=== PATIENT | female | born 1970 | race Caucasian/White ===

== ENCOUNTER 2024-04-13 15:52 | Emergency (ER) | payer OTHER, SELFPAY ==
[2024-04-13 16:21] VITALS: BP 125/69; PULSE 88; RESP 18; TEMP 36.8; O2SAT 97
[2024-04-13 16:26] LABS: EDSTREPNEGPOS1 Negative (Negative)
[2024-04-13 16:34] LABS: EDINFLUASCREEN Negative (Negative); EDINFLUBSCREEN Negative (Negative)
[2024-04-13 16:35] LABS: EDCOVIDSCREEN Negative (Negative)
--- NOTE | 2024-04-13 17:14 | ED.GENADULT ---
HPI - General Adult General Chief complaint: Upper Respiratory Infection Stated complaint: cough/sore throat/ fatigue Source: patient Mode of arrival: ambulatory Limitations: no limitations History of Present Illness HPI narrative: Patient presents for evaluation of sick symptoms since yesterday. Her primary symptom is sore throat. She has also experienced some postnasal drainage and cough. During coughing episodes she has had some vomiting. She denies nausea otherwise. No diarrhea or SOB. A family member recently had step and two other family members had a viral URI. She does not smoke. Related Data Home Medications ?Medication ?Instructions ?Recorded ?Confirmed ?Last Taken ?Type atorvastatin 10 mg tablet mg 04/13/24 Unknown History calcium carbonate mg 04/13/24 Unknown History fexofenadine 180 mg tablet mg 04/13/24 Unknown History (Allergy Relief (fexofenadine)) medroxyprogesterone 150 mg/mL mg IM 04/13/24 Unknown History intramuscular suspension metoprolol tartrate 25 mg tablet mg 04/13/24 Unknown History venlafaxine 75 mg capsule,extended mg PO 04/13/24 Unknown History release 24 hr Allergies Allergy/AdvReac Type Severity Reaction Status Date / Time No Known Allergies Allergy Verified 04/13/24 16:22 Review of Systems Review of Systems: CONSTITUTIONAL: Denies fever, chills, or sweats. EYES: Denies visual changes, redness, or discharge. ENT: Reports sore throat. Denies rhinorrhea, congestion, or otalgia. CARDIOVASCULAR: Denies chest pain, palpitations, or edema. RESPIRATORY: Reports cough. Denies shortness of breath. GASTROINTESTINAL: Reports vomiting during coughing episodes. Denies vomiting otherwise. Denies nausea or diarrhea. GENITOURINARY: Denies dysuria or hematuria. SKIN: Denies rash or itching. MUSCULOSKELETAL: Denies back pain, joint pain, or myalgia. NEUROLOGIC: Denies headache, numbness, dizziness, or weakness. PSYCHIATRIC: Denies anxiety or depression. [facility] Past Medical History Medical History No pertinent past medical history Surgical History Surgical History No pertinent past surgical history Family History Family History Mother Family history non-contributory Social History Social History Smoking status: Never smoker Substance use: never Living arrangements: with family Gender identity (if verbalized by the patient): Female Sexual Orientation (if Verbalized by the Patient): Straight or Heterosexual Spiritual care concerns: No Exam Narrative: GENERAL: Well-appearing, well-nourished, and in no acute distress. HEAD: Normocephalic, atraumatic. EYES: PERRLA and EOMI. ENT: Nares clear, no rhinorrhea or epistaxis. Mucous membranes moist. There is posterior pharyngeal erythema without exudate. Uvula is midline. Bilateral TMs pearly marin nonbulging NECK: Supple. No adenopathy or masses. No carotid bruits or JVD CHEST: Clear to auscultation. No respiratory distress. No wheezes rales or rhonchi HEART: Regular rate and rhythm. No murmur heard. Normal peripheral pulses. ABDOMEN: Soft, nontender, nondistended, normal active bowel sounds. EXTREMITIES: Normal range of motion. No edema. SKIN: Warm, dry, no rash. NEURO: No focal deficits. Alert and oriented x3. PSYCH: Normal mood and affect. Course Course Emergency Course: This is a 53-year-old female who presented for evaluation sick symptoms. Rapid strep negative. Through shared decision making opted proceed with antibiotic therapy due to recent strep exposure. Will discharge with amoxicillin. Increase hydration. [id number] agents for symptom management. Follow up with primary provider. Go to the ER for worsening symptoms. Patient in agreement with plan care plan Level of Care: Express Care Visit Vital Signs Vital signs: Vital Signs Temperature 36.8 C 04/13/24 16:21 Pulse Rate 88 04/13/24 16:21 Respiratory Rate 18 04/13/24 16:21 Blood Pressure 125/69 04/13/24 16:21 Pulse Oximetry 97 04/13/24 16:21 Oxygen Delivery Room Air 04/13/24 16:21 Temperature 36.8 C 04/13/24 16:21 Pulse Rate 88 04/13/24 16:21 Respiratory Rate 18 04/13/24 16:21 Blood Pressure 125/69 04/13/24 16:21 Pulse Oximetry 97 04/13/24 16:21 Oxygen Delivery Room Air 04/13/24 16:21 Medical Decision Making Vital Signs Vital Signs: Vital Signs Temperature 36.8 C 04/13/24 16:21 Pulse Rate 88 04/13/24 16:21 Respiratory Rate 18 04/13/24 16:21 Blood Pressure 125/69 04/13/24 16:21 Pulse Oximetry 97 04/13/24 16:21 Oxygen Delivery Room Air 04/13/24 16:21 Temperature 36.8 C 04/13/24 16:21 Pulse Rate 88 04/13/24 16:21 Respiratory Rate 18 04/13/24 16:21 Blood Pressure 125/69 04/13/24 16:21 Pulse Oximetry 97 04/13/24 16:21 Oxygen Delivery Room Air 04/13/24 16:21 Lab Data Labs: Lab Results 04/13/24 04/13/24 Range/Units 16:25 16:33 POC Influenza A Ag Negative (Negative) POC Influenza B Ag Negative (Negative) POC SARS CoV-2 Ag Negative (Negative) POC Grp A Strep Screen Negative (Negative) Discharge Plan Discharge Clinical Impression: Pharyngitis, Exposure to strep throat Patient Disposition: Home, Self-Care Condition: Stable Instructions: Antibiotic Form, Pharyngitis (ED) Patient Language: Chilean Prescriptions: New amoxicillin 500 mg tablet 500 mg PO Q12H Qty: 20 0RF No Action atorvastatin 10 mg tablet fexofenadine [Allergy Relief (fexofenadine)] 180 mg tablet venlafaxine 75 mg capsule,extended release 24hr PO calcium carbonate 500 mg calcium (1,250 mg) tablet medroxyprogesterone 150 mg/mL suspension IM metoprolol tartrate 25 mg tablet Follow-up/Referrals: John,Clemencia García [Other] Time of Disposition: 17:13
--- OUTSIDE RECORDS SUMMARY | 2024-04-18 13:15 | XMS_ITS | Encounter Summary ---
Author Organization [facility] Address [address] [place] [address] Care Team Providers Care Cma Or Lpn Name Role Phone [address] Primary Care Prov ider Encounter Details Date Type Department Care Team (Late st Contact Info) Description 11/19/2020 Orders Only [facility], [facility] [address] [facility] [place] [id number] Gerry Lew MD [facility] [facility] [address] [place] [address] Thyroid nodule Social History Tobacco Use Types Packs/Day Years Used Date Smoking Tobacco: Never Smokeless Tobacco: Never Alcohol Use Standard Drinks/Week Comments Yes 0 (1 standard drink = 0.6 oz pur e alcohol) Social Sex and Gender Information Value Date Recorded Sex Assigned at Not on file Gender Identity Not on file Sexual Orientation Not on file documented as of this encounter Plan of Treatment Not on file documented as of this encounter Visit Diagnoses Diagnosis Thyroid nodule Nontoxic uninodular goiter documented in this encounter Care Teams Cma Or Lpn Relationship Specialty Start Date End Date [address] [place], [place] [id number] PCP - General 05/20/18 documented as of this encounter
--- OUTSIDE RECORDS SUMMARY | 2024-04-18 13:15 | XMS_ITS | Clinical Summary ---
Author Organization [facility] Address [address] [place] [address] Care Team Providers Care Networks Computer Consultant Name Role Phone [address] Primary Care Prov ider Source Comments [facility],non-owned Affiliates and Associated Physician Practices is amultiple site organization consisting of ambulatory clinics and hospital sitesin [place], [place], [place] and [place]. This disclosure is being madepursuant to the Care Everywhere program and may not contain all information available regarding this patient. Last updated 18.[facility] [place] Allergies No known active allergies Medications * Be aware that medications may not be up to date on this document. Alwaysverify current medications with the patient. Medication Sig Dispensed Refills Start Date End Date Status fexofenadine-pseudoeph edrine ER 12hr (ROLDAN-D) 60-120 MG tablet Take 180 mg by mouth. 11/29/2016 Active CALTRATE 600+D 600-800 MG-UNIT tablet Take 1 tablet by mouth once daily 03/31/2018 Active vitamin D, cholecalciferol, 2000 UNITS tablet Take 2,000 Units by mouth once daily 03/31/2018 Active fluticasone propionate (FLONASE) 50 MCG/ACT nasal spray [place] 1 spray into each nostril once daily 03/13/2018 Active DEPO-PROVERA 150 MG/ML vial Every 90 days 05/02/2018 Active atorvastatin (LIPITOR) 10 MG tablet Take 10 mg by mouth at bedtime Active Active Problems Problem Noted Date Diagnosed Date Hyperlipidemia 03/27/2022 05/18/2023 Patellar malalignment syndrome of right knee 04/202005/18/2023 Abdominal pain 05/20/2018 Laboratory examination 05/20/2018 Disorder of bone and cartilage 05/20/2018 Gynecological examination 05/20/2018 Urinary frequency 05/20/2018 Overview (05/20/2018): 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; will r/o UTI Encounter for issue of repeat prescription 05/20 Screening for osteoporosis 05/20/2018 Screening examination for pulmonary tuberculosis 05/20/2018 Deviated nasal septum 11/29/2016 Mastodynia 11/29/2016 Irritable colon 11/29/2016 Hypertrophy of nasal turbinates 11/29/2016 Other chronic disease of tonsils and adenoids Chronic rhinitis 11/29/2016 Other specified enthesopathi es of unspecified lower limb, excluding foot 11/29/2016 Thyroid nodule 06/23/2015 Enthesopathy of hip region 06/09/2008 Goiter, non-toxic Immunizations Name Administration Dates Next Due FLU VACCINE TRI IIV3 SPLIT PF IM (FLUVIRIN) 01/28 HEP B VACCINE, ADULT 3 DOSE 12/01/2014, 5,06/01/2014 INFLUENZA VACCINE, QUADR. (F LUZONE; FLULAVAL; FLUARIX; AFLURIA QUADRIVALENT; 6MO+), 0.5 ML (IIV4) 03/10/2020,02/23/2016 MMR 06/29/2014,06/01/2014 TDAP (7yrs+) 05/13/2014 Family History Medical History Relation Name Comments Cancer Maternal Grandfather Diabetes Maternal Grandfather Cancer Maternal Grandmother Heart Disease Paternal Grandfather Thyroid Disease Paternal Uncle surgery on thyroid ; THYROID CANCER Asthma Neg Hx COPD - Chronic Obstructive Pulmonary Disease Neg Hx CVA Neg Hx Elevated Lipids Neg Hx Hypertension Neg Hx Kidney Disease Neg Hx Relation Name Status Comments Maternal Grandfather Maternal Grandmother Paternal Grandfather Paternal Uncle Social History Tobacco Use Types Packs/Day Years Used Date Smoking Tobacco: Never Smokeless Tobacco: Never Tobacco Cessation:Counseling Given: Not Answered Alcohol Use Standard Drinks/Week Comments Yes 0 (1 standard drink = 0.6 oz pur e alcohol) Social Sex and Gender Information Value Date Recorded Sex Assigned at Not on file Gender Identity Not on file Sexual Orientation Not on file Last Filed Vital Signs Vital Sign Reading Time Taken Comments Blood Pressure 123/79 05/18/2023 11:05 AM [employer] Pulse 89 05/18/2023 11:05 AM [employer] Temperature 37 ??C (98.6 ??F) 05/18/2023 11:05 AM [employer] Respiratory Rate 18 05/18/2023 11:05 AM [employer] Oxygen Saturation 99% 05/18/2023 11:05 AM [employer] Inhaled Oxygen Concentration - - Weight 74.4 kg (164 lb) 05/18/2023 11:05 AM [employer] Height 162.6 cm (5' 4 ) 05/26/2020 4:21 PM [employer] Body Mass Index 28.15 05/26/2020 4:21 PM [employer] Plan of Treatment Health Maintenance Due Date Last Done Comments COLOGUARD (AGES 45-75) - COLON CA SCREENING 1971 COLON MONITORING 1971 COLONOSCOPY - COLON CA SCREENING 1971 CT COLONOGRAPHY - COLON CA SCREENING 1971 Colorectal Cancer Screening 1971 FIT - COLON CA SCREENING 1971 FLEX SIG - COLON CA SCREENING 1971 PAP SMEAR 1971 HIV SCREENING 08/13/1986 HEPATITIS C SCREENING 08/09/1989 ZOSTER VACCINE (1 of 2) 08/13/2021 DEPRESSION SCREENING 04/30/2023 COVID-19 VACCINE ( season) 2023 07/10/2020, 06/15/2020 INFLUENZA VACCINE (#1) 2023 3, 03/02/2022, 03/29/2021, Additional history exists MAMMOGRAM 01/29/2024 01/28/2022, 12/30, 12/10/2019 DTAP/TDAP/TD VACCINES (2 - Td or Tdap) 05/13/2024 05/13/2014 HEPATITIS B VACCINE Completed 12/01/2014, 06/29/2014, 06/01/2014 HIB VACCINE Aged Out No longer eligi ble based on patient's age to complete this topic HPV VACCINE Aged Out No longer eligi ble based on patient's age to complete this topic MENINGOCOCCAL VACCINE Aged Out No víctor ky eligible based on patient's age to complete this topic PNEUMOCOCCAL VACCINE Aged Out No long er eligible based on patient's age to complete this topic Care Teams Networks Computer Consultant Relationship Specialty Start Date End Date [address] [facility] [address] [place] [address] PCP - General 05/20/18
--- OUTSIDE RECORDS SUMMARY | 2024-04-18 13:15 | XMS_ITS | Patient Health Summary ---
Author Organization [facility] Address [address] [place] [address] Care Team Providers Care Farm Reporter Name Role Phone [address] Primary Care Prov ider Note from [facility],non-owned Affiliates and Associated Physician Practices is amultiple site organization consisting of ambulatory clinics and hospital sitesin [place], [place], [place] and [place]. This disclosure is being madepursuant to the Care Everywhere program and may not contain all information available regarding this patient. Last updated 18.[facility] Allergies No known active allergies Medications * Be aware that medications may not be up to date on this document. Alwaysverify current medications with the patient. * fexofenadine-pseudoephedrine ER 12hr (ROLDAN-D) 60-120 MG tablet(Started 11/29/2016) Take 180 mg by mouth. * CALTRATE 600+D 600-800 MG-UNIT tablet(Started 03/31/2018) Take 1 tablet by mouth once daily * vitamin D, cholecalciferol, 2000 UNITS tablet(Started 03/31/2018) Take 2,000 Units by mouth once daily * fluticasone propionate (FLONASE) 50 MCG/ACT nasal spray(Started 03/13/2018) [place] 1 spray into each nostril once daily * DEPO-PROVERA 150 MG/ML vial(Started 05/02/2018) Every 90 days * atorvastatin (LIPITOR) 10 MG tablet Take 10 mg by mouth at bedtime Active Problems Problem Noted Date Diagnosed Date Hyperlipidemia 03/27/2022 05/18/2023 Patellar malalignment syndrome of right knee 04/202005/18/2023 Abdominal pain 05/20/2018 Laboratory examination 05/20/2018 Disorder of bone and cartilage 05/20/2018 Gynecological examination 05/20/2018 Urinary frequency 05/20/2018 Encounter for issue of repeat prescription 05/20 Screening for osteoporosis 05/20/2018 Screening examination for pulmonary tuberculosis 05/20/2018 Deviated nasal septum 11/29/2016 Mastodynia 11/29/2016 Irritable colon 11/29/2016 Hypertrophy of nasal turbinates 11/29/2016 Other chronic disease of tonsils and adenoids Chronic rhinitis 11/29/2016 Other specified enthesopathi es of unspecified lower limb, excluding foot 11/29/2016 Thyroid nodule 06/23/2015 Enthesopathy of hip region 06/09/2008 Goiter, non-toxic Immunizations * FLU VACCINE TRI IIV3 SPLIT PF IM (FLUVIRIN)(Given 02/15/2015) * HEP B VACCINE, ADULT 3 DOSE(Given 12/01/2014, 06/29/2014, 06/01/2014) * INFLUENZA VACCINE, QUADR. (FLUZONE; FLULAVAL; FLUARIX; AFLURIA QUADRIVALENT; 6MO+), 0.5 ML (IIV4)(Given 03/10/2020, 02/23/2016) * MMR(Given 06/29/2014, 06/01/2014) * TDAP (7yrs+)(Given 05/13/2014) Social History Tobacco Use Types Packs/Day Years [...] Comments Blood Pressure 123/79 05/18/2023 11:05 AM PHONE SPECIALIST Pulse 89 05/18/2023 11:05 AM PHONE SPECIALIST Temperature 37 ??C (98.6 ??F) 05/18/2023 11:05 AM PHONE SPECIALIST Respiratory Rate 18 05/18/2023 11:05 AM PHONE SPECIALIST Oxygen Saturation 99% 05/18/2023 11:05 AM PHONE SPECIALIST Inhaled Oxygen Concentration - - Weight 74.4 kg (164 lb) 05/18/2023 11:05 AM PHONE SPECIALIST Height 162.6 cm (5' 4 ) 05/26/2020 4:21 PM PHONE SPECIALIST Body Mass Index 28.15 05/26/2020 4:21 PM PHONE SPECIALIST Procedures * LAB RESULTS ORDER(Performed 05/24/2023) * NE US SOFT TISS HEAD&NCK R-T IMG(Performed 05/18/2023) Performed for Thyroid nodule * LAB RESULTS ORDER(Performed 05/27/2020) * NE US SOFT TISS HEAD&NCK R-T IMG(Performed 05/26/2020) Performed for Thyroid nodule * LAB RESULTS ORDER(Performed 05/19/2020) * LAB RESULTS ORDER(Performed 05/14/2020) * NE US SOFT TISS HEAD&NCK R-T IMG(Performed 05/24/2019) Performed for Thyroid nodule, Goiter, non-toxic * LAB RESULTS ORDER(Performed 05/09/2019) * LAB RESULTS ORDER(Performed 12/03/2017) * LAB RESULTS ORDER(Performed 10/19/2017) * LAB HISTORICAL RESULTS-ONBASE(Performed 07/11/2016) * LAB HISTORICAL RESULTS-ONBASE(Performed 07/11/2016) * TSH(Performed 06/23/2015) Results * LAB RESULTS ORDER (05/24/2023) Only the most recent of7 resultswithin the time period is included. 05/24/2023 Narrative 05/24/2023 Ordered by an unspecified provider. Scanned Document LAB - THERAPEUTIC DR UG MONITORING ORDERABLES * NE US SOFT TISS HEAD&NCK R-T IMG (05/18/2023 1:34 PM PHONE SPECIALIST) Narrative Gerry Lew MD - 05/18/2023 1:34 PM PHONE SPECIALIST Gerry Lew MD ? 05/18/2023 ??2:01 PM Ultrasound ??Of ??Thyroid Ultrasound of the Thyroid PHYSICIAN ??Gerry Lew MD FELLOW ??Ricky CARTER MD Test Date: 05/18/2023 Test Indication: Patient Active Problem List: ?? Deviated nasal septum ?? Mastodynia ?? Irritable colon ?? Hypertrophy of nasal turbinates ?? Other chronic disease of tonsils and adenoids ?? Chronic rhinitis ?? Other specified enthesopathies of unspecified lower limb, excluding foot ?? Thyroid nodule ?? Abdominal pain ?? Enthesopathy of hip region ?? Laboratory examination ?? Disorder of bone and cartilage ?? Gynecological examination ?? Urinary frequency ?? Encounter for issue of repeat prescription ?? Screening for osteoporosis ?? Screening examination for pulmonary tuberculosis ?? Goiter, non-toxic ?? Hyperlipidemia ?? Patellar malalignment syndrome of right knee ?? Referring Physician: Dr. bates [facility] Procedure Preformed: Ultrasound Only COMPARED TO : ?05/23/2019, 05/26/2020 Nodule Size: RIGHT LOBE NUMEROUS CYSTS THROUGH OUT LOBE , MEASURED MOST IN TRANSVERSE IMAGE TRANSVERSE IMAGE ??UPPER POLE, LATERAL CYST, 0.43 X 0.26 CM ??UPPER POLE, SPONGIFORM NODULE, MEDIAL, 0.71 X 0.33 CM ??UPPER POLE, CYST, 0.40 X 0.26 CM ??UPPER POLE, MEDIAL, CYST WITH COMET TAIL ARTIFACT, 0.51 X 0.28 CM ??MID LOBE CYST, 0.40 X 0.30 CM ??MID LOBE , CYST, LATERAL, 0.48 X 0.38 CM ??MID LOBE, CYSTIC/ SOLID, 0.49 X 0.40 CM ??MID LOBE, CYST, 0.33 X 0.17 CM ??MID LOBE, ANTERIOR, MEDIAL, CYST, 0.30 X 0.19 CM ??MID LOBE, LATERAL, CYSTIC/SOLID, 0.38 X 0.29 CM ??MID LOBE, MEDIAL, CYST, 0.33 X 0.21 CM ??INFERIOR POLE, LATERAL, CYST, 0.39 X 0.22 CM ??#1 ??INFERIOR POLE, ANTERIOR, SPONGIFORM NODULE, 1.04 X 0.64 CM , SECOND IMAGE 1.08 X 0.61 CM LONGITUDINAL IMAGE ??#1 ??1.47 X 0.48 CM ??SOME OTHER NODULES WERE MEASURED IN THIS VIEW OF THE LOBE ?? UPPER POLE, C YST, 0.51 X 0.30 CM ?? UPPER POLE, ANTERIOR, SPONGIFORM NODULE, 0.75 X 0.36 CM ?? MID LOBE, CYST, 0.65 X 0.41 CM ?? MID LOBE, SPONGIFORM , 0.66 X 0.40 CM ?? MID LOBE, CYST, 0.42 X 0.22 CM ?? INFERIOR POLE, CYST, 0.26 X 0.18 CM ?? INFERIOR POLE , CYST, 0.38 X 0.19 CM LEFT LOBE TRANSVERSE IMAGE ??#1 ??UPPER POLE, POSTERIOR, SPONGIFORM, 0.61 X 0.34 CM ??#2 ?? UPPER POLE, ANTERIOR, SPONGIFORM, 0.66 X 0.39 CM ??#3 ?MID LOBE, ANECHOIC CYST, 0.96 X 0.75 CM ??#4 ?INFERIOR POLE, CYSTIC/ SOLID, ISOECHOIC, SMOOTH BORDER, SPONGIFORM, 1.96 X 0.83 CM ??#5 ?MID LOBE, ANTERIOR, MEDIAL, CYST, 0.46 X 0.26 CM ??#6 ?MID LOBE, ANECHOIC, CYST, ??0.45 X 0.30 CM ??#7 ?UPPER POLE, ANTERIOR, CYST, 0.28 X 0.20 CM ??#8 ?UPPER POLE CYST, 0.21 X 0.17 CN ??#9 ?UPPER POLE, CYST, 0.22 X 0.18 CM LONGITUDINAL IMAGE ??#1 ??0.71 X 0.43 CM ??#2 ??0.78 X 0.39 CM ??#3 ?1.29 X 0.87 CM ??#4 ?1.82 X 0.78 CM, ??SECOND IMAGE ??1.88 X 0.85 CM Echogenicity: HETEROGENEOUS ECHO TEXTURE TO BOTH LOBES Vascularity: NOT INCREASED OR ABNORMAL Number of Nodules Present: NUMEROUS ANECHOIC OR COMPLEX CYSTS IN BOTH LOBES Calcifications: NONE Borders: SHARP RIGHT LOBE TRANSVERSE IMAGE : ??1.71 X 1.12 CM LONGITUDINAL IMAGE: ??5.62 CM ISTHMUS : ??0.21 CM LEFT LOBE TRANSVERSE IMAGE : ??1.67 X 1.39 CM LONGITUDINAL IMAGE : ??5.02 CM ASSESSMENT NO CHANGE IN LARGEST NODULE FROM US DONE OUTSIDE IN 2022 EUTHYROID CLINICALLY NO CHANGE IN US DESCRIPTION FROM PRIOR US AT [facility] BY ME Recommendations: PLAN THYROID ULTRASOUND TODAY LAB SOON FOR TSH MEDICATION - NONE INDICATED FOR THYROID RETURN IN TWO ??YEARS FOR ??ULTRASOUND AT LEAST ANNUAL TSH DETERMINATION IF TSH GREATER THAN 5 WILL OBTAIN FREE T4 IF TSH LESS THAN 0.1 WILL OBTAIN FREE T4 AND FREE T3 Gerry Lew MD Division of Endocrinology Gerry Lew MD PROCEDURE/MINOR MANUELA GICAL ORDERABLES * NE US SOFT TISS HEAD&NCK R-T IMG (05/26/2020 5:22 PM PHONE SPECIALIST) Narrative Gerry Lew MD - 05/26/2020 5:22 PM PHONE SPECIALIST Gerry Lew MD ? 05/26/2020 ??5:54 PM Ultrasound ??Of ??Thyroid Ultrasound of the Thyroid PHYSICIAN ?? Gerry Lew MD FELLOW NONE Test Date: 05/26/2020 Test Indication: Patient Active Problem List: ?? Deviated nasal septum ?? Mastodynia ?? Irritable colon ?? Hypertrophy of nasal turbinates ?? Other chronic disease of tonsils and adenoids ?? Chronic rhinitis ?? Other specified enthesopathies of unspecified lower limb, excluding foot ?? Thyroid nodule ?? Abdominal pain ?? Enthesopathy of hip region ?? Laboratory examination ?? Disorder of bone and cartilage ?? Gynecological examination ?? Urinary frequency ?? Encounter for issue of repeat prescription ?? Screening for osteoporosis ?? Screening examination for pulmonary tuberculosis ?? Goiter, non-toxic ?? [facility] Phys[facility] Procedure Preformed: Ultrasound Only COMPARED TO 05/23/2019 Nodule Size: RIGHT LOBE TRANSVERSE IMAGE: ??MULTIPLE HYPOECHOIC CYSTS THROUGHOUT LOBE, MEASURED SOME BUT NOT ALL AND MOSTLY ONLY MEASURED THIS VIEW ??SUPERIOR MEDIAL 0.42 X 0.30 CM; ??SUPERIOR LATERAL ??0.30 X 0.20 CM; ??SUPERIOR LATERAL 0.46 X 0.33 CM; ??MID LOBE LATERAL 0.65 X 0.33 CM; ??MID LOBE 0.40 X 0.17 CM; ?INFERIOR MEDIAL 0.31 X 0.20 CM; ??INFERIOR MEDIAL NEAR ISTHMUS 0.76 X 0.44 CM, SECOND IMAGE 0.72 X 0.49 CM, THIRD IMAGE 0.96 X 0.55 CM, FOURTH IMAGE FROM VIEW OD ?? ISTHMUS ??0.66 X 0.38 ??CM ?? COMPLEX CYST, WITH COMET TAIL ARTIFACT; ??INFERIOR POSTERIOR 0.35 X 0.25 CM; ?? LONGITUDINAL IMAGE: ??ONLY A FEW MEASURED : ??MID LOBE 0.65 X 0.25 CM; ??MID LOBE 0.33 X 0.21 CM; ?? ISTHMUS INFERIOR RIGHT LOBE MEDIAL NEAR ISTHMUS SEE ABOVE ALSO 0.73 X 0.54 CM, SPONGIFORM; ?? LEFT LOBE TRANSVERSE IMAGE: ??MULTIPLE HYPOECHOIC CYSTS THROUGH OUT LOBE, SOME ARE MEASURED AND ONLY IN THIS VIEW: ??SUPERIOR POLE 0.31 X 0.22 CM; ??SUPERIOR POLE, ?SPONGIFORM , 0.65 X 0.34 CM; ?? POSTERIOR MID LOBE WITH COMET TAIL ARTIFACTS 0.62 X 0.41 CM; ??MID LOBE LATERAL 0.40 X 0.30 CM; ??MID LOBE 0.35 X 0.28 CM; ?MID LOBE ANTERIOR HYPOECHOIC, SOLID SMOOTH 0.49 X 0.35 CM; ??MID TO INFERIOR POLE LATERAL 0.23 X 0.16 CM; ?? INFERIOR POLE, ANTERIOR, SMOOTH BORDER, COMPLEX ??CYST 1.13 X 0.74 CM; ?? LONGITUDINAL IMAGE: ??ONLY SOME MEASURED ??INFERIOR POLE CYSTIC/SOLID, SPONGIFORM, SMOOTH BORDER 1.26 X 0.70 CM, 1.23 ??X 0.64 CM SECOND IMAGE; SUPERIOR TO MID LOBE CYST 0.49 X 0.29 CM; ?? Echogenicity: HETEROGENEOUS ECHO TEXTURE TO BOTH LOBES Vascularity: NOT INCREASED OR ABNORMAL Number of Nodules Present: SEE ABOVE , MANY, LESS THAN 1.0 CM Calcifications: NONE Borders: SHARP RIGHT LOBE TRANSVERSE IMAGE: ??1.92 X 1.30 CM LONGITUDINAL IMAGE: ??5.84 CM ISTHMUS: ??0.20 CM LEFT LOBE TRANSVERSE IMAGE: ??1.90 X 1.03 CM LONGITUDINAL IMAGE: ??5.22 CM ?? ASSESSMENT MULTINODULAR THYROID EUTHYROID NO CHANGE IN ULTRASOUND APPEARANCE NODULES DO NOT MEET MILAGROS CRITERIA FOR FNA BIOPSY Recommendations: PLAN THYROID ULTRASOUND TODAY REPEAT ULTRASOUND IN TWO YEARS AT LEAST ANNUAL TSH DETERMINATION RETURN IN TWO YEARS FOR ULTRASOUND IF TSH GREATER THAN 5 WILL OBTAIN FREE T4 IF TSH LESS THAN 0.1 WILL OBTAIN FREE T4 AND FREE T3 REVIEWED ULTRASOUND IMAGES WITH PATIENT DISCUSSED FOLLOW AND NEED FOR ANNUAL TSH Gerry Lew MD Division of Endocrinology Gerry Lew MD PROCEDURE/MINOR MANUELA GICAL ORDERABLES * NE US SOFT TISS HEAD&NCK R-T IMG (05/24/2019 11:40 PM PHONE SPECIALIST) Narrative Gerry Lew MD - 05/24/2019 11:40 PM PHONE SPECIALIST Gerry Lew MD ? 05/24/2019 11:50 PM Ultrasound ??Of ??Thyroid Ultrasound of the Thyroid PHYSICIAN ?? Gerry Lew MD FELLOW ??Sulaiman DEL RIO Test Date: 05/24/2019 Test Indication: Patient Active Problem List: ?? Deviated nasal septum ?? Mastodynia ?? Irritable colon ?? Hypertrophy of nasal turbinates ?? Other chronic disease of tonsils and adenoids ?? Chronic rhinitis ?? Other specified enthesopathies of unspecified lower limb, excluding foot ?? Thyroid nodule ?? Abdominal pain ?? Enthesopathy of hip region ?? Laboratory examination ?? Disorder of bone and cartilage ?? Gynecological examination ?? Urinary frequency ?? Encounter for issue of repeat prescription ?? Screening for osteoporosis ?? Screening examination for pulmonary tuberculosis ?? Goiter, non-toxic ?? Referring Physician: [facility] Procedure Preformed: Ultrasound Only Nodule Size: MULTIPLE HYPOECHOIC CYSTS THROUGHOUT BOTH LOBES , SOME ARE MEASURED BELOW BUT NOT ALL AND TRANSVERSE IMAGES NOT CORRELATED WITH LONGITUDINAL IMAGES RIGHT LOBE TRANSVERSE IMAGE: ??0.45 X 0.37 CM, ??0.16 X 0.10 CM, ??0.32 X 0.39 CM, ??0.48 X 0.35 CM, ??0.24 X 0.14 CM, ??0.31 X 0.16 CM, ??0.65 X 0.41 CM, ??0.34 X 0.17 CM LONGITUDINAL IMAGE: ??0.66 X 0.34 CM, ??0.56 X 0.34 CM, ??0.31 X 0.21 CM, ??0.22 X 0.14 CM, 0.84 X 0.28 CM, ??0.36 X 0.23 CM LEFT LOBE TRANSVERSE IMAGE: ??0.29 X 0.17 CM, ??0.58 X 0.35 CM, ??0.36 X 0.26 CM, ??0.50 X 0.31 CM, ??1.11 X 0.61 CM COMPLEX CYST LONGITUDINAL IMAGE: ??1.02 X 0.45 CM, ??0.76 X 0.34 CM, ??1.36 X 0.65 CM, ??0.36 X 0.20 CM Echogenicity: HETEROGENEOUS ECHO TEXTURE TO BOTH LOBES Vascularity: NOT INCREASED OR ABNORMAL Number of Nodules Present: MANY HYPOECHOIC CYSTS IN BOTH LOBES Calcifications: NONE Borders: SHARP RIGHT LOBE TRANSVERSE IMAGE : ??1.79 X 1.20 CM LONGITUDINAL IMAGE: ??5.37 CM ISTHMUS: ??0.21 CM LEFT LOBE TRANSVERSE IMAGE: ??1.50 X 1.11 CM LONGITUDINAL IMAGE: ??6.21 CM ASSESSMENT MULTI NODULAR GOITER EUTHYROID NO CHANGE IN THYROID GLAND APPEARANCE ON ULTRASOUND EXAMINATION Recommendations: PLAN THYROID ULTRASOUND TODAY AT LEAST ANNUAL TSH DETERMINATION RETURN IN ONE YEAR LAB IN ONE YEAR Gerry Lew MD Division of Endocrinology Gerry Lew MD PROCEDURE/MINOR MANUELA GICAL ORDERABLES * LAB HISTORICAL RESULTS-ONBASE (07/11/2016) Only the most recent of2 resultswithin the time period is included. 07/11/2016 Historical Provider LAB - CHEMISTRY O RDERABLES [facility] [address] * TSH (06/23/2015 10:56 AM PHONE SPECIALIST) TSH 0.994 0.350 - 4.940 uIU/mL [facility] Blood specimen (specimen) BLOOD SPECIMEN / Unknown 06/23/2015 10:56 AM PHONE SPECIALIST 06/23/2015 11:00 AM PHONE SPECIALIST Gerry Lew MD LAB - CHEMISTRY ORD ERABLES Performing Organization Address City/[facility]/ZIP Co de Phone Number [facility] [address] [phone] Care Teams Farm Reporter Relationship Specialty Start Date End Date [facility] [address] [place] [address] PCP - General 05/20/18
--- OUTSIDE RECORDS SUMMARY | 2024-04-18 13:15 | XMS_ITS | Referral Summary ---
Author Organization [facility] Address [address] [address] Care Team Providers Care Manager Books Name Role Phone [address] Primary Care Prov ider Source Comments [facility],non-owned Affiliates and Associated Physician Practices is amultiple site organization consisting of ambulatory clinics and hospital sitesin [place], [place], [place] and [place]. This disclosure is being madepursuant to the Care Everywhere program and may not contain all information available regarding this patient. Last updated 18.[facility] Allergies No known active allergies Medications * [...] fluticasone propionate (FLONASE) 50 MCG/ACT nasal spray [place] 1 spray into each nostril once daily [...] (IIV4) 03/10/2020,02/23/2016 MMR 06/29/2014,06/01/2014 TDAP (7yrs+) 05/13/2014 Social History Tobacco Use Types Packs/Day Years [...] Comments Blood Pressure 123/79 05/18/2023 11:05 AM CHARRER Pulse 89 05/18/2023 11:05 AM CHARRER Temperature 37 ??C (98.6 ??F) 05/18/2023 11:05 AM CHARRER Respiratory Rate 18 05/18/2023 11:05 AM CHARRER Oxygen Saturation 99% 05/18/2023 11:05 AM CHARRER Inhaled Oxygen Concentration - - Weight 74.4 kg (164 lb) 05/18/2023 11:05 AM CHARRER Height 162.6 cm (5' 4 ) 05/26/2020 4:21 PM CHARRER Body Mass Index 28.15 05/26/2020 4:21 PM CHARRER Plan of Treatment Not on file Administered Medications Care Teams Manager Books Relationship Specialty Start Date End Date [facility] [address] [place], [place] [address] PCP - General 05/20/18
--- OUTSIDE RECORDS SUMMARY | 2024-04-18 13:15 | XMS_ITS | Encounter Summary ---
Author Organization [facility] Address [address] [place] [address] Care Team Providers Care County Supervisor Name Role Phone [address] Primary Care Prov ider Encounter Details Date Type Department Care Team (Late st Contact Info) Description 11/16/2023 Orders Only [facility] - Endocrinology [address] [place] [address], [place] [id number] Gerry Lew MD [address] [place] [address] [place] [address] Thyroid nodule Social History Tobacco Use Types [...] goiter documented in this encounter Care Teams County Supervisor Relationship Specialty Start Date End Date [address] [place], [place] [id number] PCP - General 05/20/18 documented as of this encounter
--- OUTSIDE RECORDS SUMMARY | 2024-04-18 13:15 | XMS_ITS | Encounter Summary ---
Author Organization [facility] Address [facility] [place] [address] Care Team Providers Care Corporate Accounting Manager Name Role Phone [address] Primary Care Prov ider Reason for Visit * Reason Comments Thyroid Problem THYROID NODULE MULTI NODULAR THYROID * Consult, Test & Treat (Routine) - Closed Specialty Diagnoses / Procedures Referred By Contac t Referred To Contact Endocrinology Diagnoses Nontoxic single thyroid nodule Procedures [facility] UNLISTED E/M SERVICE Nathalia Rodriguez MD [address] [place] [phone] Gerry Lew MD [address] [place] [address] [address] [address] Referral ID Status Reason Start Date Expiration Date Visits Re quested Visits Authorized [id number] Closed 02/09/2023 08/08/2023 4 4 Encounter Details Date Type Department Care Team (Late st Contact Info) Description 05/18/2023 11:00 AM ATM SERVICER Office Visit [facility] - Endocrinology [address] [place] [address], [place] [phone] Gerry Lew MD [address] [place] [address] 2[address] [place] [address] Thyroid nodule (Primary Dx) Social History Tobacco Use Types Packs/Day Years [...] on file documented as of this encounter Last Filed Vital Signs Vital Sign Reading Time Taken Comments Blood Pressure 123/79 05/18/2023 11:05 AM ATM SERVICER Pulse 89 05/18/2023 11:05 AM ATM SERVICER Temperature 37 ??C (98.6 ??F) 05/18/2023 11:05 AM ATM SERVICER Respiratory Rate 18 05/18/2023 11:05 AM ATM SERVICER Oxygen Saturation 99% 05/18/2023 11:05 AM ATM SERVICER Inhaled Oxygen Concentration - - Weight 74.4 kg (164 lb) 05/18/2023 11:05 AM ATM SERVICER Height - - Body Mass Index 28.15 05/26/2020 4:21 PM ATM SERVICER documented in this encounter Patient Instructions * Patient Instructions* Gerry Lew MD - 05/17/2023 9:23 AM ATM SERVICER BP 123/79 (BP SITE: RIGHT ARM, BP POSITION: SITTING, BP Cuff Size: L) Pulse 89 Temp 98.6 ??F (37 ??C) Resp 18 Wt 74.4 kg (164 lb) SpO2 99% How to Contact Us Between Office Visits Please make your follow up appointment before you leave the office today. If you are unable to makethe appointment today, please contact us at [phone]. To make an appointment: Please call us at [phone], option 1. To requesting refills or leaving a message for your doctor, Please call [phone], option 2. This is the option to speak to a nurse if they are available. We request that all prescription refills be requested during regular office phone hours. Phone lines are open from 8:00 am to 4:30 pm Sunday through Sunday. Our fax number is [phone]. After hours urgent calls that cannot wait untill phone lines are open on the next business day are given to the Endocrine physician pig iron loader. Please call [phone] and identify yourself as a patient in our practice with your doctor's name. The head soft sugar operator will contact the physician pig iron loader. You can g enerally expect a return call within 30 minutes. On weekends, physicians are seeing hospitalized patients and there may be a longer wait. Test and laboratory results: Our practice typically reports lab and test results through letters orMYChart, the [employer] online patient portal. Please allow 5 days from when your tests are completed to receive the results. Visit our website at [email or web address] for additional information about [employer] and an interactive health encyclopedia. PLAN THYROID ULTRASOUND TODAY LAB SOON FOR TSH MEDICATION - NONE INDICATED FOR THYROID RETURN IN TWO YEARS FOR ULTRASOUND AT LEAST ANNUAL TSH DETERMINATION IF TSH GREATER THAN 5 WILL OBTAIN FREE T4 IF TSH LESS THAN 0.1 WILL OBTAIN FREE T4 AND FREE T3 SERVICER documented in this encounter Progress Notes * Omayra Rice MD - 05/18/2023 1:25 PM CST Images from the original note were not included. [facility] Endocrinology Follow up Note Date of Service- 05/18/2023 Primary care Doctor: [address] [place] [address] Clinicp CC: History of Present Illness: Daron Ragsdale is a 52 year old female with multinodular thyroid, euthyroid. Here for US thyroid follow up. Last visit was on 05/26/2020 and plan was to see her in 2 years. More than 2 years has passed since last seen, during that time patient complained of palpitations, saw cards with negativeecho x2, holter monitor negative, stress test negative as per pt. PCP did a TSH and US of thyroid in 08/2022 for that reason. On anxiety pills after seeing cardiology. Pt complains of sob when climbing stair, ET unlimited. 10 lbs gained in 6 months Tightness in throat sometimes Constipation. LABS Component Ref Range & Units 8 mo ago TSH 0.450 - 4.500 0.727 Specimen Collected: 08/28/22 Last Resulted: 08/29/22 Received From: [facility] Result Received: 05/18/23 10:38 ?? Component Ref Range & Units 8 mo ago FREE T4 0.82 - 1.77 1.19 Specimen Collected: 08/28/22 Last Resulted: 08/29/22 Received From: [facility] Result Received: 05/18/23 10:38 ?? 05/26/2020 tus procedure preformed:??ultrasound only?? compared to 05/23/2019 nodule size:?? right lobe ?transverse image: ??multiple hypoechoic cysts throughout lobe, measured some but not all and mostly only measured this view ?superior medial 0.42 x 0.30 cm; ??superior lateral ??0.30 x 0.20 cm; ??superior lateral 0.46 x 0.33 cm; ??mid lobe lateral 0.65 x 0.33 cm; ??mid lobe 0.40 x 0.17 cm; ?inferior medial 0.31 x 0.20 cm; ??inferior medial near isthmus 0.76 x 0.44 cm, second image 0.72 x 0.49 cm, third image 0.96 x 0.55 cm, fourth image from view od ?isthmus ??0.66 x 0.38 ??cm ??complex cyst, with comet tail artifact; ??inferior posterior 0.35 x 0.25 cm; ?longitudinal image: ??only a few measured : ??mid lobe 0.65 x 0.25 cm; ??mid lobe 0.33 x 0.21 cm; ? isthmus ?inferior right lobe medial near isthmus see above also 0.73 x 0.54 cm, spongiform; ?? left lobe ?transverse image: ??multiple hypoechoic cysts through out lobe, some are measured and only in this view: ??superior pole 0.31 x 0.22 cm; ??superior pole, ?spongiform , 0.65 x 0.34 cm; ??posterior mid lobewith comet tail artifacts 0.62 x 0.41 cm; ??mid lobe lateral 0.40 x 0.30 cm; ??mid lobe 0.35 x 0.28cm; ?mid lobe anterior hypoechoic, solid smooth 0.49 x 0.35 cm; ??mid to inferior pole lateral 0.23 x 0.16 cm; ?inferior pole, anterior, smooth border, complex ?cyst 1.13 x 0.74 cm; ?longitudinal image: ??only some measured ?inferior pole cystic/solid, spongiform, smooth border 1.26 x 0.70 cm, 1.23 ??x 0.64 cm second image; superior to mid lobe cyst 0.49 x 0.29 cm; ?? echogenicity:??heterogeneous echo texture to both lobes?? vascularity:??not increased or abnormal?? number of nodules present:??see above , many, less than 1.0 cm?? calcifications:??none?? borders:??sharp right lobe ?transverse image: ??1.92 x 1.30 cm ?longitudinal image: ??5.84 cm isthmus: ??0.20 cm left lobe ?transverse image: ??1.90 x 1.03 cm ?longitudinal image: ??5.22 cm ?? assessment multinodular thyroid euthyroid no change in ultrasound appearance nodules do not meet anne marie criteria for fna biopsy?? 05/23/2019 tus procedure preformed:??ultrasound only nodule size:?? multiple hypoechoic cysts throughout both lobes , some are measured below but not all and transverse images not correlated with longitudinal images right lobe ?transverse image: ??0.45 x 0.37 cm, ??0.16 x 0.10 cm, ??0.32 x 0.39 cm, ??0.48 x 0.35 cm, ??0.24 x 0.14 cm, ??0.31 x 0.16 cm, ??0.65 x 0.41 cm, ??0.34 x 0.17 cm ?longitudinal image: ??0.66 x 0.34 cm, ??0.56 x 0.34 cm, ??0.31 x 0.21 cm, ??0.22 x 0.14 cm, 0.84 x 0.28 cm, ??0.36 x 0.23 cm ?? left lobe ?transverse image: ??0.29 x 0.17 cm, ??0.58 x 0.35 cm, ??0.36 x 0.26 cm, ??0.50 x 0.31 cm, ??1.11 x 0.61 cm complex cyst ?longitudinal image: ??1.02 x 0.45 cm, ??0.76 x 0.34 cm, ??1.36 x 0.65 cm, ??0.36 x 0.20 cm echogenicity:??heterogeneous echo texture to both lobes?? vascularity:??not increased or abnormal?? number of nodules present:??many hypoechoic cysts in both lobes calcifications:??none?? borders:??sharp right lobe ?transverse image : ??1.79 x 1.20 cm ?longitudinal image: ??5.37 cm isthmus: ??0.21 cm left lobe ?transverse image: ??1.50 x 1.11 cm ?longitudinal image: ??6.21 cm assessment multi nodular goiter euthyroid no change in thyroid gland appearance on ultrasound examination?? recommendations:?? plan return in one year 11/29/2016 tus procedure preformed: ultrasound only nodule size: right lobe ?transverse image: ??largest hypoechoic cyst mid lobe lateral 1.12 x 0.88 cm; ??other hypoechoic cysts in lobe: ??0.36 x 0.20 cm, ??0.37 x 0.29 cm, ??0.23 x 0.13 cm, ??0.26 x 0.20 cm, ??0.36 x 0.27 cm, ??0.20 x 0.12 cm, ??0.34 x 0.35 cm ?longitudinal image: ??largest hypoechoic cyst lateral 1.73 x 0.76 cm; ??other hypoechoic cysts in lobe: ??0.32 x 0.18 cm, ??0.23 x 0.14 cm,, ??0.23 x 0.21 cm, ?0.21 x 0.30 cm, ??0.47 x 0.26 cm left lobe ?transverse image: ??hypoechoic cysts: ??0.20 x 0.12 cm, ??0.50 x 0.27 cm, 0.37 x 0.22 cm, ??0.40 x 0.18 cm, ??0.31 x 0.19 cm, 0.68 x 0.43 cm, ?longitudinal image: hypoechoic cysts: ??0.78 x 0.45 cm, ??0.36 x 0.21 cm, ??0.51 x 0.24 cm, 0.82 x 0.46 cm, ?? echogenicity: homogeneous vascularity: not increased or abnormal number of nodules present: numerous hypoechoic cysts calcifications: none borders: sharp right lobe ?transverse image: ??1.97 x 1.32 cm ?longitudinal image: ??4.49 cm isthmus: ??0.21 cm left lobe ?transverse image: ??1.89 x 1.06 cm ?longitudinal image: 4.2 cm Assesment: US in 2 years. ?? LAB 05/12/2020 ANTI TG <1.0 NORMAL 0-0.9 ANTI TPO <9 0-34 05/12/2020 TSH 0.73 NORMAL 0.34-4.94 05/07/2019 TSH ? 0.35?NORMAL?0.34-4.94 07/11/2016 TSH ?1.23 ?NORMAL 0.34-4.94?10/17/2017 TSH ? 0.53 ?NORMAL 0.34-4.94 07/11/2016 TSH ?1.23 ?NORMAL 0.34-4.94? Results for DARON RAGSDALE ( ) as of 05/26/2020 16:12 ?? Ref. Range 06/23/2015 10:56 TSH Latest Ref Range: 0.350 - 4.940 uIU/mL 0.994 ?? Current Outpatient Medications Medication Sig ??? atorvastatin (LIPITOR) 10 MG tablet Take 10 mg by mouth at bedtime ??? CALTRATE 600+D 600-800 MG-UNIT tablet Take 1 tablet by mouth once daily ??? DEPO-PROVERA 150 MG/ML vial Every 90 days ??? fexofenadine-pseudoephedrine ER 12hr (ROLDAN-D) 60-120 MG tablet Take 180 mg by mouth. ??? fluticasone propionate (FLONASE) 50 MCG/ACT nasal spray [place] 1 spray into each nostril once daily ??? vitamin D, cholecalciferol, 2000 UNITS tablet Take 2,000 Units by mouth once daily No current facility-administered medications for this visit. Physical Exam: Constitutional: BP 123/79 (BP SITE: RIGHT ARM, BP POSITION: SITTING, BP Cuff Size: L) Pulse 89 Temp 98.6 ??F (37 ??C) Resp 18 Wt 74.4 kg (164 lb) SpO2 99% General: alert x 3, No distress, appears stated age Thyroid:, thyroid enlarged, smooth, nontender, no nodules. Heart: RRR, S1 S2 normal, No murmurs Respiratory: clear to ascultation bilateral Abdomen : Soft , Nont Tender, Bowel sounds normal Extremities: no edema, normal Laboratory Data: No results for input(s): HGBA1C in the last 80671 hours. Recent Labs Component Name 06/23/15 1056 TSH 0.994 No results for input(s): MICROALBCREA in the last 62963 hours. No results for input(s): HGBA1C in the last 03126 hours. No results for input(s): SODIUM , POTASSIUM , CHLORIDE , CO2 , BUN , CREATININE , GLUCOSE , CALCIUM in the last 02818 hours. No results for input(s): CHOL , TRIG , HDL , LDLCALC in the last 83862 hours. Assessment: Diagnoses and all orders for this visit: Thyroid nodule - PROC ULTRASOUND THYROID W/WO FNA BIOPSY - TSH; Standing - TSH Thyroid US done today 05/18/2022 no significant changes from last one also similar to the one done in 08/2022. Please see Procedure note from today. Plan: TSH now and then annually Return to clinic in two years for thyroid ultrasound Orders Placed This Encounter Procedures ??? TSH Omayra Rice MD Endocrinology, Diabetes and Metabolism. SERVICER * Gerry Lew MD - 05/18/2023 11:00 AM CST Images from the original note were not included. I HAVE SEEN AND EXAMINED THE PATIENT WITH THE ENDOCRINE FELLOW AND I AGREE WITH THE FINDINGS AND PLAN OF CARE DOCUMENTED BY THE ENDOCRINE FELLOW DATE OF SERVICE 05/18/2023 Signed electronically Gerry Lew MD Professor of Internal Medicine HISTORY / PROGRESS NOTE Date: 05/18/2023 Chief Complaint or Purpose for Referral: THYROID NODULE NODULAR GOITER ?? History of Present Illness: 52 YEAR OLD WHITE FEMALE GRICELDA AND TUS 05/26/2020 ??SOMETIMES NECK FEELS TIGHT LIKE SHIRT BUTTONED TOO TIGHT No dysphagia dyspnea(+) UP STAIRS ON ANXIETY MEDS AFTER CARDIOLOGY WORK U P No dysphonia No change size of neck No neck pain or discomfort No nervousness No shakiness palpitations(+) Weight stable TO INCREASED Wt Readings from Last 3 Encounters: 05/26/20 68 kg (150 lb) 05/23/19 73.8 kg (162 lb 9.6 oz) 05/20/18 71.2 kg (157 lb) ?? Wt Readings from Last 3 Encounters: 05/18/23 74.4 kg (164 lb) 05/26/20 68 kg (150 lb) 05/23/19 73.8 kg (162 lb 9.6 oz) BM daily No diarrhea constipation(+) nocturia THREE TIMES per night No edema No proximal muscle weakness NAUSEA (+) NO VOMITING ??NO CHANGE IN SKIN NO CHANGE IN HAIR NO HEAT INTOLERANCE NO COLD INTOLERANCE HOT FLASHES (+) ?? 05/26/2020 TUS Procedure Preformed:??Ultrasound Only?? COMPARED TO 05/23/2019 Nodule Size:?? RIGHT LOBE ?TRANSVERSE IMAGE: ??MULTIPLE HYPOECHOIC CYSTS THROUGHOUT LOBE, MEASURED SOME BUT NOT ALL AND MOSTLY ONLY MEASURED THIS VIEW ?SUPERIOR MEDIAL 0.42 X 0.30 CM; ??SUPERIOR LATERAL ??0.30 X 0.20 CM; ??SUPERIOR LATERAL 0.46 X 0.33 CM; ??MID LOBE LATERAL 0.65 X 0.33 CM; ??MID LOBE 0.40 X 0.17 CM; ?INFERIOR MEDIAL 0.31 X 0.20 CM; ??INFERIOR MEDIAL NEAR ISTHMUS 0.76 X 0.44 CM, SECOND IMAGE 0.72 X 0.49 CM, THIRD IMAGE 0.96 X 0.55 CM, FOURTH IMAGE FROM VIEW OD ?ISTHMUS ??0.66 X 0.38 ??CM ??COMPLEX CYST, WITH COMET TAIL ARTIFACT; ??INFERIOR POSTERIOR 0.35 X 0.25 CM; ?LONGITUDINAL IMAGE: ??ONLY A FEW MEASURED : ??MID LOBE 0.65 X 0.25 CM; ??MID LOBE 0.33 X 0.21 CM; ? ISTHMUS ?INFERIOR RIGHT LOBE MEDIAL NEAR ISTHMUS SEE ABOVE ALSO 0.73 X 0.54 CM, SPONGIFORM; ?? LEFT LOBE ?TRANSVERSE IMAGE: ??MULTIPLE HYPOECHOIC CYSTS THROUGH OUT LOBE, SOME ARE MEASURED AND ONLY IN THIS VIEW: ??SUPERIOR POLE 0.31 X 0.22 CM; ??SUPERIOR POLE, ?SPONGIFORM , 0.65 X 0.34 CM; ??POSTERIOR MID LOBEWITH COMET TAIL ARTIFACTS 0.62 X 0.41 CM; ??MID LOBE LATERAL 0.40 X 0.30 CM; ??MID LOBE 0.35 X 0.28CM; ?MID LOBE ANTERIOR HYPOECHOIC, SOLID SMOOTH 0.49 X 0.35 CM; ??MID TO INFERIOR POLE LATERAL 0.23 X 0.16 CM; ?INFERIOR POLE, ANTERIOR, SMOOTH BORDER, COMPLEX ?CYST 1.13 X 0.74 CM; ?LONGITUDINAL IMAGE: ??ONLY SOME MEASURED ?INFERIOR POLE CYSTIC/SOLID, SPONGIFORM, SMOOTH BORDER 1.26 X 0.70 CM, 1.23 ??X 0.64 CM SECOND IMAGE; SUPERIOR TO MID LOBE CYST 0.49 X 0.29 CM; ?? Echogenicity:??HETEROGENEOUS ECHO TEXTURE TO BOTH LOBES?? Vascularity:??NOT INCREASED OR ABNORMAL?? Number of Nodules Present:??SEE ABOVE , MANY, LESS THAN 1.0 CM?? Calcifications:??NONE?? Borders:??SHARP RIGHT LOBE ?TRANSVERSE IMAGE: ??1.92 X 1.30 CM ?LONGITUDINAL IMAGE: ??5.84 CM ISTHMUS: ??0.20 CM LEFT LOBE ?TRANSVERSE IMAGE: ??1.90 X 1.03 CM ?LONGITUDINAL IMAGE: ??5.22 CM ?? ASSESSMENT MULTINODULAR THYROID EUTHYROID NO CHANGE IN ULTRASOUND APPEARANCE NODULES DO NOT MEET ANNE MARIE CRITERIA FOR FNA BIOPSY?? Recommendations:?? PLAN THYROID ULTRASOUND TODAY REPEAT ULTRASOUND IN TWO YEARS AT LEAST ANNUAL TSH DETERMINATION RETURN IN TWO YEARS FOR ULTRASOUND IF TSH GREATER THAN 5 WILL OBTAIN FREE T4 IF TSH LESS THAN 0.1 WILL OBTAIN FREE T4 AND FREE T3 REVIEWED ULTRASOUND IMAGES WITH PATIENT DISCUSSED FOLLOW AND NEED FOR ANNUAL TSH? LAB Component Ref Range & Units 8 mo ago TSH 0.450 - 4.500 0.727 Specimen Collected: 08/28/22 Last Resulted: 08/29/22 Received From: [facility] Result Received: 05/18/23 10:38 Component Ref Range & Units 8 mo ago FREE T4 0.82 - 1.77 1.19 Specimen Collected: 08/28/22 Last Resulted: 08/29/22 Received From: [facility] Result Received: 05/18/23 10:38 Component Ref Range & Units 9 mo ago SODIUM S/P/B 136 - 145 145 POTASSIUM S/P/B 3.5 - 5.3 3.6 CO2 21 - 32 22.8 CHLORIDE S/P/B 101 - 111 110 GLUCOSE 65 - 99 mg/dL 109??Abnormal?? CALCIUM S/P/B 8.2 - 10.0 9.3 BUN 8 - 26 16 CREATININE S/P/B 0.5 - 1.40 0.61 EGFR NON-AFR. AMER. >=60 109 Specimen Collected: 08/07/22 Last Resulted: 08/07/22 Received From: [facility] Result Received: 05/18/23 10:38 ?? Latest Reference Range & Units 06/23/15 10:56 TSH 0.350 - 4.940 uIU/mL 0.994 ?? LAB 05/12/2020 ANTI TG?<1.0?NORMAL ?0-0.9 ANTI TPO?<9?0-34 05/12/2020 TSH?0.73?NORMAL ?0.34-4.94 05/07/2019 TSH ?0.35? NORMAL?0.34-4.94 07/11/2016 TSH ?1.23 ?NORMAL 0 .34-4.94?10/17/2017 TSH ?0.53 ?NORMAL 0.34-4.94 07/11/2016 TSH ? 1.23 ?NORMAL 0.34-4.94?Impression 1. Bilateral thyroid lobe enlargement, nonspecific 2. Bilateral thyroid predominantly TR 1 and 2 nodules and a single subcentimeter TR 4 nodule; no nodules meet criteria for tissue sampling or imaging follow-up Narrative Exam: Thyroid ultrasound Exam Date/Time: 09/27/2022 11:15 AM Indication: 32 female. Thyroid nodule follow-up Nontoxic single thyroid nodule ?? . Comparison: None TECHNIQUE: Grayscale and color flow ultrasound examination of the thyroid gland was performed. FINDINGS: Right lobe: Size: Measures 6.0 X 1.3 X 2.2 cm. Parenchyma: Background homogeneous echotexture. Normal echogenicity and vascularity. Nodule(s): 1. Superior Superior spongiform nodule measuring 0.7 cm. TR 1 2. Mid part cystic and solid 1.6 x 0.7 x 1.0 cm nodule. TR 2 3. Anterior mid hypoechoic solid 0.6 cm nodule. TR 4 Left lobe: Size: Measures 6.5 x 1.2 x 2.0 cm Parenchyma: Background homogeneous echotexture. Normal echogenicity and vascularity. Nodule(s): 1. Mid predominantly cystic 0.9 cm. TR 2 2. Inferior Part solid and cystic 1.8 cm nodule. TR 2 Isthmus: 2.1 ??mm in thickness (AP). (Brief 1-3; Ext. >4) Past Medical History: No date: Allergic rhinitis No date: Goiter, non-toxic No date: IBS (irritable bowel syndrome) No date: Thyroid nodule Past Surgical History: No date: Cyst Removal No date: Knee Arthroscopy No date: Septoplasty Review of patient's family history indicates: Problem: Cancer Relation: Maternal Grandmother Name: Age of Onset: (Not Specified) Problem: Cancer Relation: Maternal Grandfather Name: Age of Onset: (Not Specified) Problem: Diabetes Relation: Maternal Grandfather Name: Age of Onset: (Not Specified) Problem: Heart Disease Relation: Paternal Grandfather Name: Age of Onset: (Not Specified) Problem: Thyroid Disease Relation: Paternal Uncle Name: Age of Onset: (Not Specified) Comment: surgery on thyroid ; THYROID CANCER Problem: CVA Relation: Neg Hx Name: Age of Onset: (Not Specified) Problem: Kidney Disease Relation: Neg Hx Name: Age of Onset: (Not Specified) Problem: Hypertension Relation: Neg Hx Name: Age of Onset: (Not Specified) Problem: Elevated Lipids Relation: Neg Hx Name: Age of Onset: (Not Specified) Problem: COPD - Chronic Obstructive Pulmonary Disease Relation: Neg Hx Name: Age of Onset: (Not Specified) Problem: Asthma Relation: Neg Hx Name: Age of Onset: (Not Specified) Social History Socioeconomic History Marital status: Spouse name: Not on file Number of children: Not on file Years of education: Not on file Highest education level: Not on file Occupational History Not on file Tobacco Use Smoking status: Never Smokeless tobacco: Never Vaping Use Vaping Use: Never used Substance and Sexual Activity Alcohol use: Yes Comment: Social Drug use: No Sexual activity: Yes Partners: Male control/protection: Injection Other Topics Concerns: Not on file Social History Narrative Not on file Social Determinants of Health Financial Resource Strain: Not on file Food Insecurity: Not on file Transportation Needs: Not on file Stress: Not on file Housing Stability: Not on file Current Outpatient Medications: atorvastatin (LIPITOR) 10 MG tablet, Take 10 mg by mouth at bedtime, Disp: , Rfl: CALTRATE 600+D 600-800 MG-UNIT tablet, Take 1 tablet by mouth once daily, Disp: , Rfl: DEPO-PROVERA 150 MG/ML vial, Every 90 days, Disp: , Rfl: fexofenadine-pseudoephedrine ER 12hr (ROLDAN-D) 60-120 MG tablet, Take 180 mg by mouth., Disp: , Rfl: fluticasone propionate (FLONASE) 50 MCG/ACT nasal spray, [place] 1 spray into each nostril once daily, Disp: , Rfl: vitamin D, cholecalciferol, 2000 UNITS tablet, Take 2,000 Units by mouth once daily, Disp: , Rfl: No current facility-administered medications for this visit. No Known Allergies Physical Exam: Constitutional: Vital Signs: BP 123/79 (BP SITE: RIGHT ARM, BP POSITION: SITTING, BP Cuff Size: L) Pulse 89 Temp 98.6 ??F (37 ??C) Resp 18 Wt 74.4 kg (164 lb) SpO2 99% Well developed, well nourished, white female, no acute distress, alert and oriented, normocephalic Appearance: WNL Eyes: Conjunctiva/lids WNL and EOM Intact ENT, Mouth: Hearing WNL and External ear/nose WNL Neck: No masses, symmetrical and SEE ANNOTATED IMAGE Resp.:Effort nonlabored MS: Station and gait WNL, Stable without dislocation, laxity, ROM without pain, no contracture and Muscle strength and tone WNL Areas Assessed: Head/neck, R/L upper extremities, Digits/nails and Inspection/palpatation of above WNL Skin: No rashes/lesions/ulcers and SKIN NORMAL TEXTURE AND TU RGOR Neuro: Cranial nerves intact and DTR WNL Psych: Judgement/insight WNL, Oriented X 3, Memory WNL and Mood/affect WNL Accuchecks: None Assessment: Patient Active Problem List: Deviated nasal septum Mastodynia Irritable colon Hypertrophy of nasal turbinates Other chronic disease of tonsils and adenoids Chronic rhinitis Other specified enthesopathies of unspecified lower limb, excluding foot Thyroid nodule Abdominal pain Enthesopathy of hip region Laboratory examination Disorder of bone and cartilage Gynecological examination Urinary frequency Encounter for issue of repeat prescription Screening for osteoporosis Screening examination for pulmonary tuberculosis Goiter, non-toxic Hyperlipidemia Patellar malalignment syndrome of right knee PLAN THYROID ULTRASOUND TODAY LAB SOON FOR TSH MEDICATION - NONE INDICATED FOR THYROID RETURN IN TWO YEARS FOR ULTRASOUND AT LEAST ANNUAL TSH DETERMINATION IF TSH GREATER THAN 5 WILL OBTAIN FREE T4 IF TSH LESS THAN 0.1 WILL OBTAIN FREE T4 AND FREE T3 Thyroid nodule - Plan: PROC ULTRASOUND THYROID W/WO FNA BIOPSY, TSH, TSH Gerry Lew MD Professor of Internal Medicine Division of Endocrinology Department of Internal Medicine SERVICER documented in this encounter Procedure Notes * Gerry Lew MD - 05/18/2023 1:34 PM CSTAssociated Order(s): PROC ULTRASOUND THYROID W/WO FNA BIOPSY Procedure(s): [place] US SOFT TISS HEAD&NCK R-T IMG Pre-Procedure Diagnose(s): Thyroid nodule Ultrasound Of Thyroid Ultrasound of the Thyroid PHYSICIAN Gerry Lew MD FELLOW Ricky CARTER MD Test Date: 05/18/2023 Test Indication: Patient Active Problem List: Deviated nasal septum Mastodynia Irritable colon Hypertrophy of nasal turbinates Other chronic disease of tonsils and adenoids Chronic rhinitis Other specified enthesopathies of unspecified lower limb, excluding foot Thyroid nodule Abdominal pain Enthesopathy of hip region Laboratory examination Disorder of bone and cartilage Gynecological examination Urinary frequency Encounter for issue of repeat prescription Screening for osteoporosis Screening examination for pulmonary tuberculosis Goiter, non-toxic Hyperlipidemia Patellar malalignment syndrome of right knee Referring Physician[facility] Procedure Preformed: Ultrasound Only COMPARED TO : 05/23/2019, 05/26/2020 Nodule Size: RIGHT LOBE NUMEROUS CYSTS THROUGH OUT LOBE , MEASURED MOST IN TRANSVERSE IMAGE TRANSVERSE IMAGE UPPER POLE, LATERAL CYST, 0.43 X 0.26 CM UPPER POLE, SPONGIFORM NODULE, MEDIAL, 0.71 X 0.33 CM UPPER POLE, CYST, 0.40 X 0.26 CM UPPER POLE, MEDIAL, CYST WITH COMET TAIL ARTIFACT, 0.51 X 0.28 CM MID LOBE CYST, 0.40 X 0.30 CM MID LOBE , CYST, LATERAL, 0.48 X 0.38 CM MID LOBE, CYSTIC/ SOLID, 0.49 X 0.40 CM MID LOBE, CYST, 0.33 X 0.17 CM MID LOBE, ANTERIOR, MEDIAL, CYST, 0.30 X 0.19 CM MID LOBE, LATERAL, CYSTIC/SOLID, 0.38 X 0.29 CM MID LOBE, MEDIAL, CYST, 0.33 X 0.21 CM INFERIOR POLE, LATERAL, CYST, 0.39 X 0.22 CM #1 INFERIOR POLE, ANTERIOR, SPONGIFORM NODULE, 1.04 X 0.64 CM , SECOND IMAGE 1.08 X 0.61 CM LONGITUDINAL IMAGE #1 1.47 X 0.48 CM SOME OTHER NODULES WERE MEASURED IN THIS VIEW OF THE LOBE UPPER POLE, C YST, 0.51 X 0.30 CM UPPER POLE, ANTERIOR, SPONGIFORM NODULE, 0.75 X 0.36 CM MID LOBE, CYST, 0.65 X 0.41 CM MID LOBE, SPONGIFORM , 0.66 X 0.40 CM MID LOBE, CYST, 0.42 X 0.22 CM INFERIOR POLE, CYST, 0.26 X 0.18 CM INFERIOR POLE , CYST, 0.38 X 0.19 CM LEFT LOBE TRANSVERSE IMAGE #1 UPPER POLE, POSTERIOR, SPONGIFORM, 0.61 X 0.34 CM #2 UPPER POLE, ANTERIOR, SPONGIFORM, 0.66 X 0.39 CM #3 MID LOBE, ANECHOIC CYST, 0.96 X 0.75 CM #4 INFERIOR POLE, CYSTIC/ SOLID, ISOECHOIC, SMOOTH BORDER, SPONGIFORM, 1.96 X 0.83 CM #5 MID LOBE, ANTERIOR, MEDIAL, CYST, 0.46 X 0.26 CM #6 MID LOBE, ANECHOIC, CYST, 0.45 X 0.30 CM #7 UPPER POLE, ANTERIOR, CYST, 0.28 X 0.20 CM #8 UPPER POLE CYST, 0.21 X 0.17 CN #9 UPPER POLE, CYST, 0.22 X 0.18 CM LONGITUDINAL IMAGE #1 0.71 X 0.43 CM #2 0.78 X 0.39 CM #3 1.29 X 0.87 CM #4 1.82 X 0.78 CM, SECOND IMAGE 1.88 X 0.85 CM Echogenicity: HETEROGENEOUS ECHO TEXTURE TO BOTH LOBES Vascularity: NOT INCREASED OR ABNORMAL Number of Nodules Present: NUMEROUS ANECHOIC OR COMPLEX CYSTS IN BOTH LOBES Calcifications: NONE Borders: SHARP RIGHT LOBE TRANSVERSE IMAGE : 1.71 X 1.12 CM LONGITUDINAL IMAGE: 5.62 CM ISTHMUS : 0.21 CM LEFT LOBE TRANSVERSE IMAGE : 1.67 X 1.39 CM LONGITUDINAL IMAGE : 5.02 CM ASSESSMENT NO CHANGE IN LARGEST NODULE FROM US DONE OUTSIDE IN 2022 EUTHYROID CLINICALLY NO CHANGE IN US DESCRIPTION FROM PRIOR US AT [facility] BY ME Recommendations: PLAN THYROID ULTRASOUND TODAY LAB SOON FOR TSH MEDICATION - NONE INDICATED FOR THYROID RETURN IN TWO YEARS FOR ULTRASOUND AT LEAST ANNUAL TSH DETERMINATION IF TSH GREATER THAN 5 WILL OBTAIN FREE T4 IF TSH LESS THAN 0.1 WILL OBTAIN FREE T4 AND FREE T3 Gerry Lew MD Division of Endocrinology SERVICER documented in this encounter Plan of Treatment Scheduled Orders Name Type Priority Associated Diagnoses Orde r Schedule TSH Lab Routine Thyroid nodule E-6Months for 3 Occurrences starting 05/18/2023 until 06/18/2024 documented as of this encounter Procedures Procedure Name Priority Date/Time Associated Diagnosis Comments NH US SOFT TISS HEAD&NCK R-T IMG Routine 05/18/2023 1:34 PM ATM SERVICER Thyroid nodule documented in this encounter Results * NH US SOFT TISS HEAD&NCK R-T IMG (05/18/2023 1:34 PM ATM SERVICER) Narrative Gerry Lew MD - 05/18/2023 1:34 PM ATM SERVICER Gerry Lew MD ? 05/18/2023 ??2:01 PM [...] right knee ?? Referring Physician: [facility] Procedure Preformed: Ultrasound Only COMPARED TO : [...] IN US DESCRIPTION FROM PRIOR US AT [facility] BY ME Recommendations: PLAN THYROID ULTRASOUND TODAY LAB SOON FOR TSH MEDICATION - NONE INDICATED FOR THYROID RETURN IN TWO ??YEARS FOR ??ULTRASOUND AT LEAST ANNUAL TSH DETERMINATION IF TSH GREATER THAN 5 WILL OBTAIN FREE T4 IF TSH LESS THAN 0.1 WILL OBTAIN FREE T4 AND FREE T3 Gerry Lew MD Division of Endocrinology Gerry Lew MD PROCEDURE/MINOR MANUELA GICAL ORDERABLES documented in this encounter Visit Diagnoses Diagnosis Thyroid nodule- Primary Nontoxic uninodular goiter documented in this encounter Care Teams Corporate Accounting Manager Relationship Specialty Start Date End Date [facility], [address] [place] [address] [address] [place], [place] [address] PCP - General 05/20/18 documented as of this encounter
--- OUTSIDE RECORDS SUMMARY | 2024-04-18 13:15 | XMS_ITS | Encounter Summary ---
Author Organization [facility] Address [address] [facility] [place] [address] Care Team Providers Care Tripper Name Role Phone [address] Primary Care Prov ider Encounter Details Date Type Department Care Team (Late st Contact Info) Description 05/20/2021 Orders Only [facility], Diabetes [facility] Met[facility] [address] [facility], [place] [address] Gerry Lew MD [address] [place] [address] 2L [place] [address] Thyroid nodule Social History Tobacco Use Types [...] goiter documented in this encounter Care Teams Tripper Relationship Specialty Start Date End Date [address] [place], [place] [address] PCP - General 05/20/18 documented as of this encounter
--- OUTSIDE RECORDS SUMMARY | 2024-04-18 13:16 | XMS_ITS | Encounter Summary ---
Author Organization [facility] Address [facility] [facility] [place] [address] [place] [address] Care Team Providers Care Web Systems Developer Name Role Phone Ghada Knox MD Primary Care Provider [phone] Encounter Details Date Type Department Care Team (Latest Contact Info) Description 12/07/2022 Travel Social History Tobacco Use Types Packs/Day Years Used Date Smoking Tobacco: Never Passive Smoke Exposure: Never Smokeless Tobacco: Never Alcohol Use Standard Drinks/Week Comments Yes 0 (1 standard drink = 0.6 oz pur e alcohol) socially AUDIT-C Answer Date Recorded Q1: How often do you have a drink containing alc ohol? Never 12/22/2019 Average Number of Drinks Not on file 020 Frequency of Binge Drinking Not on file 11/29 Comments No Sex and Gender Information Value Date Recorded Sex Assigned at Not on file Legal Sex Female 1:44 PM CDT Gender Identity Not on file Sexual Orientation Not on file documented as of this encounter Plan of Treatment Upcoming Encounters Date Type Department Care Team (Late st Contact Info) Description 02/25/2025 10:30 AM CDT Office Visit [facility] THREE [facility], [address] [place], [place] [id number] Kaleigh Velazco SUPERVISORY INVESTIGATIVE SPECIALIST-C [facility]. [address] [place], [place] [id number] documented as of this encounter Visit Diagnoses Not on filedocumented in this encounter Care Teams Web Systems Developer Relationship Specialty Start Date End Date Ghada Knox MD [address] [address] PCP - General FAMILY PRACTICE 08/31/22 05/23/23 documented as of this encounter
--- OUTSIDE RECORDS SUMMARY | 2024-04-18 13:16 | XMS_ITS | Encounter Summary ---
Author Organization [facility] Address [address] [facility] [place] [address] Care Team Providers Care Automotive Quality Engineer Name Role Phone [address] Primary Care Prov ider Encounter Details Date Type Department Care Team (Late st Contact Info) Description 04/30/2020 Orders Only [facility], Diabetes and Metabolism [address] [place] [address] Gerry Lew MD [address] [place] [address] Thyroid nodule; Goiter, non-toxic Social History Tobacco Use Types Packs/Day Years Used Date Smoking Tobacco: Never Smokeless Tobacco: Never Alcohol Use Standard Drinks/Week Comments No 0 (1 standard drink = 0.6 oz pur e alcohol) Sex and Gender Information Value Date Recorded Sex Assigned at Not on file Gender Identity Not on file Sexual Orientation Not on file documented as of this encounter Plan of Treatment Not on file documented as of this encounter Visit Diagnoses Diagnosis Thyroid nodule Nontoxic uninodular goiter Goiter, non-toxic Unspecified nontoxic nodular goiter documented in this encounter Care Teams Automotive Quality Engineer Relationship Specialty Start Date End Date [address] [place] [address] PCP - General 05/20/18 documented as of this encounter
--- OUTSIDE RECORDS SUMMARY | 2024-04-18 13:16 | XMS_ITS | Encounter Summary ---
Author Organization [facility] Address Critical access hospital[facility] [place] [address] [place] [address] Care Team Providers Care Shaper Setter Name Role Phone Ghada Knox MD Primary Care Provider [phone] Reason for Visit * Reason Comments Palpitations Follow up * Consultation/Treatment (Routine) - Closed Specialty Diagnoses / Procedures Referred By Contac t Referred To Contact CARDIOLOGY / Cardiology Diagnoses Palpitations Nathalia Rodriguez MD [address] [facility] [address] [place] [address] Phone: tel: fax: Shanda Granger MD Three [facility]. [facility] [address] [place] [address] Phone: tel: fax: Referral ID Status Reason Start Date Expiration Date Visits Re quested Visits Authorized [id number] Closed 08/23/2022 08/23/2023 6 6 Encounter Details Date Type Department Care Team (Late st Contact Info) Description 02/07/2023 11:00 AM CDT Office Visit [facility] THREE [facility], [place] [place], [place] [phone] Kaleigh Velazco, LAND LEASING INFORMATION CLERK-C Three [facility]. [facility] [address] [place], [place] [id number] Palpitations (Follow up) Social History Tobacco Use Types Packs/Day Years Used Date Smoking Tobacco: Never Passive Smoke Exposure: Never Smokeless Tobacco: Never Tobacco Cessation:Counseling Given: [...] Sign Reading Time Taken Comments Blood Pressure 122/88 02/07/2023 11:02 AM CDT Pulse 94 02/07/2023 11:02 AM CDT Temperature - - Respiratory Rate - - Oxygen Saturation 96% 02/07/2023 11:02 AM CDT Inhaled Oxygen Concentration - - Weight 72.8 kg (160 lb 6.4 oz) 02/07/2023 11:02 AM CDT Height 162.6 cm (5' 4 ) 02/07/2023 11:02 AM CDT Body Mass Index 27.53 02/07/2023 11:02 AM CDT documented in this encounter Progress Notes * MARYBEL Reese - 02/07/2023 11:00 AM CDT Reason for Visit: Palpitations (Follow up) History of Present Illness: Miss Contreras is a 52 year old with a history of palpitations, anxiety, intermittent SOB (not exertional.) Underwent testing. Normal monitor, normal stress test. Echo shows mild MR, normal EF. On follow up, she is feeling OK. She does still have symptoms. Intermittent palpitations and SOB, not withexertion. She does take propanolol PRN for anxiety, but this does not work well for her. She has ongoing anxiety. Overall stable from cardiac standpoint. Recommendations and Plan: Palpitations/SOB Normal monitor, reassuring stress and echo. Mild MR, will need monitored. Clinically stable. Suspect related to anxiety. F/u with PCP, consider SSRI/counseling. TSH within normal limits. Do not suspect cardiac etiology of symptoms. F/u 1 year. HLP Takes low dose statin. LDL 111. Marcin Contreras is stable from a cardiac standpoint. Advised to continue the current medication regimen. Advised regular exercise. Advised a cardiac diet. Follow up in the office in 12 months or sooner as needed. We discussed the plan of care and the patient verbalizes understanding and is agreeable with plan. The patient was provided office number andcontact information if any problems arise. Thank you for involving us in the care of your patient. Medications: Current Outpatient Medications: ??? Acetaminophen (TYLENOL OR), , Disp: , Rfl: ??? atorvastatin 10 MG tablet, , Disp: , Rfl: ??? Cholecalciferol (VITAMIN D3) 50 MCG (1999) Tab, , Disp: , Rfl: ??? DEPO-PROVERA 150 MG/ML injection, , Disp: , Rfl: ??? fexofenadine (ROLDAN) 180 MG tablet, Take 1 tablet (180 mg total) by mouth daily., Disp: , Rfl: ??? Ibuprofen (ADVIL OR), , Disp: , Rfl: ??? Naproxen Sodium (ALEVE OR), , Disp: , Rfl: ??? oyster shell calcium 500 mg, elemental, (OSCAL) 500 MG tablet, Take 1 tablet (500 mg total) by mouth daily., Disp: , Rfl: ??? propranolol (INDERAL) 10 MG tablet, Take 1 tablet (10 mg total) by mouth as needed., Disp: , Rfl: No Known Allergies Past Medical History: Diagnosis Date ??? Deviated septum ??? Hyperlipidemia ??? Vitamin D deficiency Past Surgical History: Procedure Laterality Date ??? KNEE SURGERY ??? KNEE SURGERY Left Social History Tobacco Use ??? Smoking status: Never Passive exposure: Never ??? Smokeless tobacco: Never Vaping Use ??? Vaping Use: Never used Substance Use Topics ??? Alcohol use: Yes Comment: socially ??? Drug use: Never Family History Problem Relation Name Age of Onset ??? No Known Problems Mother ??? Cancer Father skin cancer ??? Breast Cancer Maternal Grandmother age unknown Family Status Relation Name Status ??? Mother Alive ??? Father Alive ??? MGM (Not Specified) Review of Systems Constitutional: Negative for recent unintentional weight gain, recent unintentional weight loss andnew or significant fatigue. HENT: Negative for new or significant hearing loss. Eyes: Negative for blurred vision and double vision. Respiratory: Negative for cough, new or significant shortness of breath and snoring. Cardiovascular: See HPI. Positive for palpitations. Gastrointestinal: Negative for blood in stool and melena. Genitourinary: Negative for dysuria. Musculoskeletal: Negative for myalgias and new or worsening joint stiffness/pain. Skin: Negative for rash. Neurological: Negative for tingling/numbness and focal weakness. Endo/Heme/Allergies: Negative for new or significant bruising/bleeding and polydipsia. Psychiatric/Behavioral: Negative for depression and new or significant memory loss. Vitals: 02/07/23 1102 BP: 122/88 Pulse: 94 Weight: 72.8 kg (160 lb 6.4 oz) Height: 5' 4 (1.626 m) Body mass index is 27.53 kg/m??. Cardiac Exam Rate/Rhythm: Normal rate and regular rhythm. PMI: PMI is not displaced. Pulses: Normal pulses. Femoral pulses are 2+ on the right side and 2+ on the left side. Heart Sounds: Normal heart sounds. Normal S1 sounds. Normal S2 sounds. No gallop present. No S3. NoS4. Murmurs: Physical Exam Constitutional: No distress. Healthy Appearance. HENT: Oropharynx clear. Eyes: Pupils equal, round, and reactive to light. Conjunctivae normal. Neck: Neck supple. No JVD. Abdomen: Abdomen soft. Bowel sounds normal. No tenderness. No mass. No hepatomegaly. No splenomegaly. Abdominal aorta not palpably enlarged. No abdominal bruit present. Pulmonary: Effort normal. Breath sounds normal. Skin: No rash. No cyanosis. No clubbing. No xanthoma. Musculoskeletal: No kyphosis. Normal ROM. Neurological: Alert. Oriented x 3. Appropriate mood and affect. Normal motor skills. Normal gait. Comments: Diagnoses/Impression: No diagnosis found. Referring Provider: Nathalia Rodriguez MD PCP: Ghada Knox MD (Inactive) documented in this encounter Plan of Treatment Upcoming Encounters Date Type Department Care Team (Late st Contact Info) Description 02/25/2025 10:30 AM CDT Office Visit [facility] THREE [facility], [place] [place], [place] [address] Kaleigh Velazco, LAND LEASING INFORMATION CLERK-C Three [facility]. [address] [place] [address] documented as of this encounter Visit Diagnoses Diagnosis Mixed hyperlipidemia- Primary Palpitations documented in this encounter Care Teams Shaper Setter Relationship Specialty Start Date End Date Ghada Knox MD 2 [facility] [address] [place] [phone] PCP - General FAMILY PRACTICE 08/31/22 05/23/23 documented as of this encounter
--- OUTSIDE RECORDS SUMMARY | 2024-04-18 13:16 | XMS_ITS | Encounter Summary ---
Author Organization [facility] Address [address] [facility] [place] [address] Care Team Providers Care Cook Night Name Role Phone [facility], [facility] Primary Care Provider [phone] Encounter Details Date Type Department Care Team (Latest Contact Info) Description 06/23/2015 Hospital Outpatient Visit [facility] [address] [place] [phone] Gerry Lew MD [address] [place] [address] Discharge Disposition: Home or Self Care Social History Tobacco Use Types Packs/Day Years Used Date Smoking Tobacco: Never Assessed Sex and Gender Information Value Date Recorded Sex Assigned at Not on file Gender Identity Not on file Sexual Orientation Not on file documented as of this encounter Miscellaneous Notes * Letter - Gerry Lew MD - 11/02/2017 10:30 AM CDT Letter Signed by Gerry Lew MD on Author: Gerry Lew MD Service: (none) Author Type: (none) Date of Service: Filed: Note Type: Letter Status: (Other) June 23, 2015 Marcin Contreras [address] [facility] [address] Dear Marcin Contreras: The results of your recent laboratory test are as follows: TSH Result Value Ref Range TSH, Ultrasensitive 0.994 0.350-4.940 uIU/mL THE TSH IS NORMAL. If you have any questions or concerns, please don't hesitate to call. Sincerely, Signed electronically Gerry Lew MD Professor of Internal Medicine documented in this encounter Plan of Treatment Not on file documented as of this encounter Procedures Procedure Name Priority Date/Time Associated Diagnosis Comments TSH Routine 06/23/2015 10:56 AM FAMILY DAY CARER documented in this encounter Results * TSH (06/23/2015 10:56 AM FAMILY DAY CARER) TSH 0.994 0.350 - 4.940 uIU/mL [facility] Blood specimen (specimen) BLOOD SPECIMEN / Unknown 06/23/2015 10:56 AM FAMILY DAY CARER 06/23/2015 11:00 AM FAMILY DAY CARER Gerry Lew MD LAB - CHEMISTRY ORD ERABLES [address] [phone] documented in this encounter Visit Diagnoses Not on filedocumented in this encounter Care Teams Cook Night Relationship Specialty Start Date End Date Base, [facility], [place] PCP - General 06/23/15 05/19/18 documented as of this encounter
--- OUTSIDE RECORDS SUMMARY | 2024-04-18 13:16 | XMS_ITS | Encounter Summary ---
Author Organization [facility] Address [facility] [place] [address] [place] [address] Care Team Providers Care Founder And Chief Technical Officer Name Role Phone Salud Flores MD Primary Care Provider [phone] Encounter Details Date Type Department Care Team (Latest Contact Info) Description 05/24/2023 1:50 PM PULL UP HAND - 05/24/2023 11:59 PM [facility] Hospital Encounter [facility] [place] [address] Gerry Lew MD [address] [place] [address] Discharge Disposition: Home or Self Care (Routine Discharge) Social History Tobacco Use Types Packs/Day Years [...] on file documented as of this encounter Medications at Time of Discharge Acetaminophen (TYLENOL OR) atorvastatin 10 MG tablet 11/11/2019 Cholecalciferol (VITAMIN D3) 50 MCG (1999) Tab 09/28/2019 DEPO-PROVERA 150 MG/ML injection 06/11/2019 fexofenadine (ROLDAN) 180 MG tablet Take 1 tablet (180 mg total) by mouth daily. 09/24/2022 Ibuprofen (ADVIL OR) Naproxen Sodium (ALEVE OR) Calcium Carbonate (CALCIUM-CARB 600 OR) 01/02/2023 02/19/2024 oyster shell calcium 500 mg, elemental, (OSCAL) 500 MG tablet Take 1 tablet (500 mg total) by mouth daily. 01/02/2023 10/01/2023 propranolol (INDERAL) 10 MG tablet Take 1 tablet (10 mg total) by mouth as needed. 02/19/2024 documented as of this encounter Plan of Treatment Upcoming Encounters Date Type Department Care Team (Late st Contact Info) Description 02/25/2025 10:30 AM CDT Office Visit [facility] [address] [place], [place] [phone] Kaleigh Velazco, ESTEPHANIA-C [facility]. [facility] [address] [place] [address] documented as of this encounter Procedures Procedure Name Priority Date/Time Associated Diagnosis Comments THYROID STIM HORMONE TSH Routine 05/24/2023 1:58 PM PULL UP HAND Thyroid nodule documented in this encounter Results * (ABNORMAL) THYROID STIM HORMONE, TSH (05/24/2023 1:58 PM PULL UP HAND) TSH 0.298(L) 0.358 - 3.74 uIU/ML 05/24/2023 3:08 PM PULL UP HAND [facility] Comment: HIGH DOSES OF BIOTIN MAY INTERFERE WITH THIS TEST RESULT. CORRELATION TO CLINICAL HISTORY AND PRESENTATION RECOMMENDED. 05/24/2023 1:58 PM PULL UP HAND us Gerry Lew MD LABORATORY Final Result [facility] [address] [place] [address], documented in this encounter Visit Diagnoses Diagnosis Thyroid nodule Nontoxic uninodular goiter documented in this encounter Care Teams Founder And Chief Technical Officer Relationship Specialty Start Date End Date Salud Flores MD 3 [facility] [address] [place] [phone] PCP - General FAMILY PRACTICE 05/24/23 09/30/23 documented as of this encounter
--- OUTSIDE RECORDS SUMMARY | 2024-04-18 13:16 | XMS_ITS | Encounter Summary ---
Author Organization [facility] Address [address] [facility] [place] [address] Care Team Providers Care Bulk Intake Worker Name Role Phone [address] Primary Care Prov ider Encounter Details Date Type Department Care Team (Late st Contact Info) Description 05/16/2019 Orders Only [facility] Diabetes and Met[facility] [address] [place] [address] Gerry Lew MD [address] [place] [address] Thyroid nodule Social History Tobacco Use Types [...] goiter documented in this encounter Care Teams Bulk Intake Worker Relationship Specialty Start Date End Date [address] [place] [address] PCP - General 05/20/18 documented as of this encounter
--- OUTSIDE RECORDS SUMMARY | 2024-04-18 13:16 | XMS_ITS | Encounter Summary ---
Author Organization [facility] Address [address] [facility] [place] [address] [place] [address] Care Team Providers Care Integrity Engineer Name Role Phone Ghada Knox MD Primary Care Provider [phone] Salud Flores MD Primary Care Provider [phone] Clemencia Lopez NP Primary Care Provider [phone] Encounter Details Date Type Department Care Team (Late Contact Info) Description 02/01/2023 Abstract [facility] [address] [phone] Vaelntina Lazo, GLORIA Social History Tobacco Use Types Packs/Day Years [...] Encounters Date Type Department Care Team (Late Contact Info) Description 02/25/2025 10:30 AM CDT Office Visit [facility], [address] [address] Kaleigh Velazco NP-C Three [address] [address] documented as of this encounter Procedures Procedure Name Priority Date/Time Associated Diagnosis Comments TSH (OUTSIDE LAB) Routine 08/28/2022 THYROXINE, FREE (FT4) Routine 08/28/2022 BASIC METABOLIC PANEL Routine 08/07/2022 LIPID PANEL Routine 08/07/2022 documented in this encounter Results * THYROXINE, FREE (FT4) (08/28/2022) Pathologist [facility] FREE T4 1.19 0.82 - 1.77 08/28/2022 us Default History Genericprovider LABORATORY Final Result * TSH (OUTSIDE LAB) (08/28/2022) Pathologist [facility] TSH 0.727 0.450 - 4.500 08/28/2022 us Default History Genericprovider LAB-OUTSIDE/ABST RACTED Final Result * (ABNORMAL) BASIC METABOLIC PANEL (08/07/2022) Pathologist [facility] SODIUM S/P/B 145 136 - 145 POTASSIUM S/P/B 3.6 3.5 - 5.3 CO2 22.8 21 - 32 CHLORIDE S/P/B 110 101 - 111 GLUCOSE 109(A) 65 - 99 mg/dL CALCIUM S/P/B 9.3 8.2 - 10.0 BUN 16 8 - 26 CREATININE S/P/B 0.61 0.5 - 1.40 EGFR NON-AFR. AMER. 109 >=60 08/07/2022 us Default History Genericprovider LABORATORY Final Result * LIPID PANEL (08/07/2022) CHOLESTEROL 164.8 140 - 200 HDL 43.4 40 - 100 TRIGLYCERIDES 49 <=150 LDL (CALCULATED) 111.3 VLDL CALCULATION 9.80 5 - 40 08/07/2022 us Default History Genericprovider LABORATORY Final Result documented in this encounter Visit Diagnoses Not on filedocumented in this encounter Care Teams Integrity Engineer Relationship Specialty Start Date End Date Ghada Knox MD [address] [facility] [address] [place] [phone] PCP - General FAMILY PRACTICE 08/31/22 05/23/23 Salud Flores MD [address] [facility] [address] [place] [address] PCP - General FAMILY PRACTICE 05/24/23 09/30/23 Clemencia Lopez NP [address] [facility] [address] [facility] [phone] PCP - General NURSE PRACTITIONER 10/01/23 documented as of this encounter
--- OUTSIDE RECORDS SUMMARY | 2024-04-18 13:16 | XMS_ITS | Encounter Summary ---
Author Organization [facility] Address [facility] [place] [address] [place] [address] Care Team Providers Care Director Of Operations Home Health Name Role Phone Salud Flores MD Primary Care Provider [phone] Encounter Details Date Type Department Care Team (Late Contact Info) Description 05/24/2023 Orders Only [facility] [place], [place] [id number] Gerry Lew MD [address] [place] [address] Social History Tobacco Use Types Packs/Day Years [...] Description 02/25/2025 10:30 AM CDT Office Visit [facility], [facility] [address] [place] [address] Kaleigh Velazco, CLOTH BRUSHING AND SUEDING SUPERVISOR-C Three [facility]. [facility] [address] [place], [place] [id number] documented as of this encounter Results * (ABNORMAL) THYROID STIM HORMONE, TSH (05/24/2023 1:58 PM VP AD SALES WEST) TSH 0.298(L) 0.358 - 3.74 uIU/ML 05/24/2023 3:08 PM VP AD SALES [facility] Comment: HIGH DOSES OF BIOTIN MAY INTERFERE WITH THIS TEST RESULT. CORRELATION TO CLINICAL HISTORY AND PRESENTATION RECOMMENDED. 05/24/2023 1:58 PM VP AD SALES WEST Gerry Lew MD LABORATORY Final Result [facility] [address] [place] [address], documented in this encounter Visit Diagnoses Diagnosis Thyroid nodule- Primary Nontoxic uninodular goiter documented in this encounter Care Teams Director Of Operations Home Health Relationship Specialty Start Date End Date Salud Flores MD 3 [facility] [address] [place] [id number] PCP - General FAMILY PRACTICE 05/24/23 09/30/23 documented as of this encounter
--- OUTSIDE RECORDS SUMMARY | 2024-04-18 13:16 | XMS_ITS | Encounter Summary ---
Author Organization [facility] Address [facility] [place] [address] [place] [address] Care Team Providers Care Engraver Signature Name Role Phone Ghada Knox MD Primary Care Provider [phone] Encounter Details Date Type Department Care Team (Latest Contact Info) Description 02/07/2023 Travel Social History Tobacco Use Types Packs/Day [...] Description 02/25/2025 10:30 AM CDT Office Visit [facility] THREE [facility], [facility] [address] [place], [place] [id number] Kaleigh Velazco HEAD CD REACTOR OPERATOR-C [facility]. [address] [place], [place] [phone] documented as of this encounter Visit Diagnoses Not on filedocumented in this encounter Care Teams Engraver Signature Relationship Specialty Start Date End Date Ghada Knox MD [address] [address] PCP - General FAMILY PRACTICE 08/31/22 05/23/23 documented as of this encounter
--- OUTSIDE RECORDS SUMMARY | 2024-04-18 13:16 | XMS_ITS | Encounter Summary ---
Author Organization [facility] Address [address] [facility] [place] [place] [address] [place] [address] Care Team Providers Care Beauty Artist Name Role Phone Brooke Lopez MEDICAL SCIENTIST Primary Care Provider [phone] Reason for Visit * Reason Comments Follow Up Palpitations * Consultation/Treatment (Routine) - Authorized Specialty Diagnoses / Procedures Referred By Contac t Referred To Contact CARDIOLOGY / Cardiology Diagnoses Palpitations Brooke Lopez MEDICAL SCIENTIST [address] [address] Phone: tel: fax: Clare Perera MD [facility]. [address] [address] Phone: tel: fax: Referral ID Status Reason Start Date Expiration Date V isits Requested Visits Authorized [id number] Authorized 02/12/2024 02/11/2025 12 12 Encounter Details Date Type Department Care Team (Late st Contact Info) Description 02/19/2024 10:15 AM CDT Office Visit [facility], [address] [phone] Clare Perera MD [facility]. [address] [phone] Follow Up; Palpitations Social History Tobacco Use Types Packs/Day Years [...] of Binge Drinking Not on file 11/29 PHQ-2 Answer Date Recorded Patient Health Questionnaire-2 Score 0 10/01/2023 Comments No Sex and Gender Information Value Date Recorded Sex Assigned at Not on file Legal Sex Female 1:44 PM CDT Gender Identity Not on file Sexual Orientation Not on file documented as of this encounter Last Filed Vital Signs Vital Sign Reading Time Taken Comments Blood Pressure 110/70 02/19/2024 10:33 AM CDT Pulse 101 02/19/2024 10:33 AM CDT Temperature - - Respiratory Rate - - Oxygen Saturation 96% 02/19/2024 10:33 AM CDT Inhaled Oxygen Concentration - - Weight 77.1 kg (170 lb) 02/19/2024 10:33 AM CDT Height 162.6 cm (5' 4 ) 02/19/2024 10:33 AM CDT Body Mass Index 29.18 02/19/2024 10:33 AM CDT documented in this encounter Progress Notes * Clare Perera MD - 02/19/2024 10:15 AM CDT Reason for Visit: Follow Up and Palpitations History of Present Illness: Miss Ragsdale is a 53 year old with a history of palpitations, anxiety, intermittent SOB (not exertional.) Underwent testing. Normal monitor, normal stress test. Echo shows mild MR, normal EF. On follow up, she is feeling OK. She does still have symptoms. Intermittent palpitations and SOB, not withexertion. She does take propanolol PRN for anxiety, but this does not work well for her. No new cardiopulmonary complaints. Recommendations and Plan: Palpitations/SOB Normal monitor, reassuring stress and echo. Mild MR, will need monitored. Clinically stable. Trial metoprolol to tartrate 12 and half milligrams twice a day. TSH within normal limits. Do not suspect cardiac etiology of symptoms. F/u 1 year. HLP Takes low dose statin. LDL 111. Daron Ragsdale is stable from a cardiac standpoint. Advised [...] of your patient. Medications: Current Outpatient Medications: Acetaminophen (TYLENOL OR), , Disp: , Rfl: atorvastatin 10 MG tablet, , Disp: , Rfl: Cholecalciferol (VITAMIN D3) 50 MCG (1999) Tab, , Disp: , Rfl: DEPO-PROVERA 150 MG/ML injection, , Disp: , Rfl: fexofenadine (ROLDAN) 180 MG tablet, Take 1 tablet (180 mg total) by mouth daily., Disp: , Rfl: Ibuprofen (ADVIL OR), , Disp: , Rfl: metoprolol tartrate (LOPRESSOR) 25 MG tablet, Take 0.5 tablets (12.5 mg total) by mouth 2 (two) times daily., Disp: 30 tablet, Rfl: 1 Naproxen Sodium (ALEVE OR), , Disp: , Rfl: oyster shell calcium 500 mg, elemental, (OSCAL) 500 MG tablet, TAKE 0.5 TABLETS (625 MG TOTAL) BY MOUTH DAILY, Disp: , Rfl: venlafaxine XR (EFFEXOR-XR) 75 MG 24 hr capsule, May cause drowsiness.Do not drink alcohol.Take with food/milk.Take or use exactly as directed., Disp: , Rfl: Review of patient's allergies indicates: No Known Allergies Past Medical History: Diagnosis Date Bilateral hand pain Deviated septum Ganglion cyst 1998 right wrist Hyperlipidemia Vitamin D deficiency Past Surgical History: Procedure Laterality Date CYSTECTOMY Right 1999 right ganglion cyst wr KNEE SURGERY KNEE SURGERY Left Social History Tobacco Use Smoking status: Never Passive exposure: Never Smokeless tobacco: Never Vaping Use Vaping status: Never Used Substance Use Topics Alcohol use: Yes Comment: socially Drug use: Never Family History Problem Relation Name Age of Onset No Known Problems Mother Cancer Father skin cancer Breast Cancer Maternal Grandmother age unknown Family Status Relation Name Status Mother Alive Father Alive MGM (Not Specified) No partnership data on file Review of Systems Constitutional: Negative for recent [...] and new or significant memory loss. Vitals: 02/19/24 1033 Pulse: (!) 101 Weight: 77.1 kg (170 lb) Height: 1.626 m (5' 4 ) Body mass index is 29.18 kg/m??. Cardiac Exam Rate/Rhythm: Normal rate and [...] Normal motor skills. Normal gait. Comments: Diagnoses/Impression: 1. Palpitations ELECTROCARDIOGRAM Referring Provider: Brooke Lopez NP PCP: BROOKE LOPEZ NP documented in this encounter Plan of Treatment Upcoming Encounters Date Type Department Care Team (Late st Contact Info) Description 02/25/2025 10:30 AM CDT Office Visit [facility] THREE [facility], [place] [place] [address] Kaleigh Velazco NP-C Three [facility]. [address] [place] [address] documented as of this encounter Procedures Procedure Name Priority Date/Time Associated Diagnosis Comments ELECTROCARDIOGRAM (NON MIDMARK ACQUIRED) Routine 02/19/2024 10:37 AM CDT Palpitations documented in this encounter Results * ELECTROCARDIOGRAM (02/19/2024 10:37 AM CDT) 02/19/2024 10:3 7 AM CDT Narrative [facility] - 02/21/2024 7:10 AM CDT ?[facility], O? [facility] ? Test Date: ?2024-02-19 Pat Name: ? DARON RAGSDALE ? Department: ?? 112 ? Room: ? Gender: ? Female ? Instrument Assembly Supervisor: ?? : ?1970 ? Requested By: CLARE PERERA Order Number: [id number] ?Reading MD: ?? Clare Perera ? Measurements Intervals ?Neely ? Rate: ? 89 ? P: ?60 GA: ? 151 ?QRS: ?26 QRSD: ? 101 ?T: ?36 QT: ? 343 ? QTc: ?419 ? Interpretive Statements SINUS RHYTHM NONSPECIFIC T-WAVE ABNORMALITY Procedure Note Clare Perera MD - 02/21/2024 [facility], O? [facility] Test Date: 2024-02-19 Pat Name: DARON RAGSDALE Department: 112 Room: Gender: Female Instrument Assembly Supervisor: : 1970 Requested By: CLARE PERERA Order Number: [id number] Shania MD: Clare Perera Measurements Intervals Neely Rate: 89 P: 60 GA: 151 QRS: 26 QRSD: 101 T: 36 QT: 343 QTc: 419 Interpretive Statements SINUS RHYTHM NONSPECIFIC T-WAVE ABNORMALITY us Clare Perera MD PROCEDURES-ORDERABLE NO CHARGE Final Result [facility] documented in this encounter Visit Diagnoses Diagnosis Palpitations- Primary documented in this encounter Care Teams Beauty Artist Relationship Specialty Start Date End Date Brooke Lopez, MEDICAL SCIENTIST PCP - General NURSE PRACTITIONER 10/01/23 documented as of this encounter
--- OUTSIDE RECORDS SUMMARY | 2024-04-18 13:16 | XMS_ITS | Encounter Summary ---
Author Organization [facility] Address [facility] [place] [address] [place] [address] Care Team Providers Care Inspector Canvas Products Name Role Phone Ghada Knox MD Primary Care Provider [phone] Reason for Referral * Procedure (Routine) - Closed Specialty Diagnoses / Procedures Referred By Contac t Referred To Contact Diagnoses Palpitations SOB (shortness of breath) Hyperlipidemia Procedures STRESS TEST ONLY, EXERCISE (84135) Clare Perera MD [address] [address] Phone: tel: fax: [place] [address] Phone: tel: Referral ID Status Reason Start Date Expiration Date Visits Re quested Visits Authorized [id number] Closed 10/03/2022 11/03/2023 1 1 Reason for Visit * Procedure (Routine) - Closed Specialty Diagnoses / Procedures Referred By Contac t Referred To Contact Diagnoses Palpitations SOB (shortness of breath) Hyperlipidemia Procedures STRESS TEST ONLY, EXERCISE ([id number]) Clare Perera MD [address] [address] Phone: tel: fax: [facility] [place] [address] Phone: tel: Referral ID Status Reason Start Date Expiration Date Visits Re quested Visits Authorized [id number] Closed 10/03/2022 11/03/2023 1 1 Encounter Details Date Type Department Care Team (Late st Contact Info) Description 12/07/2022 7:45 AM CDT - 12/07/2022 11:59 PM CDT Hospital Encounter [facility] [place] [address] Clare Perera MD Three [facility]. [address] [place], [place] [phone] Discharge Disposition: Home or Self Care (Routine [...] tablet 11/11/2019 Cholecalciferol (VITAMIN D3) 50 MCG (1999 [place]) Tab 09/28/2019 DEPO-PROVERA 150 MG/ML injection 06/11/2019 fexofenadine (VALENTINA) 180 MG tablet Take 1 tablet (180 mg total) by mouth daily. 09/24/2022 Ibuprofen (ADVIL OR) Naproxen Sodium (ALEVE OR) calcium carbonate (OS-LAVELL) 1500 (600 Ca) MG tablet Take 1 tablet (1,500 mg total) by mouth daily. 02/07/2023 pantoprazole EC (PROTONIX) 20 MG tablet daily. 02/07/2023 propranolol (INDERAL) 10 MG tablet Take 1 tablet (10 mg total) by mouth as needed. 02/19/2024 documented as of this encounter Plan of Treatment Upcoming Encounters Date Type Department Care Team (Late st Contact Info) Description 02/25/2025 10:30 AM CDT Office Visit [facility] THREE [facility], [address] [place] [address] Kaleigh Velazco, MACHINE SNELLER-C Three [facility]. [address] [place] [address] documented as of this encounter Procedures Procedure Name Priority Date/Time Associated Diagnosis Comments STRESS TEST ONLY, EXERCISE Routine 12/07/2022 8:46 AM CDT Palpitations SOB (shortness of breath) Hyperlipidemia documented in this encounter Results * STRESS TEST ONLY, EXERCISE (81634) (12/07/2022 8:46 AM CDT) 12/07/2022 8:46 AM CDT Narrative [facility] - 12/07/2022 8:55 AM CDT ? STRESS TEST TRACING ONLY ? Pat.Name: ??MARCIN RAGSDALE ?? Pat.ID: ?[id number] ? St.Date: ?? 12/07/2022 ? Refer.: ??CLARE PERERA ? Exam Time: 8:46:00 AM ? Study Type:EPI NC STRESS TEST TRACING ONLY Height: ?64 in ? Weight: ?159 lb ? BSA: ? 1.77 m2 ?Age: ??1970,52Y ? Sex: ? F ? HR: ?91 bpm ? Pat. Stat.:Outpatient ? Reason for Study:Shortness of breath, Palpitations, Dyspnea History / Clinical:Dyslipidemia ? Procedures: Regular Stress Test ? Race: ?W ? Surgery: ?? None ? Medications:Tylenol, atorvastatin, calcium, vitamin D3, Valentina, ibuprofen, naproxen, Protonix, propanolol ++++++++++++++++++++++++++++++++++++ SUMMARY: ++++++++++++++++++++++++++++++++++++ Stress conclusion: 1. ? Clinically negative. 2. ? Electrocardiographically negative treadmill test for ischemia. 3. ? Adequate exercise capacity. ?? 4. ? Blood pressure response was normal. ?? 5. ? Dorado Treadmill Score is 7.5, which indicates low risk. 6. ?No arrhythmia . ++++++++++++++++++++++++++++++++++++ STRESS: ++++++++++++++++++++++++++++++++++++ Baseline Vital Signs: ECG: ? Normal sinus rhythm ? HR: ?165 bmp ? Rest BP: ?? 117/61 Treadmill Test Protocol: ??Sorin Duration: ??07:30 min:sec ? Max. Workload (METS): 9.8 Stress Test Results: Max HR: ?165 bmp ? Target HR: 169 bmp % Target: ??98 % ?Max BP: ?160/80 Max RPP: ?? 96877 ? O2 sat: ?98 % Symptoms and Complications: Arrhythmias: None Terminated: Shortness of breath, Dyspnea, HR Achieved, patient fearful of incline Symptoms: ??Shortness of breath, Dyspnea, Apprehensive Complications: None Stress ECG Interp: No ischemic changes, No significant changes <Electronic Signature> 12/07/2022 08:55 AM Mainor More M.D. Procedure Note Mainor More MD - 12/07/2022 STRESS TEST TRACING ONLY Pat.Name: MARCIN RAGSDALE Pat.ID: [id number] .Date: 12/07/2022 Refer.MD: CLARE PERERA Exam Time: 8:46:00 AM Study Type:EPI NC STRESS TEST TRACING ONLY Height: 64 in Weight: 159 lb BSA: 1.77 m2 Age: 5 1970,52Y Sex: F HR: 91 bpm Pat. Stat.:Outpatient Reason for Study:Shortness of breath, Palpitations, Dyspnea History / Clinical:Dyslipidemia Procedures: Regular Stress Test Race: W Surgery: None Medications:Tylenol, atorvastatin, calcium, vitamin D3, Valentina, ibuprofen, naproxen, Protonix, propanolol ++++++++++++++++++++++++++++++++++++ SUMMARY: ++++++++++++++++++++++++++++++++++++ Stress conclusion: 1. Clinically negative. 2. Electrocardiographically negative treadmill test for ischemia. 3. Adequate exercise capacity. 4. Blood pressure response was normal. 5. Dorado Treadmill Score is 7.5, which indicates low risk. 6. No arrhythmia . ++++++++++++++++++++++++++++++++++++ STRESS: ++++++++++++++++++++++++++++++++++++ Baseline Vital Signs: ECG: Normal sinus rhythm HR: 165 bmp Rest BP: 117/61 Treadmill Test Protocol: Sorin Duration: 07:30 min:sec Max. Workload (METS): 9.8 Stress Test Results: Max HR: 165 bmp Target HR: 169 bmp % Target: 98 % Max BP: 160/80 Max RPP: 18664 O2 sat: 98 % Symptoms and Complications: Arrhythmias: None Terminated: Shortness of breath, Dyspnea, HR Achieved, patient fearful of incline Symptoms: Shortness of breath, Dyspnea, Apprehensive Complications: None Stress ECG Interp: No ischemic changes, No significant changes <Electronic Signature> 12/07/2022 08:55 AM Mainor More M.D. us Clare Perera MD CV CARDIAC SERVICES ORDERABLES Final Result [facility] documented in this encounter Visit Diagnoses Diagnosis Palpitations SOB (shortness of breath) Shortness of breath Hyperlipidemia Other and unspecified hyperlipidemia documented in this encounter Care Teams Inspector Canvas Products Relationship Specialty Start Date End Date Ghada Knox MD [address] [address] PCP - General FAMILY PRACTICE 08/31/22 05/23/23 documented as of this encounter
--- OUTSIDE RECORDS SUMMARY | 2024-04-18 13:16 | XMS_ITS | Clinical Summary ---
Author Organization [facility] Address Formerly [facility] [place] [address] [place] [address] Care Team Providers Care Practice Consultant Name Role Phone Clemencia Lopez BEVERAGE MANAGER Primary Care Provider [phone] Allergies No known active allergies Medications DEPO-PROVERA 150 MG/ML injection 06/11/2019 Active Cholecalciferol (VITAMIN D3) 50 MCG (1999) Tab 09/28/2019 Active atorvastatin 10 MG tablet 11/11/2019 Active Acetaminophen (TYLENOL OR) Active Naproxen Sodium (ALEVE OR) Active Ibuprofen (ADVIL OR) Active fexofenadine (ROLDAN) 180 MG tablet Take 1 tablet (180 mg total) by mouth daily. 09/24/2022 Active venlafaxine XR (EFFEXOR-XR) 75 MG 24 hr capsule May cause drowsiness.D o not drink alcohol.Take with food/milk.Ta ke or use exactly as directed. 09/05/2023 Active oyster shell calcium 500 mg, elemental, (OSCAL) 500 MG tablet TAKE 0.5 TABLETS (625 MG TOTAL) BY MOUTH DAILY 01/10/2024 Active metoprolol tartrate (LOPRESSOR) 25 MG tablet TAKE 0.5 TABLETS BY MOUTH 2 TIMES DAILY. 90 tablet 3 03/12/2024 Active Active Problems Problem Noted Date Diagnosed Date Bursitis of left hip 02/19/2024 Chronic tonsillitis 02/19/2024 Osteopenia 02/19/2024 Pain in right knee 02/19/2024 Severe acute respiratory syn drome coronavirus 2 (SARS-CoV-2) test result unknown 02/19/2024 Tonsillar calculus 02/19/2024 Rhinitis 02/19/2024 Encounter for medication refill 02/19/2024 Irritable bowel syndrome 02/19/2024 Breast pain 02/19/2024 Counseling, unspecified 02/19/2024 Increased frequency of urination 02/19/2024 Overview (02/19/2024): 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; will r/o UTI Urgency of urination 09/05/2023 Other hyperlipidemia 09/05/2023 SAVANNA (generalized anxiety disorder) 07/17/2023 Palpitations 02/07/2023 Goiter, 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 Hyperlipidemia 03/27/2022 Hyperlipidemia, unspecified 03/26/2022 Primary osteoarthritis of right knee 09/28/2020 Patellar malalignment syndrome of right knee 04/2020 Thyroid nodule 07/29/2020 Overview (02/19/2024): gets surveillance through endocrine Abdominal pain 05/20/2018 Disorder of bone and cartilage 05/20/2018 Encounter for issue of repeat prescription 05/20 Urinary frequency 05/20/2018 Overview (09/26/2022): 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; will r/o UTI Chronic rhinitis 11/29/2016 Deviated nasal septum 11/29/2016 Hypertrophy of nasal turbinates 11/29/2016 Irritable colon 11/29/2016 Mastodynia 11/29/2016 Thyroid nodule 06/23/2015 Enthesopathy of hip region 06/09/2008 Resolved Problems Problem Noted Date Diagnosed Date Resolved Date Encounter for screening for osteoporosis 02/19/2024 02/25/2024 Screening for osteoporosis 05/20/2018 0 10/02/2022 Encounters Date Type Department Care Team Description 02/19/2024 10:15 AM CDT Office Visit [facility], [address] [address] Clare Perera MD Follow Up; Palpitations 02/19/2024 Travel from Last 3 Months Family History Medical History Relation Comments Cancer Father skin cancer Breast Cancer Maternal Grandmother age unknown No Known Problems Mother Relation Status Comments Father Alive Maternal Grandmother Mother Alive Social History Tobacco Use Types Packs/Day Years [...] Pulse 101 02/19/2024 10:33 AM CDT Temperature 37 ??C (98.6 ??F) 04/04/2022 5:09 PM GRIDDLE COOK Respiratory Rate 20 04/04/2022 5:09 PM GRIDDLE COOK Oxygen Saturation 96% 02/19/2024 10:33 AM CDT Inhaled Oxygen Concentration - - Weight 77.1 kg (170 lb) 02/19/2024 10:33 AM CDT Height 162.6 cm (5' 4 ) 02/19/2024 10:33 AM CDT Body Mass Index 29.18 02/19/2024 10:33 AM CDT Plan of Treatment Upcoming Encounters Date Type Department Care Team (Late st Contact Info) Description 02/25/2025 10:30 AM CDT Office Visit [facility], [facility] [address] [place], [place] [id number] Kaleigh Velazco BEVERAGE MANAGER-C [facility]. [facility] [address] [place], [place] [id number] Health Maintenance Due Date Last Done Comments Cervical Cancer Screening Pap Smear (Age 30 to 64) Every 3 Years 1970 Colorectal Cancer Screening Colonoscopy (10 Years) 1971 Annual Physical 08/13/1974 Hepatitis C 08/13/1989 Cervical Cancer Screening Pap with HPV Testing (Age 30 to 64) Every 5 Years 08/13/2001 Cervical Cancer Screening with HPV 08/13/2001 Zoster Vaccines (1 of 2) 08/13/2021 COVID-19 Vaccine (3 - season) 2023 07/10/2020, 06/15/2020 Influenza Adult (#1) 2024 02/12/2023, 03/02/2022, 03/29/2021, Additional history exists DTaP, Tdap and Td Vaccines (2 - Td or Tdap) 05/13/2024 05/13/2014 Mammogram Screening 12/18/2025 12/19/2023, 11/15/2023, 01/28/2022, Additional history exists Hepatitis B Vaccines Completed 12/01/2014, 06/29/2014, 06/01/2014 Meningococcal Vaccine Aged Out No víctor [place] eligible based on patient's age to complete this topic Pneumococcal Vaccine: Pediatrics (0 to 5 Years) and At-Risk Patients (6 to 64 Years) Aged Out No longer eligible based on patient's age to complete this topic RSV Immunizations Under 20 Months Aged Out No longer eligible based on patient's age to complete this topic Procedures Procedure Name Priority Date/Time Associated Diagnosis Comments ELECTROCARDIOGRAM (NON MIDMARK ACQUIRED) Routine 02/19/2024 10:37 AM CDT Palpitations MG SCREENING W LAURENT JUANA DIGI Routine 01/28/2022 12:16 PM CDT Encounter for screening mammogram for malignant neoplasm of breast from Last 3 Months or Most Recently Relevant to Health Maintenance Results * ELECTROCARDIOGRAM (02/19/2024 10:37 AM CDT) 02/19/2024 10:3 7 AM CDT Narrative [facility] - 02/21/2024 7:10 AM CDT ?[facility], O? [place] ? Test Date: ?2024-02-19 Pat Name: ? MARCIN RAGSDALE ? Department: ?? 112 ? Room: ? Gender: ? Female ? Senior Software Manager: ?? : ?1970 ? Requested By: CLARE SCALLY Order Number: [id number] ?Reading MD: ?? Clare Scally ? Measurements Intervals ?Cameron ? Rate: ? 89 ? P: ?60 MS: ? 151 ?QRS: ?26 QRSD: ? 101 ?T: ?36 QT: ? 343 ? QTc: ?419 ? Interpretive Statements SINUS RHYTHM NONSPECIFIC T-WAVE ABNORMALITY Procedure Note Clare Perera MD - 02/21/2024 [facility], O? [facility] Test Date: 2024-02-19 Pat Name: MARCIN RAGSDALE Department: 112 Room: Gender: Female Senior Software Manager: : 1970 Requested By: CLARE PERERA Order Number: [id number] Reading MD: Clare Perera Measurements Intervals Cameron Rate: 89 P: 60 MS: 151 QRS: 26 QRSD: 101 T: 36 QT: 343 QTc: 419 Interpretive Statements SINUS RHYTHM NONSPECIFIC T-WAVE ABNORMALITY us Clare Perera MD PROCEDURES-ORDERABLE NO CHARGE Final Result [facility] * MG SCREENING W LAURENT JUANA DIGI (01/28/2022 12:16 PM CDT) Anatomical Region Laterality Modality Breast Bilateral Mammography 01/30/2022 7:01 AM CDT Impressions 01/30/2022 7:03 AM CDT ===== IMPRESSION: ===== 1. ??Stable mammographic appearance with no new findings to suggest malignancy in either breast. Assessment: ACR BI-RADS 2 - BENIGN FINDING(S) Recommendation: 1:Routine Screening Bilateral Comments: Ordered By: SALUD GROVER Interpreted By: Coleman Still MD, 01/30/2022 7:01 AM Narrative 01/30/2022 7:03 AM CDT Examination: Digital bilateral screening mammogram with 3D Tomosynthesis Exam Date/Time: 01/28/2022 11:56 AM Reason For Exam: ??SCREENING ? No prior breast procedures. No personal or first-degree relative family history of breast cancer. No current complaints. Comparison: Mammograms from 01/25/2021 12/10/2019 11/14/2018 Technique: Digital screening mammography of both breasts was performed in addition to 3-D Tomosynthesis technique. This study was read with the assistance of a computer-aided detection system. Tissue density: There are scattered areas of fibroglandular density. Findings: Benign axillary lymph nodes again seen. Benign punctate calcifications again seen. Overall parenchymal pattern unchanged from prior studies. There is no new focal asymmetry, dominant mass lesion, area of skin thickening, or cluster of suspicious appearing calcifications in either breast to suggest malignancy. Salud Grover MD MAMMO Final Result from Last 3 Months or Most Recently Relevant to Health Maintenance Insurance [employer] [address] Care Teams Practice Consultant Relationship Specialty Start Date End Date Clemencia Lopez NP PCP - General NURSE PRACTITIONER 10/01/23
--- OUTSIDE RECORDS SUMMARY | 2024-04-18 13:16 | XMS_ITS | Encounter Summary ---
Author Organization [facility] Address [facility] [place] [address] [place] [address] Care Team Providers Care Excelsior Machine Tender Name Role Phone Clemencia Lopez NP Primary Care Provider [phone] Reason for Visit * Reason Comments New Patient Right wrist and bila t hand * Consultation/Treatment (Routine) - Authorized Specialty Diagnoses / Procedures Referred By Contsilas smith Referred To Contact HAND SURGERY / ORTHOPAEDICS Diagnoses Pain in right wrist Salud Flores MD [address] [address] Phone: tel: fax: Ramos Carreon MD [address] [place] [address] Phone: tel: fax: Referral ID Status Reason Start Date Expiration Date V isits Requested Visits Authorized [id number] Authorized 07/18/2023 07/17/2024 6 6 Encounter Details Date Type Department Care Team (Late st Contact Info) Description 10/01/2023 9:20 AM CDT Office Visit [facility] [place] [address] [place] [address] Ramos Carreon MD [address] [place] [address] New Patient (Right wrist and bilat hand) Social History Tobacco Use Types Packs/Day Years Used Date Smoking Tobacco: Never Passive Smoke Exposure: Never Smokeless Tobacco: Never Tobacco Cessation:Counseling Given: No Alcohol Use Standard Drinks/Week Comments Yes 0 [...] Sign Reading Time Taken Comments Blood Pressure 110/71 10/01/2023 9:18 AM CDT Pulse 83 10/01/2023 9:18 AM CDT Temperature - - Respiratory Rate - - Oxygen Saturation - - Inhaled Oxygen Concentration - - Weight 76.7 kg (169 lb 3.2 oz) 10/01/2023 9:18 A M CDT Height - - Body Mass Index 29.04 02/07/2023 11:02 AM CDT documented in this encounter Progress Notes * Ramos Carreon MD - 10/01/2023 9:20 AM CDT Images from the original note were not included. OFFICE VISIT SUBJECTIVE Reason for Visit: New Patient (Right wrist and bilat hand) History of Present Illness: 53-year-old right-hand dominant female, referred by Salud Flores MD, presents today for evaluation of numbness/tingling and pain. Patient complaining of 1 Year history of numbness, tingling and pain of bilateral hand R>L involving thumb, index, and middle fingers primarily. Also describes associated aching pain on the volar aspect of the wrist that radiates up forearm. Inaddition describes stiffness, sensation of swelling and hot/cold sensation along affected fingers. Positive night symptoms that wake her up 7 nights a week. Pt is frequently shaking or massaging the hands for relief. During the day symptoms rearly exacerbate with activities such as using computer, using the phone, writing, doing desk work, doing hair/make-up, driving, prolonged hold/ceo & co founder, prolong elbow flexion, resting arm on desck/chair. Pt also complains of decreased ceo & co founder strength, decreased dexterity, and dropping things. Previous treatment: Splints, NSAID's. No history of trauma. No other complaints. Review of Systems: ROS History: Past Medical History: Diagnosis Date Bilateral hand pain Deviated septum Ganglion cyst 1998 right wrist Hyperlipidemia Vitamin D deficiency Past Surgical History: Procedure Laterality Date CYSTECTOMY Right 1999 right ganglion cyst wr KNEE SURGERY KNEE SURGERY Left Family History Problem Relation Name Age of Onset No Known Problems Mother Cancer Father skin cancer Breast Cancer Maternal Grandmother age unknown Social History Tobacco Use Smoking status: Never Passive exposure: Never Smokeless tobacco: Never Vaping Use Vaping status: Never Used Substance Use Topics Alcohol use: Yes Comment: socially Drug use: Never Medications and Allergies: Current Outpatient Medications: Acetaminophen (TYLENOL OR), , Disp: , Rfl: atorvastatin 10 MG tablet, , Disp: , Rfl: Calcium Carbonate (CALCIUM-CARB 600 OR), , Disp: , Rfl: Cholecalciferol (VITAMIN D3) 50 MCG (1999 [place]) Tab, , Disp: , Rfl: DEPO-PROVERA 150 MG/ML injection, , Disp: , Rfl: fexofenadine (ROLDAN) 180 MG tablet, Take 1 tablet (180 mg total) by mouth daily., Disp: , Rfl: Ibuprofen (ADVIL OR), , Disp: , Rfl: Naproxen Sodium (ALEVE OR), , Disp: , Rfl: venlafaxine XR (EFFEXOR-XR) 75 MG 24 hr capsule, May cause drowsiness.Do not drink alcohol.Take with food/milk.Take or use exactly as directed., Disp: , Rfl: propranolol (INDERAL) 10 MG tablet, Take 1 tablet (10 mg total) by mouth as needed., Disp: , Rfl: Review of patient's allergies indicates: No Known Allergies OBJECTIVE Vital Signs: Filed Vitals: 10/01/23 0918 BP: 110/71 Pulse: 83 Weight: 76.7 kg (169 lb 3.2 oz) Body mass index is 29.04 kg/m??. Physical Exam: Physical Exam Constitutional: She is oriented to person, place, and time. She appears well- developed and well-nourished. HENT: Head: Normocephalic. Eyes: EOM are normal. Lymph nodes: No palpable lymphadenopathy involving bilateral upper extremities. Cardiovascular: Intact distal pulses. Pulmonary/Chest: Effort normal. No respiratory distress. Neurological: She is alert and oriented to person, place, and time. Psychiatric: She has a normal mood and affect. Upper Extremity Exam: Right Upper Extremity Upper Arm : no tenderness, no swelling, no masses, no deformities Elbow : Inspection/Palpation: no tenderness, no swelling, no erythema, no induration, no bruising. All muscle compartments soft, no joint effusion present, no deformities noted, no masses present, no arthritic changes. Negative lateral/medial epicondylitis provocation test Range of Motion: Active and Passive ROM within functional range for age/activity level Strength: flexion and extension 5/5 Stability: no joint instability on provocative testing Tests/Signs: Tinel's and compression sign negative over cubital tunnel Forearm: no tenderness to palpation, no swelling, no forearm deformities noted, no masses present Wrist: Inspection/Palpation: no tenderness, no swelling, no erythema, no induration, no bruising. All muscle compartments soft, no joint effusion present, no deformities noted, no masses present, no arthritic changes, no crepitus noted in wrist/carpus Range of Motion: Active and Passive ROM within functional range for age/activity level Strength: flexion and extension and lateral deviation 5/5 Stability: no joint instability on provocative testing Tests/Signs: Tinel's and compression sign positive over carpal tunnel, Richard test negative Hand : Inspection/Palpation: no tenderness, no swelling, no erythema, no induration, no bruising. All muscle compartments soft, no joint effusion present, no deformities noted, no masses present, no arthritic changes. No crepitus hand/fingers on ROM testing, no deformities of hand or fingers Range of Motion: Active and passive ROM within functional range for age/activity level Strength: all muscles 5/5 Stability: no joint instability on provocative testing Sensation: hand neuro-vascular exam intact Muscle Tone: tone normal Muscle Bulk: muscle bulk normal Skin: no skin lesions or discoloration Vascular Exam: normal capillary refill, radial artery pulse 2, ulnar artery pulse 2, normal finger capillary refill Left Upper Extremity Upper Arm : no tenderness, no swelling, no masses, no deformities Elbow : Inspection/Palpation: no tenderness, no swelling, no erythema, no induration, no bruising. All muscle compartments soft, no joint effusion present, no deformities noted, no masses present, no arthritic changes. Negative lateral/medial epicondylitis provocation test Range of Motion: Active and Passive ROM within functional range for age/activity level Strength: flexion and extension 5/5 Stability: no joint instability on provocative testing Tests/Signs: Tinel's and compression sign negative over cubital tunnel Forearm: no tenderness to palpation, no swelling, no forearm deformities noted, no masses present Wrist: Inspection/Palpation: no tenderness, no swelling, no erythema, no induration, no bruising. All muscle compartments soft, no joint effusion present, no deformities noted, no masses present, no arthritic changes, no crepitus noted in wrist/carpus Range of Motion: Active and Passive ROM within functional range for age/activity level Strength: flexion and extension and lateral deviation 5/5 Stability: no joint instability on provocative testing Tests/Signs: Tinel's and compression sign positive over carpal tunnel, Richard test negative Hand : Inspection/Palpation: no tenderness, no swelling, no erythema, no induration, no bruising. All muscle compartments soft, no joint effusion present, no deformities noted, no masses present, no arthritic changes. No crepitus hand/fingers on ROM testing, no deformities of hand or fingers Range of Motion: Active and passive ROM within functional range for age/activity level Strength: all muscles 5/5 Stability: no joint instability on provocative testing Sensation: hand neuro-vascular exam intact Muscle Tone: tone normal Muscle Bulk: muscle bulk normal Skin: no skin lesions or discoloration Vascular Exam: normal capillary refill, radial artery pulse 2, ulnar artery pulse 2, normal finger capillary refill Recent Imaging: No image results found. ASSESSMENT Marcin was seen today for new patient. Diagnoses and all orders for this visit: Carpal tunnel syndrome on left Carpal tunnel syndrome on right PLAN Treatment/Counselling: Discussed the etiology, pathophysiology and natural history of nerve compression neuropathies, including carpal tunnel and cubital tunnel; including a detailed explanation of anatomy. Detailed review of non-operative and operative treatment options were discussed with patient including risks benefits and indications. Treatment criteria such as nerve function status and quality of life were discussed. Options such as NSAIDS, splinting, OT, oral and injected steroids, activity modification, open surgery and endoscopic surgery. Also discussed risks of permanent nerve function deterioration associated with increase duration and/or severity of symptoms/nerve compression. Also discussed possible risk of nerve entrapment from thickened (epineurum) tissue surrounding nerve which could require a separate procedure. Surgical risks including but not limited to, infection, bleeding, injury to surrounding structures,cicatrix, recurrence, joint stiffness, joint pain, chronic swelling, incisional tenderness, chronicnumbness, need of further surgery, possible anesthesia complications were all discussed. Possible need of Post op rehab was also explained. Patient voices understanding and wishes to proceed with splinting. Procedure: RAMOS CARREON MD 10/01/2023 Cc. ESTEPHANIA PORTILLO MD documented in this encounter Plan of Treatment Upcoming Encounters Date Type Department Care Team (Late st Contact Info) Description 02/25/2025 10:30 AM CDT Office Visit [facility], [place] [address] [place] [address] Kaleigh Velazco, HABILITATIVE INTERVENTIONIST-C [facility]. [place] [address] [place] [address] documented as of this encounter Visit Diagnoses Diagnosis Carpal tunnel syndrome on left- Primary Carpal tunnel syndrome Carpal tunnel syndrome on right Carpal tunnel syndrome documented in this encounter Care Teams Excelsior Machine Tender Relationship Specialty Start Date End Date Clemencia Lopez NP PCP - General NURSE PRACTITIONER 10/01/23 documented as of this encounter
--- OUTSIDE RECORDS SUMMARY | 2024-04-18 13:16 | XMS_ITS | Encounter Summary ---
Author Organization [facility] Address [address] [facility] [place] [address] [place] [address] Care Team Providers Care Brilliandeer Lopper Name Role Phone Clemencia Lopez NP Primary Care Provider [phone] Encounter Details Date Type Department Care Team (Latest Contact Info) Description 02/19/2024 Travel Social History Tobacco Use Types Packs/Day [...] Description 02/25/2025 10:30 AM CDT Office Visit [facility], [place] [address] [place], [place] [phone] Kaleigh Velazco, AUTO RADIO MECHANIC-C [facility]. [place] [address] [place], [place] [id number] documented as of this encounter Visit Diagnoses Not on filedocumented in this encounter Care Teams Brilliandeer Lopper Relationship Specialty Start Date End Date Clemencia Lopez, AUTO RADIO MECHANIC PCP - General NURSE PRACTITIONER 10/01/23 documented as of this encounter
--- OUTSIDE RECORDS SUMMARY | 2024-04-18 13:16 | XMS_ITS | Encounter Summary ---
Author Organization [facility] Address [facility] [facility] [place] [address] [place] [address] Care Team Providers Care Votator Machine Operator Name Role Phone Ghada Knox MD Primary Care Provider [phone] Reason for Visit * Reason Onset Date Comments Results 01/12/2023 Encounter Details Date Type Department Care Team (Late st Contact Info) Description 01/12/2023 [facility] [address] [address] [place] [address] Results Social History Tobacco Use Types Packs/Day Years [...] on file documented as of this encounter Progress Notes * Venessa Medrano RN - 01/12/2023 9:46 AM CDT Images from the original note were not included. Kaleigh Velazco, ESTEPHANIA-C Venessa Medrano RN Primarily SR Informed pt of the above per Mary. Pt verbalized understanding. documented in this encounter Plan of Treatment Upcoming Encounters Date Type Department Care Team (Late st Contact Info) Description 02/25/2025 10:30 AM CDT [facility], [place] [address] [place], [place] [phone] Kaleigh Velazco, EXCEPTIONAL STUDENT EDUCATION AIDE-C [facility]. [place] [address] [place], [place] [phone] documented as of this encounter Visit Diagnoses Not on filedocumented in this encounter Care Teams Votator Machine Operator Relationship Specialty Start Date End Date Ghada Knox MD 2 [facility] [place] [address] [place] [address] PCP - General FAMILY PRACTICE 08/31/22 05/23/23 documented as of this encounter
--- OUTSIDE RECORDS SUMMARY | 2024-04-18 13:16 | XMS_ITS | Encounter Summary ---
Author Organization [facility] Address [facility] [place] [address] [place] [address] Care Team Providers Care Beater Machine Operator Name Role Phone Ghada Knox MD Primary Care Provider [phone] Reason for Visit * Reason Onset Date Comments Appointment Request 02/09/2023 Encounter Details Date Type Department Care Team (Late st Contact Info) Description 02/09/2023 Telephone [facility] Diabetes and Endocrinology - [address] [address] Gray Carmona MD Appointment Request Social History Tobacco Use Types Packs/Day Years [...] as of this encounter Progress Notes * Bharti Harrington RN - 02/09/2023 1:45 PM CDT Called and spoke with patient. Informed her that Dr. Carmona will no longer be with the practice and that her 03/28/23 appointment has been cancelled. Informed patient that we do not have another provider in the clinic and that she will need to contact her PCP to obtain a referral to another cadd instructor in the area. Patient verbalized understanding. documented in this encounter Plan of Treatment Upcoming Encounters Date Type Department Care Team (Late st Contact Info) Description 02/25/2025 10:30 AM CDT Office Visit [facility], [address] [place], [place] [address] Kaleigh Velazco, CHIP SEPARATOR-C [facility]. [address] [place], [place] [id number] documented as of this encounter Visit Diagnoses Not on filedocumented in this encounter Care Teams Beater Machine Operator Relationship Specialty Start Date End Date Ghada Knox MD 2 [facility] [address] [place] [phone] PCP - General FAMILY PRACTICE 08/31/22 05/23/23 documented as of this encounter
--- OUTSIDE RECORDS SUMMARY | 2024-04-18 13:16 | XMS_ITS | Encounter Summary ---
Author Organization [facility] Address [facility] [place] [address] Care Team Providers Care Joint Filler Name Role Phone [address] Primary Care Prov ider Reason for Visit * Reason Comments Thyroid Nodule Encounter Details Date Type Department Care Team (Late st Contact Info) Description 05/26/2020 3:00 PM ORTHOPEDIC ASSISTANT Office Visit [facility] Endocrinology, Diabetes and Metabolism [address] [place] [address], [place] [phone] Gerry Lew MD [address] [place] [address] of Endocrinology [place], [place] [id number] Thyroid nodule (Primary Dx) Social History Tobacco [...] Sign Reading Time Taken Comments Blood Pressure 124/78 05/26/2020 4:21 PM ORTHOPEDIC ASSISTANT Pulse 78 05/26/2020 4:21 PM ORTHOPEDIC ASSISTANT Temperature 36.8 ??C (98.3 ??F) 05/26/2020 4:21 PM CS T Respiratory Rate - - Oxygen Saturation 98% 05/26/2020 4:21 PM ORTHOPEDIC ASSISTANT Inhaled Oxygen Concentration - - Weight 68 kg (150 lb) 05/26/2020 4:21 PM ORTHOPEDIC ASSISTANT Height 162.6 cm (5' 4 ) 05/26/2020 4:21 PM ORTHOPEDIC ASSISTANT Body Mass Index 25.75 05/26/2020 4:21 PM ORTHOPEDIC ASSISTANT documented in this encounter Patient Instructions * Patient Instructions* Gerry Lew MD - 05/26/2020 4:28 PM ORTHOPEDIC ASSISTANT BP 124/78 (BP SITE: RIGHT ARM, BP POSITION: SITTING, BP CUFF SIZE: 11) Pulse 78 Temp 98.3 ??F (36.8??C) (Oral) Ht 5' 4 (1.626 m) Wt 150 lb (68 kg) SpO2 98% BMI 25.75 kg/m2 How to Contact Us Between Office Visits Please make your follow up appointment before you leave the office today. If you are unable to makethe appointment today, please contact us at [phone]. To make an appointment: Please call us at [phone], option 1. To requesting refills or leaving a message for your doctor, Please call [phone], option 2. This is the option to speak to a nurse if they are available. We request that all prescription refills be requested during regular office phone hours. Phone lines are open from 8:00 am to 4:30 pm Sunday through Sunday. Our fax number is [phone]. After hours urgent calls that cannot wait untill phone lines are open on the next day are given to the Endocrine physician data conversion analyst. Please call [phone] and identify yourself as a patient in our practice with your doctor's name. The air table operator will contact the physician data conversion analyst. You can g enerally expect a return call within 30 minutes. On weekends, physicians are seeing hospitalized patients and there may be a longer wait. Test and laboratory results: Our practice typically reports lab and test results through letters orMYChart, the [employer] online patient portal. Please allow 5 days from when your tests are completed to receive the results. Visit our website at [email or web address] for additional information about [employer] and an interactive health encyclopedia. PLAN THYROID ULTRASOUND TODAY REPEAT ULTRASOUND IN TWO YEARS AT LEAST ANNUAL TSH DETERMINATION RETURN IN TWO YEARS FOR ULTRASOUND IF TSH GREATER THAN 5 WILL OBTAIN FREE T4 IF TSH LESS THAN 0.1 WILL OBTAIN FREE T4 AND FREE T3 OPEDIC ASSISTANT documented in this encounter Progress Notes * Gerry Lew MD - 05/26/2020 4:10 PM CST HISTORY / PROGRESS NOTE Date: 05/26/2020 Chief Complaint or Purpose for Referral: Patient presents with: Thyroid Nodule History of Present Illness: 49 YEAR OLD WHITE FEMALE GRICELDA 05/23/2019 GRICELDA TUS 05/23/2019 LPOV 05/20/2018 No dysphagia No dyspnea No dysphonia No change size of neck No neck pain or discomfort No nervousness No shakiness No palpitations Weight DECREASED Wt Readings from Last 3 Encounters: 05/26/20 150 lb (68 kg) 05/23/19 162 lb 9.6 oz (73.8 kg) 05/20/18 157 lb (71.2 kg) BM daily No diarrhea No constipation nocturia 0-1 per night No edema No proximal muscle weakness GLASSES (+) VOICE RASPY SECONDARY TO TALKING AND MASK (+) NO NAUSEA NO VOMITING PHX TO RETIRE FROM SOON WILL BE CHANGING INSURANCE AFTER SENIOR LIVING WILL NEED NEW PATENT SEARCHER LAB 05/12/2020 ANTI TG <1.0 NORMAL 0-0.9 ANTI TPO <9 0-34 05/12/2020 TSH 0.73 NORMAL 0.34-4.94 05/07/2019 TSH ? 0.35?NORMAL?0.34-4.94 07/11/2016 TSH ?1.23 ?NORMAL 0.34-4.94?10/17/2017 TSH ? 0.53 ?NORMAL 0.34-4.94 07/11/2016 TSH ?1.23 ?NORMAL 0.34-4.94? Results for DARON RAGSDALE ( ) as of 05/26/2020 16:12 Ref. Range 06/23/2015 10:56 TSH Latest Ref Range: 0.350 - 4.940 uIU/mL 0.994 11/29/2016 TUS Procedure Preformed: Ultrasound Only Nodule Size: Right lobe ?TRANSVERSE IMAGE: ??LARGEST HYPOECHOIC CYST MID LOBE LATERAL 1.12 X 0.88 CM; ??OTHER HYPOECHOIC CYSTS IN LOBE: ??0.36 X 0.20 CM, ??0.37 X 0.29 CM, ??0.23 X 0.13 CM, ??0.26 X 0.20 CM, ??0.36 X 0.27 CM, ??0.20 X 0.12 CM, ??0.34 X 0.35 CM ?LONGITUDINAL IMAGE: ??LARGEST HYPOECHOIC CYST LATERAL 1.73 X 0.76 CM; ??OTHER HYPOECHOIC CYSTS IN LOBE: ??0.32 X 0.18 CM, ??0.23 X 0.14 CM,, ??0.23 X 0.21 CM, ?0.21 X 0.30 CM, ??0.47 X 0.26 CM LEFT LOBE ?TRANSVERSE IMAGE: ??HYPOECHOIC CYSTS: ??0.20 X 0.12 CM, ??0.50 X 0.27 CM, 0.37 X 0.22 CM, ??0.40 X 0.18 CM, ??0.31 X 0.19 CM, 0.68 X 0.43 CM, ?LONGITUDINAL IMAGE: HYPOECHOIC CYSTS: ??0.78 X 0.45 CM, ??0.36 X 0.21 CM, ??0.51 X 0.24 CM, 0.82 X 0.46 CM, ?? Echogenicity: HOMOGENEOUS Vascularity: NOT INCREASED OR ABNORMAL Number of Nodules Present: NUMEROUS HYPOECHOIC CYSTS Calcifications: NONE Borders: SHARP Right lobe ?TRANSVERSE IMAGE: ??1.97 X 1.32 CM ?LONGITUDINAL IMAGE: ??4.49 CM ISTHMUS: ??0.21 CM LEFT LOBE ?TRANSVERSE IMAGE: ??1.89 X 1.06 CM ?LONGITUDINAL IMAGE: 4.2 CM ASSESSMENT ? Patient Active Problem List Diagnosis ??? Thyroid nodule BENIGN THYROID NODULES, CYSTS MOST LESS THAN 1 CM , MULTIPLE ON US EUTHYROID ??? Mastodynia ??? Irritable colon ??? Hypertrophy of nasal turbinates ??? Enthesopathy of hip region ??? Deviated nasal septum ??? Chronic tonsillitis ??? Chronic rhinitis ?? PLAN ULTRASOUND TODAY RETURN IN ONE YEAR ??ULTRASOUND TWO YEARS AT LEAST ANNUAL TSH DETERMINATION CHECK TSH BEFORE NEXT VISIT OR spring IF TSH GREATER THAN 5 WILL GET FREE T4 IF TSH LESS THAN 0.1 WILL GET FREE T4 AND FREE T3 NO FNA BIOPSY INDICATED BASED ON ULTRASOUND FEATURES Gerry Lew MD Division of Endocrinology ?? 05/23/2019 TUS Procedure Preformed: Ultrasound Only Nodule Size: MULTIPLE HYPOECHOIC CYSTS THROUGHOUT BOTH LOBES , SOME ARE MEASURED BELOW BUT NOT ALL AND TRANSVERSE IMAGES NOT CORRELATED WITH LONGITUDINAL IMAGES RIGHT LOBE TRANSVERSE IMAGE: 0.45 X 0.37 CM, 0.16 X 0.10 CM, 0.32 X 0.39 CM, 0.48 X 0.35 CM, 0.24 X 0.14 CM, 0.31 X 0.16 CM, 0.65 X 0.41 CM, 0.34 X 0.17 CM ?? LONGITUDINAL IMAGE: 0.66 X 0.34 CM, 0.56 X 0.34 CM, 0.31 X 0.21 CM, 0.22 X 0.14 CM, 0.84 X 0.28 CM,0.36 X 0.23 CM ?? LEFT LOBE TRANSVERSE IMAGE: 0.29 X 0.17 CM, 0.58 X 0.35 CM, 0.36 X 0.26 CM, 0.50 X 0.31 CM, 1.11 X 0.61 CM COMPLEX CYST LONGITUDINAL IMAGE: 1.02 X 0.45 CM, 0.76 X 0.34 CM, 1.36 X 0.65 CM, 0.36 X 0.20 CM Echogenicity: HETEROGENEOUS ECHO TEXTURE TO BOTH LOBES Vascularity: NOT INCREASED OR ABNORMAL Number of Nodules Present: MANY HYPOECHOIC CYSTS IN BOTH LOBES Calcifications: NONE Borders: SHARP RIGHT LOBE TRANSVERSE IMAGE : 1.79 X 1.20 CM LONGITUDINAL IMAGE: 5.37 CM ISTHMUS: 0.21 CM LEFT LOBE TRANSVERSE IMAGE: 1.50 X 1.11 CM LONGITUDINAL IMAGE: 6.21 CM ASSESSMENT MULTI NODULAR GOITER EUTHYROID NO CHANGE IN THYROID GLAND APPEARANCE ON ULTRASOUND EXAMINATION Recommendations: PLAN THYROID ULTRASOUND TODAY AT LEAST ANNUAL TSH DETERMINATION RETURN IN ONE YEAR LAB IN ONE YEAR Gerry Lew MD Division of Endocrinology (Brief 1-3; Ext. >4) Past Medical History: No date: Allergic rhinitis No date: Goiter, non-toxic No date: IBS (irritable bowel syndrome) No date: Thyroid nodule Past Surgical History: No date: Cyst Removal No date: Knee Arthroscopy Review of patient's family history indicates: Problem: [...] Onset: (Not Specified) Comment: surgery on thyroid Problem: CVA Relation: Neg Hx Name: Age [...] on file Occupational History Not on file Social Needs Financial resource strain: Not on file Food insecurity Worry: Not on file Inability: Not on file Transportation needs Medical: Not on file Non-medical: Not on file Tobacco Use Smoking status: Never Smoker Smokeless tobacco: Never Used Substance and Sexual Activity Alcohol use: No Drug use: No Sexual activity: Not on file Lifestyle Physical activity Days per week: Not on file Minutes per session: Not on file Stress: Not on file Relationships Social connections Talks on phone: Not on file Gets together: Not on file Attends denominational service: Not on file Active member of club or organization: Not on file Attends meetings of clubs or organizations: Not on file Relationship status: Not on file Intimate partner violence Fear of current or ex partner: Not on file Emotionally abused: Not on file Physically abused: Not on file Forced sexual activity: Not on file Other Topics Concerns: Not on file Social History Narrative Not on file Current Outpatient Medications: ??? CALTRATE 600+D 600-800 MG-UNIT tablet, Take 1 tablet by mouth once daily, Disp: , Rfl: ??? DEPO-PROVERA 150 MG/ML vial, Every 90 days, Disp: , Rfl: ??? fexofenadine-pseudoephedrine ER 12hr (ROLDAN-D) 60-120 MG tablet, Take 180 mg by mouth., Disp:, Rfl: ??? fluticasone propionate (FLONASE) 50 MCG/ACT nasal spray, [place] 1 spray into each nostril once daily, Disp: , Rfl: ??? folic acid (FOLVITE) 1 MG tablet, , Disp: , Rfl: ??? [place]-3 Fatty Acids (FISH OIL) 1000 MG capsule, , Disp: , Rfl: ??? vitamin D, cholecalciferol, 2000 UNITS tablet, Take 2,000 Units by mouth once daily, Disp: , Rfl: No current facility-administered medications for this visit. No Known Allergies Physical Exam: Constitutional: Vital Signs: BP 124/78 (BP SITE: RIGHT ARM, BP POSITION: SITTING, BP CUFF SIZE: 11)Pulse 78 Temp 98.3 ??F (36.8 ??C) (Oral) Ht 5' 4 (1.626 m) Wt 150 lb (68 kg) SpO2 98% BMI 25.75 kg/m2 Well developed, well nourished, white female, no acute distress, alert and oriented, normocephalic Appearance: WNL Eyes: Conjunctiva/lids WNL and EOM Intact ENT, Mouth: Hearing WNL and External ear/nose WNL Neck: No masses, symmetrical and SEE ANNOTATED IMAGE Resp.:Effort nonlabored CVS: S1, S2; no murmurs Chest: NOT EXAMINED GI/Abd: NOT EXAMINED : NOT APPLICABLE Lymph: Neck WNL MS: Station and gait WNL, Stable without dislocation, laxity, ROM without pain, no contracture and Muscle strength and tone WNL Areas Assessed: Head/neck, R/L upper extremities, Digits/nails and Inspection/palpatation of above WNL Skin: No rashes/lesions/ulcers and SKIN NORMAL TEXTURE AND TURGOR Neuro: Cranial nerves intact and DTR WNL Psych: Judgement/insight WNL, Oriented X 3, Memory WNL and Mood/affect WNL Accuchecks: NOT APPLICABLE Assessment: Patient Active Problem List: Deviated nasal [...] Screening examination for pulmonary tuberculosis Goiter, non-toxic PLAN THYROID ULTRASOUND TODAY REPEAT ULTRASOUND IN TWO YEARS AT LEAST ANNUAL TSH DETERMINATION RETURN IN TWO YEARS FOR ULTRASOUND IF TSH GREATER THAN 5 WILL OBTAIN FREE T4 IF TSH LESS THAN 0.1 WILL OBTAIN FREE T4 AND FREE T3 REVIEWED ULTRASOUND IMAGES WITH PATIENT DISCUSSED FOLLOW AND NEED FOR ANNUAL TSH Thyroid nodule - Plan: PROC ULTRASOUND THYROID W/WO FNA BIOPSY, TSH, TSH Gerry Lew MD Professor of Internal Medicine Division of Endocrinology Department of Internal Medicine OPEDIC ASSISTANT documented in this encounter Procedure Notes * Gerry Lew MD - 05/26/2020 5:22 PM CSTAssociated Order(s): PROC ULTRASOUND THYROID W/WO FNA BIOPSY Procedure(s): NC US SOFT TISS HEAD&NCK R-T IMG Pre-Procedure Diagnose(s): Thyroid nodule Ultrasound Of Thyroid Ultrasound of the Thyroid PHYSICIAN Gerry Lew MD FELLOW NONE Test Date: 05/26/2020 Test Indication: Patient Active Problem List: Deviated [...] Screening examination for pulmonary tuberculosis Goiter, non-toxic [facility] Phys[facility] Procedure Preformed: Ultrasound Only COMPARED TO 05/23/2019 Nodule Size: RIGHT LOBE TRANSVERSE IMAGE: MULTIPLE HYPOECHOIC CYSTS THROUGHOUT LOBE, MEASURED SOME BUT NOT ALL AND MOSTLY ONLY MEASURED THIS VIEW SUPERIOR MEDIAL 0.42 X 0.30 CM; SUPERIOR LATERAL 0.30 X 0.20 CM; SUPERIOR LATERAL 0.46 X 0.33 CM; MID LOBE LATERAL 0.65 X 0.33 CM; MID LOBE 0.40 X 0.17 CM; INFERIOR MEDIAL 0.31 X 0.20 CM; INFERIOR MEDIAL NEAR ISTHMUS 0.76 X 0.44 CM, SECOND IMAGE 0.72 X 0.49 CM, THIRD IMAGE 0.96 X 0.55 CM, FOURTH IMAGE FROM VIEW OD ISTHMUS 0.66 X 0.38 CM COMPLEX CYST, WITH COMET TAIL ARTIFACT; INFERIOR POSTERIOR 0.35 X 0.25 CM; LONGITUDINAL IMAGE: ONLY A FEW MEASURED : MID LOBE 0.65 X 0.25 CM; MID LOBE 0.33 X 0.21 CM; ISTHMUS INFERIOR RIGHT LOBE MEDIAL NEAR ISTHMUS SEE ABOVE ALSO 0.73 X 0.54 CM, SPONGIFORM; LEFT LOBE TRANSVERSE IMAGE: MULTIPLE HYPOECHOIC CYSTS THROUGH OUT LOBE, SOME ARE MEASURED AND ONLY IN THIS VIEW: SUPERIOR POLE 0.31 X 0.22 CM; SUPERIOR POLE, SPONGIFORM , 0.65 X 0.34 CM; POSTERIOR MID LOBE WITH COMET TAIL ARTIFACTS 0.62 X 0.41 CM; MID LOBE LATERAL 0.40 X 0.30 CM; MID LOBE 0.35 X 0.28 CM; MID LOBE ANTERIOR HYPOECHOIC, SOLID SMOOTH 0.49 X 0.35 CM; MID TO INFERIOR POLE LATERAL 0.23 X 0.16CM; INFERIOR POLE, ANTERIOR, SMOOTH BORDER, COMPLEX CYST 1.13 X 0.74 CM; LONGITUDINAL IMAGE: ONLY SOME MEASURED INFERIOR POLE CYSTIC/SOLID, SPONGIFORM, SMOOTH BORDER 1.26 X 0.70 CM, 1.23 X 0.64 CM SECOND IMAGE; SUPERIOR TO MID LOBE CYST 0.49 X 0.29 CM; Echogenicity: HETEROGENEOUS ECHO TEXTURE TO BOTH LOBES Vascularity: NOT INCREASED OR ABNORMAL Number of Nodules Present: SEE ABOVE , MANY, LESS THAN 1.0 CM Calcifications: NONE Borders: SHARP RIGHT LOBE TRANSVERSE IMAGE: 1.92 X 1.30 CM LONGITUDINAL IMAGE: 5.84 CM ISTHMUS: 0.20 CM LEFT LOBE TRANSVERSE IMAGE: 1.90 X 1.03 CM LONGITUDINAL IMAGE: 5.22 CM ASSESSMENT MULTINODULAR THYROID EUTHYROID NO CHANGE IN [...] TSH Gerry Lew MD Division of Endocrinology OPEDIC ASSISTANT documented in this encounter Plan of Treatment Scheduled Orders Name Type Priority Associated Diagnoses Orde r Schedule TSH Lab Routine Thyroid nodule E-6Months for 3 Occurrences starting 05/26/2020 until 06/26/2021 documented as of this encounter Procedures Procedure Name Priority Date/Time Associated Diagnosis Comments NC US SOFT TISS HEAD&NCK R-T IMG Routine 05/26/2020 5:22 PM ORTHOPEDIC ASSISTANT Thyroid nodule documented in this encounter Results * NC US SOFT TISS HEAD&NCK R-T IMG (05/26/2020 5:22 PM ORTHOPEDIC ASSISTANT) Narrative Gerry Lew MD - 05/26/2020 5:22 PM ORTHOPEDIC ASSISTANT Gerry Lew MD ? 05/26/2020 ??5:54 PM [...] ?? Referring Physician: [facility] Procedure Preformed: Ultrasound Only COMPARED TO [...] Nontoxic uninodular goiter documented in this encounter Administered Medications Administered Medications Medication Order MAR Action Action Date Dose Rate Site PPD Given 05/13/2014 0.1 mL documented in this encounter Care Teams Joint Filler Relationship Specialty Start Date End Date [facility] [address] [place] [address] PCP - General 05/20/18 documented as of this encounter
--- OUTSIDE RECORDS SUMMARY | 2024-04-18 13:16 | XMS_ITS | Encounter Summary ---
Author Organization [facility] Address [facility], [id number] [facility] [place] [address] [place] [address] Care Team Providers Care Cylinder Devalver Name Role Phone Ghada Knox MD Primary Care Provider [phone] Encounter Details Date Type Department Care Team (Latest Contact Info) Description 11/21/2022 Travel Social History Tobacco Use Types Packs/Day [...] Description 02/25/2025 10:30 AM CDT Office Visit [facility], [address] [place], [place] [id number] Kaleigh Velazco LICENSE AND PERMIT SPECIALIST-C [facility]. [address] [place], [place] [id number] documented as of this encounter Visit Diagnoses Not on filedocumented in this encounter Care Teams Cylinder Devalver Relationship Specialty Start Date End Date Ghada Knox MD [address] [phone] PCP - General FAMILY PRACTICE 08/31/22 05/23/23 documented as of this encounter
--- OUTSIDE RECORDS SUMMARY | 2024-04-18 13:16 | XMS_ITS | Encounter Summary ---
Author Organization [facility] Address [address] [place] [address] Care Team Providers Care Pressure Control Supervisor Name Role Phone [address] Primary Care Prov ider Reason for Visit * Reason Comments Thyroid Problem GOITER , NODULAR Thyroid Nodule Encounter Details Date Type Department Care Team (Late st Contact Info) Description 05/23/2019 4:00 PM JIG BORE OPERATOR Office Visit [facility] Endocrinology, Diabetes and Metabolism [address] [place] [address] Gerry Lew MD [address] of Endocrinology [place], [place] [id number] Thyroid nodule (Primary Dx); Goiter, non-toxic Social History Tobacco Use Types [...] Sign Reading Time Taken Comments Blood Pressure 120/84 05/23/2019 4:06 PM JIG BORE OPERATOR Pulse 82 05/23/2019 4:06 PM JIG BORE OPERATOR Temperature 36.8 ??C (98.3 ??F) 05/23/2019 4:06 PM JIG BORE OPERATOR Respiratory Rate - - Oxygen Saturation 96% 05/23/2019 4:0 6 PM JIG BORE OPERATOR Inhaled Oxygen Concentration - - Weight 73.8 kg (162 lb 9.6 oz) 05/23/19 20 4:06 PM JIG BORE OPERATOR WITH SHOES Height 162.6 cm (5' 4 ) 05/23/2019 4:06 PM JIG BORE OPERATOR Body Mass Index 27.91 05/23/2019 4:06 PM JIG BORE OPERATOR documented in this encounter Patient Instructions * Patient Instructions* Whitney Avendano - 05/23/2019 4:05 PM JIG BORE OPERATOR How to Contact Us Between Office Visits To make, change or cancel an appointment: Please call us at [phone] and select option 1 or you cansend a VocalizeLocal message. To request refills, please contact your pharmacy who will reach out to us. If you have changes to your refill prescription, you will need to contact us directly at [phone] and select option 2 orsend your doctor a VocalizeLocal message. We request that all prescription refills be requested during regular office phone hours. If your prescription requires a prior authorization, it may take several days for us to get approval from your[employer] company before we can refill your prescription. Please do not wait until you are completely out before contacting us to prevent any interruption in your mediatation. Normal business hours are from 8:00 am to 4:30 pm Sunday through Sunday. Our fax number is [phone]. If you have an Insulin Pump, Meter or a Continuous Glucose Monitor, please bring it to every visit and present it to the front facer staff when you arrive in clinic. If you have a medical emergency, please call 911 or go to the nearest Emergency Room. After hours urgent calls that cannot wait until phone lines are open on the next business day are given to the [employer] physician government relations manager. Please call [phone] and identify yourself as a patient in our practice needing to speak to [employer]. The ammonia print operator will contact the physician government relations manager. You can generally expect a return call within 30 minutes. On weekends, physicians are seeing hospitalizedpatients and there may be a longer wait. Test and laboratory results: Our practice typically reports lab and test results through letters orMyChart, the [facility] online patient portal. Please allow 5 days from when your tests are completed to receive the results. If you did not complete your labs on the [facility] campus or at a commercial lab ([employer], [employer]) then wemay not have received the results. Please contact the lab and request that they are faxed to us ([phone]). Visit our website at [email or web address] for additional information about [facility] and an interactive health encyclopedia. Our clinic's missed appointment policy is: - Patients with 3 consecutively missed appointments OR 3 missed appointments in a 12 month period will no longer be seen by Endocrinology. They will be asked to seek consultation outside of [facility]. - A missed appointment is defined as: ??? Arriving to a scheduled appointment too late to be seen (Patients who arrive to clinic later than their scheduled appointment time may not be seen) ??? Not showing up for an appointment ??? An appointment cancelled less than 24 hours in advance Thank you for visiting [facility] Endocrinology. We appreciate your confidence in allowing us to participate in your health care. You may receive a survey about your visit with us today. Making our patients happy is our mission. Please tell us if we made the right impression on you- and how we can serve you better. Please SAVE the information below, it will assist you when it???s time for you to contact us. To MAKE - CHANGE - CANCEL an office appointment If you become ill, need to be seen before your next scheduled appointment, or need to cancel or reschedule an appointment, please call our office at [phone] Sunday through Sunday from 8:00 am to4:30 pm. You can also request a routine appointment through your [employer].[facility] account. Prescription Refills Contact your pharmacy to request all refills. The pharmacy will need to fax the request to us at . Please allow a minimum of 48-72 hours for your prescription to be completed. Your pharmacy will notify you when your prescription is ready to be picked up. Medical Emergency / After Hours Contact Information If you have a medical emergency, please call 911 or go to the nearest emergency room. For urgent medical calls which cannot wait until the office opens, please call the medical exchangeat and ask the ammonia print operator to page the Endocrinology physician government relations manager. Visit our website at [email or web address] for information about our practice and an interactive health encyclopedia. How to Contact Us Between Office Visits Please make your follow up appointment before you leave the office today. If you are unable to makethe appointment today, please contact us at [phone]. To make an appointment: Please call us at [phone], option 1. To requesting refills or leaving a message for your doctor, Please call [phone], option 2. This is the option to speak to a nurse if they are available. We request that all prescription refillsbe requested during regular office phone hours. Phone lines are open from 8:00 am to 4:30 pm Sunday through Sunday. Our fax number is [phone]. After hours urgent calls that cannot wait untill phone lines are open on the next are given to the Endocrine physician government relations manager. Please call [phone] and identify yourself as a patient in our practice with your doctor's name. The ammonia print operator will contact the physician government relations manager. You can g enerally expect a return call within 30 minutes. On weekends, physicians are seeing hospitalized patients and there may be a longer wait. Test and laboratory results: Our practice typically reports lab and test results through letters orMYChart, the [employer] [facility] online patient portal. Please allow 5 days from when your tests are completed to receive the results. Visit our website at [email or web address] for additional information about [facility] and an interactive health encyclopedia. BP 120/84 (BP SITE: RIGHT ARM, BP POSITION: SITTING) Pulse 82 Temp 98.3 ??F (36.8 ??C) (Oral) Ht 5'4 (1.626 m) Wt 162 lb 9.6 oz (73.8 kg) SpO2 96% BMI 27.91 kg/m2 PLAN THYROID ULTRASOUND TODAY AT LEAST ANNUAL TSH DETERMINATION RETURN IN ONE YEAR LAB IN ONE YEAR BORE OPERATOR documented in this encounter Progress Notes * Gerry Lew MD - 05/23/2019 4:19 PM CST I HAVE SEEN AND EXAMINED THE PATIENT WITH THE ENDOCRINE FELLOW AND I AGREE WITH THE FINDINGS AND PLAN OF CARE DOCUMENTED BY THE ENDOCRINE FELLOW DATE OF SERVICE 05/23/2019 Signed electronically Gerry Lew MD Professor of Internal Medicine HISTORY / PROGRESS NOTE Date: 05/23/2019 Chief Complaint or Purpose for Referral: Patient presents with: Thyroid Problem: GOITER , NODULAR Thyroid Nodule History of Present Illness: 48 YEAR OLD WHITE FEMALE GRICELDA 05/20/2018 No dysphagia No dyspnea No dysphonia No change size of neck No neck pain or discomfort No nervousness No shakiness No palpitations Weight stable TO INCREASED Wt Readings from Last 3 Encounters: 05/23/19 162 lb 9.6 oz (73.8 kg) 05/20/18 157 lb (71.2 kg) 11/29/16 163 lb (73.9 kg) BM daily No diarrhea No constipation nocturia 0-1 per night No edema No proximal muscle weakness NO NAUSEA NO VOMITING NO CHANGE IN SKIN NO CHANGE IN HAIR LAB 05/07/2019 TSH 0.35 NORMAL 0.34-4.94 ?? Results for DARON RAGSDALE ( ) as of 05/23/2019 16:19 Ref. Range 06/23/2015 10:56 TSH Latest Ref Range: 0.350 - 4.940 uIU/mL 0.994 07/11/2016 TSH ?1.23 ?NORMAL 0.34-4.94?10/17/2017 TSH ?0.53 ?NORMAL 0.34-4.94 ?? 07/11/2016 TSH ?1.23 ?NORMAL 0.34-4.94? Results for DARON RAGSDALE ( ) as of 11/29/2016 11:15 ?? Ref. Range 06/23/2015 10:56 TSH ??0.350 - 4.940 uIU/mL 0.994 ?Ultrasound of the Thyroid Physician Gerry Lew MD Fellow none Test Date: 11/29/2016 Test Indication: Patient Active Problem List Diagnosis ??? Thyroid nodule ??? Mastodynia ??? Irritable colon ??? Hypertrophy of nasal turbinates ??? Enthesopathy of hip region ??? Deviated nasal septum ??? Chronic tonsillitis ??? Chronic rhinitis ??Referring Physician: Referred by Dr. dr hernández Procedure Preformed: Ultrasound Only Nodule Size: Right [...] 1.06 CM ?LONGITUDINAL IMAGE: 4.2 CM ASSESSMENT Patient Active Problem List Diagnosis ??? Thyroid [...] FEATURES Gerry Lew MD Division of Endocrinology ? (Brief 1-3; Ext. >4) Past Medical History: [...] Financial resource strain: Not on file Food insecurity: Worry: Not on file Inability: Not on file Transportation needs: Medical: Not on file Non-medical: Not on file Tobacco Use Smoking status: Never Smoker Smokeless tobacco: Never Used Substance and Sexual Activity Alcohol use: No Drug use: No Sexual activity: Not on file Lifestyle Physical activity: Days per week: Not on file Minutes per session: Not on file Stress: Not on file Relationships Social connections: Talks on phone: Not on file Gets together: Not on file Attends alevism service: Not on file Active member of club or organization: Not on file Attends meetings of clubs or organizations: Not on file Relationship status: Not on file Intimate partner violence: Fear of current or ex partner: Not on file Emotionally abused: Not on file Physically abused: Not on file Forced sexual activity: Not on file Other Topics Concerns: Not on file Social History Narrative Not on file Current Outpatient Medications: CALTRATE 600+D 600-800 MG-UNIT tablet Take 1 tablet by mouth once daily Disp: Rfl: DEPO-PROVERA 150 MG/ML vial Every 90 days Disp: Rfl: fexofenadine-pseudoephedrine ER 12hr (ROLDAN-D) 60-120 MG tablet Take 180 mg by mouth. Disp: Rfl: fluticasone propionate (FLONASE) 50 MCG/ACT nasal spray Mobile 1 spray into each nostril once daily Disp: Rfl: folic acid (FOLVITE) 1 MG tablet Disp: Rfl: [place]-3 Fatty Acids (FISH OIL) 1000 MG capsule Disp: Rfl: vitamin D, cholecalciferol, 2000 UNITS tablet Take 2,000 Units by mouth once daily Disp: Rfl: No current facility-administered medications for this visit. No Known Allergies Physical Exam: Constitutional: Vital Signs: BP 120/84 (BP SITE: RIGHT ARM, BP POSITION: SITTING) Pulse 82 Temp 98.3 ??F (36.8 ??C) (Oral) Ht 5' 4 (1.626 m) Wt 162 lb 9.6 oz (73.8 kg) SpO2 96% BMI 27.91 kg/m2 Well developed, well nourished, white female, no acute distress, alert and oriented, normocephalic Appearance: WNL Eyes: Conjunctiva/lids WNL and EOM Intact ENT, Mouth: Lips/teeth/gums WNL, Hearing WNL and External ear/nose WNL Neck: No masses, symmetrical and SEE ANNOTATED IMAGE Resp.:E[place]ort nonlabored CVS: NOT EXAMINED Chest: NOT EXAMINED GI/Abd: NOT EXAMINED : [...] tuberculosis Goiter, non-toxic PLAN THYROID ULTRASOUND TODAY AT LEAST ANNUAL TSH DETERMINATION RETURN IN ONE YEAR LAB IN ONE YEAR TSH AND ANTI TPO IF TSH GREATER THAN 5 WILL OBTAIN FREE T4 IF TSH LESS THAN 0.1 WILL OBTAIN FREE T4 AND FREE T3 AND TSI NEXT ULTRASOUND IN TWO YEARS Thyroid nodule - Plan: PROC ULTRASOUND THYROID W/WO FNA BIOPSY, TSH, THYROID PEROXIDASE ANTIBODY Goiter, non-toxic - Plan: PROC ULTRASOUND THYROID W/WO FNA BIOPSY, TSH, THYROID PEROXIDASE ANTIBODY Gerry Lew MD Professor of Internal Medicine Division of Endocrinology Department of Internal Medicine BORE OPERATOR documented in this encounter Procedure Notes * Gerry Lew MD - 05/24/2019 11:40 PM CSTAssociated Order(s): PROC ULTRASOUND THYROID W/WO FNA BIOPSY Procedure(s): CO US SOFT TISS HEAD&NCK R-T IMG Pre-Procedure Diagnose(s): Thyroid nodule; Goiter, non-toxic Ultrasound Of Thyroid Ultrasound of the Thyroid PHYSICIAN Gerry Lew MD FELLOW Sulaiman DEL RIO Test Date: 05/24/2019 Test Indication: Patient Active Problem List: Deviated [...] pulmonary tuberculosis Goiter, non-toxic Referring Physician[facility] Procedure Preformed: Ultrasound Only Nodule [...] X 0.41 CM, 0.34 X 0.17 CM LONGITUDINAL IMAGE: 0.66 X 0.34 CM, 0.56 X 0.34 CM, 0.31 X 0.21 CM, 0.22 X 0.14 CM, 0.84 X 0.28 CM,0.36 X 0.23 CM LEFT LOBE TRANSVERSE IMAGE: 0.29 X 0.17 [...] YEAR Gerry Lew MD Division of Endocrinology BORE OPERATOR documented in this encounter Plan of Treatment Scheduled Orders Name Type Priority Associated Diagnoses Orde r Schedule TSH Lab Routine Thyroid nodule Goiter, non-toxic Expected: 04/30/2020 (Approximate), Expires: 03/23/2021 THYROID PEROXIDASE ANTIBODY Lab Routine Thyroid nodule Goiter, non-toxic Expected: 04/30/2020 (Approximate), Expires: 03/23/2021 documented as of this encounter Procedures Procedure Name Priority Date/Time Associated Diagnosis Comments CO US SOFT TISS HEAD&NCK R-T IMG Routine 05/24/2019 11:40 PM JIG BORE OPERATOR Thyroid nodule Goiter, non-toxic documented in this encounter Results * CO US SOFT TISS HEAD&NCK R-T IMG (05/24/2019 11:40 PM JIG BORE OPERATOR) Narrative Gerry Lew MD - 05/24/2019 11:40 PM JIG BORE OPERATOR Gerry Lew MD ? 05/24/2019 11:50 PM [...] ?? Ref[facility] Physician[facility] Procedure Preformed: Ultrasound Only Nodule Size: MULTIPLE [...] Diagnosis Thyroid nodule- Primary Nontoxic uninodular goiter Goiter, non-toxic Unspecified nontoxic nodular goiter documented in this encounter Care Teams Pressure Control Supervisor Relationship Specialty [facility] Date [facility] [address] [place] [address] PCP - General 05/20/18 documented as of this encounter
--- OUTSIDE RECORDS SUMMARY | 2024-04-18 13:16 | XMS_ITS | Encounter Summary ---
Author Organization [facility] Address [address] [place] [address] [place] [address] Care Team Providers Care Split Leather Mosser Name Role Phone Clemencia Lopez NP Primary Care Provider [phone] Encounter Details Date Type Department Care Team (Latest Contact Info) Description 10/01/2023 Travel Social History Tobacco Use Types Packs/Day [...] Description 02/25/2025 10:30 AM CDT Office Visit [facility], [address] [place], [place] [id number] Kaleigh Velazco, SLOT ATTENDANT-C [facility]. [address] [place], [place] [id number] documented as of this encounter Visit Diagnoses Not on filedocumented in this encounter Care Teams Split Leather Mosser Relationship Specialty Start Date End Date Clemencia Lopez, SLOT ATTENDANT PCP - General NURSE PRACTITIONER 10/01/23 documented as of this encounter
--- OUTSIDE RECORDS SUMMARY | 2024-04-18 13:16 | XMS_ITS | Encounter Summary ---
Author Organization [facility] Address [facility] [place] [address] [place] [address] Care Team Providers Care Field Cane Scaler Helper Name Role Phone Ghada Knox MD Primary Care Provider [phone] Reason for Referral * Imaging (Routine) - Closed Specialty Diagnoses / Procedures Referred By Tomas smith Referred To Contact RADIOLOGY Diagnoses Palpitations SOB (shortness of breath) Hyperlipidemia Procedures USE ECHOCARDIOGRAM Alfonso Perera MD [address] [address] Phone: tel: fax: Referral ID Status Reason Start Date Expiration Date Visits Re quested Visits Authorized [id number] Closed 10/03/2022 10/04/2023 1 1 Reason for Visit * Imaging (Routine) - Closed Specialty Diagnoses / Procedures Referred By Tomas smith Referred To Contact RADIOLOGY Diagnoses Palpitations SOB (shortness of breath) Hyperlipidemia Procedures USE ECHOCARDIOGRAM Alfonso Perera MD [address] [address] Phone: tel: fax: Referral ID Status Reason Start Date Expiration Date Visits Re quested Visits Authorized [id number] Closed 10/03/2022 10/04/2023 1 1 Encounter Details Date Type Department Care Team (Late st Contact Info) Description 11/21/2022 1:32 PM CDT - 11/21/2022 11:59 PM CDT Hospital Encounter [facility] [place] [address] Alfonso Perera MD Three [facility]. [address] [address] Discharge Disposition: Home or Self Care (Routine [...] CDT Office Visit [facility], [address] [address] Kaleigh Velazco NP-C [address] [facility] [address] [place] [address] documented as of this encounter Procedures Procedure Name Priority Date/Time Associated Diagnosis Comments USE ECHOCARDIOGRAM Routine 11/21/2022 2: 06 PM CDT Palpitations SOB (shortness of breath) Hyperlipidemia documented in this encounter Results * USE ECHOCARDIOGRAM (11/21/2022 2:06 PM CDT) Anatomical Region Laterality Modality Cardiac Echocardiogram 11/21/2022 1:42 PM CDT Narrative 11/21/2022 3:03 PM CDT ?Echocardiography Report Pat.Name: ??DARON RAGSDALE ?? Pat.ID: ?[id number] ? St.Date: ?? 11/21/2022 ? Exam Time: 1:42:00 PM ? Study Type:ECHO WITH CARDIAC DOPPLER COMP Height: ?64 in ? Weight: ?159 lb ?BSA: ? 1.77 m2 ?Age: ??1970,52Y ? Sex: ? F ? BP: ?126/58 ?Sonogrphr: Ashutosh, Peace RCS ? Pat. Stat.:Outpatient ?CPT - 4: ?[id number] ? Reason for Study:Palpitations, Shortness of breath Procedures: 2D, M-mode, Doppler, Color Flow Race: ?W ? ++++++++++++++++++++++++++++++++++++ SUMMARY: ++++++++++++++++++++++++++++++++++++ The left ventricular systolic function is normal. Estimated left ventricular ejection fraction is 50-55%. Left ventricular diastolic function is normal. Wall motion appears normal in all segments. Mild mitral regurgitation. ++++++++++++++++++++++++++++++++++++ FINDINGS: ++++++++++++++++++++++++++++++++++++ LV: ? The left ventricular size is normal. The left ventricular ?systolic function is normal. Estimated left ventricular ?ejection fraction is 50-55%. The septal E/e' is normal at < ?8. The lateral E/e' is normal at <8. Left ventricular ?diastolic function is normal. The mean left atrial pressure ?is normal. The LV Strain is -14.4%, reduced. WM: ? Wall motion appears normal in all segments. RV: ? The right ventricular size is normal. Right ventricular ?systolic function is normal. TAPSE = 23.7mm (<16 mm ?indicates systolic RV dysfunction). IVS: ?No evidence of ventricular septal defect. LA: ? The left atrial volume is normal ( less than 34 ml/M2). RA: ? The right atrial size is normal. IAS: ?Atrial septum appears intact. VERONICA: ? No evidence of pericardial effusion. AO: ? Normal aortic root. PA: ? The peak pulmonary artery systolic pressure is estimated to ?be approximately 11.0 mmHg. Estimated right atrial pressure ?of 3 mmHg. SVn: ?Inferior vena cava is normal. Inferior vena cava shows >50% ?collapse with respiration consistent with normal right ?atrial pressure. AV: ? The aortic valve is trileaflet. No evidence of aortic valve ?stenosis. No evidence of aortic valve regurgitation. MV: ? Structurally normal mitral valve. Mild mitral regurgitation. ?No evidence of mitral stenosis. PV: ? Structurally normal pulmonic valve. No evidence of pulmonic ?valve stenosis. No evidence of pulmonic regurgitation. TV: ? Structurally normal tricuspid valve. A trace of tricuspid ?regurgitation. No evidence of tricuspid valve stenosis. ++++++++++++++++++++++++++++++++++++ MEASUREMENTS: ++++++++++++++++++++++++++++++++++++ ?DOPPLER Pulmonary Veins ?? PVnpkVeld ? 28 cm/s ?S1-wave velocit ?? 0.5 m/s PVnVs/Vd ?1.78 ? Pulmonary Vein ?? 0.45 m/s AV Regurg Flow AV TVI ?87.1 cm ? MV Regurg Flow MV mnPG ? 21.7 mmHg ?MV pkPG ? 26.1 mmHg MV mnVel ? 229 cm/s ? MV pkVel ? 254 cm/s (60-130)+* TV Forward Flow TV E/A ?1.21 ? Aortic Valve ?? Cardiovascular ?? 2.07 cm ? Aortic Root Socorro ??2.95 cm ?? LVOT/AoV (MANAGER MED SURG) ( ??0.64 ?Left atrial socorro ?? 3.8 cm ?? AV Antegrade Flow Peak Velocity ( ??1.14 m/s ?Mean Velocity ( ??0.75 m/s Velocity Time I ??19.7 cm ? AV Antegrade Flow Simplified Bernoulli Gradient pressu ?? 5.2 mmHg ? Gradient pressu ?? 2.5 mmHg AV Continuity Equation by Velocity Time Integral Aortic Valve Ar ??2.39 cm2 ?AoV Area Index ?? 1.35 ? Left Ventricle ?? Stroke Volume ( ??47.1 ml ? Cardiac Output ?? 3.58 liter per minute LV Antegrade Flow Peak Velocity ( ??0.74 m/s ?Mean Velocity ( ??0.52 m/s Velocity Time I ?14 cm ? LV Antegrade Flow Simplified Bernoulli Gradient pressu ?? 2.2 mmHg ? Gradient pressu ?? 1.2 mmHg Mitral Valve ?? Mitral Valve E- 0.157 second ? Mitral Valve E ?? 1.06 ? Myocardial Velo ?? 8.2 centimeter/second Mean Myocardial ?? 9.2 centimeter/second Myocardial Velo ??10.2 centimeter/second Ratio of Mitral ??5.98 ? Myocardial Velo ?? 9.2 centimeter/second Ratio of Mitral ??6.71 ? Myocardial Velo ??15.3 centimeter/second Ratio of Mitral ??5.39 ? Isovelocity rel 0.087 second ? Mean Myocardial ??12.3 centimeter/second MV Antegrade Flow Mitral Valve E- ??0.55 m/s ?Mitral Valve A- ??0.52 m/s PV Antegrade Flow Peak Velocity ( ?? 0.9 m/s ?Mean Velocity ( ??0.54 m/s Velocity Time I ??15.2 cm ? PV Vmax (Diasto ??0.78 m/s PV Antegrade Flow Simplified Bernoulli Gradient pressu ?? 3.2 mmHg ? PV PGmax (Systo ?? 2.5 mmHg Gradient pressu ?? 1.3 mmHg ? Tricuspid Valve ?? Tricuspid Valve ??0.48 m/s ?Tricuspid Valve ?? 0.4 m/s TV Regurgitant Flow MaximumTricuspi ??1.37 m/s ?MaximumTricuspi ?? 7.5 mmHg ?2D Left Ventricle ?? LVIDd ? 5.22 cm ?? (3.6-5.2)* LVEDV BP ?77 ml ?? LV EDV ?73.3 ml ?LVESV BP ?39.4 ml ?? LV ESV ?34.8 ml ?LV EF ? 52.5 % ?? LV EDV ?77.1 ml ?Left Ventricula -15.7 % ?? LV ESV ?42.5 ml ?LV EF ? 44.9 % ?? LV EF BP ?48.8 % ? Left Ventricula -13.1 % ?? Left Ventricula -14.4 % ? LV EF Biplane LVEDV(Bi-Plane) ?? 102 ml ?? (59-136) LV EF(Bi-Plane) ??55.8 % ?(55-75) LVESV(Bi-plane) ?45 ml ? LV SV ? 56.8 ml ?? Left Atrium ?? Left Atrium Vol ??24.5 ml/m2 ? LA Biplane Left Atrium Vol ??43.4 ml ? LA Single Plane Left Atrium yasmin ??5.03 cm ? Left Atrium yasmin ??4.71 cm ?? Left Atrium Vol ??38.7 ml ? Left Atrium Vol ??46.3 ml ?? LV Teichholz Interventricula ??0.89 cm ? Left Ventricle ?? 3.87 cm ?? Left Ventricle ?? 0.85 cm ? Heart rate ?79 Heart beat per minute Right Atrium ?? RA sys Area ? 11.1 cm2 ? Right Ventricle ?? Right Ventricul ??3.09 cm ? RVIDd ? 2.88 cm ?MMODE Tricuspid Valve ?? Tricuspid annul ??2.37 cm ? <Electronic Signature> 11/21/2022 03:03 PM Gayathri Li M.D. Procedure Note Gayathri Li MD - 11/21/2022 Echocardiography Report Pat.Name: DARON RAGSDALE Pat.ID: [id number] St.Date: 11/21/2022 Exam Time: 1:42:00 PM Study Type:ECHO WITH CARDIAC DOPPLER COMP Height: 64 in Weight: 159 lb BSA: 1.77 m2 Age: 4 1970,52Y Sex: F BP: 126/58 Sonogrphr: Peace Boykin Pat. Stat.:Outpatient CPT - 4: [id number] Reason for Study:Palpitations, Shortness of breath Procedures: 2D, M-mode, Doppler, Color Flow Race: W ++++++++++++++++++++++++++++++++++++ SUMMARY: ++++++++++++++++++++++++++++++++++++ The left ventricular systolic function is normal. Estimated left ventricular ejection fraction is 50-55%. Left ventricular diastolic function is normal. Wall motion appears normal in all segments. Mild mitral regurgitation. ++++++++++++++++++++++++++++++++++++ FINDINGS: ++++++++++++++++++++++++++++++++++++ LV: The left ventricular size is normal. The left ventricular systolic function is normal. Estimated left ventricular ejection fraction is 50-55%. The septal E/e' is normal at < 8. The lateral E/e' is normal at <8. Left ventricular diastolic function is normal. The mean left atrial pressure is normal. The LV Strain is -14.4%, reduced. WM: Wall motion appears normal in all segments. RV: The right ventricular size is normal. Right ventricular systolic function is normal. TAPSE = 23.7mm (<16 mm indicates systolic RV dysfunction). IVS: No evidence of ventricular septal defect. LA: The left atrial volume is normal ( less than 34 ml/M2). RA: The right atrial size is normal. IAS: Atrial septum appears intact. VERONICA: No evidence of pericardial effusion. AO: Normal aortic root. PA: The peak pulmonary artery systolic pressure is estimated to be approximately 11.0 mmHg. Estimated right atrial pressure of 3 mmHg. SVn: Inferior vena cava is normal. Inferior vena cava shows >50% collapse with respiration consistent with normal right atrial pressure. AV: The aortic valve is trileaflet. No evidence of aortic valve stenosis. No evidence of aortic valve regurgitation. MV: Structurally normal mitral valve. Mild mitral regurgitation. No evidence of mitral stenosis. PV: Structurally normal pulmonic valve. No evidence of pulmonic valve stenosis. No evidence of pulmonic regurgitation. TV: Structurally normal tricuspid valve. A trace of tricuspid regurgitation. No evidence of tricuspid valve stenosis. ++++++++++++++++++++++++++++++++++++ MEASUREMENTS: ++++++++++++++++++++++++++++++++++++ DOPPLER Pulmonary Veins PVnpkVeld 28 cm/s S1-wave velocit 0.5 m/s PVnVs/Vd 1.78 Pulmonary Vein 0.45 m/s AV Regurg Flow AV TVI 87.1 cm MV Regurg Flow MV mnPG 21.7 mmHg MV pkPG 26.1 mmHg MV mnVel 229 cm/s MV pkVel 254 cm/s (60-130)+* TV Forward Flow TV E/A 1.21 Aortic Valve Cardiovascular 2.07 cm Aortic Root Socorro 2.95 cm LVOT/AoV (MANAGER MED SURG) ( 0.64 Left atrial socorro 3.8 cm AV Antegrade Flow Peak Velocity ( 1.14 m/s Mean Velocity ( 0.75 m/s Velocity Time I 19.7 cm AV Antegrade Flow Simplified Bernoulli Gradient pressu 5.2 mmHg Gradient pressu 2.5 mmHg AV Continuity Equation by Velocity Time Integral Aortic Valve Ar 2.39 cm2 AoV Area Index 1.35 Left Ventricle Stroke Volume ( 47.1 ml Cardiac Output 3.58 liter per minute LV Antegrade Flow Peak Velocity ( 0.74 m/s Mean Velocity ( 0.52 m/s Velocity Time I 14 cm LV Antegrade Flow Simplified Bernoulli Gradient pressu 2.2 mmHg Gradient pressu 1.2 mmHg Mitral Valve Mitral Valve E- 0.157 second Mitral Valve E 1.06 Myocardial Velo 8.2 centimeter/second Mean Myocardial 9.2 centimeter/second Myocardial Velo 10.2 centimeter/second Ratio of Mitral 5.98 Myocardial Velo 9.2 centimeter/second Ratio of Mitral 6.71 Myocardial Velo 15.3 centimeter/second Ratio of Mitral 5.39 Isovelocity rel 0.087 second Mean Myocardial 12.3 centimeter/second MV Antegrade Flow Mitral Valve E- 0.55 m/s Mitral Valve A- 0.52 m/s PV Antegrade Flow Peak Velocity ( 0.9 m/s Mean Velocity ( 0.54 m/s Velocity Time I 15.2 cm PV Vmax (Diasto 0.78 m/s PV Antegrade Flow Simplified Bernoulli Gradient pressu 3.2 mmHg PV PGmax (Systo 2.5 mmHg Gradient pressu 1.3 mmHg Tricuspid Valve Tricuspid Valve 0.48 m/s Tricuspid Valve 0.4 m/s TV Regurgitant Flow MaximumTricuspi 1.37 m/s MaximumTricuspi 7.5 mmHg 2D Left Ventricle LVIDd 5.22 cm (3.6-5.2)* LVEDV BP 77 ml LV EDV 73.3 ml LVESV BP 39.4 ml LV ESV 34.8 ml LV EF 52.5 % LV EDV 77.1 ml Left Ventricula -15.7 % LV ESV 42.5 ml LV EF 44.9 % LV EF BP 48.8 % Left Ventricula -13.1 % Left Ventricula -14.4 % LV EF Biplane LVEDV(Bi-Plane) 102 ml (59-136) LV EF(Bi-Plane) 55.8 % (55-75) LVESV(Bi-plane) 45 ml LV SV 56.8 ml Left Atrium Left Atrium Vol 24.5 ml/m2 LA Biplane Left Atrium Vol 43.4 ml LA Single Plane Left Atrium yasmin 5.03 cm Left Atrium yasmin 4.71 cm Left Atrium Vol 38.7 ml Left Atrium Vol 46.3 ml LV Teichholz Interventricula 0.89 cm Left Ventricle 3.87 cm Left Ventricle 0.85 cm Heart rate 79 Heart beat per minute Right Atrium RA sys Area 11.1 cm2 Right Ventricle Right Ventricul 3.09 cm RVIDd 2.88 cm MMODE Tricuspid Valve Tricuspid annul 2.37 cm <Electronic Signature> 11/21/2022 03:03 PM Gayathri Li M.D. Alfonso Perera MD ECHO Final Result documented in this encounter Visit Diagnoses Diagnosis Palpitations SOB (shortness of breath) Shortness of breath Hyperlipidemia Other and unspecified hyperlipidemia documented in this encounter Care Teams Field Cane Scaler Helper Relationship Specialty Start Date End Date Ghada Knox MD [address] [id number] PCP - General FAMILY PRACTICE 08/31/22 05/23/23 documented as of this encounter
--- OUTSIDE RECORDS SUMMARY | 2024-04-18 13:16 | XMS_ITS | Encounter Summary ---
Author Organization [facility] Address [address] [facility] [place] [address] Care Team Providers Care Swatch Cutter Name Role Phone [address] Primary Care Prov ider Reason for Visit * Reason Comments Thyroid Nodule followup Thyroid Problem goiter Encounter Details Date Type Department Care Team (Late st Contact Info) Description 05/20/2018 1:00 PM LIFE ENRICHMENT MANAGER Office Visit [facility] Endocrinology, Diabetes and Metabolism [address] [place] [address] Gerry Lew MD [address] of Endocrinology [place], [place] [id number] Thyroid nodule (Primary Dx); Goiter, non-toxic Social [...] Sign Reading Time Taken Comments Blood Pressure 130/76 05/20/2018 1:22 PM LIFE ENRICHMENT MANAGER Pulse - - Temperature 37 ??C (98.6 ??F) 05/20/2018 1:22 PM LIFE ENRICHMENT MANAGER Respiratory Rate 14 05/20/2018 1:22 PM LIFE ENRICHMENT MANAGER Oxygen Saturation - - Inhaled Oxygen Concentration - - Weight 71.2 kg (157 lb) 05/20/2018 1:22 PM LIFE ENRICHMENT MANAGER Height 162.6 cm (5' 4 ) 05/20/2018 1:22 PM LIFE ENRICHMENT MANAGER Body Mass Index 26.95 05/20/2018 1:22 PM LIFE ENRICHMENT MANAGER documented in this encounter Patient Instructions * Patient Instructions* Gerry Lew MD - 05/20/2018 1:34 PM LIFE ENRICHMENT MANAGER BP 130/76 (BP SITE: RIGHT ARM, BP POSITION: SITTING, BP CUFF SIZE: 11L) Temp 98.6 ??F (37 ??C) (Oral) Resp 14 Ht 5' 4 (1.626 m) Wt 157 lb (71.2 kg) BMI 26.95 kg/m2 Thank you for visiting [facility] Endocrinology. We appreciate your confidence in allowing [...] an appointment, please call our office at [phone] Sunday through Sunday from 8:00 am to4:30 pm. You can also request a routine appointment through your [email or web address] account. Prescription Refills Contact your pharmacy to [...] call the medical exchangeat and ask the hide and skin fleshing machine operator to page the Endocrinology physician internal communications manager. Visit our website at [email or web address] for information about our practice and an interactive health encyclopedia. How to Contact Us Between Office Visits Please make your follow up appointment before you leave the office today. If you are unable to makethe appointment today, please contact us at [phone]. To make an appointment: Please call us at [phone], option 1. To requesting refills or leaving a message for your doctor, Please call [phone], option 2. This is the option to speak to a nurse if they are available. We request that all prescription refills be requested during regular office phone hours. Phone lines are open from 8:00 am to 4:30 pm Sunday through Sunday. Our fax number is [phone]. After hours urgent calls that cannot wait untill phone lines are open on the next day are given to the Endocrine physician internal communications manager. Please call [phone] and identify yourself as a patient in our practice with your doctor's name. The hide and skin fleshing machine operator will contact the physician internal communications manager. You can g enerally expect a return call within 30 minutes. On weekends, physicians are seeing hospitalized patients and there may be a longer wait. Test and laboratory results: Our practice typically reports lab and test results through letters orMYChart, the [employer] online patient portal. Please allow 5 days from when your tests are completed to receive the results. Visit our website at [email or web address] for additional information about [employer] and an interactive health encyclopedia. PLAN ULTRASOUND in one year RETURN IN ONE YEAR AT LEAST ANNUAL TSH DETERMINATION CHECK TSH BEFORE NEXT VISIT OR EARLIER IF PRIMARY CARE NEEDS LAB WORK IF TSH GREATER THAN 5 WILL GET FREE T4 IF TSH LESS THAN 0.1 WILL GET FREE T4 AND FREE T3 NO FNA BIOPSY INDICATED BASED ON ULTRASOUND FEATURES of previous ultrasound ENRICHMENT MANAGER documented in this encounter Progress Notes * Gerry Lew MD - 05/20/2018 1:21 PM CST HISTORY / PROGRESS NOTE Date: 05/20/2018 Chief Complaint or Purpose for Referral: Chief Complaint Patient presents with ??? Thyroid Nodule followup ??? Thyroid Problem goiter History of Present Illness: 47 year old white female GRICELDA 11/29/2016 GRICELDA TUS No dysphagia No dyspnea No dysphonia No change size of neck No neck pain or discomfort No nervousness No shakiness No palpitations Weight decreased Wt Readings from Last 3 Encounters: 05/20/18 157 lb (71.2 kg) 11/29/16 163 lb (73.9 kg) 12/01/15 167 lb 14.4 oz (76.2 kg) BM daily No diarrhea No constipation nocturia 0-1 per night No edema No proximal muscle weakness No change in skin No change in hair No nausea No vomiting No heat intolerance No cold intolerance Lab 07/11/2016 TSH 1.23 NORMAL 0.34-4.94 ??10/17/2017 TSH 0.53 NORMAL 0.34-4.94 ?? 07/11/2016 TSH ?1.23 ?NORMAL 0.34-4.94? Results for DARON RAGSDALE ( ) as of 11/29/2016 11:15 ?? Ref. Range 06/23/2015 10:56 TSH 0.350 - 4.940 uIU/mL 0.994 ?? Ultrasound of the Thyroid Physician Gerry Lew MD Fellow none Test Date: 11/29/2016 Test Indication: Patient Active Problem List Diagnosis ??? Thyroid nodule ??? Mastodynia ??? Irritable colon ??? Hypertrophy of nasal turbinates ??? Enthesopathy of hip region ??? Deviated nasal septum ??? Chronic tonsillitis ??? Chronic rhinitis ??Referring Physician: Referred by Dr. dr hernández Procedure Preformed: Ultrasound Only Nodule Size: Right lobe TRANSVERSE IMAGE: LARGEST HYPOECHOIC CYST MID LOBE LATERAL 1.12 X 0.88 CM; OTHER HYPOECHOIC CYSTS IN LOBE: 0.36 X 0.20 CM, 0.37 X 0.29 CM, 0.23 X 0.13 CM, 0.26 X 0.20 CM, 0.36 X 0.27 CM, 0.20 X 0.12 CM, 0.34 X 0.35 CM LONGITUDINAL IMAGE: LARGEST HYPOECHOIC CYST LATERAL 1.73 X 0.76 CM; OTHER HYPOECHOIC CYSTS IN LOBE:0.32 X 0.18 CM, 0.23 X 0.14 CM,, 0.23 X 0.21 CM, 0.21 X 0.30 CM, 0.47 X 0.26 CM LEFT LOBE TRANSVERSE IMAGE: HYPOECHOIC CYSTS: 0.20 X 0.12 CM, 0.50 X 0.27 CM, 0.37 X 0.22 CM, 0.40 X 0.18 CM,0.31 X 0.19 CM, 0.68 X 0.43 CM, LONGITUDINAL IMAGE: HYPOECHOIC CYSTS: 0.78 X 0.45 CM, 0.36 X 0.21 CM, 0.51 X 0.24 CM, 0.82 X 0.46 CM, Echogenicity: HOMOGENEOUS Vascularity: NOT INCREASED OR ABNORMAL Number of Nodules Present: NUMEROUS HYPOECHOIC CYSTS Calcifications: NONE Borders: SHARP Right lobe TRANSVERSE IMAGE: 1.97 X 1.32 CM LONGITUDINAL IMAGE: 4.49 CM ISTHMUS: 0.21 CM LEFT LOBE TRANSVERSE IMAGE: 1.89 X 1.06 CM LONGITUDINAL IMAGE: 4.2 CM ASSESSMENT Patient Active Problem List Diagnosis ??? Thyroid nodule BENIGN THYROID NODULES, CYSTS MOST LESS THAN 1 CM , MULTIPLE ON US EUTHYROID ??? Mastodynia ??? Irritable colon ??? Hypertrophy of nasal turbinates ??? Enthesopathy of hip region ??? Deviated nasal septum ??? Chronic tonsillitis ??? Chronic rhinitis PLAN ULTRASOUND TODAY RETURN IN ONE YEAR ULTRASOUND TWO YEARS AT LEAST ANNUAL TSH DETERMINATION CHECK TSH BEFORE NEXT VISIT OR spring IF TSH GREATER THAN 5 WILL GET FREE T4 IF TSH LESS THAN 0.1 WILL GET FREE T4 AND FREE T3 NO FNA BIOPSY INDICATED BASED ON ULTRASOUND FEATURES Gerry Lew MD Division of Endocrinology (Brief 1-3; Ext. >4) Past Medical History: Diagnosis Date ??? Allergic rhinitis ??? Goiter, non-toxic ??? IBS (irritable bowel syndrome) ??? Thyroid nodule Past Surgical History: Procedure Laterality Date ??? Cyst Removal ??? Knee Arthroscopy Family History Problem Relation Age of Onset ??? Cancer Maternal Grandmother ??? Cancer Maternal Grandfather ??? Diabetes Maternal Grandfather ??? Heart Disease Paternal Grandfather ??? Thyroid Disease Paternal Uncle surgery on thyroid ??? CVA Neg Hx ??? Kidney Disease Neg Hx ??? Hypertension Neg Hx ??? Elevated Lipids Neg Hx ??? COPD - Chronic Obstructive Pulmonary Disease Neg Hx ??? Asthma Neg Hx Social History Social History ??? Marital status: Spouse name: N/A ??? Number of children: N/A ??? Years of education: N/A Occupational History ??? Not on file. Social History Main Topics ??? Smoking status: Never Smoker ??? Smokeless tobacco: Never Used ??? Alcohol use No ??? Drug use: No ??? Sexual activity: Not on file Other Topics Concern ??? Not on file Social History Narrative Current Outpatient Prescriptions Medication Sig Dispense Refill ??? CALTRATE 600+D 600-800 MG-UNIT tablet Take 1 tablet by mouth once daily ??? DEPO-PROVERA 150 MG/ML vial Every 90 days ??? fexofenadine-pseudoephedrine ER 12hr (ROLDAN-D) 60-120 MG tablet Take 180 mg by mouth. ??? fluticasone propionate (FLONASE) 50 MCG/ACT nasal spray [place] 1 spray into each nostril once daily ??? vitamin D, cholecalciferol, 2000 UNITS tablet Take 2,000 Units by mouth once daily No current facility-administered medications for this visit. No Known Allergies Physical Exam: Constitutional: Vital Signs: BP 130/76 (BP SITE: RIGHT ARM, BP POSITION: SITTING, BP CUFF SIZE: 11L) Temp 98.6 ??F (37 ??C) (Oral) Resp 14 Ht 5' 4 (1.626 m) Wt 157 lb (71.2 kg) BMI 26.95 kg/m2 Well developed, well nourished, white female, no acute distress, alert and oriented, normocephalic Appearance: WNL Eyes: Conjunctiva/lids WNL and EOM Intact ENT, Mouth: Lips/teeth/gums WNL, Hearing WNL and External ear/nose WNL Neck: No masses, symmetrical and see annotated image Resp.:Effort nonlabored and Ausculation WNL CVS: S1, S2; no murmurs and No carotid bruits, pulse wnl Chest: not examined GI/Abd: not examined : not applicable Lymph: Neck WNL MS: Station and gait WNL, Stable without dislocation, laxity, ROM without pain, no contracture and Muscle strength and tone WNL Areas Assessed: Head/neck, R/L upper extremities, Digits/nails and Inspection/palpatation of above WNL Skin: No rashes/lesions/ulcers and skin normal texture and turgor Neuro: Cranial nerves intact and DTR WNL Psych: Judgement/insight WNL, Oriented X 3, Memory WNL and Mood/affect WNL Accuchecks: Not applicable Assessment: Patient Active Problem List: Deviated nasal [...] examination for pulmonary tuberculosis Goiter, non-toxic PLAN ULTRASOUND in one year RETURN IN ONE YEAR AT LEAST ANNUAL TSH DETERMINATION CHECK TSH BEFORE NEXT VISIT IF TSH GREATER THAN 5 WILL GET FREE T4 IF TSH LESS THAN 0.1 WILL GET FREE T4 AND FREE T3 NO FNA BIOPSY INDICATED BASED ON ULTRASOUND FEATURES of previous ultrasound If next ultrasound stable then perhaps no further ultrasounds will be needed Thyroid nodule - Plan: TSH, TSH Goiter, non-toxic Signed electronically Gerry Lew MD Professor of Internal Medicine ?? ENRICHMENT MANAGER documented in this encounter Plan of Treatment Scheduled Orders Name Type Priority Associated Diagnoses Orde r Schedule TSH Lab Routine Thyroid nodule E-Year for 2 Occurrences starting 2018 until 06/20/2019 documented as of this encounter Visit Diagnoses Diagnosis Thyroid nodule- Primary Nontoxic uninodular goiter Goiter, non-toxic Unspecified nontoxic nodular goiter documented in this encounter Administered Medications Administered Medications Medication Order MAR Action Action Date Dose Rate Site PPD Given 01/11/2010 00:00 CDT documented in this encounter Care Teams Swatch Cutter Relationship Specialty Start Date End Date [facility] [address] [place] [address] PCP - General 05/20/18 documented as of this encounter
--- OUTSIDE RECORDS SUMMARY | 2024-04-18 13:16 | XMS_ITS | Encounter Summary ---
Author Organization [facility] Address [address] [facility] [place] [address] [place] [address] Care Team Providers Care Patent Counsel Name Role Phone Salud Flores MD Primary Care Provider [phone] Encounter Details Date Type Department Care Team (Latest Contact Info) Description 05/24/2023 Travel Social History Tobacco Use Types Packs/Day [...] Description 02/25/2025 10:30 AM CDT Office [facility], [address] [place], [place] [phone] Kaleigh Velazco NP-C Three [facility]. [address] [place], [place] [phone] documented as of this encounter Visit Diagnoses Not on filedocumented in this encounter Care Teams Patent Counsel Relationship Specialty Start Date End Date Salud Flores MD [address] [id number] PCP - General FAMILY PRACTICE 05/24/23 09/30/23 documented as of this encounter
--- OUTSIDE RECORDS SUMMARY | 2024-04-18 13:17 | XMS_ITS | Encounter Summary ---
Author Organization [facility] Address Critical access hospital6 [facility] [place] [address] [place] [address] Care Team Providers Care Rock Climbing Team Member Name Role Phone Cheryl Gonzalez ESTEPHANIA Primary Care Provider [phone] Encounter Details Date Type Department Care Team (Latest Contact Info) Description 01/01/2020 Travel Social History Tobacco Use Types Packs/Day Years Used Date Smoking Tobacco: Never Smokeless Tobacco: Never Alcohol Use Standard Drinks/Week Comments Never 0 (1 standard drink = 0.6 oz pur e alcohol) AUDIT-C Answer Date Recorded Q1: How often [...] on file Sexual Orientation Not on file COVID-19 Exposure Response Date Recorded In the last month, have you been in contact with someone who was confirmed or suspected to have Coronavirus / COVID-19? No / Unsure 01/01/2020 2:45 PM CDT documented as of this encounter Plan of Treatment Upcoming Encounters Date Type Department Care Team (Late st Contact Info) Description 02/25/2025 10:30 AM CDT Office Visit [facility] THREE [facility], [address] [place] [address] Kaleigh Velazco, RN STAFFING-C Three [facility]. [address] [place] [address] documented as of this encounter Visit Diagnoses Not on filedocumented in this encounter Care Teams Rock Climbing Team Member Relationship Specialty Start Date End Date August, ESTEPHANIA Luna [address] [place] [address] PCP - General Nurse Practitioner Family 12/04/1904/03/22 documented as of this encounter
--- OUTSIDE RECORDS SUMMARY | 2024-04-18 13:17 | XMS_ITS | Encounter Summary ---
Author Organization [facility] Address [facility] [place] [address] [place] [address] Care Team Providers Care Retail Wireless Associate Name Role Phone Cheryl Gonzalez NP Primary Care Provider Encounter Details Date Type Department Care Team (Latest Contact Info) Description 01/01/2020 2:48 PM CDT - 01/01/2020 11:59 PM CDT Hospital Encounter [facility] [address] [place] [address] Cheryl Gonzalez NP [address] [place] [address] Discharge Disposition: Home or Self Care (Routine [...] PM CDT documented as of this encounter Medications at Time of Discharge Medication Sig Dispense Quantity Refills Last Filled Start D ate End Date atorvastatin 10 MG tablet 11/11/2019 Cholecalciferol (VITAMIN D3) 50 MCG (1999 UT) Tab 09/28/2019 DEPO-PROVERA 150 MG/ML injection 06/11/2019 CALTRATE 600+D3 600-800 MG-UNIT tablet 09/28/2019 10/03/2022 fish oil 1000 MG Cap capsule 03/23/2019 09/28/2020 folic acid 1 MG tablet 03/23/2019 04/04/2022 documented as of this encounter Plan of Treatment Upcoming Encounters Date Type Department Care Team (Late st Contact Info) Description 02/25/2025 10:30 AM CDT Office Visit [facility], [facility] [address] [place] [address] Kaleigh Velazco, EPIC INTERFACE ANALYST-C [facility]. [facility] [address] [place] [address] documented as of this encounter Procedures Procedure Name Priority Date/Time Associated Diagnosis Comments MG DIAGNOSTIC RT DIGI Routine 01/01/2020 3:04 PM CDT Fibroadenosis of right breast documented in this encounter Visit Diagnoses Diagnosis Fibroadenosis of right breast Fibroadenosis of breast documented in this encounter Care Teams Retail Wireless Associate Relationship Specialty Start Date End Date August, ESTEPHANIA Luna [address] [place] [address] PCP - General Nurse Practitioner Family 12/04/1904/03/22 documented as of this encounter
--- OUTSIDE RECORDS SUMMARY | 2024-04-18 13:17 | XMS_ITS | Encounter Summary ---
Author Organization [facility] Address Critical access hospital6 [place] [address] [place] [address] Care Team Providers Care Ship Design Teacher Name Role Phone Cheryl Gonzalez ESTEPHANIA Primary Care Provider [phone] Encounter Details Date Type Department Care Team (Late st Contact Info) Description 05/04/2021 Patient Self-Triage [facility] DEPARTMENT [address] [place] [address] [facility] Provider Social History Tobacco Use Types Packs/Day Years [...] Description 02/25/2025 10:30 AM CDT Office Visit [facility] THREE [facility], [address] [place] [address] Kaleigh Velaczo STAB SETTER AND DRILLER-C Three [facility]. [facility] [address] [place], [place] [address] documented as of this encounter Visit Diagnoses Not on filedocumented in this encounter Care Teams Ship Design Teacher Relationship Specialty Start Date End Date August, ESTEPHANIA Luna [address] [place] [address] PCP - General Nurse Practitioner Family 12/04/1904/03/22 documented as of this encounter
--- OUTSIDE RECORDS SUMMARY | 2024-04-18 13:17 | XMS_ITS | Encounter Summary ---
Author Organization [facility] Address [facility] [place] [address] [place] [address] Care Team Providers Care Ceramic Maker Demonstrator Name Role Phone Cheryl Gonzalez ESTEPHANIA Primary Care Provider [phone] Encounter Details Date Type Department Care Team (Latest Contact Info) Description 09/28/2020 Travel Social History Tobacco Use Types Packs/Day [...] have Coronavirus / COVID-19? No / Unsure 09/28/2020 9:46 AM CDT documented as of this encounter Plan of Treatment Upcoming Encounters Date Type Department Care Team (Late st Contact Info) Description 02/25/2025 10:30 AM CDT Office Visit [facility], [place] [place], [place] [phone] Kaleigh Velazco, FEDERAL AGENT-C Three [facility]. [address] [place], [place] [phone] documented as of this encounter Visit Diagnoses Not on filedocumented in this encounter Care Teams Ceramic Maker Demonstrator Relationship Specialty Start Date End Date August, ESTEPHANIA Luna [address] [place] [address] PCP - General Nurse Practitioner Family 12/04/1904/03/22 documented as of this encounter
--- OUTSIDE RECORDS SUMMARY | 2024-04-18 13:17 | XMS_ITS | Encounter Summary ---
Author Organization [facility] Address [facility] [facility] [place] [address] [place] [address] Care Team Providers Care Hand Picker Name Role Phone Cheryl Gonzalez ESTEPHANIA Primary Care Provider [phone] Encounter Details Date Type Department Care Team (Latest Contact Info) Description 01/25/2021 Travel Social History Tobacco Use Types Packs/Day [...] have Coronavirus / COVID-19? No / Unsure 01/25/2021 3:06 PM CDT documented as of this encounter Plan of Treatment Upcoming Encounters Date Type Department Care Team (Late st Contact Info) Description 02/25/2025 10:30 AM CDT Office Visit [facility] THREE [facility], [address] [place], [place] [phone] Kaleigh Velazco, MANAGER UROLOGY-C Three [facility]. [address] [place], [place] [phone] documented as of this encounter Visit Diagnoses Not on filedocumented in this encounter Care Teams Hand Picker Relationship Specialty Start Date End Date August, ESTEPHANIA Luna [address] [place] [address] PCP - General Nurse Practitioner Family 12/04/1904/03/22 documented as of this encounter
--- OUTSIDE RECORDS SUMMARY | 2024-04-18 13:17 | XMS_ITS | Encounter Summary ---
Author Organization [facility] Address [address] [facility] [address] [place] [address] Care Team Providers Care Prints And Drawings Curator Name Role Phone Ghada Knox MD Primary Care Provider [phone] Reason for Visit * Reason Onset Date Comments Holter Monitor 11/08/2022 * Imaging (Routine) - Closed Specialty Diagnoses / Procedures Referred By Contac t Referred To Contact Diagnoses Palpitations SOB (shortness of breath) Hyperlipidemia Procedures CLINIC - [id number] [facility] - Today Alfonso Perera MD [address] [address] Phone: tel: fax: [facility] [id number] Phone: tel: fax: Referral ID Status Reason Start Date Expiration Date Visits Re quested Visits Authorized [id number] Closed 10/03/2022 10/04/2023 1 1 Encounter Details Date Type Department Care Team (Late st Contact Info) Description 11/08/2022 4:00 AM CDT Telephone [facility], [address] [phone] Alfonso Perera MD [address] [phone] Holter Monitor Social History Tobacco Use Types Packs/Day Years [...] as of this encounter Progress Notes * Denia Carranza Hairspring Staker - 11/08/2022 2:37 PM CDTSummary: SHIPPED 30 DAY MONITOR/PALP/SCALLY/ADDRESS VERIFIED 30 DAYS SHIPPED BRIDGE AND ELECTRODES SENT [id number] / [id number] RETURN [id number] documented in this encounter Plan of Treatment Upcoming Encounters Date Type Department Care Team (Late st Contact Info) Description 02/25/2025 10:30 AM CDT [facility] Visit [facility], [facility] [address] [place], [place] [address] Kaleigh Velazco, RESEARCH SPEC-C [facility]. [facility] [address] [place] [address] documented as of this encounter Procedures Procedure Name Priority Date/Time Associated Diagnosis Comments MOBILE CONTINUOUS TELEMETRY Routine 12/18/2022 11:34 AM CDT Palpitations SOB (shortness of breath) Hyperlipidemia documented in this encounter Results * [facility] - [address] [facility] - Today (12/18/2022 11:34 AM CDT) Narrative [facility] - 12/18/2022 11:34 AM CDT Indication palpitations * The patient was monitored for 29d 03h 30m. Monitoring began on 11/13/2022 and completed on 12/12/2022. During the study, the patient had 28d 02h 06m of ECG collected. There were 3,350,363 classifiable QRS complexes detected. * Maximum heart rate was 169 BPM on 12/08 11:45, Minimum heart rate was 45 BPM on 11/27 06:58, and Average heart rate was 79 BPM. * There were 2,625 Ventricular Ectopic beats with a burden of <1%. * There were 5,191 Supraventricular Ectopic beats with a burden of <1%. * No Atrial Fibrillation was identified for this study. Events include the following: * No Ventricular Tachycardia. * 1 Supraventricular Tachycardia events - the longest episode was 2.3s on 11/20 09:58, and the fastest episode was 146 BPM on 11/20 09:58. * No Atrial Fibrillation. * No Pauses. * No Third Degree AV Block or Second Degree AV Block Type II. * 20 patient triggered events, 15 had symptoms specified. Conclusion 1. ??Primarily sinus rhythm. 2. ??No significant atrial or ventricular tachyarrhythmias. 3. ??No bradycardia arrhythmias. 4. ??Patient's symptoms did not correspond to any significant arrhythmia. 5. ??Recommend clinical correlation consider further evaluation clinically indicated. us Alfonso Perera MD CV VASCULAR ORDERABLES Final [facility] Organization Address City/State/ZIP Co de Phone Number [facility] documented in this encounter Visit Diagnoses Diagnosis Palpitations SOB (shortness of breath) Shortness of breath Hyperlipidemia Other and unspecified hyperlipidemia documented in this encounter Care Teams Prints And Drawings Curator Relationship Specialty Start Date End Date Ghada Knox MD [address] [phone] PCP - General FAMILY PRACTICE 08/31/22 05/23/23 documented as of this encounter
--- OUTSIDE RECORDS SUMMARY | 2024-04-18 13:17 | XMS_ITS | Encounter Summary ---
Author Organization [facility] Address [facility]ly [facility]6 [facility] [place] [address] [place] [address] Care Team Providers Care Field Radio Technician Name Role Phone Lilly Knox MD Primary Care Provider [phone] Reason for Referral * Imaging (Routine) - Closed Specialty Diagnoses / Procedures Referred By Juliethac t Referred To Contact RADIOLOGY Diagnoses Nontoxic single thyroid nodule Procedures US THYROID Lilly Knox MD Phone: tel: fax: Referral ID Status Reason Start Date Expiration Date Visits Re quested Visits Authorized [id number] Closed 08/29/2022 09/29/2023 1 1 Reason for Visit * Imaging (Routine) - Closed Specialty Diagnoses / Procedures Referred By Contsilas t Referred To Contact RADIOLOGY Diagnoses Nontoxic single thyroid nodule Procedures US THYROID Lilly Knox MD Phone: tel: fax: Referral ID Status Reason Start Date Expiration Date Visits Re quested Visits Authorized [id number] Closed 08/29/2022 09/29/2023 1 1 Encounter Details Date Type Department Care Team (Late st Contact Info) Description 09/27/2022 11:10 AM CDT - 09/27/2022 11:59 PM CDT Hospital Encounter [facility] [place] [address] Lilly Knox MD 2 [facility] [address] [place] [phone] Discharge Disposition: Home or Self Care (Routine [...] Exposure Response Date Recorded In the last 10 days, have yo u been in contact with someone who was confirmed or suspected to have Coronavirus/COVID-19? No / Unsure 09/27/2022 11:08 AM CDT documented as of this encounter Medications at Time of Discharge Acetaminophen (TYLENOL OR) atorvastatin 10 MG tablet 11/11/2019 Cholecalciferol (VITAMIN D3) 50 MCG (1999 UT) Tab 09/28/2019 DEPO-PROVERA 150 MG/ML injection 06/11/2019 fexofenadine (ROLDAN) 180 MG tablet Take 1 tablet (180 mg total) by mouth daily. 09/24/2022 Ibuprofen (ADVIL OR) Naproxen Sodium (ALEVE OR) CALTRATE 600+D3 600-800 MG-UNIT tablet 09/28/2019 10/03/2022 pantoprazole EC (PROTONIX) 20 MG tablet daily. 02/07/2023 documented as of this encounter Plan of Treatment Upcoming Encounters Date Type Department Care Team (Late st Contact Info) Description 02/25/2025 10:30 AM CDT Office Visit [facility], [facility] [address] [place], [place] [address] Kaleigh Velazco, WAX ROOM SUPERVISOR-C Three [facility]. [facility] [address] [place] [address] documented as of this encounter Procedures Procedure Name Priority Date/Time Associated Diagnosis Comments US THYROID Routine 09/27/2022 11:54 AM CDT Nontoxic single thyroid nodule documented in this encounter Results * US THYROID (09/27/2022 11:54 AM CDT) Anatomical Region Laterality Modality Neck Ultrasound 10/02/2022 11:5 2 AM CDT Impressions 10/02/2022 11:58 AM CDT =====IMPRESSION:===== 1. Bilateral thyroid lobe enlargement, nonspecific 2. Bilateral thyroid predominantly TR 1 and 2 nodules and a single subcentimeter TR 4 nodule; no nodules meet criteria for tissue sampling or imaging follow-up. ACR TI-RADS recommendations: TR5, highly suspicious (greater than or equal to 7 points) - FNA if greater than or equal to 1 cm, follow-up if 0.5-0.9 cm every year for 5 years TR4, moderately suspicious (4-6 points) - FNA if greater than or equal to 1.5cm, follow-up if 1-1.4 cm in 1, 2, 3 and 5 years TR3, mildly suspicious (3 points) - FNA if greater than or equal to 2.5cm, follow-up if 1.5-2.4 cm in 1, 3 and 5 years TR2, not suspicious (2 points) and TR1, benign (0 points) - No FNA or follow-up * ACR TI-RADS recommends no more than two nodules with the highest ACR TI-RADS total point should be biopsied and no more than four nodules should be followed. ACR TI-RADS (Thyroid Imaging and Reporting Data System) is a structured system for interpreting and reporting thyroid imaging studies with management guidelines. https://www.acr.org/Clinical-Resources/Nqamyylfg-btw-Zkfw-Systems/TI-RADS Ordered By: LILLY KNOX Interpreted By: Maribell Thomason MD, 10/02/2022 11:52 AM Narrative 10/02/2022 11:58 AM CDT Exam: Thyroid ultrasound Exam Date/Time: 09/27/2022 11:15 [...] 2 Isthmus: 2.1 ??mm in thickness (AP). Procedure Note Maribell Thomason MD - 10/02/2022 Exam: Thyroid ultrasound Exam Date/Time: 09/27/2022 11:15 AM Indication: 32 female. Thyroid nodule follow-up Nontoxic single thyroidnodule . Comparison: None TECHNIQUE: Grayscale and color flow ultrasound examination of the thyroidgland was performed. FINDINGS: Right lobe: Size: Measures 6.0 X 1.3 X 2.2 cm. Parenchyma: Background homogeneous echotexture. Normal echogenicity andvascularity. Nodule(s): 1. Superior Superior spongiform nodule measuring 0.7 cm. TR 1 2. Mid part cystic and solid 1.6 x 0.7 x 1.0 cm nodule. TR 2 3. Anterior mid hypoechoic solid 0.6 cm nodule. TR 4 Left lobe: Size: Measures 6.5 x 1.2 x 2.0 cm Parenchyma: Background homogeneous echotexture. Normal echogenicity andvascularity. Nodule(s): 1. Mid predominantly cystic 0.9 cm. TR 2 2. Inferior Part solid and cystic 1.8 cm nodule. TR 2 Isthmus: 2.1 mm in thickness (AP). =====IMPRESSION:===== 1. Bilateral thyroid lobe enlargement, nonspecific 2. Bilateral thyroid predominantly TR 1 and 2 nodules and a singlesubcentimeter TR 4 nodule; no nodules meet criteria for tissue sampling orimaging follow-up. ACR TI-RADS recommendations: TR5, highly suspicious (greater than or equal to 7 points) - FNA ifgreater than or equal to 1 cm, follow-up if 0.5-0.9 cm every year for 5 years TR4, moderately suspicious (4-6 points) - FNA if greater than or equalto 1.5cm, follow-up if 1-1.4 cm in 1, 2, 3 and 5 years TR3, mildly suspicious (3 points) - FNA if greater than or equal to2.5cm, follow-up if 1.5-2.4 cm in 1, 3 and 5 years TR2, not suspicious (2 points) and TR1, benign (0 points) - No FNA or follow-up * ACR TI-RADS recommends no more than two nodules with the highest ACR TI-RADS total point should be biopsied and no more than four nodulesshould be followed. ACR TI-RADS (Thyroid Imaging and Reporting Data System) is a structured system for interpreting and reporting thyroid imaging studies with management guidelines. https://www.acr.org/Clinical-Resources/Ogrvjrrvn-htk-Nulb-Systems/TI-RADS Ordered By: LILLY KNOX Interpreted By: Maribell Thomason MD, 10/02/2022 11:52 AM us Lilly Knox MD ULTRASOUND Final Resul t documented in this encounter Visit Diagnoses Diagnosis Nontoxic single thyroid nodule Nontoxic uninodular goiter documented in this encounter Care Teams Field Radio Technician Relationship Specialty Start Date End Date Lilly Knox MD [address] [phone] PCP - General FAMILY PRACTICE 08/31/22 05/23/23 documented as of this encounter
--- OUTSIDE RECORDS SUMMARY | 2024-04-18 13:17 | XMS_ITS | Encounter Summary ---
Author Organization [facility] Address [facility]6 [facility] [place] [address] [place] [address] Care Team Providers Care Core Drill Operator Name Role Phone Cheryl Gonzalez ESTEPHANIA Primary Care Provider [phone] Encounter Details Date Type Department Care Team (Latest Contact Info) Description 10/15/2020 Travel Social History Tobacco Use Types Packs/Day [...] have Coronavirus / COVID-19? No / Unsure 10/15/2020 9:28 AM CDT documented as of this encounter Plan of Treatment Upcoming Encounters Date Type Department Care Team (Late st Contact Info) Description 02/25/2025 10:30 AM CDT Office Visit [facility], [place] [address] [place], [place] [phone] Kaleigh Velazco, JACK PRIZER-C Three [facility]. [place] [address] [place], [place] [phone] documented as of this encounter Visit Diagnoses Not on filedocumented in this encounter Care Teams Core Drill Operator Relationship Specialty Start Date End Date August, ESTEPHANIA Luna [address] [place] [address] PCP - General Nurse Practitioner Family 12/04/1904/03/22 documented as of this encounter
--- OUTSIDE RECORDS SUMMARY | 2024-04-18 13:17 | XMS_ITS | Encounter Summary ---
Author Organization [facility] Address [facility]6 [facility] [place] [address] [place] [address] Care Team Providers Care Dance Costume Designer Name Role Phone Cheryl Gonzalez ESTEPHANIA Primary Care Provider [phone] Reason for Visit * Reason Comments Sore Throat Encounter Details Date Type Department Care Team (Latest Contact Info) Description 12/22/2019 6:32 PM CDT - 12/22/2019 7:37 PM CDT Hospital Encounter [facility] [address] [facility] [place] [address] Vielka Almonte NP Sore Throat Discharge Disposition: Home or Self Care (Routine [...] have Coronavirus / COVID-19? No / Unsure 12/22/2019 6:18 PM CDT documented as of this encounter Last Filed Vital Signs Vital Sign Reading Time Taken Comments Blood Pressure 118/66 12/22/2019 6:48 PM CDT Pulse 78 12/22/2019 6:48 PM CDT Temperature 36.8 ??C (98.3 ??F) 12/22/2019 6:48 PM CD T Respiratory Rate 18 12/22/2019 6:48 PM CDT Oxygen Saturation 99% 12/22/2019 6:48 PM CDT Inhaled Oxygen Concentration - - Weight 65.8 kg (145 lb) 12/22/2019 6:48 PM CDT Height 162.6 cm (5' 4 ) 12/22/2019 6:48 PM CDT Body Mass Index 24.89 12/22/2019 6:48 PM CDT documented in this encounter Discharge Instructions * Discharge Instructions* Vielka Almonte NP - 12/22/2019 7:24 PM CDT We will call you in 2 to 3 days with your covid results. Continue Flonase, Edenilson and tylenol or ibuprofen. * Attachments The following attachments cannot be sent through Care Everywhere. * Coronavirus Disease 2019 (COVID-19) Discharge Instructions (Vietnamese) documented in this encounter Medications at Time of Discharge Medication Sig Dispense Quantity Refills Last Filled Start D ate End Date atorvastatin 10 MG tablet 11/11/2019 Cholecalciferol (VITAMIN D3) 50 MCG (2000 UT) Tab 09/28/2019 DEPO-PROVERA 150 MG/ML injection 06/11/2019 CALTRATE 600+D3 600-800 MG-UNIT tablet 09/28/2019 10/03/2022 fish oil 1000 MG Cap capsule 03/23/2019 09/28/2020 folic acid 1 MG tablet 03/23/2019 04/04/2022 documented as of this encounter ED Notes * Vielka Almonte NP - 12/22/2019 7:24 PM CDT ED NOTE Chief Complaint Chief Complaint Patient presents with ??? Sore Throat History of Present Illness 49 yo F presents with c/o fatigue, headaches for 1 wk. Today started feeling worse with sore throat. Temp at home 99F. 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 No cough, congestion, SOB/CP. Taking flonase and edenilson. All systems reviewed and negative except as noted above. Denies known medical/family hx of diabetes, thyroid disease, heart disease. Medical History ALLERGIES: No Known Allergies MEDICATIONS: Prior to Admission medications Medication Sig Start Date End Date Taking? Authorizing Provider fish oil 1000 MG Cap capsule 03/23/19 Yes Doc Abstract folic acid 1 MG tablet 03/23/19 Yes Doc Abstract atorvastatin 10 MG tablet 11/11/19 Doc Abstract CALTRATE 600+D3 600-800 MG-UNIT tablet 09/28/19 Doc Abstract Cholecalciferol (VITAMIN D3) 50 MCG (1999 VA) Tab 09/28/19 Doc Abstract DEPO-PROVERA 150 MG/ML injection 06/11/19 Doc Abstract PAST MEDICAL HISTORY: Past Medical History: Diagnosis Date ??? Hyperlipidemia PAST SURGICAL HISTORY: Past Surgical History: Procedure Laterality Date ??? KNEE SURGERY FAMILY HISTORY: Family History Problem Relation Name Age of Onset ??? Breast Cancer Maternal Grandmother age unknown SOCIAL HISTORY: Social History Tobacco Use ??? Smoking status: Never Smoker ??? Smokeless tobacco: Never Used Substance Use Topics ??? Alcohol use: Never Frequency: Never ??? Drug use: Never Review of Systems Review of Systems Constitutional: Positive for fatigue. HENT: Positive for sore throat. Negative for postnasal drip, rhinorrhea, sinus pressure and sinus pain. Respiratory: Negative. Cardiovascular: Negative. Gastrointestinal: Negative. Genitourinary: Negative. Musculoskeletal: Negative. Skin: Negative. Neurological: Positive for headaches. All other systems reviewed and are negative. Physical Exam Filed Vitals: 12/22/19 1848 BP: 118/66 Pulse: 78 Resp: 18 Temp: 98.3 ??F (36.8 ??C) TempSrc: Oral SpO2: 99% Weight: 65.8 kg (145 lb) Height: 5' 4 (1.626 m) Physical Exam Constitutional: She is oriented to person, place, and time. Vital signs are normal. She appears well-developed and well-nourished. She is active. Non-toxic appearance. She does not have a sickly appearance. She does not appear ill. No distress. HENT: Head: Normocephalic. Right Ear: Tympanic membrane, external ear and ear canal normal. Left Ear: Tympanic membrane, external ear and ear canal normal. Nose: Nose normal. No mucosal edema or rhinorrhea. Mouth/Throat: Uvula is midline and mucous membranes are normal. Posterior oropharyngeal erythema (mild) present. No oropharyngeal exudate, posterior oropharyngeal edema or tonsillar abscesses. Tonsils are 0 on the right. Tonsils are 0 on the left. No tonsillar exudate. Eyes: Conjunctivae are normal. Neck: Normal range of motion. Cardiovascular: Normal rate, regular rhythm and normal heart sounds. Pulmonary/Chest: Effort normal and breath sounds normal. Musculoskeletal: Normal range of motion. Lymphadenopathy: She has no cervical adenopathy. Neurological: She is alert and oriented to person, place, and time. Skin: Skin is warm and dry. Psychiatric: She has a normal mood and affect. Her behavior is normal. Judgment and thought contentnormal. Nursing note and vitals reviewed. Diagnostic Studies / Procedures ELECTROCARDIOGRAMS: No results found for this visit on 12/22/19. LABORATORY STUDIES: No results found for this visit on 12/22/19. IMAGING STUDIES No orders to display ED Course / Medical Decision Making ED Course as of Dec 21 1926 Mon Dec 22, 20191923 This is a normal finding. SpO2: 99 % [AP] ED Course User Index [AP] Vielka Almonte NP Medications - No data to display Clinical Impression Suspected COVID-19 virus infection (Primary) Sore throat Current Discharge Medication List Disposition: Discharge Follow-Up: Cheryl Gonzalez NP [address] [facility] [address] As needed VIELKA ALMONTE NP 12/22/2019 Vielka Almonte NP 12/22/191926 Cosigned by Matthew Goldberg MD at 12/22/2019 9:05 PM CDT * Marla Ricci RN - 12/22/2019 7:20 PM CDT Rapid strep negative, provider aware. * Marla Ricci RN - 12/22/2019 6:54 PM CDT Swabbed for covid. * Marla Ricci RN - 12/22/2019 6:48 PM CDT Reports sore throat, congestion, drainage, and fatigue since this am, denies any cough or fever. documented in this encounter Plan of Treatment Upcoming Encounters Date Type Department Care Team (Late st Contact Info) Description 02/25/2025 10:30 AM CDT Office Visit [facility], [place] [address] [place], [place] [phone] Kaleigh Velazco NP-C Three [facility]. [facility] [address] [place], [place] [phone] documented as of this encounter Procedures Procedure Name Priority Date/Time Associated Diagnosis Comments CORONAVIRUS (COVID 19) Routine 12/22/2019 6:55 PM CDT RAPID STREP A STAT 12/22/2019 6:54 PM CDT documented in this encounter Results * CORONAVIRUS (COVID 19) [facility] (12/22/2019 6:55 PM CDT) CORONAVIRUS SARS COV 2 PCR (RESP) NOT DETECTED NOT DETECTED 12/24/2019 2:16 PM CDT [facility] Comment: A Not Detected (negative) test result for this test means that SARS- CoV-2 RNA was not present in the specimen above the limit of detection. A negative result does not rule out the possibility of COVID-19 and should not be used as the sole basis for treatment or patient management decisions. ??If COVID-19 is still suspected, based on exposure history together with other clinical findings, re-testing should be considered in consultation with public health authorities. Laboratory test results should always be considered in the context of clinical observations and epidemiological data in making a final diagnosis and patient management decisions. Please review the Fact Sheets and FDA authorized labeling available for health care providers and patients using the following websites: https://www.Li[facility].Somoto/home/Covid-19/HCP/[facility]/fact- sheet.html https://www.[facility].Somoto/home/Covid-19/Patients/ Quest[facility]D/fact-sheet.html This test has been authorized by the FDA under an Emergency Use Authorization (EUA) for use by authorized laboratories. Due to the current public health emergency, [facility] is receiving a high volume of samples from a wide variety of swabs and media for COVID-19 testing. In order to serve patients during this public health crisis, samples from appropriate clinical sources are being tested. Negative test results derived from specimens received in non-commercially manufactured viral collection and transport media, or in media and sample collection kits not yet authorized by FDA for COVID-19 testing should be cautiously evaluated and the patient potentially subjected to extra precautions such as additional clinical monitoring, including collection of an additional specimen. Methodology: ??Nucleic Acid Amplification Test (NAAT) includes PCR or TMA Additional information about COVID-19 can be found at the [facility] website: www.[facility].Somoto/Covid19. Test performed at [facility]. [place] [address] [place], [place] ??[phone] Director: SUNIL ONEIL DO,MPH 12/22/2019 6:55 PM CDT Vielka Almonte NP MICROBIOLOGY - GENERAL ORD ERABLES Final Result [facility]. [address] [address], * RAPID STREP A (12/22/2019 6:54 PM CDT) SPECIMEN TYPE THROAT 12/22/2019 6:54 PM CDT [facility] RAPID STREP TEST NEGATIVE NEGATIVE 12/23/2019 7:54 AM CDT [facility] STRUCTURE OF ANTERIOR PORTION OF NECK / Unknown 12/22/2019 6:54 PM CDT us Vielka Almonte NP MICROBIOLOGY - GENERAL ORD ERABLES Final Result [address] [address], documented in this encounter Visit Diagnoses Diagnosis Suspected COVID-19 virus infection- Primary Sore throat Acute pharyngitis documented in this encounter Care Teams Dance Costume Designer Relationship Specialty Start Date End Date August, ESTEPHANIA Luna [address] [place], [place] [phone] PCP - General Nurse Practitioner Family 12/04/1904/03/22 documented as of this encounter
--- OUTSIDE RECORDS SUMMARY | 2024-04-18 13:17 | XMS_ITS | Encounter Summary ---
Author Organization [facility] Address [facility]6 [facility] [place] [address] [place] [address] Care Team Providers Care Animal Laboratory Technician Name Role Phone Ghada Knox MD Primary Care Provider [phone] Encounter Details Date Type Department Care Team (Late Contact Info) Description 09/26/2022 Orders Only [facility], [address] [address] Nanda Ornelas, RN Social History Tobacco Use Types Packs/Day Years [...] Description 02/25/2025 10:30 AM CDT Office Visit [facility], [facility] [address] [place] [address] Kaleigh Velazco, GLOBAL MANAGER-C Three [facility]. [facility] [address] [place] [address] documented as of this encounter Visit Diagnoses Not on filedocumented in this encounter Care Teams Animal Laboratory Technician Relationship Specialty Start Date End Date Ghada Knox MD 2 [facility] [address] [place] [phone] PCP - General FAMILY PRACTICE 08/31/22 05/23/23 documented as of this encounter
--- OUTSIDE RECORDS SUMMARY | 2024-04-18 13:17 | XMS_ITS | Encounter Summary ---
Author Organization [facility] Address [facility] [place] [address] [place] [address] Care Team Providers Care Overlock Operator Name Role Phone Lisa Cheryl ESTEPHANIA Primary Care Provider [phone] Reason for Visit * Reason Comments Jnt Pain/Knee * Physical Medicine (Routine) - Closed Specialty Diagnoses / Procedures Referred By Contac t Referred To Contact PHYSICAL THERAP[facility] Physical Therapy Diagnoses Patellar malalignment syndrome of right knee Dali Braga, NEWSPAPER JOURNALIST-C [facility] [place] [place] [address] Phone: tel: fax: Referral ID Status Reason Start Date Expiration Date V isits Requested Visits Authorized [id number] Closed Physical Therapy 09/22/2020 01/20/2021 16 16 Encounter Details Date Type Department Care Team (Latest Contact Info) Description 10/15/2020 9:30 AM CDT - 10/15/2020 11:59 PM CDT Hospital Encounter [facility] [place]patient [place] [address] Dali Braga, NEWSPAPER JOURNALIST-C lEeni Curtis, [place] [address] Jnt Pain/Knee Discharge Disposition: Home or Self Care (Routine [...] have Coronavirus / COVID-19? No / Unsure 10/29/2020 2:10 PM CDT documented as of this encounter Discharge Instructions * Patient Instructions* Eleni Curtis, PT - 10/15/2020 9:45 AM CDT Access Code: [email or web address] URL: [email or web address] Date: 10/15/2020 Prepared by: Eleni Curtis Exercises ?? Active Straight Leg Raise with Quad Set - 2 x daily - 7 x weekly - 1 sets - 10 reps - 3-5 hold ?? Seated Hip Adduction Isometrics with Ball - 2 x daily - 7 x weekly - 1 sets - 10 reps - 3-5 hold ?? Seated Hamstring Stretch - 2 x daily - 7 x weekly - 1 sets - 5 reps - 20-30 hold ?? Standing ITB Stretch - 2 x daily - 7 x weekly - 1 sets - 5 reps - 20-30 hold documented in this encounter Medications at Time of Discharge Acetaminophen (TYLENOL OR) atorvastatin 10 MG tablet 11/11/2019 Cholecalciferol (VITAMIN D3) 50 MCG (1999 UT) Tab 09/28/2019 DEPO-PROVERA 150 MG/ML injection 06/11/2019 Ibuprofen (ADVIL OR) Naproxen Sodium (ALEVE OR) CALTRATE 600+D3 600-800 MG-UNIT tablet 09/28/2019 10/03/2022 fluticasone propionate 50 MCG/ACT nasal spray 1 spray by Nasal route daily. 04/04/2022 folic acid 1 MG tablet 03/23/2019 04/04/2022 documented as of this encounter Progress Notes * Eleni Curtis PT - 10/15/2020 9:45 AM CDTEncounter addended by: Eleni Curtis PT on: 11/05/2020 1:26 PM Actions taken: Clinical Note Signed * Eleni Curtis PT - 10/15/2020 9:45 AM CDT Physical Therapy Evaluation Date: 10/15/2020 Patient Name: Marcin Contreras : 1970 Diagnosis: The encounter diagnosis was Patellar malalignment syndrome of right knee. AMB PT SUBJECTIVE EVAL: History of Present Illness: Onset date: several years. Mechanism of injury: 50 years old female referred to therapy for right knee patellar malalignment syndrome. Patient has right knee pain that start several years ago and been on going. Patient had gelinjection around 2018 and only had about 2 months of relief. Patient corticosteroid injection was 09/28/2020 and has notices some pain relief but still around 3/10 with certain activities. Patient has issues with kneeling, squatting, bike riding, stairs, and sleeping. Patient can walk 4-5 miles a daybut pain varies with more activity. Patient sometimes notices as she does more activity it loosens up and improves. Patient has to do step two pattern sometime when going down the steps. Patient goalfor therapy is to find ways to manage knee pain especially taping. See outpatient history form for additional information Quality of life: Good Pain: Current pain ratin/10 At best pain ratin/10 At worst pain ratin/10 (prior to injection) Location: Right knee (pain varies per activity) Quality: Dull ache Relieving factors: Ice (elevate) Aggravating factors: Movement (stairs, squatting) Progression: Worsening Social Support: Lives in: Multiple level home (basement - 2 story home) Lives with: Spouse, adult children and young children (8 people - 2 dog/ 2 cats) Hand dominance: Right Diagnostic Tests: Abnormal x-ray: mild arthritis. Treatments: Previous treatment: Injection treatment (gel - past) Current treatment: injection treatment Current treatment comment: Steroid shot 09/28/20 Patient Goals: Patient goals for therapy: Decreased pain and return to sport/leisure activities (learn how to manage the knee) Objective Neurological Testing Sensation Hip Left Hip Intact: light touch Right Hip Intact: light touch Knee Left Knee Intact: light touch Right Knee Intact: light touch Ankle/Foot Left Ankle/Foot Intact: light touch Right Ankle/Foot Intact: light touch Tenderness Right Knee Tenderness in the medial joint line. No tenderness in the lateral joint line. Additional Tenderness Details Tenderness along medial region closer to inferior region Active Range of Motion Left Hip Flexion: WFL Abduction: WFL Adduction: WFL Right Hip Flexion: WFL Abduction: WFL Adduction: WFL Left Knee Flexion: 127 degrees WFL Extension: WFL Right Knee Flexion: 122 (slight pain) degrees WFL and with pain Extension: Right knee active extension: slight pain. WFL and with pain Left Ankle/Foot Dorsiflexion (kf): WFL Right Ankle/Foot Dorsiflexion (kf): WFL Additional Active Range of Motion Details Bilateral LE Flexibility Hamstring Right -33 deg limited Left -22 deg ITB Right Left Patellar Mobility Left Knee Patellar tendons within functional limits include the medial, lateral, superior and inferior. Right Knee Patellar tendons within functional limits include the medial, lateral, superior and inferior. Patellar Static Positioning Left Knee: lateral tilt Right Knee: lateral tilt and carolin Additional Patellar Static Positioning Details In resting position Strength/Myotome Testing Left Hip Planes of Motion Flexion: 4+ Abduction: 4+ Adduction: 4- Right Hip Planes of Motion Flexion: 4 Abduction: 4 Adduction: 4- Left Knee Flexion: 5 Extension: 4 (4 to 4+) Right Knee Flexion: 5 Extension: 4 (4 to 4+) Left Ankle/Foot Dorsiflexion: 5 Right Ankle/Foot Dorsiflexion: 5 Ambulation Quality of Movement During Gait Knee Knee (Right): Positive valgus. Additional Quality of Movement During Gait Details Internal rotation on right with ascend of stairs Stairs - slight tracking lateral noted Squatting - minimal tracking restrictions noted Physical Therapy Certification Form - Joint Treatment Today: Initial Evaluation completed with patient education on evaluation findings and plan of FCI Modality Education: Ice for 15-20 minutes prn times per day HEP instruction: see wrap up Outcome tool: optimal LE Score: Discussed k-tape and provided test strip to check for skin irritation Timed Code Tx Minutes 8 Units 1 Total Tx Time 60 8 Therapeutic Exercise, 52 Mod Therapy Diagnosis: Pain in Joint - right knee joint Patient demonstrated Good understanding of above education and HEP. Rehab Potential (Good) Assessment: 50 yo female referred to therapy for patellar malalignment syndrome of right knee that had issues for several years. Patient displays decrease rom/flexibility, decrease quad/hip strength,patellar alignment present, pain with various activities especially stairs/squatting. Patient will benefit from skilled PT to get back to prior level of function especially prolonged walking and stairs. Therapy Goals: (Goals to be met by d/c) 1. Increase AROM - right knee mobility by 5 degrees to provide ease with bending, squatting, and prolonged walking 2. Flexibility - Bilateral Hamstring/ITB 85-90% to provide ease with all functional activities especially bending/squatting 3. Good Posture/body Mechanics by d/c especially controlled patellar alignment with squatting/stairs 4. Independent HEP by d/c 5. Decrease pain by 50% overall with all functional activities especially sleeping, bending, walking (various distance) and stairs 6. Decrease muscle spasm/tissue tension - min to no tension along right knee 7. Functional Gait pattern/equal weight bearing - with ease with short/long distance per optimal LEnoted 8. Increase strength by 1 grade LE to provide ease with stairs, walking, squatting with community 9. Decrease level of difficulty per optimal LE to less than 10-15% limitation to ease daily activities Assessment Eval Complexity Personal Factor/Co-morbidities: 1-2 (Mod) Chronicity Examination of Body Systems Needing Addressed: 3 or more (Mod) Stair deficits, LE Deficits, Muscle Tension Clinical Presentation of Patient: Evolving (Mod) Evolving and changing characteristics - Varying Pain with Activity Clinical Decision Making: Mod Patient to be seen for: balance, body mechanics education, flexibilty, gait, home exercise program,manual therapy, modalities, neuromuscular reeducation, posture education, ROM, strengthening Next Visit: Review HEP and patient education. recumbant bike, LE strength especially quad and hip, active/passive stretching, manual such as theraroller to HS/ITB, modalities for pain relief, taping to help with patellar tracking. Assess core stability next session. Frequency: 1-2 times per 5 week for up to 10 visits. Therapist: ELENI CURTIS, PT Date: 10/15/20 Time: 9:55 AM Physician Signature: Date: Time: Patient Name: Marcin Contreras : 1970 documented in this encounter Plan of Treatment Upcoming Encounters Date Type Department Care Team (Late st Contact Info) Description 02/25/2025 10:30 AM CDT Office Visit [facility], [facility] [address] [place] [address] Kaleigh Velazco, NEWSPAPER JOURNALIST-C [facility]. [facility] [address] [place] [address] documented as of this encounter Visit Diagnoses Diagnosis Patellar malalignment syndrome of right knee- Primary documented in this encounter Care Teams Overlock Operator Relationship Specialty Start Date End Date August, ESTEPHANIA Luna [address] [place] [address] PCP - General Nurse Practitioner Family 12/04/1904/03/22 documented as of this encounter
--- OUTSIDE RECORDS SUMMARY | 2024-04-18 13:17 | XMS_ITS | Encounter Summary ---
Author Organization [facility] Address [facility] [place] [address] [place] [address] Care Team Providers Care Delinquent Tax Collector Assistant Name Role Phone Salud Flores MD Primary Care Provider Reason for Visit * Reason Comments Flu Like Symptoms Encounter Details Date Type Department Care Team (Latest Contact Info) Description 04/04/2022 4:59 PM AGRICULTURAL SCIENCE PROFESSOR - 04/04/2022 6:08 PM AGRICULTURAL SCIENCE PROFESSOR Hospital Encounter [facility] [address] [place] [address] Li Willingham, NP [address], [place] [id number] Flu Like Symptoms Discharge Disposition: Home or Self Care (Routine [...] suspected to have Coronavirus/COVID-19? No / Unsure 04/04/2022 4:32 PM AGRICULTURAL SCIENCE PROFESSOR documented as of this encounter Last Filed Vital Signs Vital Sign Reading Time Taken Comments Blood Pressure 145/75 04/04/2022 5:09 PM AGRICULTURAL SCIENCE PROFESSOR Pulse 90 04/04/2022 5:09 PM AGRICULTURAL SCIENCE PROFESSOR Temperature 37 ??C (98.6 ??F) 04/04/2022 5:09 PM AGRICULTURAL SCIENCE PROFESSOR Respiratory Rate 20 04/04/2022 5:09 PM AGRICULTURAL SCIENCE PROFESSOR Oxygen Saturation 99% 04/04/2022 5:09 PM AGRICULTURAL SCIENCE PROFESSOR Inhaled Oxygen Concentration - - Weight 69.9 kg (154 lb) 04/04/2022 5:09 PM AGRICULTURAL SCIENCE PROFESSOR Height 162.6 cm (5' 4 ) 04/04/2022 5:09 PM AGRICULTURAL SCIENCE PROFESSOR Body Mass Index 26.43 04/04/2022 5:09 PM AGRICULTURAL SCIENCE PROFESSOR documented in this encounter Discharge Instructions * Discharge Instructions* Li Willingham APRN - 04/04/2022 5:58 PM AGRICULTURAL SCIENCE PROFESSOR Grace Krishnamurthy cold and flu tablets that dissolve in water- they make a daytime/nightime package together. This will help overall with your viral symptoms. If you have high blood pressure Coricidin is the medication over the counter for cold/flu symptoms as some of the decongestants in the others can raise your blood pressure. Home Care: 1. Encourage fluids. 2. Claritin or Zyrtec daily to decrease post nasal drip. 3. You might use a cool mist humidifier/vaporizer in your room if the air is dry. 4. Sleeping in a more upright position can be helpful. 5. You can use acetaminophen (Tylenol) or ibuprofen (Motrin) for fever or sore throat. 6. See your doctor for a recheck visit tomorrow or as soon as possible if not better. 7. Afrin nasal spray 2 sprays twice daily for 3 days then stop. Call your doctor or return to the emergency department if worse or: 1. Breathing trouble occurs. 2. Color is pale, bluish, or marin. 3. If you are weak or too sleepy. 4. No urination occurs in 12 hours. Immediately return to the emergency department for any new or worsening symptoms. Return to the emergency department if you have chest pain, shortness of breath, cough up blood, abdominal pain, vomiting and cannot keep down liquids, see blood in your vomit or stool, you are urinating less than normal, or faint/pass out. Stay well-hydrated at home and to not return to work or school until you havebeen fever free for 24 hours without the use of any fever medications. [facility] provide medical screening exams and initial stabilizing treatment of emergency medical conditions. Medicine is an inexact science and many conditions cannot be diagnosed or completelytreated during a single visit. Your treating healthcare provider(s) today feel your condition has been stabilized so further care as an outpatient is reasonable. Emergency/convenient care does not substitute for complete, ongoing, or follow-up care by your primary care physician or sales consultant. Follow up in 2-3 days with your primary care provider, or if symptoms worsen go to [facility] or the ER. Our practice is committed to providing you the very best in healthcare. It is our pleasure to have the opportunity to take care of you. CULTURAL SCIENCE PROFESSOR * Attachments The following attachments cannot be sent through Care Everywhere. * Flu, Adult ED (Irish) documented in this encounter Medications at Time of Discharge Medication Sig Dispense Quantity Refills Last Filled Start D ate End Date Acetaminophen (TYLENOL OR) atorvastatin 10 MG tablet 11/11/2019 Cholecalciferol (VITAMIN D3) 50 MCG (1999 UT) Tab 09/28/2019 DEPO-PROVERA 150 MG/ML injection 06/11/2019 Ibuprofen (ADVIL OR) Naproxen Sodium (ALEVE OR) CALTRATE 600+D3 600-800 MG-UNIT tablet 09/28/2019 10/03/2022 pantoprazole EC (PROTONIX) 20 MG tablet daily. 02/07/2023 documented as of this encounter ED Notes * Martine Hidalgo RN - 04/04/2022 5:01 PM CST Pt reports a fever and headache since Sunday. Non-productive cough and sinus pressure since Sunday.Last known fever was Sunday. 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 CULTURAL SCIENCE PROFESSOR * Li Willingham APRN - 04/04/2022 4:34 PM CST [facility] Encounter Chief Complaint Chief Complaint Patient presents with ??? Flu Like Symptoms History of Present Illness Patient is a pleasant 51-year-old female with a past medical history of hyperlipidemia, deviated septum, osteoarthritis of right knee, vitamin D deficiency who presents the convenient care today ambulatory with a steady gait for evaluation of headache, cough, sinus pressure since Sunday. Patient had a fever on Sunday. 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 She denies any chest pain, shortness of breath, dizziness. Medical History ALLERGIES: No Known Allergies MEDICATIONS: Prior to Admission medications Medication Sig Start Date End Date Taking? Authorizing Provider benzonatate (TESSALON) 200 MG capsule Take 1 capsule (200 mg total) by mouth 3 (three) times daily as needed for Cough. 04/04/22 Yes Li Willingham APRN Acetaminophen (TYLENOL OR) Doc [facility] atorvastatin 10 MG tablet 11/11/19 [facility] CALTRATE 600+D3 600-800 MG-UNIT tablet 09/28/19 [facility] Cholecalciferol (VITAMIN D3) 50 MCG (1999 UT) Tab 09/28/19 [facility] DEPO-PROVERA 150 MG/ML injection 06/11/19 [facility] Ibuprofen (ADVIL OR) [facility] Naproxen Sodium (ALEVE OR) Doc [facility] pantoprazole EC (PROTONIX) 20 MG tablet daily. GENERICPROVIDER, DEFAULT HISTORY PAST MEDICAL HISTORY: Past Medical History: Diagnosis Date ??? Deviated septum ??? Hyperlipidemia ??? Vitamin D deficiency PAST SURGICAL HISTORY: Past Surgical History: Procedure Laterality Date ??? KNEE SURGERY ??? KNEE SURGERY Left FAMILY HISTORY: Family History Problem Relation Name [...] Yes Comment: socially ??? Drug use: Never Review of Systems Review of Systems Constitutional: Positive for fever. Negative for activity change, appetite change, chills and fatigue. HENT: Negative for congestion, ear pain, postnasal drip, rhinorrhea, sinus pressure, sinus pain, sore throat and trouble swallowing. Eyes: Negative for visual disturbance. Respiratory: Positive for cough. Negative for chest tightness, shortness of breath, wheezing and stridor. Cardiovascular: Negative for chest pain, palpitations and leg swelling. Gastrointestinal: Negative. Negative for abdominal distention, abdominal pain, constipation, diarrhea, nausea and vomiting. Endocrine: Negative. Genitourinary: Negative for difficulty urinating, dysuria, flank pain and hematuria. Musculoskeletal: Negative for arthralgias, joint swelling and neck pain. Skin: Negative for color change, pallor and wound. Neurological: Positive for headaches. Negative for dizziness, seizures, syncope and light-headedness. Psychiatric/Behavioral: Negative. Negative for agitation, hallucinations and suicidal ideas. Except as noted in HPI, 10 point review of systems was completed and otherwise unremarkable or noncontributory to chief complaint. Physical Exam Filed Vitals: 04/04/22 1709 BP: (!) 145/75 Pulse: 90 Resp: 20 Temp: 98.6 ??F (37 ??C) TempSrc: Temporal SpO2: 99% Weight: 69.9 kg (154 lb) Height: 5' 4 (1.626 m) Physical Exam Vitals and nursing note reviewed. Constitutional: General: She is not in acute distress. Appearance: Normal appearance. She is not ill-appearing or toxic-appearing. Comments: Sitting up on exam chair. Respirations are regular, even, nonlabored. Speaking in full sentences without difficulty. No acute distress noted. HENT: Head: Normocephalic. Right Ear: External ear normal. Left Ear: External ear normal. Nose: Congestion and rhinorrhea present. Mouth/Throat: Mouth: Mucous membranes are moist. Eyes: Conjunctiva/sclera: Conjunctivae normal. Cardiovascular: Rate and Rhythm: Normal rate and regular rhythm. Pulses: Normal pulses. Heart sounds: Normal heart sounds. Pulmonary: Effort: Pulmonary effort is normal. No respiratory distress. Breath sounds: Normal breath sounds. No stridor. No wheezing. Comments: Harsh non-productive cough noted Abdominal: General: Bowel sounds are normal. Palpations: Abdomen is soft. Tenderness: There is no abdominal tenderness. Skin: General: Skin is warm. Capillary Refill: Capillary refill takes less than 2 seconds. Neurological: Mental Status: She is alert and oriented to person, place, and time. Psychiatric: Mood and Affect: Mood normal. Diagnostic Studies / Procedures ELECTROCARDIOGRAMS: No results found for this visit on 04/04/22. LABORATORY STUDIES: No results found for this visit on 04/04/22. IMAGING STUDIES No orders to display ED Course / Medical Decision Making MDM Number of Diagnoses or Management Options Influenza A Diagnosis management comments: Patient presents for viral URI symptoms rapid influenza is a positive.. Discussed supportive care measures for symptoms. Discussed discharge medications. Patient is nontoxic in appearance. Patient in no acute distress. Vitals within normal limits. Discussed return precautions with the patient including all the red flag signs or symptoms of when to return the patient. The patient verbalized understanding and was agreeable with discharge and closefollow-up Amount and/or Complexity of Data Reviewed Clinical lab tests: ordered and reviewed Review and summarize past medical records: yes Independent visualization of images, tracings, or specimens: yes Risk of Complications, Morbidity, and/or Mortality Presenting problems: low Diagnostic procedures: minimal Management options: moderate Patient Progress Patient progress: stable (Patient advised regarding concerning signs and symptoms, and return precautions. I ensured the patient's understanding of instructions utilizing teach-back. Advised to call if there were any questions. Patient agrees with plan for discharge and will make sure to follow up.All of patient's questions answered before discharge. ) ED Course as of 04/04/22 1808 SunApr 04, 2022 1750 INFLUENZA A & B Flu A+ [KP] ED Course User Index [KP] Li Willingham APRN Medications - No data to display Clinical Impression Influenza A (Primary) Disposition: Discharge Current Discharge Medication List START taking these medications Details benzonatate (TESSALON) 200 MG capsule Take 1 capsule (200 mg total) by mouth 3 (three) times daily as needed for Cough. Qty: 30 capsule, Refills: 0 Class: Eprescribe Pharmacy: [facility] [address] [place] [address] DANISHA GOMES (Ph #: [phone]) Follow-up: Salud Flores MD [address] [facility] [address] [facility] [address] Li Willingham APRN 04/04/2022 Li Willingham APRN, dictated portions of this note using [employer] speech recognition software. Occasional wrong word or sound-alike substitutions may have occurred due to the inherent limitations of voice recognition software. Please read the chart carefully and recognize, using context, where the pierre bstitutions may have occurred. Li Willingham APRN 04/04/22 1808 Cosigned by Vangie Acevedo MD at 04/05/2022 10:15 AM AGRICULTURAL SCIENCE PROFESSOR CULTURAL SCIENCE PROFESSOR CULTURAL SCIENCE PROFESSOR documented in this encounter Plan of Treatment Upcoming Encounters Date Type Department Care Team (Late st Contact Info) Description 02/25/2025 10:30 AM CDT Office Visit [facility] [place] [address] [place] [address] Kaleigh Velazco, MANAGER OF SUPPLY CHAIN-C [facility]. [facility] [address] [place] [address] documented as of this encounter Procedures Procedure Name Priority Date/Time Associated Diagnosis Comments HC QL INFLUENZA A/B STAT 04/04/2022 6 :05 PM AGRICULTURAL SCIENCE PROFESSOR documented in this encounter Results * (ABNORMAL) INFLUENZA A & B (04/04/2022 6:05 PM AGRICULTURAL SCIENCE PROFESSOR) SPECIMEN TYPE NASAL 04/05/2022 2:05 PM AGRICULTURAL SCIENCE PROFESSOR [facility] INFLUENZA A POSITIVE(A) NEGATIVE 04/05/2022 2:43 PM AGRICULTURAL SCIENCE PROFESSOR [facility] INFLUENZA B NEGATIVE NEGATIVE 04/05/2022 2:43 PM AGRICULTURAL SCIENCE PROFESSOR [facility] Comment: Interpretation: Positive for Influenza Type A. This test can not distinguish influenza A virus subtypes. For example, this test cannot distinguish influenza infections caused by novel influenza A viruses versus seasonal influenza A viruses. NASAL STRUCTURE / Unknown 04/04/2022 6:05 PM AGRICULTURAL SCIENCE PROFESSOR us Li Willingham NP MICROBIOLOGY - GENERAL ORDERA BLES Final Result [facility] [address] [place] [address], documented in this encounter Visit Diagnoses Diagnosis Influenza A- Primary Influenza with other respiratory manifestations documented in this encounter Care Teams Delinquent Tax Collector Assistant Relationship Specialty Start Date End Date Salud Flores MD [address] [id number] PCP - General FAMILY PRACTICE 04/04/22 08/30/22 documented as of this encounter
--- OUTSIDE RECORDS SUMMARY | 2024-04-18 13:17 | XMS_ITS | Encounter Summary ---
Author Organization [facility] Address Critical access hospital6 [facility] [place] [address] [place] [address] Care Team Providers Care Car Rental Agent Name Role Phone Cheryl Gonzalez ESTEPHANIA Primary Care Provider [phone] Encounter Details Date Type Department Care Team (Latest Contact Info) Description 12/22/2019 Travel Social History Tobacco Use Types Packs/Day [...] CDT Office Visit [facility] THREE [facility], [address] [place] [address] Kaleigh Velazco, PEDIATRIC CNS-C Three [facility]. [address] [place] [address] documented as of this encounter Visit Diagnoses Not on filedocumented in this encounter Additional Health Concerns Infection Onset Date Last Indicated Resolved Time COVID-19 Rule Out 12/22/2019 12/22/2019 12/24/2019 2:16 PM CDT documented as of this encounter Care Teams Car Rental Agent Relationship Specialty Start Date End Date August, ESTEPHANIA [address] [place] [address] PCP - General Nurse Practitioner Family 12/04/1904/03/22 documented as of this encounter
--- OUTSIDE RECORDS SUMMARY | 2024-04-18 13:17 | XMS_ITS | Encounter Summary ---
Author Organization [facility] Address [facility]6 [facility] [address] [place] [address] Care Team Providers Care Oracle Pl Sql Developer Name Role Phone Cheryl Gonzalez ESTEPHANIA Primary Care Provider [phone] Reason for Visit * Imaging (Routine) - Closed Specialty Diagnoses / Procedures Referred By Tomas t Referred To Contact RADIOLOGY Diagnoses Encounter for screening mammogram for malignant neoplasm of breast Procedures MG SCREENING W LAURENT JUANA Salud East MD [address] [address] Phone: tel: fax: Referral ID Status Reason Start Date Expiration Date Visits Re quested Visits Authorized [id number] Closed 12/02/2021 12/02/2022 1 1 Encounter Details Date Type Department Care Team (Late st Contact Info) Description 01/28/2022 11:55 AM CDT - 01/28/2022 11:59 PM T Hospital Encounter [facility] [address] [place] [address] Salud Grover MD 3 [facility] [address] [place] [address] Discharge Disposition: Home or Self Care (Routine [...] suspected to have Coronavirus/COVID-19? No / Unsure 01/28/2022 11:52 AM CDT documented as of this encounter [...] AM CDT Office Visit [facility], [facility] [address] [place] [address] Kaleigh Velazco RETAIL TEAM MEMBER-C [facility]. [facility] [address] [place] [address] documented as of this encounter Procedures Procedure Name Priority Date/Time Associated Diagnosis Comments MG SCREENING W LAURENT JUANA DIGI Routine 01/28/2022 12:16 PM CDT Encounter for screening mammogram for malignant neoplasm of breast documented in this encounter Results * MG SCREENING W LAURENT JUANA DIGI [...] calcifications in either breast to suggest malignancy. us Salud Grover MD MAMMO Final Result documented in this encounter Visit Diagnoses Not on filedocumented in this encounter Care Teams Oracle Pl Sql Developer Relationship Specialty Start Date End Date August, ESTEPHANIA Luna [address] [place] [address] PCP - General Nurse Practitioner Family 12/04/1904/03/22 documented as of this encounter
--- OUTSIDE RECORDS SUMMARY | 2024-04-18 13:17 | XMS_ITS | Encounter Summary ---
Author Organization [facility] Address [facility]6 [facility] [place] [address] [place] [address] Care Team Providers Care Allergy And Immunology Chief Name Role Phone Ghada Knox MD Primary Care Provider [phone] Encounter Details Date Type Department Care Team (Latest Contact Info) Description 09/27/2022 Travel Social History Tobacco Use Types Packs/Day [...] THREE [facility], [place] [place], [place] [phone] Kaleigh Velazco, CHARTER AND TOUR BUS DRIVER-C Three [facility]. [address] [place] [address] documented as of this encounter Visit Diagnoses Not on filedocumented in this encounter Care Teams Allergy And Immunology Chief Relationship Specialty Start Date End Date Ghada Knox MD 2 [facility] [address] [place] [address] PCP - General FAMILY PRACTICE 08/31/22 05/23/23 documented as of this encounter
--- OUTSIDE RECORDS SUMMARY | 2024-04-18 13:17 | XMS_ITS | Encounter Summary ---
Author Organization [facility] Address [facility]6 [place] [address] [place] [address] Care Team Providers Care Furnace Stock Inspector Name Role Phone Cheryl Gonzalez ESTEPHANIA Primary Care Provider [phone] Encounter Details Date Type Department Care Team (Latest Contact Info) Description 01/28/2022 Travel Social History Tobacco Use Types Packs/Day [...] CDT Office Visit [facility] THREE [facility], [address] [place], [place] [id number] Kaleigh Velazco APPOINTMENT MANAGER-C Three [facility]. [address] [place], [place] [id number] documented as of this encounter Visit Diagnoses Not on filedocumented in this encounter Care Teams Furnace Stock Inspector Relationship Specialty Start Date End Date August, ESTEPHANIA Luna [address] [place] [address] PCP - General Nurse Practitioner Family 12/04/1904/03/22 documented as of this encounter
--- OUTSIDE RECORDS SUMMARY | 2024-04-18 13:17 | XMS_ITS | Encounter Summary ---
Author Organization [facility] Address [facility]6 [facility] [place] [address] [place] [address] Care Team Providers Care File Conversion Operator Name Role Phone Cheryl Gonzalez NP Primary Care Provider [phone] Reason for Visit * Imaging (Routine) - Closed Specialty Diagnoses / Procedures Referred By Tomas smith Referred To Contact RADIOLOGY Diagnoses Encounter for screening mammogram for malignant neoplasm of breast Procedures MG SCREENING W LAURENT JUANA DIGI Cheryl Gonzalez NP [address] [place] [address] Phone: tel: fax: Referral ID Status Reason Start Date Expiration Date Visits Re quested Visits Authorized [id number] Closed 12/04/2019 01/03/2021 1 1 Encounter Details Date Type Department Care Team (Latest Contact Info) Description 12/10/2019 2:52 PM CDT - 12/10/2019 11:59 PM CDT Hospital Encounter [facility] Mammography [address] [place] [address] Cheryl Gonzalez NP [address] [place], [place] [phone] Discharge Disposition: Home or Self Care (Routine Discharge) Social History Tobacco Use Types Packs/Day Years Used Date Smoking Tobacco: Never Assessed Comments Unknown Sex and Gender Information Value Date Recorded Sex Assigned at Not on file Legal Sex Female 1:44 PM CDT Gender Identity Not on file Sexual Orientation Not on file COVID-19 Exposure Response Date Recorded In the last month, have you been in contact with someone who was confirmed or suspected to have Coronavirus / COVID-19? No / Unsure 12/10/2019 2:49 PM CDT documented as of this encounter [...] 02/25/2025 10:30 AM CDT Office Visit [facility], [facility] [address] [place], [place] [phone] Kaleigh Velazco, UPSET OPERATOR-C [facility]. [facility] [address] [place] [address] documented as of this encounter Procedures Procedure Name Priority Date/Time Associated Diagnosis Comments MG SCREENING W LAURENT JUANA DIGI Routine 12/10/2019 3:34 PM CDT Encounter For Screening Mammogram For Malignant Neoplasm Of Breast documented in this encounter Results * MG SCREENING W LAURENT JUANA DIGI (12/10/2019 3:34 PM CDT) Anatomical Region Laterality Modality Breast Bilateral Mammography 12/11/2019 7:16 AM CDT Impressions 12/11/2019 7:22 AM CDT =====IMPRESSION:===== Additional imaging evaluation the right breast is needed with magnification views. ASSESSMENT: ACR BI-RADS CATEGORY 0 - INCOMPLETE: ? NEEDS ADDITIONAL IMAGING EVALUATION RECOMMENDATION: 1: Magnification views of the right breast. Possible ultrasound right breast if the asymmetry persists. COMMENTS: ? Narrative 12/11/2019 7:22 AM CDT EXAMINATION: Digital bilateral screening mammogram with 3-D tomosynthesis EXAM DATE/TIME: 12/10/2019 3:10 PM REASON FOR EXAM: ??N ? COMPARISON: 2018 TECHNIQUE: Digital screening mammography of both breasts was performed in addition to 3-D Tomosynthesis technique. This study was read with the assistance of a computer-aided detection system. TISSUE DENSITY: The breast tissue contains scattered fibroglandular densities. FINDINGS: On the left, there is no suspicious masses, malignant appearing calcifications, skin thickening or other abnormalities are present. ??No significant change from the prior exam. In the right breast and lateral aspect of the cc view there is an area of calcifications that are present. The present superior to the nipple on the MLO view. There is a slight density associated with this. This density could relate to superimposition shadows. Additional evaluation with magnification views. us Cheryl Gonzalez NP MAMMO Final Result documented in this encounter Visit Diagnoses Not on filedocumented in this encounter Care Teams File Conversion Operator Relationship Specialty Start Date End Date Lisa, ESTEPHANIA Luna [address] [place] [address] PCP - General Nurse Practitioner Family 12/04/1904/03/22 documented as of this encounter
--- OUTSIDE RECORDS SUMMARY | 2024-04-18 13:17 | XMS_ITS | Encounter Summary ---
Author Organization [facility] Address [facility]6 [facility] [place] [address] [place] [address] Care Team Providers Care Pillar Worker Name Role Phone Cheryl Gonzalez ESTEPHANIA Primary Care Provider [phone] Encounter Details Date Type Department Care Team (Latest Contact Info) Description 03/06/2022 Travel Social History Tobacco Use Types Packs/Day [...] suspected to have Coronavirus/COVID-19? No / Unsure 03/06/2022 4:48 PM OPERATIONS PLANT ATTENDANT documented as of this encounter Plan of Treatment Upcoming Encounters Date Type Department Care Team (Late st Contact Info) Description 02/25/2025 10:30 AM CDT Office Visit [facility] THREE [place], [address] [place], [place] [phone] Kaleigh Velazco, ETCHER AIRCRAFT-C Three [facility]. [address] [place], [place] [id number] documented as of this encounter Visit Diagnoses Not on filedocumented in this encounter Care Teams Pillar Worker Relationship Specialty Start Date End Date August, ESTEPHANIA Luna [address] [place] [address] PCP - General Nurse Practitioner Family 12/04/1904/03/22 documented as of this encounter
--- OUTSIDE RECORDS SUMMARY | 2024-04-18 13:17 | XMS_ITS | Encounter Summary ---
Author Organization [facility] Address [facility]6 [place] [address] [place] [address] Care Team Providers Care Liquefied Natural Gas Operator Name Role Phone Salud Flores MD Primary Care Provider [phone] Encounter Details Date Type Department Care Team (Latest Contact Info) Description 04/04/2022 Travel Social History Tobacco Use Types Packs/Day [...] Coronavirus/COVID-19? 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 [address] [place] [address] documented as of this encounter Visit Diagnoses Not on filedocumented in this encounter Care Teams Liquefied Natural Gas Operator Relationship Specialty Start Date End Date Salud Flores MD 3 [facility] [address] [place] [address] PCP - General FAMILY PRACTICE 04/04/22 08/30/22 documented as of this encounter
--- OUTSIDE RECORDS SUMMARY | 2024-04-18 13:17 | XMS_ITS | Encounter Summary ---
Author Organization [facility] Address [facility] [place] [address] [place] [address] Care Team Providers Care Reticle Printer Name Role Phone Cheryl Gonzalez NP Primary Care Provider [phone] Reason for Referral * Physical Medicine (Routine) - Closed Specialty Diagnoses / Procedures Referred By Contsilas t Referred To Contact PHYSICAL THERAPY / [facility] Physical Therapy Diagnoses Patellar malalignment syndrome of right knee Chao Braga NP-C [facility] [place] [address] Phone: tel: fax: Referral ID Status Reason Start Date Expiration Date V isits Requested Visits Authorized [id number] Closed Physical Therapy 09/22/2020 01/20/2021 16 16 Reason for Visit * Reason Comments New Patient Rt knee pain * Consultation/Treatment (Routine) - Closed Specialty Diagnoses / Procedures Referred By Contact Referred To Contact NURSE PRACTITIONER / ORTHOPAEDICS Diagnoses Pain in right knee Nathalia Rodriguez MD [address] [facility] [address] [place] [address] Phone: tel: fax: Chao Braga NP-C Referral ID Status Reason Start Date Expiration Date Visits Re quested Visits Authorized [id number] Closed 08/19/2020 08/19/2021 4 4 Encounter Details Date Type Department Care Team (Late st Contact Info) Description 09/28/2020 10:00 AM CDT Office Visit [facility] Medical [facility]ispec[facility]ty [facility] - [facility] [address] [facility] [place] [address] Chao Braga NP-C New Patient (Rt knee pain) Social History Tobacco Use Types Packs/Day Years [...] AM CDT documented as of this encounter Last Filed Vital Signs Vital Sign Reading Time Taken Comments Blood Pressure 102/60 09/28/2020 10:16 AM CDT Pulse 70 09/28/2020 10:16 AM CDT Temperature - - Respiratory Rate - - Oxygen Saturation - - Inhaled Oxygen Concentration - - Weight 66.2 kg (146 lb) 09/28/2020 10:16 AM CDT Height 162.6 cm (5' 4 ) 09/28/2020 10:16 AM CDT Body Mass Index 25.06 09/28/2020 10:16 AM CDT documented in this encounter Patient Instructions * Patient Instructions* MARYBEL Olmedo - 09/28/2020 10:00 AM CDT Patient Education Patient Education Corticosteroid Joint Injection Why is this procedure done? Your doctor may give you a shot of a special medicine called a corticosteroid into your joint area,to help ease swelling and pain in the joint. Your joints are places where 2 or more bones meet. Youmay have an injury or swelling that limits your movement and causes you pain. What will the results be? The treatment may: ?? Lower pain ?? Reduce swelling in the muscles, nerves, and other tissues ?? Improve movement What happens before the procedure? Your doctor will ask you about your health history. Talk to the doctor about: ?? All the drugs you are taking. Be sure to include all prescription and hhgw-ghl-tjsiuzs (OTC) drugs, vitamins, and herbal supplements. Tell the doctor about any drug allergy. Bring a list of drugs you take with you. ?? If you have high blood sugar or diabetes. Your drugs may need to be changed. ?? If you have had another steroid injection within the past 6 weeks or if you have had more than 3injections into the same area within the past 12 months. ?? Any bleeding problems. Be sure to tell your doctor if you are taking any drugs that may cause bleeding. Some of these are warfarin, rivaroxaban, apixaban, ticagrelor, clopidogrel, ketorolac, ibuprofen, naproxen, or aspirin. Certain vitamins and herbs, such as garlic and fish oil, may also add tothe risk for bleeding. You may need to stop these drugs as well. Talk to your doctor about them. ?? If you have high blood pressure. ?? If you have had any allergic reactions to steroids before. What happens during the procedure? ?? Your doctor may do an x-ray of your joint or use x-ray during the procedure to check where to give the drug. The doctor may also use ultrasound to check. The doctor may also use a colored dye or acontrast dye to check where to inject the drug. ?? The doctor will clean the skin over your joint. This helps prevent infection. ?? You may be given a drug to help you relax. Your doctor may numb the site of the injection. ?? The drug will be injected into a space in or near the joint. ?? The needle will be taken out and a bandage will be placed over the injection site. What happens after the procedure? ?? Staff will check on you to make sure you are doing well. They will tell you when you can go home. What care is needed at home? ?? Relax on the day of the injection. ?? Avoid heavy activity with the joint that was injected for a few days. ?? Apply ice to the injection site. Place an ice pack or a bag of frozen peas wrapped in a towel over the painful part. Never put ice right on the skin. Do not leave the ice on more than 10 to 15 minutes at a time. ?? It may take few days before you will see the effects of the injection. What follow-up care is needed? Your doctor may ask you to make visits to the office to check on your progress. Be sure to keep these visits. You may also need to see a physical therapist (PT). The PT will teach you exercises to help you get back your strength and motion. Ask your doctor when you can exercise. What problems could happen? ?? Bleeding or bruising ?? Soreness at the injection site ?? Infection ?? May elevate blood pressure ?? Cartilage damage ?? Whitening or lightening of the skin around the injection site ?? Nerve injury ?? Tendon rupture ?? Thinning of the skin and bone around where the injection was given ?? If you are diabetic, your blood sugars may increase for several days Where can I learn more? NHS Choices https://www.nhs.uk/conditions/steroid-injections/ Last Reviewed Date 2019-08-18 Consumer Information Use and Disclaimer This information is not specific medical advice and does not replace information you receive from your health care provider. This is only a brief summary of general information. It does NOT include all information about conditions, illnesses, injuries, tests, procedures, treatments, therapies, discharge instructions or life-style choices that may apply to you. You must talk with your health care provider for complete information about your health and treatment options. This information should not be used to decide whether or not to accept your health care provider???s advice, instructions or recommendations. Only your health care provider has the knowledge and training to provide advice that is right for you. Copyright Copyright ?? 2020 [employer]. and its affiliates and/or licensors. All rights reserved. documented in this encounter Progress Notes * MARYBEL Olmedo - 09/28/2020 10:00 AM CDTSummary: R KNEE CORTISONE INJECT Images from the original note were not included. Office Progress Note Reason for Visit: New Patient (Rt knee pain) History of Present Illness: Patient is a 50-year-old who comes in today for evaluation of a chronic right knee pain. Patient states that she has had knee pain for some years but wants to increase her activity during the summer.Patient walks 4-5 miles per day and has intermittent pain during this time. She did walk 4 miles this morning without any pain or discomfort. Ambulating without any knee brace or assistive devices. Denies any recent trauma or injury. She states that her pain seems to be worse when squatting, kneeling, descending stairs. Uses Tylenol and anti- inflammatories with ice as needed. Patient states she has had a Synvisc 1 injection approximately 1 year ago and provided about 2 months of pain relief. This was done at [place]. ROS: ROS Medications: Outpatient Medications Marked as Taking for the 09/28/20 encounter (Office Visit) with MARYBEL Olmedo Medication Sig Dispense Refill ??? Acetaminophen (TYLENOL OR) ??? atorvastatin 10 MG tablet ??? CALTRATE 600+D3 600-800 MG-UNIT tablet ??? Cholecalciferol (VITAMIN D3) 50 MCG (2000 UT) Tab ??? DEPO-PROVERA 150 MG/ML injection ??? fluticasone propionate 50 MCG/ACT nasal spray 1 spray by Nasal route daily. ??? folic acid 1 MG tablet ??? Ibuprofen (ADVIL OR) ??? Naproxen Sodium (ALEVE OR) Allergies: No Known Allergies Medical History: Past Medical History: Diagnosis Date ??? Hyperlipidemia Surgical History: Past Surgical History: Procedure Laterality Date ??? KNEE SURGERY Social History: Social History Socioeconomic History ??? Marital status: Spouse name: Not on file ??? Number of children: Not on file ??? Years of education: Not on file ??? Highest education level: Not on file Occupational History ??? Not on file Tobacco Use ??? Smoking status: Never Smoker ??? Smokeless tobacco: Never Used Substance and Sexual Activity ??? Alcohol use: Never ??? Drug use: Never ??? Sexual activity: Not on file Other Topics Concern ??? Not on file Social History Narrative ??? Not on file Social Determinants of Health Financial Resource Strain: ??? Difficulty of Paying Living Expenses: Food Insecurity: ??? Worried About Running Out of Food in the Last Year: ??? Ran Out of Food in the Last Year: Transportation Needs: ??? Lack of Transportation (Medical): ??? Lack of Transportation (Non-Medical): Physical Activity: ??? Days of Exercise per Week: ??? Minutes of Exercise per Session: Stress: ??? Feeling of Stress : Social Connections: ??? Frequency of Communication with Friends and Family: ??? Frequency of Social Gatherings with Friends and Family: ??? Attends Jewish Services: ??? Active Member of Clubs or Organizations: ??? Attends Club or Organization Meetings: ??? Marital Status: Intimate Partner Violence: ??? Fear of Current or Ex-Partner: ??? Emotionally Abused: ??? Physically Abused: ??? Sexually Abused: Family History: Family History Problem Relation Name Age of Onset ??? Breast Cancer Maternal Grandmother age unknown ??? No Known Problems Mother ??? No Known Problems Father VITALS: Filed Vitals: 09/28/20 1016 BP: 102/60 Pulse: 70 Weight: 66.2 kg (146 lb) Height: 5' 4 (1.626 m) Physical Exam: Physical Exam Constitutional: She is oriented to person, place, and time and well-developed, well-nourished, and in no distress. No distress. HENT: Head: Normocephalic and atraumatic. Eyes: Pupils are equal, round, and reactive to light. EOM are normal. Cardiovascular: Intact distal pulses. Pulmonary/Chest: Effort normal. No respiratory distress. Musculoskeletal: Cervical back: Normal range of motion and neck supple. Right knee: No swelling, effusion, erythema or bony tenderness. Normal range of motion. Tenderness present over the medial joint line. No lateral joint line or patellar tendon tenderness. No LCL laxity or MCL laxity. Normal alignment, normal meniscus and normal patellar mobility. Comments: Slightly positive crepitus. No swelling, warmth, erythema. Stable valgus and varus stress. Negative anterior drawer test. Neurological: She is alert and oriented to person, place, and time. Gait normal. Skin: Skin is warm and dry. No erythema. Psychiatric: Memory, affect and judgment normal. Vitals reviewed. Imaging: Reviewed most recent image study. XR KNEE RT 3V Narrative: Examination: XR KNEE RT 3V Exam time: 09/28/2020 9:56 AM Clinical history: Pain right knee Comparison: No prior exam Technique: Upright AP view of each knee. Upright lateral and sunrise views. Findings: On the right, medial lateral joint spaces appear within normal limits. Small marginal osteophyte medial aspect of the proximal tibia. Patellofemoral relationships appear unremarkable. No evidence of fracture or acute osseous abnormality. No radiographic evidence of joint effusion. Single AP view of the left knee demonstrates minimal decrease medial joint space with minimal medial marginal osteophyte. No evidence of fracture or focal bone abnormality. Impression: IMPRESSION: 1. No acute abnormality identified. 2. Mild medial compartment arthritic changes bilaterally. Referred By: CHAO BRAGA Interpreted By: Bakari Lowery MD, 09/28/2020 11:14 AM PROCEDURE: Skin was prepped with Chloraprep swab. I infiltrated the RIGHT knee and soft tissues with 2 cc 2% lidocaine for analgesia. This was let sit for approximately 1 minute. Next, I injected 3 cc 0.5% bupivacaine and 40 mg Kenalog with 22g needle. Ultrasound imaging was utilized for needle guidance. Thiswas done with sterile technique. The patient tolerated it well. GLORIA GARCIA, assisted with procedure. Patient has been counseled to look out for signs and symptoms of infection such as as significant pain, swelling, redness, fever over 100, and difficulty moving the affected area. If patient is diabetic they were advised to monitor the blood sugar closely and call PCP with extreme elevation. Patient verbalized understanding. Diagnoses/Impression: 1. Primary osteoarthritis of right knee BUpivacaine 0.5 % (MARCAINE) 0.5 % injection 1 mL lidocaine (XYLOCAINE) 2 % injection 3 mL triamcinolone acetonide (KENALOG-40) injection 40 mg ARTHROCENTESIS MAJOR JOINT W/ ULTRASOUND GUIDANCE 2. Patellar malalignment syndrome of right knee Ambulatory referral to Physical Therapy Recommendations and Plan: Personally reviewed x-ray imaging with patient. Patient has a mild-moderate osteoarthritis to medial compartment. Does also have some patellar malalignment and would benefit from a physical therapy. Would recommend KT taping over the use of a patellar alignment knee brace. Discussed with patient. Patient does enjoy walking and did encouraged continued walking for exercise. Did provide a cortisoneinjection today to help with her intermittent knee pain. Informed her she would not be repeated cortisone injection more than twice a year. I did briefly discuss Euflexxa injections a if cortisone injection did not seem to be benefiting long-term. Diagnosis and plan of care was discussed with patient. Patient verbalized understanding of treatment plan. Patient was informed to call the office if there is any increase in pain, swelling, side effects of any medication administered here today. I spent 35 minutes today obtaining history, performing an exam, ordering medications, tests, and/orprocedures, documenting in the medical record, counseling and educating the patient/family/caregiver and reviewing and communicating test results. MARYBEL TORO 09/28/2020 documented in this encounter Plan of Treatment Upcoming Encounters Date Type Department Care Team (Late st Contact Info) Description 02/25/2025 10:30 AM CDT Office Visit [facility], [facility] [address] [place] [address] Kaleigh Velazco NP-C [facility]. [facility] [address] [place] [address] Scheduled Orders Name Type Priority Associated Diagnoses Orde r Schedule ARTHROCENTESIS MAJOR JOINT W/ ULTRASOUND GUIDANCE Procedures Routine Primary osteoarthritis of right knee Ordered: 09/28/2020 Scheduled Referrals Name Type Priority Associated Diagnoses Orde r Schedule Ambulatory referral to Physical Therapy Referral Routine Patellar malalignment syndrome of right knee Ordered: 09/28/2020 documented as of this encounter Visit Diagnoses Diagnosis Primary osteoarthritis of right knee- Primary Primary localized osteoarthrosis, lower leg Patellar malalignment syndrome of right knee documented in this encounter Administered Medications Inactive Administered Medications - up to 3 most recent administrations Medication Order MAR Action Action Date Dose Rate Site BUpivacaine 0.5 % (MARCAINE) 0.5 % injection 1 mL 1 mL, Intra-articular, Once, 1 dose, On Sun09/28/20 at 1100Indications:Primary osteoarthritis of right knee Given 09/28/2020 11:02 AM CDT 1 mL Right Knee lidocaine (XYLOCAINE) 2 % injection 3 mL 3 mL, Other, Once, 1 dose, On Sun09/28/20 at 1100Indications:Primary osteoarthritis of right knee Given 09/28/2020 11:02 AM CDT 3 mLs triamcinolone acetonide (KENALOG-40) injection 40 mg 40 mg, Intra-articular, Once, 1 dose, On Sun09/28/20 at 1100, Shake Well RightIndications:Primary osteoarthritis of right knee Given 09/28/2020 11:01 AM CDT 40 mg Right Knee documented in this encounter Care Teams Reticle Printer Relationship Specialty Start Date End Date August, ESTEPHANIA [address] [place] [address] PCP - General Nurse Practitioner Family 12/04/1904/03/22 documented as of this encounter
--- OUTSIDE RECORDS SUMMARY | 2024-04-18 13:17 | XMS_ITS | Encounter Summary ---
Author Organization [facility] Address [facility] [place] [address] [place] [address] Care Team Providers Care Retail Department Manager Name Role Phone Cheryl Gonzalez ESTEPHANIA Primary Care Provider [phone] Encounter Details Date Type Department Care Team (Latest Contact Info) Description 10/27/2020 Travel Social History Tobacco Use Types Packs/Day [...] have Coronavirus / COVID-19? No / Unsure 10/27/2020 2:05 PM CDT documented as of this encounter Plan of Treatment Upcoming Encounters Date Type Department Care Team (Late st Contact Info) Description 02/25/2025 10:30 AM CDT Office Visit [facility], [address] [place], [place] [id number] Kaleigh Velazco, DEPUTY CITY CLERK-C [facility]. [address] [place], [place] [id number] documented as of this encounter Visit Diagnoses Not on filedocumented in this encounter Care Teams Retail Department Manager Relationship Specialty Start Date End Date August, ESTEPHANIA Luna [address] [place] [address] PCP - General Nurse Practitioner Family 12/04/1904/03/22 documented as of this encounter
--- OUTSIDE RECORDS SUMMARY | 2024-04-18 13:17 | XMS_ITS | Encounter Summary ---
Author Organization [facility] Address [facility] [place] [address] [place] [address] Care Team Providers Care Freight Receiver Name Role Phone Ghada Knox MD Primary Care Provider [phone] Encounter Details Date Type Department Care Team (Latest Contact Info) Description 10/03/2022 Travel Social History Tobacco Use Types Packs/Day [...] suspected to have Coronavirus/COVID-19? No / Unsure 10/03/2022 10:14 AM CDT documented as of this encounter Plan of Treatment Upcoming Encounters Date Type Department Care Team (Late st Contact Info) Description 02/25/2025 10:30 AM CDT Office Visit [facility], [place] [address] [place], [place] [address] Kaleigh Velazco, TERMINAL OPERATIONS SUPERVISOR-C Three [facility]. [place] [place] [address] documented as of this encounter Visit Diagnoses Not on filedocumented in this encounter Care Teams Freight Receiver Relationship Specialty Start Date End Date Ghada Knox MD 2 [facility] [address] [place] [address] PCP - General FAMILY PRACTICE 08/31/22 05/23/23 documented as of this encounter
--- OUTSIDE RECORDS SUMMARY | 2024-04-18 13:17 | XMS_ITS | Encounter Summary ---
Author Organization [facility] Address [facility] [place] [address] [place] [address] Care Team Providers Care Fruit Thinner Machine Operator Name Role Phone Cheryl Zavaleta NP Primary Care Provider Reason for Visit * Imaging (Routine) - Closed Specialty Diagnoses / Procedures Referred By Tomas smith Referred To Contact RADIOLOGY Diagnoses Encounter for screening mammogram for malignant neoplasm of breast Procedures MG SCREENING W LAURENT JUANA DIGI Cheryl Zavaleta NP [address] [place] [address] Phone: tel: fax: Referral ID Status Reason Start Date Expiration Date Visits Re quested Visits Authorized [id number] Closed 12/27/2020 01/27/2022 1 1 Encounter Details Date Type Department Care Team (Latest Contact Info) Description 01/25/2021 3:07 PM CDT - 01/25/2021 11:59 PM CDT Hospital Encounter [facility] [address] [place] [address] Cheryl Zavaleta NP [address] [place], [place] [phone] Discharge Disposition: Home or Self Care (Routine [...] AM CDT Office [facility], [facility] [address] [place] [address] Kaleigh Velazco, STRUCTURAL STEEL ERECTION SUPERVISOR-C [facility]. [facility] [address] [place] [address] documented as of this encounter Procedures Procedure Name Priority Date/Time Associated Diagnosis Comments MG SCREENING W LAURENT JUANA DIGI Routine 01/25/2021 3:28 PM CDT Encounter for screening mammogram for malignant neoplasm of breast documented in this encounter Results * MG SCREENING W LAURENT JUANA DIGI (01/25/2021 3:28 PM CDT) Anatomical Region Laterality Modality Breast Bilateral Mammography 01/25/2021 5:21 PM CDT Impressions 01/25/2021 5:24 PM CDT IMPRESSION: No suspicious mammographic findings. Recommendation: 1. Routine Screening, Bilateral Assessment: ACR BI-RADS 2 - BENIGN FINDING(S) Referred By: CHERYL ZAVALETA Interpreted By: Parth Palomo MD, 01/25/2021 5:21 PM Narrative 01/25/2021 5:24 PM CDT Examination: Screening bilateral mammogram Exam Date: 01/25/2021 3:12 PM Clinical history: Routine screening. Family history of breast cancer in her grandmother. ?? Comparison: 01/01/2020, 12/10/2019, 11/14/2018 Technique: Digital screening mammography of both breasts was performed. ??Breast tomosynthesis acquisitions were obtained and reviewed. ??This study was read with the assistance of a computer-aided detection system. Tissue density: There are scattered areas of fibroglandular density. Findings: The breast parenchyma findings are stable. Benign-appearing calcifications are stable. No suspicious masses, malignant appearing calcifications, skin thickening or other abnormalities are present. ??No significant change from the prior exam. Cheryl Zavaleta NP MAMMO Final Result documented in this encounter Visit Diagnoses Not on filedocumented in this encounter Care Teams Fruit Thinner Machine Operator Relationship Specialty Start Date End Date August, ESTEPHANIA Luna [address] [place] [address] PCP - General Nurse Practitioner Family 12/04/1904/03/22 documented as of this encounter
--- OUTSIDE RECORDS SUMMARY | 2024-04-18 13:17 | XMS_ITS | Encounter Summary ---
Author Organization [facility] Address [facility] [place] [address] [place] [address] Care Team Providers Care Manufacturers Service Representative Name Role Phone Lisa Cheryl ESTEPHANIA Primary Care Provider [phone] Reason for Visit * Reason Comments Jnt Pain/Knee * Physical Medicine (Routine) - Closed Specialty Diagnoses / Procedures Referred By Contac t Referred To Contact PHYSICAL THERAPY / [facility] Physical Therapy Diagnoses Patellar malalignment syndrome of right knee Dali Braga, COOK MESS-C [facility] [place] [address] Phone: tel: fax: Referral ID Status Reason Start Date Expiration Date V isits Requested Visits Authorized [id number] Closed Physical Therapy 09/22/2020 01/20/2021 16 16 Encounter Details Date Type Department Care Team (Latest Contact Info) Description 10/27/2020 2:05 PM CDT - 10/27/2020 11:59 PM CDT Hospital Encounter [facility] [place] [address] Dali Braga, COOK MESS-C Eleni Maguire, [place] [address] Jnt Pain/Knee Discharge Disposition: Home or Self [...] as of this encounter Progress Notes * Aleyda Campbell, PT STUDENT - 10/27/2020 2:15 PM CDT Physical Therapy Visit Note: Patient Name: Marcin Contreras Diagnosis: Patellar malalignment syndrome of right knee [M23.91] Personal Protective Equipment PPE Used During Visit: Therapist wore medical grade mask throughout session, Patient wore mask throughout session SUBJECTIVE Therapy Visit Treatment Day: 2 Total Approved Visits: 10 Authorization Expiration Date: per insurance 01/20/21 Diagnosis: Medical dx: Patellar Malalignment Syndrome of right knee Therapy: right knee pain, difficulty with squat/stairs Referring Provider: Dr. 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 Has had occasional pain but nothing like it was. Continues to be on her knee constantly, reported going on a 4.5 mile walk and mowing yard prior to therapy today. Response to prior treatment: Patient reports increased soreness after initial eval Compliance to Home Program: No - patient claims she was too busy to do exercises last week Functional changes since last visit: No Reported Falls since last visit: No Medications changes since last visit : No Pain Current Location of Pain: No pain reported at this time OBJECTIVE Treatment provided today: Neuromuscular Re-education - 93488 Number of Minutes - 07225: 3 Intervention: SLS on foam pad, 3 x 30 sec each leg Other (Comments): Exercises completed to improve proprioceptive input and assess single leg balance Therapeutic Exercise - 20113 Number of Minutes - 21089: 28 Exercise: Active piriformis stretch 2 x 30 sec each side Exercise: Mini squats in parallel bars x 16 reps Exercise: Leg press @ 22 lbs, focus on eccentric control 2 x 10 reps Exercise: Calf press @ 22 lbs, 2 x 10 reps Exercise: 4 way hip strengthening x 15 reps each plane Exercise: ProMax single leg extension with 10lbs x 10 reps, focus on eccentric control Exercise: K-tape to right knee, U shape around patella, patient educated on proper wear time and informed to check skin frequently for irritation from tape Other (Comments): Exercises performed to improve lower extremity strength, flexibility; Taping to provide stability and improve left patellar movement Manual Therapy - 51069 Number of Minutes - 21662: 10 Intervention: Passive hamstring stretch, 3 x 30 seconds each leg for flexibility Intervention: Passive piriformis stretch, 3 x 30 seconds each leg for flexibility Intervention: Gentle joint mobilizations to bilateral patella (sup/inf, med/lateral) to help with mobility Other (Comments): Manual completed to improve lower extremity flexibility and joint mobility ASSESSMENT Assessment Note: Ms. Contreras tolerated the therapy session well today with no c/o increased pain. Patient hasbeen doing well since injection 2 weeks ago and has demonstrated this with increasing activity levels outside of therapy with no issues. Patient did well with exercises today but was quite sore at the conclusion of the session. Recommended icing to patient in which she stated she would do at home. Continue skilled PT to address lower extremity weakness, flexibility, and decreased tolerance to standing activities. Response to Treatment : Good - some increased soreness after exercises Continue on Functional Deficit of: Decreased lower extremity strength, flexibility, tolerance to standing/walking PLAN Plan Changes: Initial visit after evaluation Next Visit Plan: Progress strengthening as patient tolerates, focusing on hip strength (marilyn. hip abductors), continue taping if patient noticed benefit Total Time Total Time in Minutes: 41 Timed Code Treatment Minutes : 41 Cosigned by Eleni Maguire, PT at 10/27/2020 5:40 PM CDT documented in this encounter Plan of Treatment Upcoming Encounters Date Type Department Care Team (Late st Contact Info) Description 02/25/2025 10:30 AM CDT Office Visit [facility], [facility] [address] [place] [address] Kaleigh Velazco, COOK MESS-C [facility]. [facility] [address] [place] [address] documented as of this encounter Visit Diagnoses Diagnosis Patellar malalignment syndrome of right knee- Primary documented in this encounter Care Teams Manufacturers Service Representative Relationship Specialty Start Date End Date August, ESTEPHANIA Luna [address] [place] [address] PCP - General Nurse Practitioner Family 12/04/1904/03/22 documented as of this encounter
--- OUTSIDE RECORDS SUMMARY | 2024-04-18 13:17 | XMS_ITS | Encounter Summary ---
Author Organization [facility] Address [facility] [place] [address] [place] [address] Care Team Providers Care Solution Director Name Role Phone Ghada Knox MD Primary Care Provider [phone] Reason for Referral * Imaging (Routine) - Closed Specialty Diagnoses / Procedures Referred By Contac t Referred To Contact Diagnoses Palpitations SOB (shortness of breath) Hyperlipidemia Procedures CLINIC - [address] [facility] - [facility] Clare Perera MD [address] [address] Phone: tel: fax: [address] [address] Phone: tel: fax: Referral ID Status Reason Start Date Expiration Date Visits Re quested Visits Authorized [id number] Closed 10/03/2022 10/04/2023 1 1 * Procedure (Routine) - Closed Specialty Diagnoses / Procedures Referred By Contac t Referred To Contact Diagnoses Palpitations SOB (shortness of breath) Hyperlipidemia Procedures STRESS TEST ONLY, EXERCISE (89382) Clare Perera MD [address] [address] Phone: tel: fax: [facility] [place] [address] Phone: tel: Referral ID Status Reason Start Date Expiration Date Visits Re quested Visits Authorized [id number] Closed 10/03/2022 11/03/2023 1 1 * Imaging (Routine) - Closed Specialty Diagnoses / Procedures Referred By Contac t Referred To Contact RADIOLOGY Diagnoses Palpitations SOB (shortness of breath) Hyperlipidemia Procedures USE ECHOCARDIOGRAM Clare Perera MD [facility]. [facility] [address] [place] [address] Phone: tel: fax: Referral ID Status Reason Start Date Expiration Date Visits Re quested Visits Authorized [id number] Closed 10/03/2022 10/04/2023 1 1 Reason for Visit * Reason Comments Palpitations New patient Shortness Of Breath * Consultation/Treatment (Routine) - Closed Specialty Diagnoses / Procedures Referred By Contsilas t Referred To Contact CARDIOLOGY / Cardiology Diagnoses Palpitations Nathalia Rodriguez MD [address] [facility] [address] [place] [address] Phone: tel: fax: Shanda Granger MD [facility]. [facility] [address] [place] [address] Phone: tel: fax: Referral ID Status Reason Start Date Expiration Date Visits Re quested Visits Authorized [id number] Closed 08/23/2022 08/23/2023 6 6 Encounter Details Date Type Department Care Team (Late st Contact Info) Description 10/03/2022 10:30 AM CDT Office Visit [facility], [facility] [address] [place] [address] Clare Perera MD [facility]. [address] [address] Palpitations (New patient); Shortness Of Breath Social History Tobacco Use Types Packs/Day Years [...] Sign Reading Time Taken Comments Blood Pressure - - Pulse 88 10/03/2022 10:24 AM CDT Temperature - - Respiratory Rate - - Oxygen Saturation 96% 10/03/2022 10:24 AM CDT Inhaled Oxygen Concentration - - Weight 72.2 kg (159 lb 3.2 oz) 10/03/2022 10:24 AM CDT Height 162.6 cm (5' 4 ) 10/03/2022 10:24 AM CDT Body Mass Index 27.33 10/03/2022 10:24 AM CDT documented in this encounter Progress Notes * Clare Perera MD - 10/03/2022 10:30 AM CDT Images from the original note were not included. Marcin Ragsdale is a 52-year-old female patient. Reason for consultation: Exertional dyspnea History of present illness: 52-year-old woman who has no history of obstructive coronary disease history of hyperlipidemia recently seen by primary care physician time noted some shortness of breath going up stairs. No chest pain. At that time patient notes symptoms were occurring twice per week. ECG today demonstrates normal sinus rhythm with some minimal nonspecific ST-T wave abnormality. No Q waves. No fevers chills no cough. No PND no orthopnea no increasing lower extremity edema. Patient does have some intermittent palpitations. Assessment and plan Exertional dyspnea Palpitations 52-year-old woman with history of exertional dyspnea and palpitations. Etiology unclear at this point. ECG with some minimal nonspecific changes. No high risk findings at this point. I am going to recommend MCT monitor echocardiogram and stress test. She will follow-up with us afterwards to review.Will order lipid panel Results for orders placed or performed in visit on 10/03/22 ELECTROCARDIOGRAM Narrative [facility] Test Date: 2022-10-03 Pat Name: MARCIN RAGSDALE Department: 112 Room: Gender: Female Account Officer: : 1970 Requested By: CLARE PERERA Order Number: [id number] Reading MD: Mainor More Measurements Intervals [place] Rate: 80 P: 67 DE: 152 QRS: 63 QRSD: 93 T: 7 QT: 348 QTc: 403 Interpretive Statements SINUS RHYTHM NONSPECIFIC T-WAVE ABNORMALITY Active Ambulatory Problems Diagnosis Date Noted Primary osteoarthritis of right knee 09/28/2020 Patellar malalignment syndrome of right knee 09/28/2020 Abdominal pain 05/20/2018 Chronic rhinitis 11/29/2016 Deviated nasal septum 11/29/2016 Disorder of bone and cartilage 05/20/2018 Encounter for issue of repeat prescription 05/20/2018 Goiter, 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 Hyperlipidemia 03/27/2022 Hypertrophy of nasal turbinates 11/29/2016 Irritable colon 11/29/2016 Mastodynia 11/29/2016 Enthesopathy of hip region 06/09/2008 Thyroid nodule 06/23/2015 Urinary frequency 05/20/2018 Resolved Ambulatory Problems Diagnosis Date Noted Screening for osteoporosis 05/20/2018 Past Medical History: Diagnosis Date Deviated septum Vitamin D deficiency Past Surgical History: Procedure Laterality Date KNEE SURGERY KNEE SURGERY Left Review of patient's allergies indicates: Patient has no known allergies. Current Outpatient Medications on File Prior to Visit Medication Sig Dispense Refill fexofenadine (VALENTINA) 180 MG tablet Take 1 tablet (180 mg total) by mouth daily. Acetaminophen (TYLENOL OR) atorvastatin 10 MG tablet calcium carbonate (OS-LAVELL) 1500 (600 Ca) MG tablet Take 1 tablet (1,500 mg total) by mouth daily. Cholecalciferol (VITAMIN D3) 50 MCG (2000 UT) Tab DEPO-PROVERA 150 MG/ML injection Ibuprofen (ADVIL OR) Naproxen Sodium (ALEVE OR) pantoprazole EC (PROTONIX) 20 MG tablet daily. propranolol (INDERAL) 10 MG tablet Take 1 tablet (10 mg total) by mouth as needed. No current facility-administered medications on file prior to visit. Current Outpatient Medications: fexofenadine (VALENTINA) 180 MG tablet, Take 1 tablet (180 mg total) by mouth daily., Disp: , Rfl: Acetaminophen (TYLENOL OR), , Disp: , Rfl: atorvastatin 10 MG tablet, , Disp: , Rfl: calcium carbonate (OS-LAVELL) 1500 (600 Ca) MG tablet, Take 1 tablet (1,500 mg total) by mouth daily.,Disp: , Rfl: Cholecalciferol (VITAMIN D3) 50 MCG (2000 UT) Tab, , Disp: , Rfl: DEPO-PROVERA 150 MG/ML injection, , Disp: , Rfl: Ibuprofen (ADVIL OR), , Disp: , Rfl: Naproxen Sodium (ALEVE OR), , Disp: , Rfl: pantoprazole EC (PROTONIX) 20 MG tablet, daily., Disp: , Rfl: propranolol (INDERAL) 10 MG tablet, Take 1 tablet (10 mg total) by mouth as needed., Disp: , Rfl: Family History Problem Relation Name Age of Onset No Known Problems Mother Cancer Father skin cancer Breast Cancer Maternal Grandmother age unknown Social History Socioeconomic History Marital status: Spouse name: Not on file Number of children: Not on file Years of education: Not on file Highest education level: Not on file Occupational History Not on file Tobacco Use Smoking status: Never Passive exposure: Never Smokeless tobacco: Never Vaping Use Vaping Use: Never used Substance and Sexual Activity Alcohol use: Yes Comment: socially Drug use: Never Sexual activity: Not on file Other Topics Concern Not on file Social History Narrative Not on file Social Determinants of Health Financial Resource Strain: Not on file Food Insecurity: Not on file Transportation Needs: Not on file Physical Activity: Not on file Stress: Not on file Social Connections: Not on file Intimate Partner Violence: Not on file Housing Stability: Not on file No Known Allergies Review of Systems Constitutional: Negative for recent unintentional weight gain, recent unintentional weight loss andnew or significant fatigue. HENT: Negative for new or significant hearing loss. Eyes: Negative for blurred vision and double vision. Respiratory: Negative for cough, new or significant shortness of breath and snoring. Cardiovascular: See HPINegative for chest pain, palpitations, orthopnea, claudication, leg swellingand PND. Gastrointestinal: Negative for blood in stool and melena. Genitourinary: Negative for dysuria. Musculoskeletal: Negative for myalgias and new or worsening joint stiffness/pain. Skin: Negative for rash. Neurological: Negative for tingling/numbness and focal weakness. Endo/Heme/Allergies: Negative for new or significant bruising/bleeding and polydipsia. Psychiatric/Behavioral: Negative for depression and new or significant memory loss. Filed Vitals: 10/03/22 1024 Pulse: 88 SpO2: 96% Weight: 72.2 kg (159 lb 3.2 oz) Height: 5' 4 (1.626 m) Physical Exam Constitutional: Oriented to person, place, and time. Well-developed and well- nourished. No distress. HENT: Nose: No mucosal edema. Mouth/Throat: Oropharynx is clear and moist and mucous membranes are normal. No oropharyngeal exudate. Normal dentition. Neck: Neck supple. No JVD present. Carotid bruit is not present. Cardiovascular: Normal rate, regular rhythm, S1 normal, S2 normal and intact distal pulses. No extrasystoles are present, no gallop. No murmur heard. Pulmonary/Chest: Effort normal and breath sounds normal. No respiratory distress, no wheezes, no rales, no tenderness. Abdominal: No mass. There is no hepatosplenomegaly. There is no tenderness. Musculoskeletal: No edema or deformity. Neurological: Alert and oriented to person, place, and time. Skin: Skin is warm and dry. No erythema. Psychiatric: Normal mood and affect, behavior is normal. Thought content normal. No results for input(s): TROP, TROPIWB in the last 168 hours. No results for input(s): NA, K, CL, CO2, AGAP, BUN, CR, BUNCREATININ, GFRNON, GFR, GLU, CA in the last 168 hours. No results for input(s): APTT, INR, PTT in the last 168 hours. No results for input(s): TSH in the last 168 hours. Invalid input(s): T3FREE, FREET4 No results found for: CHOL No results found for: NA, K, CL, CO2, AGAP, BUN, CR, BUNCREATININ, GFRNON, GFR, GLU, CA, TP, ALB, TBIL, ALKP, AST, ALT No results for input(s): CHOL, TRI, HDL, LDL, LDLD in the last 168 hours. EKG: Results for orders placed or performed in visit on 10/03/22 ELECTROCARDIOGRAM Narrative [facility] Test Date: 2022-10-03 Pat Name: MARCIN RAGSDALE Department: 112 Room: Gender: Female Account Officer: : 1970 Requested By: CLARE PERERA Order Number: [id number] Reading MD: Mainor More Measurements Intervals [place] Rate: 80 P: 67 DE: 152 QRS: 63 QRSD: 93 T: 7 QT: 348 QTc: 403 Interpretive Statements SINUS RHYTHM NONSPECIFIC T-WAVE ABNORMALITY Imaging: No results found. Radiology Results (Last 30 days) 09/27/22 1154 US THYROID Final result Impression: =====IMPRESSION:===== 1. Bilateral thyroid lobe enlargement, nonspecific [...] reporting thyroid imaging studies with management guidelines. [email or web address] Ordered By: GHADA KNOX Interpreted By: Maribell Thomason MD, 10/02/2022 11:52 AM ELECTROCARDIOGRAM [facility], [facility] Test Date: 2022-10-03 Pat Name: MARCIN RAGSDALE Department: [facility] Room: Gender: Female Account Officer: : 1970 Requested By: CLARE PERERA Order Number: [id number] Reading MD: Mainor More Measurements Intervals [place] Rate: 80 P: 67 DE: 152 QRS: 63 QRSD: 93 T: 7 QT: 348 QTc: 403 Interpretive Statements SINUS RHYTHM NONSPECIFIC T-WAVE ABNORMALITY SNOMED CT(R) 1. Palpitations PALPITATIONS 2. SOB (shortness of breath) DYSPNEA 3. Hyperlipidemia HYPERLIPIDEMIA Orders Placed This Encounter USE ECHOCARDIOGRAM Standing Status: Future Standing Expiration Date: 10/04/2023 Order Specific Question: Reason for Exam Answer: SOB, PALP Order Specific Question: What Hospital Division or Clinic will the patient go to for their test Answer: [facility] Order Specific Question: What site in [facility] will the patient want their study/test? Answer: [facility] [place] Order Specific Question: Is the patient ? Answer: No Order Specific Question: Has the patient had bypass surgery? Answer: No Order Specific Question: Has the patient had a valve replacement? Answer: No Order Specific Question: Do you need a bubble study? Answer: No Order Specific Question: Does the patient have any special physical, cognitive or language barriers/needs? Answer: No Order Specific Question: Echocardiographic Contrast If Indicated Answer: Echo contrast when indicated per department policy/standing order Order Specific Question: Release to patient Answer: System release calcium carbonate (OS-LAVELL) 1500 (600 Ca) MG tablet Sig: Take 1 tablet (1,500 mg total) by mouth daily. fexofenadine (VALENTINA) 180 MG tablet Sig: Take 1 tablet (180 mg total) by mouth daily. propranolol (INDERAL) 10 MG tablet Sig: Take 1 tablet (10 mg total) by mouth as needed. ELECTROCARDIOGRAM Order Specific Question: Release to patient Answer: System release CLINIC - 16113 MCT - Today Standing Status: Future Standing Expiration Date: 10/04/2023 Order Specific Question: What Hospital Division or Clinic will the patient go to for their test Answer: [facility] Order Specific Question: How many days will the patient need to wear the monitor? Answer: 30 days Order Specific Question: Informed patient that a device will be sent via UPS. Patient confirmed understanding that they will be billed for damage to the device or failure to return device to [facility]. Answer: Yes Order Specific Question: Release to patient Answer: System release STRESS TEST ONLY, EXERCISE (99148) Standing Status: Future Standing Expiration Date: 10/03/2023 Order Specific Question: What Hospital Division or Clinic will the patient go to for their test Answer: [facility] Order Specific Question: What site in [facility] will the patient want their study/test? Answer: [facility] [place] Order Specific Question: Is this patient considered high risk for stress testing? Answer: No Order Specific Question: Release to patient Answer: System release CLARE PERERA MD documented in this encounter Plan of Treatment Upcoming Encounters Date Type Department Care Team (Late st Contact Info) Description 02/25/2025 10:30 AM CDT Office Visit [facility], [facility] [address] [place] [address] Kaleigh Velazco, INSPECTING ENGINEER-C [facility]. [facility] [address] [place] [address] (work) documented as of this encounter Procedures Procedure Name Priority Date/Time Associated Diagnosis Comments ELECTROCARDIOGRAM (NON MIDMARK ACQUIRED) Routine 10/03/2022 10:28 AM CDT Palpitations documented in this encounter Results * CLINIC - 12117 MCT - Today (12/18/2022 11:34 AM CDT) Narrative [facility] - 12/18/2022 11:34 AM CDT Indication [...] correlation consider further evaluation clinically indicated. us Clare Perera MD CV VASCULAR ORDERABLES Final Re sult [facility] * STRESS TEST ONLY, EXERCISE (18043) (12/07/2022 8:46 AM CDT) 12/07/2022 8:46 AM CDT Narrative [facility]Maria Ines [facility] ([facility]) RAD - 12/07/2022 8:55 AM CDT ? STRESS TEST TRACING ONLY ? Pat.Name: ??MARCIN RAGSDALE ?? Pat.ID: ?[id number] ? St.Date: ?? 12/07/2022 ? Refer.MD: ??CLARE PERERA ? Exam Time: 8:46:00 AM [...] % ?Max BP: ?160/80 Max RPP: ?? 47574 ? O2 sat: ?98 % Symptoms and Complications: Arrhythmias: None Terminated: Shortness of breath, Dyspnea, HR Achieved, patient fearful of incline Symptoms: ??Shortness of breath, Dyspnea, Apprehensive Complications: None Stress ECG Interp: No ischemic changes, No significant changes <Electronic Signature> 12/07/2022 08:55 AM Mainor Moer M.D. Procedure Note Mainor More MD - 12/07/2022 STRESS TEST TRACING ONLY Pat.Name: MARCIN RAGSDALE Pat.ID: [id number] .Date: 12/07/2022 Refer.MD: CLARE PERERA Exam Time: 8:46:00 AM Study Type:EPI OK STRESS TEST TRACING ONLY Height: 64 in [...] 98 % Max BP: 160/80 Max RPP: 74019 O2 sat: 98 % Symptoms and Complications: Arrhythmias: None Terminated: Shortness of breath, Dyspnea, HR Achieved, patient fearful of incline Symptoms: Shortness of breath, Dyspnea, Apprehensive Complications: None Stress ECG Interp: No ischemic changes, No significant changes <Electronic Signature> 12/07/2022 08:55 AM Mainor More M.D. Clare Perera MD CV CARDIAC SERVICES ORDERABLES Final Result [facility] RAD * USE ECHOCARDIOGRAM (11/21/2022 2:06 PM CDT) Anatomical Region Laterality Modality Cardiac Echocardiogram 11/21/2022 1:42 PM CDT Narrative 11/21/2022 3:03 PM CDT ?Echocardiography Report Pat.Name: ??MARCIN RAGSDALE ?? Pat.ID: ?[id number] ? St.Date: ?? 11/21/2022 ? Exam Time: 1:42:00 PM ? Study Type:ECHO WITH CARDIAC DOPPLER COMP Height: ?64 in ? Weight: ?159 lb ?BSA: ? 1.77 m2 ?Age: ??1970,52Y ? Sex: ? F ? BP: ?126/58 ?Sonogrphr: Peace Boykin RCS ? Pat. Stat.:Outpatient ?CPT - 4: ?76352 ? Reason for Study:Palpitations, Shortness of breath [...] Cardiovascular ?? 2.07 cm ? Aortic Root Mily ??2.95 cm ?? LVOT/AoV (PULL WORKER) ( ??0.64 ?Left atrial mily ?? 3.8 cm ?? AV Antegrade Flow [...] Li MD - 11/21/2022 Echocardiography Report Pat.Name: MARCIN RAGSDALE Pat.ID: [id number] St.Date: 11/21/2022 Exam Time: 1:42:00 PM Study Type:ECHO WITH CARDIAC DOPPLER COMP Height: 64 in Weight: 159 lb BSA: 1.77 m2 Age: 4 1970,52Y Sex: F BP: 126/58 Sonogrphr: Peace Boykin [facility] Pat. Stat.:Outpatient CPT - 4: 07623 Reason for Study:Palpitations, Shortness of breath Procedures: [...] Aortic Valve Cardiovascular 2.07 cm Aortic Root Mily 2.95 cm LVOT/AoV (PULL WORKER) ( 0.64 Left atrial mily 3.8 cm AV Antegrade Flow Peak Velocity [...] Signature> 11/21/2022 03:03 PM Gayathri Li M.D. Clare Perera MD ECHO Final Result * ELECTROCARDIOGRAM (10/03/2022 10:28 AM CDT) 10/03/2022 10:2 8 AM CDT Narrative [facility] - 10/09/2022 9:51 PM CDT ?[facility], O? [place] ? Test Date: ?2022-10-03 Pat Name: ? MARCIN RAGSDALE ? Department: ?? 112 ? Room: ? Gender: ? Female ? Account Officer: ?? : ?1970 ? Requested By: CLARE PERERA Order Number: [id number] ?Reading MD: ?? Mainor More ? Measurements Intervals ?[place] ? Rate: ? 80 ? P: ?67 DE: ? 152 ?QRS: ?63 QRSD: ? 93 ? T: ?7 QT: ? 348 ? QTc: ?403 ? Interpretive Statements SINUS RHYTHM NONSPECIFIC T-WAVE ABNORMALITY Procedure Note Mainor More MD - 10/09/2022 [facility], O? [facility] Test Date: 2022-10-03 Pat Name: MARCIN RAGSDALE Department: 112 Room: Gender: Female Account Officer: : 1970 Requested By: CLARE PERERA Order Number: [id number] Reading MD: Mainor More Measurements Intervals [place] Rate: 80 P: 67 DE: 152 QRS: 63 QRSD: 93 T: 7 QT: 348 QTc: 403 Interpretive Statements SINUS RHYTHM NONSPECIFIC T-WAVE ABNORMALITY us Clare Perera MD PROCEDURES-ORDERABLE NO CHARGE Final Result [facility] documented in this encounter Visit Diagnoses Diagnosis Palpitations- Primary SOB (shortness of breath) Shortness of breath Hyperlipidemia Other and unspecified hyperlipidemia Palpitations SOB (shortness of breath) Shortness of breath Hyperlipidemia Other and unspecified hyperlipidemia Palpitations SOB (shortness of breath) Shortness of breath Hyperlipidemia Other and unspecified hyperlipidemia Palpitations SOB (shortness of breath) Shortness of breath Hyperlipidemia Other and unspecified hyperlipidemia documented in this encounter Care Teams Solution Director Relationship Specialty Start Date End Date Ghada Knox MD [address] [address] PCP - General FAMILY PRACTICE 08/31/22 05/23/23 documented as of this encounter
--- OUTSIDE RECORDS SUMMARY | 2024-04-18 13:17 | XMS_ITS | Encounter Summary ---
Author Organization [facility] - [facility] Address [facility] [address] [place] [address] Care Team Providers Care At Home Independent Call Center Agent Name Role Phone Cheryl Gonzalez ESTEPHANIA Primary Care Provider [phone] Encounter Details Date Type Department Care Team (Late Contact Info) Description 09/28/2020 Orders Only [facility] Multispecialty Care - [address], [address] [place] [address] Chao Braga, FABRICS AND MATERIAL CUTTER-C Social History Tobacco Use Types Packs/Day Years [...] 02/25/2025 10:30 AM CDT Office Visit [facility], [place] [address] [place] [address] Kaleigh Velazco, ESTEPHANIA-C [facility]. [place] [address] [place] [address] documented as of this encounter Results * XR KNEE RT 3V (09/28/2020 10:05 AM CDT) Anatomical Region Laterality Modality Knee Radiographic Thi ging 09/28/2020 11:1 4 AM CDT Impressions 09/28/2020 11:15 AM CDT IMPRESSION: 1. No acute abnormality identified. 2. Mild medial compartment arthritic changes bilaterally. Referred By: CHAO BRAGA Interpreted By: Bakari Lowery MD, 09/28/2020 11:14 AM Narrative 09/28/2020 11:15 AM CDT Examination: XR KNEE RT 3V Exam time: [...] evidence of fracture or focal bone abnormality. Procedure Note Bakari Lowery MD - 09/28/2020 Examination: XR KNEE RT 3V Exam time: 09/28/2020 9:56 AM Clinical history: Pain right knee Comparison: No prior exam Technique: Upright AP view of each knee. Upright lateral and sunriseviews. Findings: On the right, medial lateral joint spaces appear within normallimits. Small marginal osteophyte medial aspect of the proximal tibia.Patellofemoral relationships appear unremarkable. No evidence of fractureor acute osseous abnormality. No radiographic evidence of jointeffusion. Single AP view of the left knee demonstrates minimal decrease medial jointspace with minimal medial marginal osteophyte. No evidence of fracture orfocal bone abnormality. IMPRESSION: 1. No acute abnormality identified. 2. Mild medial compartment arthritic changes bilaterally. Referred By: CHAO BRAGA Interpreted By: Bakari Lowery MD, 09/28/2020 11:14 AM us Chao Braga FABRICS AND MATERIAL CUTTER-C GENERAL IMAGING Final Re sult documented in this encounter Visit Diagnoses Diagnosis Right knee pain- Primary Pain in joint, lower leg documented in this encounter Care Teams At Home Independent Call Center Agent Relationship Specialty Start Date End Date August, ESTEPHANIA Luna [address] [place] [address] PCP - General Nurse Practitioner Family 12/04/1904/03/22 documented as of this encounter
--- OUTSIDE RECORDS SUMMARY | 2024-04-18 13:17 | XMS_ITS | Encounter Summary ---
Author Organization [facility] Address [facility] [place] [address] [place] [address] Care Team Providers Care Buggy Loader Name Role Phone Lisa Cheryl ESTEPHANIA Primary Care Provider [phone] Reason for Visit * Reason Comments Jnt Pain/Knee * Physical Medicine (Routine) - Closed Specialty Diagnoses / Procedures Referred By Contac t Referred To Contact PHYSICAL THERAPY / [facility] Physical Therapy Diagnoses Patellar malalignment syndrome of right knee Dali Braga, LADLE FILLER-C [facility] [place] [address] Phone: tel: fax: Referral ID Status Reason Start Date Expiration Date V isits Requested Visits Authorized [id number] Closed Physical Therapy 09/22/2020 01/20/2021 16 16 Encounter Details Date Type Department Care Team (Latest Contact Info) Description 10/29/2020 2:11 PM CDT - 10/29/2020 11:59 PM CDT Hospital Encounter [facility] [place] [address] Dali Braga, LADLE FILLER-C Eleni Maguire, [place] [address] Jnt Pain/Knee Discharge Disposition: Home or Self [...] of this encounter Progress Notes * Eleni Maguire, PT - 10/29/2020 2:15 PM CDT Physical Therapy Visit Note: Patient Name: Marcin Contreras Diagnosis: Patellar Malignment Syndrome of right knee Personal Protective Equipment PPE Used During Visit: Therapist wore medical grade mask throughout session, Patient wore mask throughout session SUBJECTIVE Therapy Visit Treatment Day: 3 Total Approved Visits: 10 Authorization Expiration Date: 16 per insurance 01/20/21 Diagnosis: Medical dx: Patellar Malalignment Syndrome of right knee Therapy: right knee pain, difficulty with squat/stairs Referring Provider: Dr. 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 Patient liked the K tape and had it on until last night. Patient would like to learn how to tape on her own. Response to prior treatment: Good - patient was somewhat sore that was alleviated with ice Compliance to Home Program: No - patient claims she was too busy to do exercises last week Reported Falls since last visit: No Medications changes since last visit : No Pain Current Location of Pain: Right knee Current Pain Level: 4-5 Other (comments): Varies with activity OBJECTIVE Treatment provided today: Neuromuscular Re-education - 32744 Number of Minutes - 52132: 10 Intervention: held SLS on foam pad, 3 x 30 sec each leg Intervention: Rockerboard Forward/backward [address] (in // bars, w/ gait belt, no PECAN HULLER, PT SBA) Intervention: Rockerboard Lateral side to side [address] (in // bars, w/ gait betl, no PECAN HULLER, PT SBA) Intervention: Rockerboard Fwd/backward balancing 2 x 1 min (// bars, gait belt, no PECAN HULLER, PT SBA) Intervention: Rockerboard side to side balancing 2 x 1 min (// bars, gait belt, no PECAN HULLER, PT SBA) Other (Comments): Exercises completed to improve proprioceptive input and assess single leg balance Therapeutic Exercise - 10559 Number of Minutes - 48253: 35 Cardio Equipment: Recumbent for warm-up x 6 mins Exercise: Held Active piriformis stretch 2 x 30 sec each side Exercise: Mini squats in parallel bars x 10 reps Exercise: Leg press @ 22 lbs, focus on eccentric control x 15 reps Exercise: Calf press @ 22 lbs x 15 reps Exercise: held 4 way hip strengthening x 15 reps each plane Exercise: Held per pain ProMax single leg extension with 10lbs x 10 reps, focus on eccentric control Exercise: SLR with hip in ER x 15 on left LE Exercise: Clamshells with GTB x 20 reps bilaterally Exercise: Monster walks GTB 2 laps (down/back) in // bars Exercise: Lateral walks w/ GTB 2 laps (down/back) in // bars Exercise: K-tape to right knee, U shape around patella, patient educated on proper wear time and informed to check skin frequently for irritation from tape Other (Comments): Exercises performed to improve lower extremity strength, flexibility; Taping to provide stability and improve left patellar movement Manual Therapy - 21945 Intervention: held Passive hamstring stretch, 3 x 30 seconds each leg for flexibility Intervention: held Passive piriformis stretch, 3 x 30 seconds each leg for flexibility Intervention: held Gentle joint mobilizations to bilateral patella (sup/inf, med/lateral) to help with mobility Other (Comments): held all Manual completed to improve lower extremity flexibility and joint mobility Modalities Non-Timed Electrical Stimulation Unattended - Minutes- 03685: 15 Electrical Stimulation Unattended - 26138/G0283: IFC to right knee with CP, patient in supine with wedge under knees and head supported Cold Pack - 90878: CP x 15 min to anterior knee with IFC for pain relief Other (Comments): Modalities for pain relief - skin integrity checked after modality - intact with no irritation Total Non- Timed Modality Minutes: 15 Home Exercise Program Current Home Exercise Program: No changes - patient reports doing 2x/day Education Was Education Provided: Yes Topic: Patient was educated on benefits of KTape, how to tape herself while on vacation, breaking up longer walks throughout the day to reduce stress placed on knee at one time Recipient: Patient Method: Demonstration, Verbal Response: Asked questions, Demonstrates adequately, Verbalized understanding Barriers: None ASSESSMENT Assessment Note: Marcin did well in session today, reporting some increased soreness with weight bearing activities. Patient continues to respond well to KTape. Continue skillled PT to improve LE strength, flexibility, and increased tolerance to weight bearing. Response to Treatment : Good - some increased soreness after exercises Goal Progression: will check next visit Continue on Functional Deficit of: Decreased lower extremity strength, flexibility, tolerance to standing/walking PLAN Plan Changes: Focused on closed chain hip strengthening, trialed E-stim and CP for pain relief Next Visit Plan: Progress strengthening as patient tolerates, focusing on hip strength (marilyn. hip abductors), continue taping if patient noticed benefit, assess PT goal next visit Total Time Total Time in Minutes: 60 Timed Code Treatment Minutes : 45 documented in this encounter Plan of Treatment Upcoming Encounters Date Type Department Care Team (Late st Contact Info) Description 02/25/2025 10:30 AM CDT [facility], [address] [place] [address] Kaleigh Velazco, LADLE FILLER-C Three [facility]. [address] [place] [address] documented as of this encounter Visit Diagnoses Diagnosis Patellar malalignment syndrome of right knee Primary osteoarthritis of right knee Primary localized osteoarthrosis, lower leg documented in this encounter Care Teams Buggy Loader Relationship Specialty Start Date End Date August, ESTEPHANIA Luna [address] [place] [address] PCP - General Nurse Practitioner Family 12/04/1904/03/22 documented as of this encounter
--- OUTSIDE RECORDS SUMMARY | 2024-04-18 13:17 | XMS_ITS | Encounter Summary ---
Author Organization [facility] Address Critical access hospital6 [facility] [place] [address] [place] [address] Care Team Providers Care Centrifugal Machine Tender Name Role Phone Cheryl Gonzalez NP Primary Care Provider Encounter Details Date Type Department Care Team (Latest Contact Info) Description 12/10/2019 Travel Social History Tobacco Use Types Packs/Day [...] Description 02/25/2025 10:30 AM CDT Office Visit [facility], [address] [place] [address] Kaleigh Velazco, DECORATIVE GREENS CUTTER-C [facility]. [address] [place], [place] [address] documented as of this encounter Visit Diagnoses Not on filedocumented in this encounter Care Teams Centrifugal Machine Tender Relationship Specialty Start Date End Date Cheryl Gonzalez NP [address] [place] [address] PCP - General Nurse Practitioner Family 12/04/1904/03/22 documented as of this encounter
--- OUTSIDE RECORDS SUMMARY | 2024-04-18 13:17 | XMS_ITS | Encounter Summary ---
Author Organization [facility] Address [facility] [place] [address] [place] [address] Care Team Providers Care Photo Intern Name Role Phone Cheryl Gonzalez ESTEPHANIA Primary Care Provider [phone] Encounter Details Date Type Department Care Team (Late st Contact Info) Description 03/06/2022 4:50 PM MRI MANAGER - 03/06/2022 11:59 PM [facility] Hospital Encounter [facility] [place] [address] Theodore Wyman MD 3 [facility] [address] [place] [phone] Discharge Disposition: Home or Self Care (Routine [...] Coronavirus/COVID-19? No / Unsure 03/06/2022 4:48 PM MRI MANAGER documented as of this encounter Medications at [...] CDT Office Visit [facility], [facility] [address] [place] [address] Kaleigh Velazco, GAS APPLIANCE INSTALLER-C [facility]. [facility] [address] [place] [address] documented as of this encounter Procedures Procedure Name Priority Date/Time Associated Diagnosis Comments XR ELBOW RT M3V Routine 03/06/2022 5:08 PM MRI MANAGER Right elbow pain documented in this encounter Results * XR ELBOW RT M3V (03/06/2022 5:08 PM MRI MANAGER) Anatomical Region Laterality Modality Elbow Radiographic Thi ging 03/07/2022 4:27 AM MRI MANAGER Impressions 03/07/2022 4:28 AM MRI MANAGER IMPRESSION: 1. Unremarkable radiographs of the right elbow. Referred By: ?? Interpreted By: Carmen Sanders MD, 03/07/2022 4:27 AM Narrative 03/07/2022 4:28 AM MRI MANAGER EXAMINATION: Right Elbow, 3 Views, 4 Images, with the Lateral View Obtained Twice INDICATION: Right elbow pain x2 months with no known injury. COMPARISON: None FINDINGS: No acute fracture or dislocation. ??No significant arthritic changes. ??No significant joint effusion. ??No significant soft tissue swelling. ??No radiopaque foreign body. Procedure Note Carmen Sanders MD - 03/07/2022 EXAMINATION: Right Elbow, 3 Views, 4 Images, with the Lateral ViewObtained Twice INDICATION: Right elbow pain x2 months with no known injury. COMPARISON: None FINDINGS: No acute fracture or dislocation. No significant arthriticchanges. No significant joint effusion. No significant soft tissueswelling. No radiopaque foreign body. IMPRESSION: 1. Unremarkable radiographs of the right elbow. Referred By: Interpreted By: Camren Sanders MD, 03/07/2022 4:27 AM Theodore Wyman MD GENERAL IMAGING Final Resu lt documented in this encounter Visit Diagnoses Diagnosis Right elbow pain Pain in joint, upper arm documented in this encounter Care Teams Photo Intern Relationship Specialty Start Date End Date August, ESTEPHANIA Luna [address] [place] [address] PCP - General Nurse Practitioner Family 12/04/1904/03/22 documented as of this encounter
--- OUTSIDE RECORDS SUMMARY | 2024-04-18 13:17 | XMS_ITS | Encounter Summary ---
Author Organization [facility] Address [facility]6 [place] [address] [place] [address] Care Team Providers Care Court Usher Name Role Phone Cheryl Gonzalez ESTEPHANIA Primary Care Provider [phone] Encounter Details Date Type Department Care Team (Late st Contact Info) Description 12/08/2020 Discharge [facility] Outpatient Therapy [place], [place] [address] Eleni Curtis, [place] [address] Social History Tobacco Use Types Packs/Day Years [...] of this encounter Progress Notes * Eleni Curtis, PT - 12/08/2020 10:41 AM CDT Marcin Contreras 1970 Patellar Malignment Syndrome of Right Knee 12/08/2020 Patient was evaluated on 10/15/20 and was only treated for two visits (last tx) 10/29/20. Patient called secondary never follow up for additional therapy. Patient reports she starts back to school soon and wants to be discharged. Unplanned discharge see prior noted for measurements. If patient would want to resume therapy at later date - new orders would be needed. ELENI CURTIS, PT documented in this encounter Plan of Treatment Upcoming Encounters Date Type Department Care Team (Late st Contact Info) Description 02/25/2025 10:30 AM CDT Office [facility], [address] [place] [address] Kaleigh Velazco, TENSILE TESTER-C [facility]. [facility] [address] [place] [address] documented as of this encounter Visit Diagnoses Not on filedocumented in this encounter Care Teams Court Usher Relationship Specialty Start Date End Date August, ESTEPHANIA Luna [address] [place] [address] PCP - General Nurse Practitioner Family 12/04/1904/03/22 documented as of this encounter
--- OUTSIDE RECORDS SUMMARY | 2024-04-18 13:17 | XMS_ITS | Encounter Summary ---
Author Organization [facility] Address [facility]6 [place] [address] [place] [address] Care Team Providers Care Web Site Project Manager Name Role Phone Cheryl Gonzalez ESTEPHANIA Primary Care Provider [phone] Encounter Details Date Type Department Care Team (Latest Contact Info) Description 10/29/2020 Travel Social History Tobacco Use Types Packs/Day [...] CDT Office Visit [facility], [address] [place] [address] Kaleigh Velazco, TELEGRAPH REPEATER INSTALLER-C Three [facility]. [address] [place], [place] [id number] documented as of this encounter Visit Diagnoses Not on filedocumented in this encounter Care Teams Web Site Project Manager Relationship Specialty Start Date End Date August, ESTEPHANIA Luna [address] [place] [address] PCP - General Nurse Practitioner Family 12/04/1904/03/22 documented as of this encounter
--- OUTSIDE RECORDS SUMMARY | 2024-04-18 13:17 | XMS_ITS | Encounter Summary ---
Author Organization [facility] Address [facility] [place] [address] [place] [address] Care Team Providers Care Metal Tester Name Role Phone Cheryl Gonzalez ESTEPHANIA Primary Care Provider [phone] Encounter Details Date Type Department Care Team (Latest Contact Info) Description 12/28/2019 Travel Social History Tobacco Use Types Packs/Day [...] have Coronavirus / COVID-19? No / Unsure 12/28/2019 5:49 PM CDT documented as of this encounter Plan of Treatment Upcoming Encounters Date Type Department Care Team (Late st Contact Info) Description 02/25/2025 10:30 AM CDT Office Visit [facility], [address] [place] [address] Kaleigh Velazco, LEAN COACH-C Three [facility]. [address] [place], [place] [address] documented as of this encounter Visit Diagnoses Not on filedocumented in this encounter Care Teams Metal Tester Relationship Specialty Start Date End Date August, ESTEPHANIA Luna [address] [place] [address] PCP - General Nurse Practitioner Family 12/04/1904/03/22 documented as of this encounter
--- OUTSIDE RECORDS SUMMARY | 2024-04-18 13:17 | XMS_ITS | Encounter Summary ---
Author Organization [facility] Address [facility] [place] [address] [place] [address] Care Team Providers Care Automotive Machinist Name Role Phone Cheryl Zavaleta ESTEPHANIA Primary Care Provider [phone] Reason for Visit * Reason Comments URI Encounter Details Date Type Department Care Team (Latest Contact Info) Description 12/28/2019 5:33 PM CDT - 12/28/2019 6:50 PM CDT Hospital [facility] [address] [place] [address] Raysa Albrecht PA [address] [place] [address] URI Discharge Disposition: Home or Self Care (Routine [...] Sign Reading Time Taken Comments Blood Pressure 141/76 12/28/2019 5:45 PM CDT Pulse 93 12/28/2019 5:45 PM CDT Temperature 36.8 ??C (98.3 ??F) 12/28/2019 5:45 PM CD T Respiratory Rate 18 12/28/2019 5:45 PM CDT Oxygen Saturation 99% 12/28/2019 5:45 PM CDT Inhaled Oxygen Concentration - - Weight 65.8 kg (145 lb) 12/28/2019 5:45 PM CDT Height 162.6 cm (5' 4 ) 12/28/2019 5:45 PM CDT Body Mass Index 24.89 12/28/2019 5:45 PM CDT documented in this encounter Discharge Instructions * Discharge Instructions* DAVID Wylie - 12/28/2019 6:45 PM CDT Get plenty of rest, drink plenty of fluids. Take tylenol or motrin as needed for pain and/or fever. Go to the ER if symptoms worsen. * Attachments The following attachments cannot be sent through Care Everywhere. * Viral Syndrome Discharge Instructions (Burmese) documented in this encounter Medications at Time [...] as of this encounter ED Notes * DAVID Wylie - 12/28/2019 6:42 PM CDT [place], [place] URGENT [facility]ARE HISTORICAL INFORMATION Primary Care Doctor: CHERYL ZAVALETA NP Patient information was obtained primarily from the patient, nursing notes, History/Exam limitations: None Provider at Bedside Date/Time Event User Comments 12/28/19 4264 Provider at Bedside Assessing Patient RAYSA ALBRECHT CHIEF COMPLAINT URI HPI Marcin Contreras is a 49-year-old female who presents with URI symptoms. Pt states she has had headache, sore throat, fatigue and body aches for a week. Pt denies cough or sob. Pt states she has had low grade fever (99-100). Pt was seen earlier in the week here and had neg COVID and strep swab.Pt states she continues to have symptoms, not worse but not better. PAST MEDICAL HISTORY Past Medical History: Diagnosis Date ??? Hyperlipidemia Negative unless otherwise noted SURGICAL HISTORY Past Surgical History: Procedure Laterality Date ??? KNEE SURGERY Negative unless otherwise noted CURRENT MEDICATIONS No current facility-administered medications for this encounter. Current Outpatient Medications: ??? atorvastatin 10 MG tablet, , Disp: , Rfl: ??? CALTRATE 600+D3 600-800 MG-UNIT tablet, , Disp: , Rfl: ??? Cholecalciferol (VITAMIN D3) 50 MCG (1999) Tab, , Disp: , Rfl: ??? DEPO-PROVERA 150 MG/ML injection, , Disp: , Rfl: ??? fish oil 1000 MG Cap capsule, , Disp: , Rfl: ??? folic acid 1 MG tablet, , Disp: , Rfl: ALLERGIES No Known Allergies FAMILY HISTORY Family History Problem Relation Name Age of Onset ??? Breast Cancer Maternal Grandmother age unknown ??? No Known Problems Mother ??? No Known Problems Father SOCIAL HISTORY Social History Tobacco Use ??? Smoking status: Never Smoker ??? Smokeless tobacco: Never Used Substance Use Topics ??? Alcohol use: Never Frequency: Never ??? Drug use: Never Negative unless otherwise noted REVIEW OF SYSTEMS Review of Systems Constitutional: Positive for fatigue and fever. HENT: Positive for sore throat. Neurological: Positive for headaches. All other systems reviewed and negative PHYSICAL EXAM VITAL SIGNS: Filed Vitals: 12/28/19 1745 BP: (!) 141/76 Pulse: 93 Resp: 18 Temp: 98.3 ??F (36.8 ??C) TempSrc: Oral SpO2: 99% Weight: 65.8 kg (145 lb) Height: 5' 4 (1.626 m) Constitutional: Well developed, Well nourished, No acute distress, Non-toxic appearance. HENT: Normocephalic, Atraumatic, Bilateral external ears normal, Oropharynx moist, No oral exudates, Nose normal. Eyes: PERRL, EOMI, Conjunctiva normal, No discharge. Neck- Normal range of motion, No tenderness, Supple, No stridor. Respiratory: Normal breath sounds, No respiratory distress. Cardiovascular: Normal heart rate, Normal rhythm GI: nd Musculoskeletal: Intact distal pulses, No edema, No tenderness, No cyanosis, No clubbing. Good range of motion in all major joints. No tenderness to palpation or major deformities noted. Back- No tenderness. Integument: Warm, Dry, No erythema, No rash. Lymphatic: No lymphadenopathy noted. Neurologic: Alert & oriented x 3, Normal motor function, Normal sensory function, No focal deficits noted. Psychiatric: Affect normal, Judgment normal, Mood normal. Pulse Oximetry Interpretation Saturation: 99% Oxygen Delivery: room air Interpretation: normal ED COURSE & MEDICAL DECISION MAKING Pertinent Labs & Imaging studies reviewed. (See chart for details) Discussed with pt viral syndrome and how it may be prolonged. OR this could still be COVID but either way pt looks well, afebrile, nontoxic looking. Discussed continued hydration, rest and otc tx. Discussed return precautions. ? Disposition Discussion: Diagnostic tests were reviewed and questions answered. Diagnosis, care plan and treatment options were discussed. The patient understand instructions and will follow up as directed. DATE: 12/28/2019 6:42 PM PATIENT: Marcin Contreras Discharge Clinical Impressions: Viral syndrome Discharge Condition: stable Discharge Disposition: Patient discharge to home with I spent time answering the patient's questions. Discharge instructions using teach back, understanding assessed and validated. Please refer to the exit magnetic tape typewriter operator discharge instructions for details surrounding the discharge plan. I did reiterate with the patient that if an urgent need for immediate follow up comes up, not to hesitate to return to the ED. DAVID Wylie PA 12/28/19 1844 Cosigned by Matthew Goldberg MD at 12/28/2019 6:45 PM CDT * Clemencia Machado RN - 12/28/2019 5:46 PM CDT PT TO [facility], F/U FROM RECENT VISIT HERE FOR COLD LIKE SX. HAD A STREP AND COVID TEST THAT WERE BOTH NEGATIVE, SHE STATED SHE FEELS A LITTLE BETTER NOT ALL BETTER NO NEW OR WORSENING SX. documented in this encounter Plan of Treatment Upcoming Encounters Date Type Department Care Team (Late st Contact Info) Description 02/25/2025 10:30 AM CDT Office Visit [facility], [facility] [address] [place], [place] [id number] Kaleigh Velazco, OIL AND GAS PRINCIPAL-C [facility]. [facility] [address] [place], [place] [id number] documented as of this encounter Visit Diagnoses Diagnosis Viral syndrome- Primary Unspecified viral infection, in conditions classified elsewhere and of unspecified site documented in this encounter Care Teams Automotive Machinist Relationship Specialty Start Date End Date August, ESTEPHANIA Luna [address] [place], [place] [address] PCP - General Nurse Practitioner Family 12/04/1904/03/22 documented as of this encounter
--- OUTSIDE RECORDS SUMMARY | 2024-04-18 13:17 | XMS_ITS | Encounter Summary ---
Author Organization [facility] Address [facility] [place] [address] [place] [address] Care Team Providers Care Aircraft Launch And Recovery Technician Name Role Phone Salud Flores MD Primary Care Provider [phone] Reason for Visit * Reason Onset Date Comments Referral 08/21/2022 Returned call to scheduled Encounter Details Date Type Department Care Team (Late st Contact Info) Description 08/21/2022 Telephone [facility] Medical [facility] Diabetes and Endocrinology - [address] [address] Gray Carmona MD Referral (Returned call to scheduled ) Social History Tobacco Use Types Packs/Day Years [...] as of this encounter Progress Notes * Yvrose Petit - 08/21/2022 1:54 PM CDT Marcin is returning a call to get scheduled for an appt from a referral PSR unavailable Call [phone] documented in this encounter Plan of Treatment Upcoming Encounters Date Type Department Care Team (Late st Contact Info) Description 02/25/2025 10:30 AM CDT Office Visit [facility], [address] [place] [address] Kaleigh Velazco, ADOPTION COORDINATOR-C [facility]. [address] [place], [place] [id number] documented as of this encounter Visit Diagnoses Not on filedocumented in this encounter Care Teams Aircraft Launch And Recovery Technician Relationship Specialty Start Date End Date Salud Flores MD [facility] [address] [place] [phone] PCP - General FAMILY PRACTICE 04/04/22 08/30/22 documented as of this encounter
--- OUTSIDE RECORDS SUMMARY | 2024-04-18 13:20 | XMS_ITS | Encounter Summary ---
Author Organization [facility] Address [address] [place] [address] Care Team Providers Care Signs Cleaner Name Role Phone Clemencia Lopez NP Primary Care Provider [phone] Encounter Details Date Type Department Care Team (Late st Contact Info) Description 04/11/2024 Telephone [facility] Medical Group Primary Care [address] [place] [address] Keli Varma MA Social History Tobacco Use Types Packs/Day Years Used Date Smoking Tobacco: Never Cigarettes Smokeless Tobacco: Never AUDIT-C Answer Date Recorded Q1: How often do you have a drink containing alc ohol? Monthly or less 09/05/2023 Average Number of Drinks Not on file 024 Frequency of Binge Drinking Not on file 11/2023 PHQ-2 Answer Date Recorded PHQ-2 Total Score (If total score is 3 or more points, staff should administer the PHQ-9) 0 09/05/2023 Comments Unknown Sex and Gender Information Value Date Recorded Sex Assigned at Not on file Legal Sex Female 12:17 PM CLOTH PACKER Gender Identity Not on file Sexual Orientation Not on file documented as of this encounter Miscellaneous Notes * Telephone Encounter - Keli Varma MA - 04/11/2024 9:21 AM CLOTH PACKER ----- Message from Clemencia Lopez NP sent at 04/11/2024 9:07 AM CLOTH PACKER ----- Please call patient her cholesterol has increased since last drawn. Please confirm she is taking atorvastatin 10 mg daily. If she is taking the medication I will send a new prescription for 20 mg daily. She is to continue following a low fat diet. All other blood work is stable. 04/11/24 Spoke to pt about her lab results andprotocolsfrom Clemencia. H PACKER H PACKER documented in this encounter Plan of Treatment Not on file documented as of this encounter Visit Diagnoses Not on filedocumented in this encounter Care Teams Signs Cleaner Relationship Specialty Start Date End Date Clemencia Lopez NP [address] [place] [id number] PCP - General Family Medicine 09/05/23 documented as of this encounter
--- OUTSIDE RECORDS SUMMARY | 2024-04-18 13:20 | XMS_ITS | Referral Summary ---
Author Organization [facility] [address] Address [address] 5th [place] [address] Care Team Providers Care Cushion Builder Name Role Phone Clemencia Lopez ASSISTED LIVING DIRECTOR Primary Care Provider [phone] Encounters Date Type Department Care Team Description 04/11/2024 Telephone [facility] [address] [place] [address] [phone] Keli Varma MA 04/09/2024 10:00 AM COMPOSITE BOAT BUILDER Lab [facility] [address] [place] [id number] Annual physical exam; Other hyperlipidemia; Thyroid nodule 04/09/2024 9:30 AM COMPOSITE BOAT BUILDER Office Visit [facility] [address] [place] [address] [phone] Clemencia Lopez NP Annual physical exam (Primary Dx); SAVANNA (generalized anxiety disorder); Other hyperlipidemia; Thyroid nodule; SOB (shortness of breath) on exertion; Screening for cervical cancer 03/12/2024 10:00 AM COMPOSITE BOAT BUILDER Clinical Support [facility] [address] [place] [address] [phone] Encounter for surveillance of injectable contraceptive (Primary Dx) 02/18/2024 Letter (Out) [facility] [address] [place] [phone] from Last 3 Months Allergies No known active allergies Medications cholecalcifero l (VITAMIN D-3) 2000 unit tablet 8 Active medroxyPROGEST ERone 150 mg/mL injection Inject 1 mL (150 mg total) into the muscle as instructed every 3 (three) months 1 mL 3 4 Active venlafaxine XR (EFFEXOR-XR) 75 mg 24 hr capsule Take 1 capsule (75 mg total) by mouth daily Take with food. 90 capsule 1 4 03/12/20 25 Active atorvastatin (LIPITOR) 10 mg tablet Take 1 tablet (10 mg total) by mouth daily 90 tablet 1 4 02/08/20 28 Active calcium carbonate (Oyster Shell Calcium) 1,250 mg (500 mg elemental) tablet 4 Active fluticasone propionate (FLONASE) 50 mcg/actuation nasal spray Administer 1 spray into each nostril daily 1 each 6 4 Active fexofenadine (ROLDAN) 180 mg tablet Take 1 tablet (180 mg total) by mouth daily 90 tablet 1 4 Active metoprolol tartrate (LOPRESSOR) 25 mg immediate release tablet Take 0.5 tablets (12.5 mg total) by mouth 2 (two) times a day Active calcium carbonate-orion min D3 1,500 mg (600mg elemental) -800 unit per tablet Take 1 tablet by mouth daily 8 04/09/20 24 Discontinu ed(Other) fexofenadine (ROLDAN) 180 mg tablet Take with plenty of water.Obtain advice for OTCs.Swallow whole.Avoid grapefruit and grapefruit juice. 3 04/09/20 24 Discontinu ed(Reorder ) fluticasone propionate (FLONASE) 50 mcg/actuation nasal spray Administer 1 spray into affected nostril(s) daily 8 04/09/20 24 Discontinu ed(Reorder ) atorvastatin (LIPITOR) 10 mg tablet Take 1 tablet (10 mg total) by mouth daily 90 tablet 1 4 04/01/20 24 Discontinu ed(Reorder ) calcium carbonate (OS-LAVELL) 1,250 mg (500 mg elemental) tablet Take 0.5 tablets (625 mg total) by mouth daily 90 tablet 1 4 04/09/20 24 Discontinu ed(Other) Active Problems Problem Noted Date Diagnosed Date Annual physical exam 04/09/2024 Assessment & Plan (04/09/2024 10:00 AM COMPOSITE BOAT BUILDER): CBC, CMP, lipid panel ordered. Mammogram last completed: 10/2023 Patient referred to [facility] for repeat Pap. Colonoscopy last completed: 09/2023 Vaccinations: Due for Shingrix vaccine. Flu and Tdap vaccines UTD. Repeat wellness exam in one year. Thyroid nodule 09/05/2023 Assessment & Plan (04/09/2024 9:57 AM COMPOSITE BOAT BUILDER): Chronic, patient to have TSH, T4, T3, and thyroid antibodies drawn. Patient referred to Dr. Teague pet technologist for follow up. Assessment & Plan (09/05/2023 9:57 AM CDT): Chronic, following with Dr. Farias pet technologist. Currently having thyroid US every 2 years. SAVANNA (generalized anxiety disorder) 09/05/2023 Assessment & Plan (04/09/2024 9:57 AM COMPOSITE BOAT BUILDER): Chronic, controlled. Patient to continue on venlafaxine 75 mg daily. Follow up in 6 months. Assessment & Plan (10/03/2023 3:12 PM CDT): Chronic, controlled. Patient to continue on venlafaxine 75 mg daily. Follow up in 6 months. Assessment & Plan (09/05/2023 11:42 AM CDT): Chronic, uncontrolled. Patient to increase venlafaxine from 37.5 mg to 75 mg daily. Follow up in one month. Other hyperlipidemia 09/05/2023 Assessment & Plan (04/09/2024 9:57 AM COMPOSITE BOAT BUILDER): Chronic, lipid panel to be redrawn. Patient to continue on atorvastatin 10 mg daily and low fat diet. Follow up in 6 months. Lab Results Component Value Date CHOL 180 09/06/2023 Lab Results Component Value Date HDL 35 (L) 09/06/2023 Lab Results Component Value Date LDLCALC 104 09/06/2023 Lab Results Component Value Date TRIG 203 (H) 09/06/2023 Assessment & Plan (09/05/2023 11:43 AM CDT): Chronic, lipid panel to be redrawn. Patient to continue on atorvastatin 10 mg daily and low fat diet. Follow up in 6 months. Resolved Problems Problem Noted Date Diagnosed Date Resolved Date Urgency of urination 09/05/2023 Assessment & Plan (09/05/2023 11:45 AM CDT): Urine dip positive for blood. Urine sample sent for culture. Patient prescribed Macrobid. Patient to be contacted once culture results are obtained. Arthralgia of both hands 09/05/202311/2023 Immunizations Name Administration Dates Next Due Hep B Vaccine 12/01/2014,06/29/2014,06/01/2014 Influenza, Quadrivalent, Spl it, Preservative Free, Intramuscular 02/12/2023,03/02/2022,03/29/2021,03/10,02/23/2016 Influenza, Trivalent, Preser vative Free, Intramuscular 02/15/2015 Influenza, Unspecified 02/13/2024 MMR 06/11/2019,06/29/2014,06/01/2014 PPD TEST 05/13/2014,01/11/2010 Tdap 05/13/2014 Social History Tobacco Use Types Packs/Day Years Used Date Smoking Tobacco: Never Cigarettes Smokeless Tobacco: Never Tobacco Cessation:Counseling Given: Not Answered AUDIT-C Answer Date Recorded Q1: How often [...] on file Legal Sex Female 12:17 PM COMPOSITE BOAT BUILDER Gender Identity Not on file Sexual Orientation Not on file Last Filed Vital Signs Vital Sign Reading Time Taken Comments Blood Pressure 118/74 04/09/2024 8:58 AM COMPOSITE BOAT BUILDER Pulse 77 04/09/2024 8:58 AM COMPOSITE BOAT BUILDER Temperature 36.6 ??C (97.9 ??F) 04/09/2024 8:58 AM CS T Respiratory Rate 20 04/09/2024 8:58 AM COMPOSITE BOAT BUILDER Oxygen Saturation 97% 04/09/2024 8:58 AM COMPOSITE BOAT BUILDER Inhaled Oxygen Concentration - - Weight 76.4 kg (168 lb 8 oz) 04/09/2024 8:58 AM COMPOSITE BOAT BUILDER Height 162.6 cm (5' 4.02 ) 04/09/2024 8:58 AM CS T Body Mass Index 28.91 04/09/2024 8:58 AM COMPOSITE BOAT BUILDER Plan of Treatment Not on file Procedures Procedure Name Priority Date/Time Associated Diagnosis Comments EGFR Routine 04/09/2024 9:55 AM COMPOSITE BOAT BUILDER Annual physical exam Other hyperlipidemia DIFFERENTIAL AUTO Routine 04/09/2024 9:5 5 AM COMPOSITE BOAT BUILDER Annual physical exam Other hyperlipidemia TSH Routine 04/09/2024 9:55 AM COMPOSITE BOAT BUILDER Thyroid nodule T4, FREE Routine 04/09/2024 9:55 AM COMPOSITE BOAT BUILDER Thyroid nodule T3, FREE Routine 04/09/2024 9:55 AM COMPOSITE BOAT BUILDER Thyroid nodule THYROID PEROXIDASE ANTIBODY Routine 04/09/2024 9:55 AM COMPOSITE BOAT BUILDER Thyroid nodule LIPID PANEL Routine 04/09/2024 9:55 AM COMPOSITE BOAT BUILDER Annual physical exam Other hyperlipidemia COMPREHENSIVE METABOLIC PANEL Routine 04/09/2024 9:55 AM COMPOSITE BOAT BUILDER Annual physical exam Other hyperlipidemia CBC WITH AUTO DIFFERENTIAL Routine 04/09/2024 9:55 AM COMPOSITE BOAT BUILDER Annual physical exam Other hyperlipidemia DIAGNOSTIC MAMMOGRAM BILATERAL W LAURENT Schedule Routine, Read Routine (OP Routine) 12/19/2023 10:40 AM CDT Abnormal mammogram COLONOSCOPY Routine 10/19/2023 9:36 AM CDT from Last 3 Months or Most Recently Relevant to Health Maintenance Results * eGFR (04/09/2024 9:55 AM COMPOSITE BOAT BUILDER) eGFR >90 >=60 mL/min/1. 73 m2 Comment: Interpretive Data Reference Interval Normal ?>/= 90 mL/min/1.73m2 Mildly decreased* ? 60 - 89 mL/min/1.73m2 Mildly to moderately decreased ?45 - 59 mL/min/1.73m2 Moderately to severely decreased ??30 - 44 mL/min/1.73m2 Severely decreased ?15 - 29 mL/min/1.73m2 Kidney Failure ?< 15 ??mL/min/1.73m2 *Relative to young adult level Estimated glomerular filtration rate is determined by the 2020 CKD-EPI equation recommended by the National Kidney Foundation (A Unifying Approach to GFR Estimation: Recommendations of the NKF-ASK Task Force on Reassessing the Inclusion of Race in Diagnosing Kidney Disease, JASN 2020). The CKD-EPI equation should not be used for patients with unstable renal function and has not been validated in children and those over 70. Current interpretive data was last reviewed 2021. Testing performed by: [facility], [address] [place] [address]., [id number] Blood 04/09/2024 9:55 AM COMPOSITE BOAT BUILDER 04/09/2024 10:40 AM COMPOSITE BOAT BUILDER us Clemencia Lopez NP LAB BLOOD ORDERABLES Final Res ult [facility] [id number] [facility] [place] [address] * Differential, auto (04/09/2024 9:55 AM COMPOSITE BOAT BUILDER) [facility] Neutrophil abs 4.6 1.5 - 6.5 K/cumm Comment:Testing performed by : [address] [address] Imm gran abs 0.0 0.0 - 0.1 K/cumm [facility] Comment:Testing performed by : [address] [address] Lymphocyte abs 2.9 0.8 - 3.3 K/cumm [facility] Comment:Testing performed by : [address] [address] Monocyte abs 0.5 0.2 - 0.8 K/cumm [facility] Comment:Testing performed by : [address] [address] Eosinophil abs 0.1 0.0 - 0.5 K/cumm [facility] Comment:Testing performed by : [address] [address] Basophil abs 0.0 0.0 - 0.1 K/cumm [facility] Comment:Testing performed by : [address] [address] Neutrophil pct 56.5 % [facility] Comment: Interpretive Data Percent cell count reference ranges are not reported, since discordance with absolute values may lead to misinterpretation of CBC data. Current Interpretive Data was last revised on 2017. Testing performed by: [address] [address] Imm gran pct 0.2 % [facility] Comment: Interpretive Data Percent cell count reference ranges are not reported, since discordance with absolute values may lead to misinterpretation of CBC data. Current Interpretive Data was last revised on 2017. Testing performed by: [address] [address] Lymphocyte pct 36.1 % [facility] Comment: Interpretive Data Percent cell count reference ranges are not reported, since discordance with absolute values may lead to misinterpretation of CBC data. Current Interpretive Data was last revised on 2017. Testing performed by: [address] [address] Monocyte pct 6.0 % [facility] Comment: Interpretive Data Percent cell count reference ranges are not reported, since discordance with absolute values may lead to misinterpretation of CBC data. Current Interpretive Data was last revised on 2017. Testing performed by: [address] [address] Eosinophil pct 1.0 % [facility] Comment: Interpretive Data Percent cell count reference ranges are not reported, since discordance with absolute values may lead to misinterpretation of CBC data. Current Interpretive Data was last revised on 2017. Testing performed by: [address] [address] Basophil pct 0.2 % [facility] Comment: Interpretive Data Percent cell count reference ranges are not reported, since discordance with absolute values may lead to misinterpretation of CBC data. Current Interpretive Data was last revised on 2017. Testing performed by: [address] [address] Blood 04/09/2024 9:55 AM COMPOSITE BOAT BUILDER 04/09/2024 10:38 AM COMPOSITE BOAT BUILDER us Clemencia Lopez ASSISTED LIVING DIRECTOR LAB BLOOD ORDERABLES Final Res ult [facility] [address] [facility] [place] [address] * CBC with auto differential (04/09/2024 9:55 AM COMPOSITE BOAT BUILDER) WBC 8.1 3.8 - 9.9 K/cumm Comment:Testing performed by : [address] [address] Hgb 14.9 11.9 - 15.5 g/dL [facility] Comment:Testing performed by : [address] [address] Hct 44.6 35.6 - 45.5 % [facility] Comment:Testing performed by : [address] [address] Plt 375 150 - 400 K/cumm [facility] Comment:Testing performed by : [address] [address] MPV 9.6 9.1 - 12.3 fL [facility] Comment:Testing performed by : [address] [address] RBC 4.84 3.90 - 5.20 M/cumm [facility] Comment:Testing performed by : [address] [address] MCV 92.1 81.3 - 96.4 fL [facility] Comment:Testing performed by : [address] [address] MCH 30.8 27.1 - 33.3 pg [facility] Comment:Testing performed by : [address] [address] MCHC 33.4 32.3 - 35.7 g/dL [facility] Comment:Testing performed by : [address], [address] RDW CV 13.0 11.1 - 14.9 % [facility] Comment:Testing performed by : [address], [address] RDW SD 44.1 35.7 - 48.1 fL [facility] Comment:Testing performed by : [address] [address] NRBC abs 0.00 0.00 - 0.01 K/cumm [facility] Comment:Testing performed by : [address] [address] Blood 04/09/2024 9:55 AM COMPOSITE BOAT BUILDER 04/09/2024 10:38 AM COMPOSITE BOAT BUILDER us Clemencia Lopez NP LAB BLOOD ORDERABLES Final Res ult [facility] [address] [facility] [place] [address] * Thyroid peroxidase antibody (TPO) (04/09/2024 9:55 AM COMPOSITE BOAT BUILDER) Anti Thyroid Peroxidase <30 <=34 IUnits/mL Comment: ATPO Interpretive Data Results may be up to 28% higher in patients receiving Itraconazole. Current interpretive data was last revised 2020. Testing performed by: [facility], [address] [place]., [address] Blood 04/09/2024 9:55 AM COMPOSITE BOAT BUILDER 04/09/2024 1:29 PM COMPOSITE BOAT BUILDER us Clemencia Lopez ASSISTED LIVING DIRECTOR LAB BLOOD ORDERABLES Final Res ult [address] [place] [address] * T3, free (04/09/2024 9:55 AM COMPOSITE BOAT BUILDER) Free T3 3.0 2.0 - 4.4 pg/mL Blood 04/09/2024 9:55 AM COMPOSITE BOAT BUILDER 04/09/2024 12:34 PM COMPOSITE BOAT BUILDER Clemencia Lopez ASSISTED LIVING DIRECTOR LAB BLOOD ORDERABLES Final Res ult Performing Organization Address [facility] Co de Phone Number [address] [place] [address] * TSH (04/09/2024 9:55 AM COMPOSITE BOAT BUILDER) Thyroid Stimulating Hormone 0.75 0.30 - 4.20 mcIUnit/mL Comment:Testing performed by : [facility], [address] [place] [address]., [address] Blood 04/09/2024 9:55 AM COMPOSITE BOAT BUILDER 04/09/2024 10:40 AM COMPOSITE BOAT BUILDER us Clemencia Lopez ASSISTED LIVING DIRECTOR LAB BLOOD ORDERABLES Final Res ult Performing Organization Address City/[facility] Co de Phone Number [address] [address] * T4, free (04/09/2024 9:55 AM COMPOSITE BOAT BUILDER) Free T4 1.08 0.90 - 1.70 ng/dL Comment:Testing performed by : [facility], [address] [place] [address]., [address] Blood 04/09/2024 9:55 AM COMPOSITE BOAT BUILDER 04/09/2024 10:40 AM COMPOSITE BOAT BUILDER us Clemencia Lopez ASSISTED LIVING DIRECTOR LAB BLOOD ORDERABLES Final Res ult [facility] [address] [facility] [place] [address] * (ABNORMAL) Lipid panel (04/09/2024 9:55 AM COMPOSITE BOAT BUILDER) Cholesterol 215(H) 30 - 199 mg/dL Comment: Interpretive Data Ages < or = 19 years ??Acceptable: ? <170 mg/dL ??Borderline high: ??170-199 mg/dL ??High: ? >or= 200 mg/dL Ages > or = 20 years ??Desirable: ?<200 mg/dL ??Borderline high: ??200-239 mg/dL ??High: ? >or= 240 mg/dL Literature References: 1. Expert Panel on Integrated Guidelines for Cardiovascular Health and Risk Reduction in Children and Adolescents. Pediatrics 2011;128:S213 2. NCEP Expert Panel. Circulation 2004;110:227 Current Interpretive Data was last revised on 2017. Testing performed by: [facility], [address] [place] [address]., [address] Triglycerides 116 <=149 mg/dL [facility] Comment: Interpretive Data Ages < or = 9 years ??Acceptable: ? <75 mg/dL ??Borderline high: ??75-99 mg/dL ??High: ? >or= 100 mg/dL Ages 10 to 20 years ??Acceptable: ? <90 mg/dL ??Borderline high: ??90-129 mg/dL ??High: ? >or= 130 mg/dL Ages > or = 20 years ??Desirable: ?<150 mg/dL ??Borderline high: ??150-199 mg/dL ??High: ? 200-499 mg/dL ?Very high: ?? >or= 499 mg/dL Literature References: 1. Expert Panel on Integrated Guidelines for Cardiovascular Health and Risk Reduction in Children and Adolescents. Pediatrics 2011;128:S213 2. NCEP Expert Panel. Circulation 2004;110:227 Current Interpretive Data was last revised on 2017. Testing performed by: [address] [address] HDL 46 >=40 mg/dL [facility] Comment: Interpretive Data Ages < or = 19 years ??Acceptable: ? >45 mg/dL ??Borderline low: ?? 40-45 mg/dL ??Low: ? <40 mg/dL Ages > or = 20 years ??Desirable: ?>or= 60 mg/dL ??Low: ? <40 mg/dL Literature References: 1. Expert Panel on Integrated Guidelines for Cardiovascular Health and Risk Reduction in Children and Adolescents. Pediatrics 2011;128:S213 2. NCEP Expert Panel. Circulation 2004;110:227 Current Interpretive Data was last revised on 2017. Testing performed by: [address] [address] LDL, calculated 148(H) <=129 mg/dL [facility] Comment: Interpretive Data Ages < or = 19 years ??Acceptable: ? <110 mg/dL ??Borderline high: ??110-129 mg/dL ??High: ?>or= 130 mg/dL Ages > or = 20 years ??Optimal: ? <100 mg/dL ??Near optimal: ?100-129 mg/dL ??Borderline high: ?? 130-159 mg/dL ??High: ?>160 mg/dL Calculated using the Vyas LDL-C estimating equation. This equation was implemented on 2023. Prior to this date LDL-C was estimated using the Friedewald equation. Literature References: 1. Expert Panel on Integrated Guidelines for Cardiovascular Health and Risk Reduction in Children and Adolescents. Pediatrics 2011;128:S213 2. NCEP Expert Panel. Circulation 2004;110:227 3. Asael M et al. VERONA Cardiol. 2019August 28;5(5):540-548. doi: 10.1001/jamacardio.2020.0013 Current Interpretive Data was last revised on 2023. Testing performed by: [address] [address] Non-HDL Cholesterol 169 mg/dL [facility] Comment: Interpretive Data Ages < or = 19 years ??Acceptable: ?<120 mg/dL ??Borderline high: ??120-144 mg/dL ??High: ?>145 mg/dL Ages > or = 20 years ??When triglycerides are >200 mg/dL, Non-HDL cholesterol is a secondary target of ? therapy with treatment goals that are 30 mg/dL greater than the LDL cholesterol target. ? Literature References: 1. Expert Panel on Integrated Guidelines for Cardiovascular Health and Risk Reduction in Children and Adolescents. Pediatrics 2011;128:S213 2. NCEP Expert Panel. Circulation 2004;110:227 Current Interpretive Data was last revised on 2017. Testing performed by: [address] [address] Chol/HDL ratio 5 [facility] Comment:Testing performed by : [address] [address] Blood 04/09/2024 9:5 5 AM COMPOSITE BOAT BUILDER 04/09/2024 10:40 AM COMPOSITE BOAT BUILDER us Clemencia Lopez NP LAB BLOOD ORDERABLES Final Res ult [facility] [address] [facility] [place] [address] * Comprehensive metabolic panel (04/09/2024 9:55 AM COMPOSITE BOAT BUILDER) Sodium 144 135 - 145 mmol/L Comment:Testing performed by : [address], [place]., [address] Potassium, pl 4.2 3.3 - 4.9 mmol/L [facility] Comment:Testing performed by : [address], [place]., [address] Chloride 108 97 - 110 mmol/L [facility] Comment:Testing performed by : [address], [place]., [address] CO2 24 22 - 32 mmol/L [facility] Comment:Testing performed by : [address], [place]., [address] Anion gap 12 2 - 15 mmol/L [facility] Comment:Testing performed by : [address], [place]., [address] BUN 17 6 - 25 mg/dL [facility] Comment:Testing performed by : [address], [place]., [address] Creatinine 0.60 0.60 - 1.10 mg/dL [facility] Comment:Testing performed by : [address], [place]., [address] Glucose 105 70 - 199 mg/dL [facility] Comment: Interpretive Data Fasting glucose >/= 126 mg/dl is diagnostic for diabetes. ?? Fasting is defined as no caloric intake for at least 8 hours. Fasting glucose between 100 mg/dl to 125 mg/dl is diagnostic of prediabetes. In a patient with classic symptoms of hyperglycemia or hyperglycemic crisis, a random glucose >/= 200 mg/dl is diagnostic for diabetes. In the absence of unequivocal hyperglycemia, results should be confirmed by repeat testing. The classification and Diagnosis of Diabetes Diabetes Care 202; 46: S19-S40. Current interpretive data was last revised 2022. Testing performed by: [address] [address] Calcium 9.8 8.5 - 10.3 mg/dL [facility] Comment:Testing performed by : [address], [place]., [address] Bilirubin, total 0.4 0.1 - 1.2 mg/dL [facility] Comment:Testing performed by : [address] [address] Protein, pl 7.9 6.5 - 8.5 g/dL [facility] Comment:Testing performed by : [address] [address] Albumin 4.6 3.5 - 5.0 g/dL [facility] Comment:Testing performed by : [address] [address] Alk phos 71 40 - 130 Units/L [facility] Comment:Testing performed by : [address] [address] ALT 20 7 - 45 Units/L [facility] Comment:Testing performed by : [address] [address] AST 21 10 - 45 Units/L [facility] Comment:Testing performed by : [address] [address] Blood 04/09/2024 9:55 AM COMPOSITE BOAT BUILDER 04/09/2024 10:40 AM COMPOSITE BOAT BUILDER us Clemencia Lopez NP LAB BLOOD ORDERABLES Final Res ult Performing Organization Address City/State/[facility] Co de Phone Number [facility] [address] [facility] [place] [address] * DIAGNOSTIC MAMMOGRAM BILATERAL W LAURENT (12/19/2023 10:40 AM CDT) Anatomical Region Laterality Modality Breast Bilateral Mammography 12/19/2023 11:3 2 AM CDT Narrative 12/19/2023 11:52 AM CDT EXAM DESCRIPTION: ?US BREAST BILATERAL LIMITED; DIAGNOSTIC MAMMOGRAM BILATERAL W LAURENT REASON FOR STUDY: ?? 53-year-old female recalled from screening mammogram for indeterminate bilateral breast asymmetries. COMPARISON: ?? Mammograms dated 11/15/2023, 01/28/2022, 01/25/2021, 01/01/2020, and 12/10/2019 TECHNIQUE: Full field LM views and spot compression CC and MLO views of the bilateral breasts were obtained with digital technique using breast tomosynthesis with C view. ??Limited ultrasound of the bilateral breasts was performed with grayscale and color Doppler. FINDINGS: DENSITY: The breasts have scattered areas of fibroglandular density. MAMMOGRAM FINDINGS: There are multiple similar appearing round and oval low-density masses with circumscribed margins in both breasts. ??There are no suspicious microcalcifications or architectural distortion associated with any of these masses. ??These masses are most compatible with benign etiologies, favored to represent cysts, based on their morphology, multiplicity, and bilaterality. ??In comparison with prior mammograms, some of these masses have fluctuated in size, most consistent with benign fluctuating cysts. ??Included among these masses within the right breast is a 5 mm mass at approximately 12 o'clock, middle depth, and a group of small similar appearing masses (largest measuring approximately 7 mm) at approximately the 1 o'clock position of the right breast, posterior depth, which correspond with the asymmetries of concern noted on screening mammogram. ??There is another similar appearing right breast mass measuring approximately 7 mm at approximately the 10 o'clock position, posterior depth. ??Within the left breast at approximately 12 o'clock, middle depth, there is another oval circumscribed low-density mass measuring approximately 1 cm, which correlates with the focal asymmetry of concern noted on screening mammogram. ??Another similar appearing mass measuring approximately 13 mm in the left breast at approximately 2-3 o'clock, middle depth, has not suspiciously changed since January 2022, evidence of a benign etiology. ??This correlates with the 2nd asymmetry of concern noted on prior screening mammogram from October 2023 (MLO view). ??No other definite suspicious finding is identified in either breast on mammogram. ULTRASOUND FINDINGS: Targeted ultrasound of the right breast at 12 o'clock, 4 cm from the nipple demonstrates a benign anechoic simple cyst measuring 6 x 4 x 5 mm. Targeted ultrasound of the right breast at 1 o'clock, 7 cm from the nipple demonstrates a group of similar appearing benign simple and minimally complicated cysts measuring 5 x 3 x 6 mm (labeled as 1), 5 x 2 x 6 mm (labeled as 2), 4 x 2 x 4 mm (labeled as 3), and 5 x 2 x 5 mm (labeled as 4). Targeted ultrasound of the right breast at 10 o'clock, 7 cm from the nipple demonstrates another benign anechoic simple cyst measuring 6 x 3 x 8 mm. Targeted ultrasound of the left breast at 12 o'clock, 3 cm from the nipple demonstrates a 1.1 x 0.3 x 1.0 cm oval circumscribed mass with mixed hypoechoic and anechoic internal echotexture, thin internal septations, parallel orientation, slight posterior acoustic enhancement, and no evidence of internal blood flow on color Doppler. ??This mass is probably benign and favored to represent a complicated cyst. IMPRESSION: ?? 1. ?? Probably benign 1.1 cm oval circumscribed mass at the 12 o'clock position of the left breast (3 cm from the nipple). ??This is favored to represent a benign complicated cyst. ??Short-term follow-up with left breast diagnostic mammogram and diagnostic ultrasound in 6 months is recommended. 2. ?? Other findings in both breasts are considered to be benign as detailed above. ??These include multiple small benign simple and minimally complicated cysts within the right breast (see above). 3. ?? No evidence of malignancy in the right breast on mammogram (or targeted ultrasound as above). ??Recommend screening mammography of the right breast in 1 year. BIRADS: 3 - Probably benign finding, short-interval follow-up suggested. I discussed these findings and recommendations with the patient at the time of the examination. THIS IS AN ELECTRONICALLY VERIFIED FINAL REPORT 12/19/2023 11:52 AM - Electronically signed by ??Phuc Hicks M.D., MD: D: ??12/19/2023 11:52 AM T: ??12/19/2023 11:52 AM Report ID: [id number] Reading Location: ??MAMMMHE Clemencia Lopez NP IMG MAMMO PROCEDURES Final Res ult * Colonoscopy (05/22/2022) Anatomical Region Laterality Modality Other Historical Provider ENDOSCOPY PROCEDURES Edit ed Result - Final from Last 3 Months or Most Recently Relevant to Health Maintenance Insurance [facility] Care Teams Cushion Builder Relationship Specialty Start Date End Date Clemencia Lopez NP [address] [place] [phone] PCP - General Family Medicine 09/05/23
--- OUTSIDE RECORDS SUMMARY | 2024-04-18 13:20 | XMS_ITS | Encounter Summary ---
Author Organization [facility] Healthcare Address [address] [place] [address] Care Team Providers Care Leadership Development Instructor Name Role Phone Clemencia Lopez UPFITTER Primary Care Provider [phone] Encounter Details Date Type Department Care Team (Late st Contact Info) Description 01/04/2024 Orders Only [facility] Medical Group Primary Care [address] [facility] [address] [place] [address] Clemencia Lopez, UPFITTER [address] [facility] [address] [place] [address] Social History Tobacco Use Types Packs/Day Years [...] on file 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 Gender Identity Not on file Sexual Orientation Not on file documented as of this encounter Ordered Prescriptions Prescription Sig Dispense Quantity Refills Last Filled Start Date End Date calcium carbonate (OS-LAVELL) 1,250 mg (500 mg elemental) tablet Take 0.5 tablets (625 mg total) by mouth daily 90 tablet 1 01/04/2024 4 documented in this encounter Plan of Treatment Not on file documented as of this encounter Visit Diagnoses Not on filedocumented in this encounter Discontinued Medications Medication Sig Discontinue Reason Start Date End Da te calcium carbonate (OS-LAVELL) 1,250 mg (500 mg elemental) tablet Take 0.5 tablets (625 mg total) by mouth daily Reorder 12/26/2023 01/04/2024 documented as of this encounter Care Teams Leadership Development Instructor Relationship Specialty Start Date End Date Clemencia Lopez NP [address] [place] [phone] PCP - General Family Medicine 09/05/23 documented as of this encounter
--- OUTSIDE RECORDS SUMMARY | 2024-04-18 13:20 | XMS_ITS | Encounter Summary ---
Author Organization [facility] Healthcare Address [address] [place] [address] Care Team Providers Care Cement Conveyor Operator Name Role Phone Clemencia Lopez AD[facility]IST[facility]ATOR [facility] Primary Care Provider [phone] Reason for Referral * Medication Authorization (Routine) - Pending Review Specialty Diagnoses / Procedures Referred By Contac t Referred To Contact Diagnoses Encounter for surveillance of injectable contraceptive Clemencia Lopez NP [address] [address] Phone: tel: fax: Referral ID Status Reason Start Date Expiration Date V isits Requested Visits Authorized [id number] Pending Review 12/21/2023 01/19/2025 1 1 Reason for Visit * Reason Comments Injections Pt is in for depo in jection. * Medication Authorization (Routine) - Pending Review Specialty Diagnoses / Procedures Referred By Contac t Referred To Contact Diagnoses Encounter for surveillance of injectable contraceptive Clemencia Lopez NP [facility] [address] [address] Phone: tel: fax: Referral ID Status Reason Start Date Expiration Date V isits Requested Visits Authorized [id number] Pending Review 12/21/2023 01/19/2025 1 1 Encounter Details Date Type Department Care Team (Latest Contact Info) Description 12/21/2023 9:00 AM CDT Clinical Support [facility] Medical Group Primary Care [facility] [address] [place] [address] Encounter for surveillance of injectable contraceptive (Primary Dx) Social History Tobacco Use Types [...] on file 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 No Known Allergies Current Outpatient Medications Medication Sig Dispense Refill atorvastatin (LIPITOR) 10 mg tablet Take 1 tablet (10 mg total) by mouth daily 90 tablet 1 calcium carbonate (OS-LAVELL) 1,250 mg (500 mg elemental) tablet Take 500 mg by mouth daily calcium carbonate-vitamin D3 1,500 mg (600mg elemental) -800 unit per tablet Take 1 tablet by mouthdaily cholecalciferol (VITAMIN D-3) 2000 unit tablet fexofenadine (ROLDAN) 180 mg tablet Take with plenty of water.Obtain advice for OTCs.Swallow whole.Avoid grapefruit and grapefruit juice. fluticasone propionate (FLONASE) 50 mcg/actuation nasal spray Administer 1 spray into affected nostril(s) daily medroxyPROGESTERone 150 mg/mL injection Inject 1 mL (150 mg total) into the muscle as instructed every 3 (three) months 1 mL 3 venlafaxine XR (EFFEXOR-XR) 75 mg 24 hr capsule Take 1 capsule (75 mg total) by mouth daily Take with food. 90 capsule 1 No current facility-administered medications for this visit. Marcin Contreras arrives to our clinic to have Injection Marcin Contreras verbalizes understanding Patient signed consent. Injection given. Marcin Contreras had no further questions or concerns to note. Instructions to call the office were given if, the patient has any problems or concerns. documented in this encounter Plan of Treatment Not on file documented as of this encounter Visit Diagnoses Diagnosis Encounter for surveillance of injectable contraceptive- Primary documented in this encounter Administered Medications Inactive Administered Medications - up to 3 most recent administrations Medication Order MAR Action Action Date Dose Rate Site medroxyPROGESTERone (DEPO-PROVERA) 150 mg/mL injection 150 mg 150 mg, intramuscular, Once, On Sun12/21/23 at 1000, For 1 dose, Shake wellIndications:Encounter for surveillance of injectable contraceptive Given 12/21/2023 9:35 AM CDT 150 mg Left Dorsogluteal/Butt ock documented in this encounter Care Teams Cement Conveyor Operator Relationship Specialty Start Date End Date Clemencia Lopez NP [address] [place] [id number] PCP - General Family Medicine 09/05/23 documented as of this encounter
--- OUTSIDE RECORDS SUMMARY | 2024-04-18 13:20 | XMS_ITS | Encounter Summary ---
Author Organization [facility] Healthcare Address [address] [place] [address] Care Team Providers Care Per Diem Clerk Name Role Phone Clemencia Lopez RIBBON HANKING MACHINE OPERATOR Primary Care Provider [phone] Reason for Referral * Diagnostic Imaging (Routine) - Closed Specialty Diagnoses / Procedures Referred By Tomas smith Referred To Contact Diagnoses Abnormal mammogram Procedures US Breast Bilateral Limited Clemencia Lopez NP [address] [place] [address] Phone: tel: fax: [address] [phone] Referral ID Status Reason Start Date Expiration Date Visits Re quested Visits Authorized [id number] Closed 11/20/2023 12/19/2024 1 1 * Diagnostic Imaging (Routine) - Closed Specialty Diagnoses / Procedures Referred By Tomas smith Referred To Contact Diagnoses Abnormal mammogram Procedures DIAGNOSTIC MAMMOGRAM BILATERAL W LAURENT Clemencia Lopez NP [address] [place] [address] Phone: tel: fax: [address] [phone] Referral ID Status Reason Start Date Expiration Date Visits Re quested Visits Authorized [id number] Closed 11/20/2023 12/19/2024 1 1 Reason for Visit * Reason Onset Date Comments Additional Services Or Orders 11/20/2023 Encounter Details Date Type Department Care Team ([facility] st Contact Info) Description 11/20/[address] 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 condition/symptom, date of COVID exposure if applicable): Abnormal Mammogram Details Regarding Additional Services (e.g. type of home health, type of equipment, type of test, etc.): Bilateral diagnostic mammogram and a bilateral ultrasound limited Where will services be performed? (if outside of the practice, facility name, address, phone/fax offacility): [facility], [place] Additional Comments: Christianne with the [facility] is requesting these orders for patient. Does message need to be routed? Yes-Action Needed documented in this encounter Plan of Treatment Not on file documented as of this encounter Results * US Breast Bilateral Limited (12/19/2023 11:27 AM CDT) Anatomical Region Laterality Modality Breast Bilateral Ultrasound 12/19/2023 11:3 2 AM CDT Narrative 12/19/2023 [...] AM - Electronically signed by ??Phuc Hicks M.D. MD: D: ??12/19/2023 11:52 AM T: ??12/19/2023 11:52 AM Report ID: [id number] Reading Location: ??MAMMMHE us Clemencia Lopez NP IMG MAMMO PROCEDURES Final Res ult * DIAGNOSTIC MAMMOGRAM BILATERAL W LAURENT (12/19/2023 [...] AM T: ??12/19/2023 11:52 AM Report ID: [id number] Reading Location: ??MAMMMHE us Clemencia Lopez NP IMG MAMMO PROCEDURES Final Res ult documented in this encounter Visit Diagnoses Diagnosis Abnormal mammogram- Primary Abnormal mammogram, unspecified Abnormal mammogram Abnormal mammogram, unspecified Abnormal mammogram Abnormal mammogram, unspecified documented in this encounter Care Teams Per Diem Clerk Relationship Specialty Start Date End Date Clemencia Lopez NP [address] [place] [phone] PCP - General Family Medicine 09/05/23 documented as of this encounter
--- OUTSIDE RECORDS SUMMARY | 2024-04-18 13:20 | XMS_ITS | Encounter Summary ---
Author Organization [facility] Healthcare Address [address] [place] [address] Care Team Providers Care Coupon Collection Clerk Name Role Phone Clemencia Lopez NP Primary Care Provider [phone] Encounter Details Date Type Department Care Team ([facility] st Contact Info) Description 02/18/2024 Letter (Out) 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
--- OUTSIDE RECORDS SUMMARY | 2024-04-18 13:20 | XMS_ITS | Encounter Summary ---
Author Organization [facility] Healthcare Address [address] [place] [address] Care Team Providers Care Dip Painter Name Role Phone Clemencia Lopez COLLAR TRIMMER Primary Care Provider [phone] Reason for Referral * Diagnostic Imaging (Routine) - Closed Specialty Diagnoses / Procedures Referred By Tomas smith Referred To Contact Diagnoses Abnormal mammogram Procedures DIAGNOSTIC MAMMOGRAM BILATERAL W Clemencia Rodarte NP [address] [place] [address] Phone: tel: fax: [address] [phone] Referral ID Status Reason Start Date Expiration Date Visits Re quested Visits Authorized [id number] Closed 11/20/2023 12/19/2024 1 1 Reason for Visit * Diagnostic Imaging (Routine) - Closed Specialty Diagnoses / Procedures Referred By Tomas smith Referred To Contact Diagnoses Abnormal mammogram Procedures DIAGNOSTIC MAMMOGRAM BILATERAL W Clemencia Rodarte NP [address] [place] [address] Phone: tel: fax: [address] [phone] Referral ID Status Reason Start Date Expiration Date Visits Re quested Visits Authorized [id number] Closed 11/20/2023 12/19/2024 1 1 Encounter Details Date Type Department Care Team (Latest Contact Info) Description 12/19/2023 10:14 AM CDT - 12/19/2023 11:59 PM CDT Hospital Encounter [facility] Medical Office Bldg [facility] [facility] [address] [place] [address] Abnormal mammogram Discharge Disposition: Discharge to home or self care Social History Tobacco Use Types Packs/Day Years [...] on file 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 Gender Identity Not on file Sexual Orientation Not on file documented as of this encounter Medications at Time of Discharge cholecalciferol (VITAMIN D-3) 2000 unit tablet 03/31/2018 medroxyPROGESTER one 150 mg/mL injection Inject 1 mL (150 mg total) into the muscle as instructed every 3 (three) months 1 mL 3 09/05/2023 atorvastatin (LIPITOR) 10 mg tablet Take 1 tablet (10 mg total) by mouth daily 90 tablet 1 10/03/2023 4 calcium carbonate (OS-LAVELL) 1,250 mg (500 mg elemental) tablet Take 500 mg by mouth daily 01/02/2023 4 calcium carbonate-vitami n D3 1,500 mg (600mg elemental) -800 unit per tablet Take 1 tablet by mouth daily 03/31/2018 4 fexofenadine (ROLDAN) 180 mg tablet Take with plenty of water.Obtain advice for OTCs.Swallow whole.Avoid grapefruit and grapefruit juice. 09/24/2022 4 fluticasone propionate (FLONASE) 50 mcg/actuation nasal spray Administer 1 spray into affected nostril(s) daily 03/13/2018 4 venlafaxine XR (EFFEXOR-XR) 75 mg 24 hr capsule Take 1 capsule (75 mg total) by mouth daily Take with food. 90 capsule 1 09/05/2023 4 documented as of this encounter Discharge Disposition Disposition Code Departure Means Destination Discharge to home or self care documented in this encounter Plan of Treatment Not on file documented as of this encounter Procedures Procedure Name Priority Date/Time Associated Diagnosis Comments DIAGNOSTIC MAMMOGRAM BILATERAL W LAURENT Schedule Routine, Read Routine (OP Routine) 12/19/2023 10:40 AM CDT Abnormal mammogram documented in this encounter Results * DIAGNOSTIC MAMMOGRAM BILATERAL W LAUERNT (12/19/2023 10:40 AM CDT) Anatomical Region Laterality [...] AM T: ??12/19/2023 11:52 AM Report ID: [id number] Reading Location: ??MAMMMHE us Clemencia Lopez NP IMG MAMMO PROCEDURES Final Res ult documented in this encounter Visit Diagnoses Diagnosis Abnormal mammogram Abnormal mammogram, unspecified documented in this encounter Care Teams Dip Painter Relationship Specialty Start Date End Date Clemencia Lopez NP [address] [place] [phone] PCP - General Family Medicine 09/05/23 documented as of this encounter
--- OUTSIDE RECORDS SUMMARY | 2024-04-18 13:20 | XMS_ITS | Encounter Summary ---
Author Organization [facility] Healthcare Address [address] [place] [address] Care Team Providers Care Commercial Truck Driver Name Role Phone Clemencia Lopez MACHINE LAY OUT WORKER Primary Care Provider [phone] Reason for Referral * Procedure (Routine) - Authorized Specialty Diagnoses / Procedures Referred By Tomas smith Referred To Contact Diagnoses SOB (shortness of breath) on exertion Procedures Pulmonary Function Test -[facility]; Full PFT in PFT Lab Clemencia Lopez NP [address] [address] Phone: tel: fax: Referral ID Status Reason Start Date Expiration Date V isits Requested Visits Authorized [id number] Authorized 04/09/2024 05/09/2025 1 1 P WINDER * Consultation (Routine) - Pending Review Specialty Diagnoses / Procedures Referred By Tomas smith Referred To Contact Endocrinology Diagnoses Thyroid nodule Clemencia Lopez NP [address] [address] Phone: tel: fax: [facility] Medical Group Diabetes and Endocrinology [address] [place] [phone] Phone: tel: fax: Referral ID Status Reason Start Date Expiration Date Visits Requested Visits Authorized [id number] Pending Review Specialty Services Required 4 05/09/2025 1 1 Question Answer Please select the performing region: [facility] [[id number]] Please select the performing department: [facility] ENDO SPECNC EDW [[id number]] # of visits: 1 P WINDER * Consultation (Routine) - Pending Review Specialty Diagnoses / Procedures Referred By Tomas t Referred To Contact Obstetrics and Gynecology Diagnoses Screening for cervical cancer Clemencia Lopez NP [address] [place] [address] Phone: tel: fax: [facility] Obstetrical Gynecology [address] [place] [phone] Phone: tel: fax: Referral ID Status Reason Start Date Expiration Date Visits Requested Visits Authorized [id number] Pending Review Specialty Services Required 4 05/09/2025 1 1 Question Answer Is patient currently ? No Please select the performing region: [facility] [[id number]] Please select the performing department: [facility] STIVEN BELLMORE [[id number]] # of visits: 1 P WINDER Reason for Visit * Reason Comments Follow-up Pt thinks she is due for labs? Anxiety Encounter Details Date Type Department Care Team (Late st Contact Info) Description 04/09/2024 9:30 AM STRIP WINDER Office Visit [facility] [address] [place] [phone] Clemencia Lopez NP [address] [place] [phone] Annual physical exam (Primary Dx); SAVANNA (generalized anxiety disorder); Other hyperlipidemia; Thyroid nodule; SOB (shortness of breath) on exertion; Screening for cervical cancer Social History Tobacco Use Types Packs/Day Years [...] on file Legal Sex Female 12:17 PM STRIP WINDER Gender Identity Not on file Sexual Orientation Not on file documented as of this encounter Last Filed Vital Signs Vital Sign Reading Time Taken Comments Blood Pressure 118/74 04/09/2024 8:58 AM STRIP WINDER Pulse 77 04/09/2024 8:58 AM STRIP WINDER Temperature 36.6 ??C (97.9 ??F) 04/09/2024 8:58 AM CS T Respiratory Rate 20 04/09/2024 8:58 AM STRIP WINDER Oxygen Saturation 97% 04/09/2024 8:58 AM STRIP WINDER Inhaled Oxygen Concentration - - Weight 76.4 kg (168 lb 8 oz) 04/09/2024 8:58 AM STRIP WINDER Height 162.6 cm (5' 4.02 ) 04/09/2024 8:58 AM CS T Body Mass Index 28.91 04/09/2024 8:58 AM STRIP WINDER documented in this encounter Ordered Prescriptions Prescription Sig Dispense Quantity Refills Last Filled Start Date End Date fexofenadine (ROLDAN) 180 mg tablet Take 1 tablet (180 mg total) by mouth daily 90 tablet 1 04/09/2024 fluticasone propionate (FLONASE) 50 mcg/actuation nasal spray Administer 1 spray into each nostril daily 1 each 6 04/09/2024 documented in this encounter Progress Notes * Clemencia Lopez, MACHINE LAY OUT WORKER - 04/09/2024 9:30 AM CST Subjective/Objective Patient ID: Marcin Contreras is a 53 y.o. female. Chief Complaint Follow-up (Pt thinks she is due for labs?) and Anxiety HPI Marcin Contreras is a 53 y.o. year old female who presents for annual physical exam. Patient has history of thyroid nodules, currently following with Dr. Farias almond sorter, she is requesting a new almond sorter closer to her home. Patient has been experiencing heart palpations and SOBwith activity for the past year. She is currently following with [facility], was started onmetoprolol for the palpations but has not noticed an improvement with medication. Cardiology has ruled out cardiac cause for her SOB and instructed her to follow up with pulmonology. Patient reports her SOB occurs with mild activity, walking or when climbing stairs. She denies any history of asthmaand has never been a smoker. Past Medical History: Diagnosis Date Allergic rhinitis Anxiety Goiter, non-toxic IBS (irritable bowel syndrome) Thyroid nodule Past Surgical History: Procedure Laterality Date CYSTECTOMY KNEE ARTHROSCOPY SEPTOPLASTY No Known Allergies Family History Problem Relation Age of Onset Colon cancer Father Prostate cancer Father Bladder Cancer Father Social History Tobacco Use Smoking status: Never Smokeless tobacco: Never Substance and Sexual Activity Drug use: Never Sexual activity: Yes Partners: Male control/protection: Injection Alcohol Use: Unknown (09/05/2023) AUDIT-C Frequency of Alcohol Consumption: Monthly or less Average Number of Drinks: Not on file Frequency of Binge Drinking: Not on file Current Outpatient Medications: calcium carbonate (Oyster Shell Calcium) 1,250 mg (500 mg elemental) tablet, , Disp: , Rfl: atorvastatin (LIPITOR) 10 mg tablet, Take 1 tablet (10 mg total) by mouth daily, Disp: 90 tablet, Rfl: 1 cholecalciferol (VITAMIN D-3) 2000 unit tablet, , Disp: , Rfl: fexofenadine (ROLDAN) 180 mg tablet, Take 1 tablet (180 mg total) by mouth daily, Disp: 90 tablet,Rfl: 1 fluticasone propionate (FLONASE) 50 mcg/actuation nasal spray, Administer 1 spray into each nostrildaily, Disp: 1 each, Rfl: 6 medroxyPROGESTERone 150 mg/mL injection, Inject 1 mL (150 mg total) into the muscle as instructed every 3 (three) months, Disp: 1 mL, Rfl: 3 metoprolol tartrate (LOPRESSOR) 25 mg immediate release tablet, Take 0.5 tablets (12.5 mg total) bymouth 2 (two) times a day, Disp: , Rfl: venlafaxine XR (EFFEXOR-XR) 75 mg 24 hr capsule, Take 1 capsule (75 mg total) by mouth daily Take with food., Disp: 90 capsule, Rfl: 1 Review of Systems Constitutional: Positive for fatigue. Negative for chills and fever. HENT: Negative for sore throat, trouble swallowing and voice change. Eyes: Negative for pain and visual disturbance. Respiratory: Positive for chest tightness and shortness of breath. Negative for apnea, cough and wheezing. Cardiovascular: Positive for palpitations. Negative for leg swelling. Gastrointestinal: Negative for abdominal pain, constipation, diarrhea, nausea and vomiting. Endocrine: Negative for cold intolerance and heat intolerance. Musculoskeletal: Negative for arthralgias, gait problem and myalgias. Neurological: Negative for dizziness, syncope, speech difficulty, weakness, light-headedness, numbness and headaches. BP 118/74 (BP Location: Left arm, Patient Position: Sitting) Pulse 77 Temp 36.6 ??C (97.9 ??F) (Temporal) Resp 20 Ht 162.6 cm (5' 4.02 ) Wt 76.4 kg (168 lb 8 oz) SpO2 97% BMI 28.91 kg/m?? Physical Exam Constitutional: Appearance: Normal appearance. HENT: Head: Normocephalic. Right Ear: Tympanic membrane, ear canal and external ear normal. Left Ear: Tympanic membrane, ear canal and external ear normal. Nose: Nose normal. No congestion. Mouth/Throat: Mouth: Mucous membranes are moist. Pharynx: Oropharynx is clear. No oropharyngeal exudate or posterior oropharyngeal erythema. Eyes: Extraocular Movements: Extraocular movements intact. Conjunctiva/sclera: Conjunctivae normal. Pupils: Pupils are equal, round, and reactive to light. Neck: Thyroid: No thyromegaly or thyroid tenderness. Vascular: No carotid bruit. Trachea: Trachea normal. Cardiovascular: Rate and Rhythm: Normal rate and regular rhythm. Pulses: Normal pulses. Heart sounds: Normal heart sounds, S1 normal and S2 normal. No murmur heard. Pulmonary: Effort: Pulmonary effort is normal. Breath sounds: Normal breath sounds. No wheezing, rhonchi or rales. Abdominal: General: Abdomen is flat. Bowel sounds are normal. Palpations: Abdomen is soft. Tenderness: There is no abdominal tenderness. There is no guarding. Musculoskeletal: General: Normal range of motion. Cervical back: Normal range of motion and neck supple. Right lower leg: No edema. Left lower leg: No edema. Lymphadenopathy: Cervical: No cervical adenopathy. Right cervical: No superficial, deep or posterior cervical adenopathy. Left cervical: No superficial, deep or posterior cervical adenopathy. Skin: General: Skin is warm and dry. Findings: No erythema. Neurological: General: No focal deficit present. Mental Status: She is alert and oriented to person, place, and time. Motor: No weakness. Gait: Gait normal. Psychiatric: Attention and Perception: Attention normal. Mood and Affect: Mood normal. Speech: Speech normal. Behavior: Behavior normal. Thought Content: Thought content normal. Assessment/Plan Diagnoses and all orders for this visit: Annual physical exam (Primary) Assessment & Plan: CBC, CMP, lipid panel ordered. Mammogram last completed: 10/2023 Patient referred to [facility] for repeat Pap. Colonoscopy last completed: 09/2023 Vaccinations: Due for Shingrix vaccine. Flu and Tdap vaccines UTD. Repeat wellness exam in one year. Orders: - Lipid panel; Future - Comprehensive metabolic panel; Future - CBC with auto differential; Future SAVANNA (generalized anxiety disorder) Assessment & Plan: Chronic, controlled. Patient to continue on venlafaxine 75 mg daily. Follow up in 6 months. Other hyperlipidemia Assessment & Plan: Chronic, lipid panel to be redrawn. Patient to continue on atorvastatin 10 mg daily and low fat diet. Follow up in 6 months. Lab Results Component Value Date CHOL 180 09/06/2023 Lab Results Component Value Date HDL 35 (L) 09/06/2023 Lab Results Component Value Date LDLCALC 104 09/06/2023 Lab Results Component Value Date TRIG 203 (H) 09/06/2023 Orders: - Lipid panel; Future - Comprehensive metabolic panel; Future - CBC with auto differential; Future Thyroid nodule Assessment & Plan: Chronic, patient to have TSH, T4, T3, and thyroid antibodies drawn. Patient referred to Dr. Teague almond sorter for follow up. Orders: - Ambulatory referral to Endocrinology; Future - TSH; Future - T4, free; Future - T3, free; Future - Thyroid peroxidase antibody (TPO); Future SOB (shortness of breath) on exertion Comments: PFT ordered. Patient to be contacted once test results are obtained. Orders: - Pulmonary Function Test -[facility]; Full PFT in PFT Lab; Future Screening for cervical cancer - Ambulatory referral to Obstetrics / Gynecology; Future Other orders - fluticasone propionate (FLONASE) 50 mcg/actuation nasal spray; Administer 1 spray into each nostril daily - fexofenadine (ROLDAN) 180 mg tablet; Take 1 tablet (180 mg total) by mouth daily Body mass index is 28.91 kg/m??. Orders Placed This Encounter TSH Standing Status: Future Number of Occurrences: 1 Standing Expiration Date: 04/09/2025 T4, free Standing Status: Future Number of Occurrences: 1 Standing Expiration Date: 04/09/2025 T3, free Standing Status: Future Number of Occurrences: 1 Standing Expiration Date: 04/09/2025 Thyroid peroxidase antibody (TPO) Standing Status: Future Number of Occurrences: 1 Standing Expiration Date: 04/09/2025 Lipid panel Standing Status: Future Number of Occurrences: 1 Standing Expiration Date: 04/09/2025 Comprehensive metabolic panel Standing Status: Future Number of Occurrences: 1 Standing Expiration Date: 04/09/2025 CBC with auto differential Standing Status: Future Number of Occurrences: 1 Standing Expiration Date: 04/09/2025 Ambulatory referral to Obstetrics / Gynecology Standing Status: Future Standing Expiration Date: 04/09/2025 Referral Priority: Routine Referral Type: Consultation Referral Reason: Specialty Services Required Referral Location: [facility] Medical Group Requested Specialty: Obstetrics and Gynecology Number of Visits Requested: 1 Ambulatory referral to Endocrinology Standing Status: Future Standing Expiration Date: 04/09/2025 Referral Priority: Routine Referral Type: Consultation Referral Reason: Specialty Services Required Referral Location: [facility] Medical Group Requested Specialty: Endocrinology Number of Visits Requested: 1 Pulmonary Function Test -[facility]; Full PFT in PFT Lab Standing Status: Future Standing Expiration Date: 04/09/2025 Order Specific Question: PFT performed at: Answer: [facility] Order Specific Question: Procedure: Answer: Full PFT in PFT Lab fluticasone propionate (FLONASE) 50 mcg/actuation nasal spray Sig: Administer 1 spray into each nostril daily Dispense: 1 each Refill: 6 fexofenadine (ROLDAN) 180 mg tablet Sig: Take 1 tablet (180 mg total) by mouth daily Dispense: 90 tablet Refill: 1 Cosigned by Narinder Dexter DO at 04/09/2024 3:12 PM STRIP WINDER P WINDER P WINDER documented in this encounter Miscellaneous Notes * Assessment & Plan Note - Clemencia Lopez NP - 04/09/2024 10:00 AM STRIP WINDER Associated Problem(s): Annual physical exam CBC, CMP, lipid panel ordered. Mammogram last completed: 10/2023 Patient referred to [facility] for repeat Pap. Colonoscopy last completed: 09/2023 Vaccinations: Due for Shingrix vaccine. Flu and Tdap vaccines UTD. Repeat wellness exam in one year. P WINDER * Assessment & Plan Note - Clemencia Lopez NP - 04/09/2024 9:57 AM STRIP WINDER Associated Problem(s): SAVANNA (generalized anxiety disorder) Chronic, controlled. Patient to continue on venlafaxine 75 mg daily. Follow up in 6 months. P WINDER * Assessment & Plan Note - Clemencia Lopez NP - 04/09/2024 9:57 AM STRIP WINDER Associated Problem(s): Other hyperlipidemia Chronic, lipid panel to be redrawn. Patient to continue on atorvastatin 10 mg daily and low fat diet. Follow up in 6 months. Lab Results Component Value Date CHOL 180 09/06/2023 Lab Results Component Value Date HDL 35 (L) 09/06/2023 Lab Results Component Value Date LDLCALC 104 09/06/2023 Lab Results Component Value Date TRIG 203 (H) 09/06/2023 P WINDER * Assessment & Plan Note - Clemencia Lopez NP - 04/09/2024 9:57 AM STRIP WINDER Associated Problem(s): Thyroid nodule Chronic, patient to have TSH, T4, T3, and thyroid antibodies drawn. Patient referred to Dr. Teague almond sorter for follow up. P WINDER documented in this encounter Plan of Treatment Scheduled Orders Name Type Priority Associated Diagnoses Orde r Schedule Pulmonary Function Test -[facility]; Full PFT in PFT Lab PFT Routine SOB (shortness of breath) on exertion 1 Occurrences starting 04/09/2024 until 04/09/2025 Scheduled Referrals Name Type Priority Associated Diagnoses Order Schedule Ambulatory referral to Obstetrics / Gynecology Outpatient Referral Routine Screening for cervical cancer Expected: 04/23/2024 (Approximate), Expires: 04/09/2025 Ambulatory referral to Endocrinology Outpatient Referral Routine Thyroid nodule Expected: 04/23/2024 (Approximate), Expires: 04/09/2025 documented as of this encounter Results * CBC with auto differential (04/09/2024 9:55 AM STRIP WINDER) WBC 8.1 3.8 - 9.9 K/cumm Comment:Testing performed by : [address] [address] Hgb 14.9 11.9 - 15.5 g/dL POONAM Comment:Testing performed by : [address] [address] Hct 44.6 35.6 - 45.5 % POONAM Comment:Testing performed by : [address] [address] Plt 375 150 - 400 K/cumm POONAM Comment:Testing performed by : [address] [address] MPV 9.6 9.1 - 12.3 fL [facility]AM Comment:Testing performed by : [address] [address] RBC 4.84 3.90 - 5.20 M/cumm POONAM Comment:Testing performed by : [address] [address] MCV 92.1 81.3 - 96.4 fL POONAM Comment:Testing performed by : [address] [address] MCH 30.8 27.1 - 33.3 pg PO[facility]AM BEAVERS Comment:Testing performed by : [address] [address] MCHC 33.4 32.3 - 35.7 g/dL PO[facility] BEAVERS Comment:Testing performed by : [address] [address] RDW CV 13.0 11.1 - 14.9 % [facility]ERS Comment:Testing performed by : [address] [address] RDW SD 44.1 35.7 - 48.1 fL [facility]ERS Comment:Testing performed by : [address] [address] NRBC abs 0.00 0.00 - 0.01 K/cumm [facility]ERS Comment:Testing performed by : [address] [address] Blood 04/09/2024 9:55 AM STRIP WINDER 04/09/2024 10:38 AM STRIP WINDER Clemencia Lopez MACHINE LAY OUT WORKER LAB BLOOD ORDERABLES Final Res ult POONAM [facility] Department of Laboratories [place], [place] [id number] * Comprehensive metabolic panel (04/09/2024 9:55 AM STRIP WINDER) Sodium 144 135 - 145 mmol/L Comment:Testing performed by : [address] [address] Potassium, pl 4.2 3.3 - 4.9 mmol/L [facility]ERS Comment:Testing performed by : [address] [address] Chloride 108 97 - 110 mmol/L PO[facility]ERS Comment:Testing performed by : [address] [address] CO2 24 22 - 32 mmol/L PO[facility] Comment:Testing performed by : [address] [address] Anion gap 12 2 - 15 mmol/L PO[facility]ERS Comment:Testing performed by : [address] [address] BUN 17 6 - 25 mg/dL [facility] Comment:Testing performed by : [address] [address] Creatinine 0.60 0.60 - 1.10 mg/dL POONAM Comment:Testing performed by : [address] [address] Glucose 105 70 - 199 mg/dL [facility] Comment: Interpretive Data Fasting glucose >/= 126 [...] was last revised 2022. Testing performed by: [address] [address] Calcium 9.8 8.5 - 10.3 mg/dL [facility] Comment:Testing performed by : [address] [address] Bilirubin, total 0.4 0.1 - 1.2 mg/dL [facility] Comment:Testing performed by : [address] [address] Protein, pl 7.9 6.5 - 8.5 g/dL [facility] Comment:Testing performed by : [address] [address] Albumin 4.6 3.5 - 5.0 g/dL [facility] Comment:Testing performed by : [address] [address] Alk phos 71 40 - 130 Units/L [facility] Comment:Testing performed by : [address] [address] ALT 20 7 - 45 Units/L [facility] Comment:Testing performed by : [address] [address] AST 21 10 - 45 Units/L [facility] Comment:Testing performed by : [facility], [address] [place] [address]., [address] Blood 04/09/2024 9:55 AM STRIP WINDER 04/09/2024 10:40 AM STRIP WINDER us Clemencia Lopez MACHINE LAY OUT WORKER LAB BLOOD ORDERABLES Final Res ult POONAM [address] [facility] Department [place] [address] * (ABNORMAL) Lipid panel (04/09/2024 9:55 AM STRIP WINDER) Cholesterol 215(H) 30 - 199 mg/dL Comment: [...] last revised on 2017. Testing performed by: [facility], [address] [place] [address]., [address] Triglycerides 116 <=149 mg/dL POONAM Comment: Interpretive Data Ages < [...] last revised on 2017. Testing performed by: [address] [address] HDL 46 >=40 mg/dL POONAM Comment: Interpretive [...] last revised on 2017. Testing performed by: [address] [address] LDL, calculated 148(H) <=129 mg/dL POONAM Comment: [...] NCEP Expert Panel. Circulation 2004;110:227 3. Asael Wilson et al. VERONA Cardiol. 2019August 28;5(5):540-548. doi: 10.1001/jamacardio.2020.0013 Current Interpretive Data was last revised on 2023. Testing performed by: [address] [address] Non-HDL Cholesterol 169 mg/dL [facility]ERS Comment: [...] last revised on 2017. Testing performed by: [address] [address] Chol/HDL ratio 5 [facility] Comment:Testing performed by : [address] [address] Blood 04/09/2024 9:55 AM STRIP WINDER 04/09/2024 10:40 AM STRIP WINDER us Clemencia Lopez NP LAB BLOOD ORDERABLES Final Res ult PO[facility]AM [facility]ERS [address] [facility] Department [place] [address] * Thyroid peroxidase antibody (TPO) (04/09/2024 9:55 AM STRIP WINDER) Anti Thyroid Peroxidase <30 <=34 IUnits/mL Comment: ATPO Interpretive Data Results may be up to 28% higher in patients receiving Itraconazole. Current interpretive data was last revised 2020. Testing performed by: [facility], [address] [place]., [address] Blood 04/09/2024 9:55 AM STRIP WINDER 04/09/2024 1:29 PM STRIP WINDER Clemencia Lopez MACHINE LAY OUT WORKER LAB BLOOD ORDERABLES Final Res ult [facility] [email or web address] [place] [address] * T3, free (04/09/2024 9:55 AM STRIP WINDER) Free T3 3.0 2.0 - 4.4 pg/mL Blood 04/09/2024 9:55 AM STRIP WINDER 04/09/2024 12:34 PM STRIP WINDER Clemencia Lopez MACHINE LAY OUT WORKER LAB BLOOD ORDERABLES Final Res ult Performing Organization Address City/[facility]/ZIP Co de Phone Number PAT[address] [email or web address] [place] [address] * T4, free (04/09/2024 9:55 AM STRIP WINDER) Free T4 1.08 0.90 - 1.70 ng/dL Comment:Testing performed by : [facility], [address] [place] [address]., [address] Blood 04/09/2024 9:55 AM STRIP WINDER 04/09/2024 10:40 AM STRIP WINDER us Clemencia Lopez MACHINE LAY OUT WORKER LAB BLOOD ORDERABLES Final Res ult [address] [place] [address] * TSH (04/09/2024 9:55 AM STRIP WINDER) Thyroid Stimulating Hormone 0.75 0.30 - 4.20 mcIUnit/mL Comment:Testing performed by : [facility], [address] [place] [address], [place]., [address] Blood 04/09/2024 9:55 AM STRIP WINDER 04/09/2024 10:40 AM STRIP WINDER Clemencia Lopez NP LAB BLOOD ORDERABLES Final Res ult POONAM [address] [facility] Department [place] [address] documented in this encounter Visit Diagnoses Diagnosis Annual physical exam- Primary Routine general medical examination at a health care facility SAVANNA (generalized anxiety disorder) Generalized anxiety disorder Other hyperlipidemia Thyroid nodule Nontoxic uninodular goiter SOB (shortness of breath) on exertion Shortness of breath Screening for cervical cancer Screening for malignant neoplasm of the cervix documented in this encounter Discontinued Medications Medication Sig Discontinue Reason Start Date End Da te calcium carbonate-vitamin D3 1,500 mg (600mg elemental) -800 unit per tablet Take 1 tablet by mouth daily Other 03/31/2018 04/09/2024 fluticasone propionate (FLONASE) 50 mcg/actuation nasal spray Administer 1 spray into affected nostril(s) daily Reorder 03/13/2018 04/09/2024 fexofenadine (ROLDAN) 180 mg tablet Take with plenty of water.Obtain advice for OTCs.Swallow whole.Avoid grapefruit and grapefruit juice. Reorder 09/24/2022 04/09/2024 calcium carbonate (OS-LAVELL) 1,250 mg (500 mg elemental) tablet Take 0.5 tablets (625 mg total) by mouth daily Other 01/04/2024 04/09/2024 documented as of this encounter Historical Medications * This list may reflect changes made after this encounter. metoprolol tartrate (LOPRESSOR) 25 mg immediate release tablet Take 0.5 tablets (12.5 mg total) by mouth 2 (two) times a day calcium carbonate (Oyster Shell Calcium) 1,250 mg (500 mg elemental) tablet 01/10/2024 added in this encounter Care Teams Commercial Truck Driver Relationship Specialty Start Date End Date Clemencia Lopez, MACHINE LAY OUT WORKER [address] [place] [id number] PCP - General Family Medicine 09/05/23 documented as of this encounter
--- OUTSIDE RECORDS SUMMARY | 2024-04-18 13:20 | XMS_ITS | Encounter Summary ---
Author Organization [facility] Healthcare Address [address] [place] [address] Care Team Providers Care Director Workers Compensation Name Role Phone Clemencia Lopez NP Primary Care Provider [phone] Encounter Details Date Type Department Care Team (Late st Contact Info) Description 04/09/2024 10:00 AM ASSISTANT PROFESSOR OF ARCHAEOLOGY Lab [place] [facility] [address] [address] Annual physical exam; Other hyperlipidemia; Thyroid nodule Social History Tobacco Use Types [...] on file Legal Sex Female 12:17 PM ASSISTANT PROFESSOR OF ARCHAEOLOGY Gender Identity Not on file Sexual Orientation Not on file documented as of this encounter Miscellaneous Notes * Result Encounter Note - Clemencia Lopez, VIDEO LIBRARY ASSISTANT - 04/11/2024 9:07 AM CST Please call patient her cholesterol has increased since last drawn. Please confirm she is taking atorvastatin 10 mg daily. If she is taking the medication I will send a new prescription for 20 mg daily. She is to continue following a low fat diet. All other blood work is stable. STANT PROFESSOR OF ARCHAEOLOGY documented in this encounter Plan of Treatment Not on file documented as of this encounter Procedures Procedure Name Priority Date/Time Associated Diagnosis Comments EGFR Routine 04/09/2024 9:55 AM ASSISTANT PROFESSOR OF ARCHAEOLOGY Annual physical exam Other hyperlipidemia DIFFERENTIAL AUTO Routine 04/09/2024 9:5 5 AM ASSISTANT PROFESSOR OF ARCHAEOLOGY Annual physical exam Other hyperlipidemia CBC WITH AUTO DIFFERENTIAL Routine 04/09/2024 9:55 AM ASSISTANT PROFESSOR OF ARCHAEOLOGY Annual physical exam Other hyperlipidemia THYROID PEROXIDASE ANTIBODY Routine 04/09/2024 9:55 AM ASSISTANT PROFESSOR OF ARCHAEOLOGY Thyroid nodule T3, FREE Routine 04/09/2024 9:55 AM ASSISTANT PROFESSOR OF ARCHAEOLOGY Thyroid nodule TSH Routine 04/09/2024 9:55 AM ASSISTANT PROFESSOR OF ARCHAEOLOGY Thyroid nodule T4, FREE Routine 04/09/2024 9:55 AM ASSISTANT PROFESSOR OF ARCHAEOLOGY Thyroid nodule LIPID PANEL Routine 04/09/2024 9:55 AM ASSISTANT PROFESSOR OF ARCHAEOLOGY Annual physical exam Other hyperlipidemia COMPREHENSIVE METABOLIC PANEL Routine 04/09/2024 9:55 AM ASSISTANT PROFESSOR OF ARCHAEOLOGY Annual physical exam Other hyperlipidemia documented in this encounter Results * eGFR (04/09/2024 9:55 AM ASSISTANT PROFESSOR OF ARCHAEOLOGY) eGFR >90 >=60 mL/min/1. 73 m2 Comment: [...] was last reviewed 2021. Testing performed by: [address] [address] Blood 04/09/2024 9:55 AM ASSISTANT PROFESSOR OF ARCHAEOLOGY 04/09/2024 10:40 AM ASSISTANT PROFESSOR OF ARCHAEOLOGY us Clemencia Lopez NP LAB BLOOD ORDERABLES Final Res ult [facility] [address] [facility] Department [place] [address] * Differential, auto (04/09/2024 9:55 AM ASSISTANT PROFESSOR OF ARCHAEOLOGY) Neutrophil abs 4.6 1.5 - 6.5 K/cumm Comment:Testing performed by : [address] [address] Imm gran abs 0.0 0.0 - 0.1 K/cumm [facility] Comment:Testing performed by : [address] [address] Lymphocyte abs 2.9 0.8 - 3.3 K/cumm PO[facility] Comment:Testing performed by : [address] [address] Monocyte abs 0.5 0.2 - 0.8 K/cumm PO[facility] Comment:Testing performed by : [address] [address] Eosinophil abs 0.1 0.0 - 0.5 K/cumm [facility] Comment:Testing performed by : [address] [address] Basophil abs 0.0 0.0 - 0.1 K/cumm [facility] Comment:Testing performed by : [address] [address] Neutrophil pct 56.5 % [facility] Comment: Interpretive Data Percent cell count reference ranges are not reported, since discordance with absolute values may lead to misinterpretation of CBC data. Current Interpretive Data was last revised on 2017. Testing performed by: [address] [address] Imm gran pct 0.2 % [facility] Comment: Interpretive Data Percent cell count reference ranges are not reported, since discordance with absolute values may lead to misinterpretation of CBC data. Current Interpretive Data was last revised on 2017. Testing performed by: [address] [address] Lymphocyte pct 36.1 % [facility] Comment: Interpretive Data Percent cell count reference ranges are not reported, since discordance with absolute values may lead to misinterpretation of CBC data. Current Interpretive Data was last revised on 2017. Testing performed by: [address] [address] Monocyte pct 6.0 % [facility] Comment: Interpretive Data Percent cell count reference ranges are not reported, since discordance with absolute values may lead to misinterpretation of CBC data. Current Interpretive Data was last revised on 2017. Testing performed by: [address] [address] Eosinophil pct 1.0 % [facility] Comment: Interpretive Data Percent cell count reference ranges are not reported, since discordance with absolute values may lead to misinterpretation of CBC data. Current Interpretive Data was last revised on 2017. Testing performed by: [address] [address] Basophil pct 0.2 % [facility] Comment: Interpretive Data Percent cell count reference ranges are not reported, since discordance with absolute values may lead to misinterpretation of CBC data. Current Interpretive Data was last revised on 2017. Testing performed by: [address] [address] Blood 04/09/2024 9:55 AM ASSISTANT PROFESSOR OF ARCHAEOLOGY 04/09/2024 10:38 AM ASSISTANT PROFESSOR OF ARCHAEOLOGY Clemencia Lopez VIDEO LIBRARY ASSISTANT LAB BLOOD ORDERABLES Final Res ult Performing Organization Address City/[facility]/ZIP Co de Phone Number POONAM [address] [place] [address] * TSH (04/09/2024 9:55 AM ASSISTANT PROFESSOR OF ARCHAEOLOGY) Thyroid Stimulating Hormone 0.75 0.30 - 4.20 mcIUnit/mL Comment:Testing performed by : [address] [address] Blood 04/09/2024 9:55 AM ASSISTANT PROFESSOR OF ARCHAEOLOGY 04/09/2024 10:40 AM ASSISTANT PROFESSOR OF ARCHAEOLOGY us Clemencia Lopez VIDEO LIBRARY ASSISTANT LAB BLOOD ORDERABLES Final Res ult Performing Organization Address [facility] Co de Phone Number [address] [place] [address] * T4, free (04/09/2024 9:55 AM ASSISTANT PROFESSOR OF ARCHAEOLOGY) Free T4 1.08 0.90 - 1.70 ng/dL Comment:Testing performed by : [address] [address] Blood 04/09/2024 9:55 AM ASSISTANT PROFESSOR OF ARCHAEOLOGY 04/09/2024 10:40 AM ASSISTANT PROFESSOR OF ARCHAEOLOGY us Clemencia Lopez VIDEO LIBRARY ASSISTANT LAB BLOOD ORDERABLES Final Res ult Performing Organization Address City/[facility]/ZIP Co de Phone Number [address] [place] [address] * T3, free (04/09/2024 9:55 AM ASSISTANT PROFESSOR OF ARCHAEOLOGY) Free T3 3.0 2.0 - 4.4 pg/mL Blood 04/09/2024 9:55 AM ASSISTANT PROFESSOR OF ARCHAEOLOGY 04/09/2024 12:34 PM ASSISTANT PROFESSOR OF ARCHAEOLOGY Clemencia Lopez VIDEO LIBRARY ASSISTANT LAB BLOOD ORDERABLES Final Res ult Performing Organization Address [facility] de Phone Number POONAM [address] [address] * Thyroid peroxidase antibody (TPO) (04/09/2024 9:55 AM ASSISTANT PROFESSOR OF ARCHAEOLOGY) Anti Thyroid Peroxidase <30 <=34 IUnits/mL Comment: ATPO Interpretive Data Results may be up to 28% higher in patients receiving Itraconazole. Current interpretive data was last revised 2020. Testing performed by: [facility], [address] [place]., [address] Blood 04/09/2024 9:55 AM ASSISTANT PROFESSOR OF ARCHAEOLOGY 04/09/2024 1:29 PM ASSISTANT PROFESSOR OF ARCHAEOLOGY Clemencia Lopez VIDEO LIBRARY ASSISTANT LAB BLOOD ORDERABLES Final Res ult Performing Organization Address [facility] de Phone Number [address] [address] * (ABNORMAL) Lipid panel (04/09/2024 9:55 AM ASSISTANT PROFESSOR OF ARCHAEOLOGY) Cholesterol 215(H) 30 - 199 mg/dL Comment: [...] last revised on 2017. Testing performed by: [address] [address] Triglycerides 116 <=149 mg/dL POON[facility] Comment: Interpretive [...] last revised on 2017. Testing performed by: [address] [address] HDL 46 >=40 mg/dL PO[facility] Comment: Interpretive [...] last revised on 2017. Testing performed by: [facility], [address] [place] [address]., [address] LDL, calculated 148(H) <=129 mg/dL [facility]ERS Comment: Interpretive Data Ages < or = 19 years ??Acceptable: ? <110 mg/dL ??Borderline high: ??110-129 mg/dL ??High: ?>or= 130 mg/dL Ages > or = 20 years ??Optimal: ? <100 mg/dL ??Near optimal: ?100-129 mg/dL ??Borderline high: ?? 130-159 mg/dL ??High: ?>160 mg/dL Calculated using the Asael LDL-C estimating equation. This equation was implemented on 2023. Prior to this date LDL-C was estimated using the Friedewald equation. Literature References: 1. Expert Panel on Integrated Guidelines for Cardiovascular Health and Risk Reduction in Children and Adolescents. Pediatrics 2011;128:S213 2. NCEP Expert Panel. Circulation 2004;110:227 3. Asael Wilson et al. VERONA Cardiol. 2020 August 28;5(5):540-548. doi: 10.1001/jamacardio.2020.0013 Current Interpretive Data was last revised on 2023. Testing performed by: [facility], [address] [place] [address]., [address] Non-HDL Cholesterol 169 mg/dL [facility] BEAVERS Comment: [...] last revised on 2017. Testing performed by: [address] [address] Chol/HDL ratio 5 [facility] Comment:Testing performed by : [address] [address] Blood 04/09/2024 9:55 AM ASSISTANT PROFESSOR OF ARCHAEOLOGY 04/09/2024 10:40 AM ASSISTANT PROFESSOR OF ARCHAEOLOGY us Clemencia Lopez VIDEO LIBRARY ASSISTANT LAB BLOOD ORDERABLES Final Res ult [facility] [address] [facility] Department [place] [address] * Comprehensive metabolic panel (04/09/2024 9:55 AM ASSISTANT PROFESSOR OF ARCHAEOLOGY) Sodium 144 135 - 145 mmol/L Comment:Testing performed by : [address] [address] Potassium, pl 4.2 3.3 - 4.9 mmol/L POONAM Comment:Testing performed by : [address] [address] Chloride 108 97 - 110 mmol/L POONAM Comment:Testing performed by : [address] [address] CO2 24 22 - 32 mmol/L POONAM Comment:Testing performed by : [address] [address] Anion gap 12 2 - 15 mmol/L POONAM Comment:Testing performed by : [address] [address] BUN 17 6 - 25 mg/dL POONAM Comment:Testing performed by : [address] [address] Creatinine 0.60 0.60 - 1.10 mg/dL PO[facility] Comment:Testing performed by : [address] [address] Glucose 105 70 - 199 mg/dL POON[facility] Comment: Interpretive Data Fasting glucose >/= 126 [...] classification and Diagnosis of Diabetes Diabetes Care 2021; 46: S19-S40. Current interpretive data was last revised 2022. Testing performed by: [address] [address] Calcium 9.8 8.5 - 10.3 mg/dL PO[facility] Comment:Testing performed by : [address] [address] Bilirubin, total 0.4 0.1 - 1.2 mg/dL PO[facility] Comment:Testing performed by : [address] [address] Protein, pl 7.9 6.5 - 8.5 g/dL PO[facility] Comment:Testing performed by : [address] [address] Albumin 4.6 3.5 - 5.0 g/dL POON[facility] Comment:Testing performed by : [address] [address] Alk phos 71 40 - 130 Units/L PO[facility] Comment:Testing performed by : [address] [address] ALT 20 7 - 45 Units/L PO[facility] Comment:Testing performed by : [address] [address] AST 21 10 - 45 Units/L PO[facility] Comment:Testing performed by : [address] [address] Blood 04/09/2024 9:55 AM ASSISTANT PROFESSOR OF ARCHAEOLOGY 04/09/2024 10:40 AM ASSISTANT PROFESSOR OF ARCHAEOLOGY us Clemencia Lopez NP LAB BLOOD ORDERABLES Final Res ult [facility] [address] [facility] Department [place] [address] * CBC with auto differential (04/09/2024 9:55 AM ASSISTANT PROFESSOR OF ARCHAEOLOGY) [facility] WBC 8.1 3.8 - 9.9 K/cumm Comment:Testing performed by : [address] [address] Hgb 14.9 11.9 - 15.5 g/dL POON[facility] Comment:Testing performed by : [address] [address] Hct 44.6 35.6 - 45.5 % PO[facility] Comment:Testing performed by : [address] [address] Plt 375 150 - 400 K/cumm PO[facility] Comment:Testing performed by : [address], [address] MPV 9.6 9.1 - 12.3 fL [facility] Comment:Testing performed by : [address] [address] RBC 4.84 3.90 - 5.20 M/cumm PO[facility] Comment:Testing performed by : [address] [address] MCV 92.1 81.3 - 96.4 fL [facility] Comment:Testing performed by : [address] [address] MCH 30.8 27.1 - 33.3 pg [facility] Comment:Testing performed by : [address] [address] MCHC 33.4 32.3 - 35.7 g/dL PO[facility] Comment:Testing performed by : [address], [address] RDW CV 13.0 11.1 - 14.9 % PO[facility] Comment:Testing performed by : [address] [address] RDW SD 44.1 35.7 - 48.1 fL [facility] Comment:Testing performed by : [address] [address] NRBC abs 0.00 0.00 - 0.01 K/cumm [facility] Comment:Testing performed by : [facility], [address] [facility], [place]., [address] Blood 04/09/2024 9:55 AM ASSISTANT PROFESSOR OF ARCHAEOLOGY 04/09/2024 10:38 AM ASSISTANT PROFESSOR OF ARCHAEOLOGY us Clemencia Lopez VIDEO LIBRARY ASSISTANT LAB BLOOD ORDERABLES Final Res ult Performing Organization Address City/State/[facility] Co de Phone Number POON[facility] [address] [facility] Department [place] [address] documented in this encounter Visit Diagnoses Diagnosis Annual physical exam Routine general medical examination at a health care facility Other hyperlipidemia Thyroid nodule Nontoxic uninodular goiter documented in this encounter Care Teams Director Workers Compensation Relationship Specialty Start Date End Date Clemencia Lopez, VIDEO LIBRARY ASSISTANT [address] [place] [address] PCP - General Family Medicine 09/05/23 documented as of this encounter
--- OUTSIDE RECORDS SUMMARY | 2024-04-18 13:20 | XMS_ITS | Encounter Summary ---
Author Organization [facility] Address [address] [place] [address] Care Team Providers Care Water Operator Name Role Phone Clemencia Lopez IT SUPPORT TECHNICIAN Primary Care Provider [phone] Reason for Referral * Diagnostic Imaging (Routine) - Closed Specialty Diagnoses / Procedures Referred By Tomas smith Referred To Contact Diagnoses Abnormal mammogram Procedures US Breast Bilateral Limited Clemencia Lopez NP [address] [place] [address] Phone: tel: fax: [address] [phone] Referral ID Status Reason Start Date Expiration Date Visits Re quested Visits Authorized [id number] Closed 11/20/2023 12/19/2024 1 1 Reason for Visit * Diagnostic Imaging (Routine) - Closed Specialty Diagnoses / Procedures Referred By Tomas smith Referred To Contact Diagnoses Abnormal mammogram Procedures US Breast Bilateral Limited Clemencia Lopez NP [address] [place] [address] Phone: tel: fax: [address] [phone] Referral ID Status Reason Start Date Expiration Date Visits Re quested Visits Authorized [id number] Closed 11/20/2023 12/19/2024 1 1 Encounter Details Date Type Department Care Team (Latest Contact Info) Description 12/19/2023 10:14 AM CDT - 12/19/2023 11:59 PM CDT Hospital Encounter [facility] B[facility] [address] [address] Abnormal mammogram Discharge Disposition: Discharge to home [...] on file Legal Sex Female 12:17 PM FIRE WATCHMAN Gender Identity Not on file Sexual Orientation [...] or self care documented in this encounter Miscellaneous Notes * Result Encounter Note - Clemencia Lopez NP - 12/19/2023 11:59 PM CDT Patient has repeat breast US scheduled in 05/2025 to monitor cyst. documented in this encounter Plan of Treatment Not on file documented as of this encounter Procedures Procedure Name Priority Date/Time Associated Diagnosis Comments US BREAST BILATERAL LIMITED Schedule Routine, Read Routine (OP Routine) 12/19/2023 11:27 AM CDT Abnormal mammogram documented in this encounter Results * US Breast Bilateral [...] AM T: ??12/19/2023 11:52 AM Report ID: [id number] Reading Location: ??MAMMMHE Clemencia Lopez NP IMG MAMMO PROCEDURES Final Res ult documented in this encounter Visit Diagnoses Diagnosis Abnormal mammogram Abnormal mammogram, unspecified documented in this encounter Care Teams Water Operator Relationship Specialty Start Date End Date Clemencia Lopez NP [address] [place] [address] PCP - General Family Medicine 09/05/23 documented as of this encounter
--- OUTSIDE RECORDS SUMMARY | 2024-04-18 13:20 | XMS_ITS | Clinical Summary ---
Author Organization [facility] [address] Address [address] [facility] 5th [place] [address] Care Team Providers Care Clearance Diver Name Role Phone Clemencia Lopez NP Primary Care Provider [phone] Allergies No known active allergies Medications cholecalcifero [...] 04/09/2024 Assessment & Plan (04/09/2024 10:00 AM STITCHING MACHINE SETTER): CBC, CMP, lipid panel ordered. Mammogram last completed: 10/2023 Patient referred to PROVIDER RELATIONS CONSULTANT for repeat Pap. Colonoscopy last completed: 09/2023 Vaccinations: Due for Shingrix vaccine. Flu and Tdap vaccines UTD. Repeat wellness exam in one year. Thyroid nodule 09/05/2023 Assessment & Plan (04/09/2024 9:57 AM STITCHING MACHINE SETTER): Chronic, patient to have TSH, T4, T3, and thyroid antibodies drawn. Patient referred to Dr. Teague family sociologist for follow up. Assessment & Plan (09/05/2023 9:57 AM CDT): Chronic, following with Dr. Farias family sociologist. Currently having thyroid US every 2 years. SAVANNA (generalized anxiety disorder) 09/05/2023 Assessment & Plan (04/09/2024 9:57 AM STITCHING MACHINE SETTER): Chronic, controlled. Patient to continue on venlafaxine [...] 09/05/2023 Assessment & Plan (04/09/2024 9:57 AM STITCHING MACHINE SETTER): Chronic, lipid panel to be redrawn. Patient [...] Date Resolved Date Urgency of urination 09/05/2023 024 Assessment & Plan (09/05/2023 11:45 AM CDT): Urine dip positive for blood. Urine sample sent for culture. Patient prescribed Macrobid. Patient to be contacted once culture results are obtained. Arthralgia of both hands 09/05/202311/2023 Encounters Date Type Department Care Team Description 04/11/2024 Telephone [facility] Primary Care [address] [place] [address] [address] [place] [address] Keli Varma MA 04/09/2024 10:00 AM STITCHING MACHINE SETTER Lab [facility] [address] [place] [address] Annual physical exam; Other hyperlipidemia; Thyroid nodule 04/09/2024 9:30 AM STITCHING MACHINE SETTER Office Visit [facility] [address] [place] [phone] Clemencia Lopez NP Annual physical exam (Primary Dx); SAVANNA (generalized anxiety disorder); Other hyperlipidemia; Thyroid nodule; SOB (shortness of breath) on exertion; Screening for cervical cancer 03/12/2024 10:00 AM STITCHING MACHINE SETTER Clinical Support [facility] [address] [place] [phone] Encounter for surveillance of injectable contraceptive (Primary Dx) 02/18/2024 Letter (Out) [facility] [address] [place] [phone] from Last 3 Months Immunizations Name Administration Dates Next Due Hep B Vaccine 12/01/2014,06/29/2014,06/01/2014 Influenza, Quadrivalent, Spl it, Preservative Free, Intramuscular 02/12/2023,03/02/2022,03/29/2021,03/10,02/23/2016 Influenza, Trivalent, Preser vative Free, Intramuscular 02/15/2015 Influenza, Unspecified 02/13/2024 MMR 06/11/2019,06/29/2014,06/01/2014 PPD TEST 05/13/2014,01/11/2010 Tdap 05/13/2014 Surgical History Surgery Date Site/Laterality Comments CYSTECTOMY SEPTOPLASTY KNEE ARTHROSCOPY Medical History Medical History Date Comments Allergic rhinitis Goiter, non-toxic IBS (irritable bowel syndrome) Thyroid nodule Anxiety Family History Medical History Relation Name Comments Bladder Cancer Father Colon cancer Father Prostate cancer Father Relation Name Status Comments Father Alive Mother Alive Social History Tobacco Use Types [...] on file Legal Sex Female 12:17 PM STITCHING MACHINE SETTER Gender Identity Not on file Sexual Orientation Not on file Obstetrics History Para Term AB IAB SAB Ectopic Multiple Livin g Live Births 3 Date Outcome GA Total Labor Labor/2nd/3rd Weight Sex Type Anes PTL Josephine A1 A5 Name Clin Last Filed Vital Signs Vital Sign Reading Time Taken Comments Blood Pressure 118/74 04/09/2024 8:58 AM STITCHING MACHINE SETTER Pulse 77 04/09/2024 8:58 AM STITCHING MACHINE SETTER Temperature 36.6 ??C (97.9 ??F) 04/09/2024 8:58 AM CS T Respiratory Rate 20 04/09/2024 8:58 AM STITCHING MACHINE SETTER Oxygen Saturation 97% 04/09/2024 8:58 AM STITCHING MACHINE SETTER Inhaled Oxygen Concentration - - Weight 76.4 kg (168 lb 8 oz) 04/09/2024 8:58 AM STITCHING MACHINE SETTER Height 162.6 cm (5' 4.02 ) 04/09/2024 8:58 AM CS T Body Mass Index 28.91 04/09/2024 8:58 AM STITCHING MACHINE SETTER Plan of Treatment Health Maintenance Due Date Last Done Comments Cervical Cancer Screening 1970 Hepatitis C Screening 1970 DTaP/Tdap/Td Vaccine (2 - Td or Tdap) 05/13/2024 05/13/2014 Depression Screening 09/04/2024 09/05/2023 Breast Cancer Screening-Mammogram 12/18/2024 12/19/2023, 11/15/2023, 01/28/2022, Additional history exists Covid-19 Vaccine ( season) 2025 07/10/2020, 06/15/2020 Postponed from 12/30/2023 (Patient declined, but will receive in the future) Zoster Vaccine (1 of 2) 04/02/2025 Post poned from 08/13/2021 (Patient declined, but will receive in the future) Regular Well Visit/Exam 18-64 04/09/2025 04/09/2024 Colon Cancer Screening-Colonoscopy 10/18/2033 10/19/2023, 05/22/2022 Influenza Vaccine Completed 02/13/2024, , 03/02/2022, Additional history exists Pneumococcal vaccine <65 Aged Out No longer eligible based on patient's age to complete this topic Procedures Procedure Name Priority Date/Time Associated Diagnosis Comments EGFR Routine 04/09/2024 9:55 AM STITCHING MACHINE SETTER Annual physical exam Other hyperlipidemia DIFFERENTIAL AUTO Routine 04/09/2024 9:5 5 AM STITCHING MACHINE SETTER Annual physical exam Other hyperlipidemia TSH Routine 04/09/2024 9:55 AM STITCHING MACHINE SETTER Thyroid nodule T4, FREE Routine 04/09/2024 9:55 AM STITCHING MACHINE SETTER Thyroid nodule T3, FREE Routine 04/09/2024 9:55 AM STITCHING MACHINE SETTER Thyroid nodule THYROID PEROXIDASE ANTIBODY Routine 04/09/2024 9:55 AM STITCHING MACHINE SETTER Thyroid nodule LIPID PANEL Routine 04/09/2024 9:55 AM STITCHING MACHINE SETTER Annual physical exam Other hyperlipidemia COMPREHENSIVE METABOLIC PANEL Routine 04/09/2024 9:55 AM STITCHING MACHINE SETTER Annual physical exam Other hyperlipidemia CBC WITH AUTO DIFFERENTIAL Routine 04/09/2024 9:55 AM STITCHING MACHINE SETTER Annual physical exam Other hyperlipidemia DIAGNOSTIC MAMMOGRAM BILATERAL W LAURENT Schedule Routine, Read Routine (OP Routine) 12/19/2023 10:40 AM CDT Abnormal mammogram COLONOSCOPY Routine 10/19/2023 9:36 AM CDT from Last 3 Months or Most Recently Relevant to Health Maintenance Results * eGFR (04/09/2024 9:55 AM STITCHING MACHINE SETTER) eGFR >90 >=60 mL/min/1. 73 m2 Comment: [...] was last reviewed 2021. Testing performed by: [address] [address] Blood 04/09/2024 9:55 AM STITCHING MACHINE SETTER 04/09/2024 10:40 AM STITCHING MACHINE SETTER us Clemencia Lopez NP LAB BLOOD ORDERABLES Final Res ult [facility] [address] [facility] Department [place] [address] * Differential, auto (04/09/2024 9:55 AM STITCHING MACHINE SETTER) Neutrophil abs 4.6 1.5 - 6.5 K/cumm Comment:Testing performed by : [address] [address] Imm gran abs 0.0 0.0 - 0.1 K/cumm [facility] Comment:Testing performed by : [address] [address] Lymphocyte abs 2.9 0.8 - 3.3 K/cumm [facility] Comment:Testing performed by : [address] [address] Monocyte abs 0.5 0.2 - 0.8 K/cumm [facility] Comment:Testing performed by : [address] [address] Eosinophil abs 0.1 0.0 - 0.5 K/cumm [facility] Comment:Testing performed by : [address] [address] Basophil abs 0.0 0.0 - 0.1 K/cumm [facility] Comment:Testing performed by : [address] [address] Neutrophil pct 56.5 % [facility] Comment: Interpretive Data Percent cell count reference ranges are not reported, since discordance with absolute values may lead to misinterpretation of CBC data. Current Interpretive Data was last revised on 2017. Testing performed by: [address] [address] Imm gran pct 0.2 % [facility] Comment: Interpretive Data Percent cell count reference ranges are not reported, since discordance with absolute values may lead to misinterpretation of CBC data. Current Interpretive Data was last revised on 2017. Testing performed by: [address] [address] Lymphocyte pct 36.1 % [facility] Comment: Interpretive Data Percent cell count reference ranges are not reported, since discordance with absolute values may lead to misinterpretation of CBC data. Current Interpretive Data was last revised on 2017. Testing performed by: [address] [address] Monocyte pct 6.0 % [facility] Comment: Interpretive Data Percent cell count reference ranges are not reported, since discordance with absolute values may lead to misinterpretation of CBC data. Current Interpretive Data was last revised on 2017. Testing performed by: [address] [address] Eosinophil pct 1.0 % [facility] Comment: Interpretive Data Percent cell count reference ranges are not reported, since discordance with absolute values may lead to misinterpretation of CBC data. Current Interpretive Data was last revised on 2017. Testing performed by: [address] [address] Basophil pct 0.2 % [facility] Comment: Interpretive Data Percent cell count reference ranges are not reported, since discordance with absolute values may lead to misinterpretation of CBC data. Current Interpretive Data was last revised on 2017. Testing performed by: [address] [address] Blood 04/09/2024 9:55 AM STITCHING MACHINE SETTER 04/09/2024 10:38 AM STITCHING MACHINE SETTER us Clemencia Lopez NP LAB BLOOD ORDERABLES Final Res ult [facility] [address] [facility] Department [place] [address] * CBC with auto differential (04/09/2024 9:55 AM STITCHING MACHINE SETTER) WBC 8.1 3.8 - 9.9 K/cumm Comment:Testing performed by : [address] [address] Hgb 14.9 11.9 - 15.5 g/dL [facility] Comment:Testing performed by : [address] [address] Hct 44.6 35.6 - 45.5 % [facility] Comment:Testing performed by : [address] [address] Plt 375 150 - 400 K/cumm [facility] Comment:Testing performed by : [address] [address] MPV 9.6 9.1 - 12.3 fL [facility] Comment:Testing performed by : [address] [address] RBC 4.84 3.90 - 5.20 M/cumm [facility] Comment:Testing performed by : [address] [address] MCV 92.1 81.3 - 96.4 fL [facility] Comment:Testing performed by : [address] [address] MCH 30.8 27.1 - 33.3 pg [facility] Comment:Testing performed by : [address] [address] MCHC 33.4 32.3 - 35.7 g/dL [facility] Comment:Testing performed by : [address] [address] RDW CV 13.0 11.1 - 14.9 % [facility] Comment:Testing performed by : [address] [address] RDW SD 44.1 35.7 - 48.1 fL [facility] Comment:Testing performed by : [address] [address] NRBC abs 0.00 0.00 - 0.01 K/cumm [facility] Comment:Testing performed by : [address] [address] Blood 04/09/2024 9:55 AM STITCHING MACHINE SETTER 04/09/2024 10:38 AM STITCHING MACHINE SETTER Clemencia Lopez LIFE CLAIMS EXAMINER LAB BLOOD ORDERABLES Final Res ult Performing Organization Address [facility] Co de Phone Number [facility] [address] [facility] Department of Laboratories [place], [place] [id number] * Thyroid peroxidase antibody (TPO) (04/09/2024 9:55 AM STITCHING MACHINE SETTER) Anti Thyroid Peroxidase <30 <=34 IUnits/mL Comment: ATPO Interpretive Data Results may be up to 28% higher in patients receiving Itraconazole. Current interpretive data was last revised 2020. Testing performed by: [facility], [address] [place]., [address] Blood 04/09/2024 9:55 AM STITCHING MACHINE SETTER 04/09/2024 1:29 PM STITCHING MACHINE SETTER Clemencia Lopez LIFE CLAIMS EXAMINER LAB BLOOD ORDERABLES Final Res ult Performing Organization Address City/State/[facility] Co de Phone Number [facility] [address] [place] [address] * T3, free (04/09/2024 9:55 AM STITCHING MACHINE SETTER) Free T3 3.0 2.0 - 4.4 pg/mL Blood 04/09/2024 9:55 AM STITCHING MACHINE SETTER 04/09/2024 12:34 PM STITCHING MACHINE SETTER Clemencia Lopez LIFE CLAIMS EXAMINER LAB BLOOD ORDERABLES Final Res ult Performing Organization Address [facility] Co de Phone Number [facility] [address] [place] [address] * TSH (04/09/2024 9:55 AM STITCHING MACHINE SETTER) Thyroid Stimulating Hormone 0.75 0.30 - 4.20 mcIUnit/mL Comment:Testing performed by : [address] [address] Blood 04/09/2024 9:55 AM STITCHING MACHINE SETTER 04/09/2024 10:40 AM STITCHING MACHINE SETTER us Clemencia Lopez LIFE CLAIMS EXAMINER LAB BLOOD ORDERABLES Final Res ult Performing Organization Address [facility] de Phone Number [address] [place] [address] * T4, free (04/09/2024 9:55 AM STITCHING MACHINE SETTER) Free T4 1.08 0.90 - 1.70 ng/dL Comment:Testing performed by : [address] [address] Blood 04/09/2024 9:55 AM STITCHING MACHINE SETTER 04/09/2024 10:40 AM STITCHING MACHINE SETTER us Clemencia Lopez LIFE CLAIMS EXAMINER LAB BLOOD ORDERABLES Final Res ult Performing Organization Address [facility] Co de Phone Number [facility] [address] [place] [address] * (ABNORMAL) Lipid panel (04/09/2024 9:55 AM STITCHING MACHINE SETTER) [facility] Signature Cholesterol 215(H) 30 - 199 mg/dL Comment: [...] last revised on 2017. Testing performed by: [facility], [address] [place] [address]., [address] Triglycerides 116 <=149 mg/dL [facility] Comment: Interpretive [...] last revised on 2017. Testing performed by: [address] [address] HDL 46 >=40 mg/dL [facility] Comment: Interpretive [...] last revised on 2017. Testing performed by: [address] [address] LDL, calculated 148(H) <=129 mg/dL [facility] Comment: [...] NCEP Expert Panel. Circulation 2004;110:227 3. Asael Whitfield al. VERONA Cardiol. 2020 August 28;5(5):540-548. doi: 10.1001/jamacardio.2020.0013 Current Interpretive Data was last revised on 2023. Testing performed by: [address] [address] Non-HDL Cholesterol 169 mg/dL [facility] Comment: [...] last revised on 2017. Testing performed by: [address] [address] Chol/HDL ratio 5 [facility] Comment:Testing performed by : [address] [address] Blood 04/09/2024 9:55 AM STITCHING MACHINE SETTER 04/09/2024 10:40 AM STITCHING MACHINE SETTER us Clemencia Lopez NP LAB BLOOD ORDERABLES Final Res ult [facility] [address] [facility] Department of Laboratories [place], [place] [id number] * Comprehensive metabolic panel (04/09/2024 9:55 AM STITCHING MACHINE SETTER) Sodium 144 135 - 145 mmol/L Comment:Testing performed by : [address] [address] Potassium, pl 4.2 3.3 - 4.9 mmol/L [facility] Comment:Testing performed by : [address] [address] Chloride 108 97 - 110 mmol/L [facility] Comment:Testing performed by : [address] [address] CO2 24 22 - 32 mmol/L [facility] Comment:Testing performed by : [address] [address] Anion gap 12 2 - 15 mmol/L [facility] Comment:Testing performed by : [address], [place]., [address] BUN 17 6 - 25 mg/dL [facility] Comment:Testing performed by : [address], [place]., [address] Creatinine 0.60 0.60 - 1.10 mg/dL [facility] Comment:Testing performed by : [address], [place]., [address] Glucose 105 70 - 199 mg/dL [facility] Comment: Interpretive Data Fasting glucose [...] was last revised 2022. Testing performed by: [address] [address] Calcium 9.8 8.5 - 10.3 mg/dL [facility] Comment:Testing performed by : [address] [address] Bilirubin, total 0.4 0.1 - 1.2 mg/dL [facility] Comment:Testing performed by : [address] [address] Protein, pl 7.9 6.5 - 8.5 g/dL [facility] Comment:Testing performed by : [address] [address] Albumin 4.6 3.5 - 5.0 g/dL [facility] Comment:Testing performed by : [address] [address] Alk phos 71 40 - 130 Units/L [facility] Comment:Testing performed by : [facility], [address] [place] [address]., [address] ALT 20 7 - 45 Units/L [facility] Comment:Testing performed by : [address] [address] AST 21 10 - 45 Units/L [facility] Comment:Testing performed by : [address] [address] Blood 04/09/2024 9:55 AM STITCHING MACHINE SETTER 04/09/2024 10:40 AM STITCHING MACHINE SETTER us Clemencia Lopez NP LAB BLOOD ORDERABLES Final Res ult [facility] [address] [facility] Department [place] [address] * DIAGNOSTIC MAMMOGRAM BILATERAL W LAURENT (12/19/2023 [...] AM T: ??12/19/2023 11:52 AM Report ID: [id number] Reading Location: ??MAMMMHE Clemencia Lopez NP IMG MAMMO PROCEDURES Final Res ult * Colonoscopy (05/22/2022) Anatomical Region Laterality Modality Other Historical Provider ENDOSCOPY PROCEDURES Edit ed Result - Final from Last 3 Months or Most Recently Relevant to Health Maintenance Insurance Stitch [facility] Member Subscriber Plan / Payer (Ef fective 2023-Present) Name:Marcin Contreras Relation to Subscriber:Spouse Name:Kit Contreras Date of :1969 Address: [address] [place] [id number] Payer ID:[id number] (NAIC) Group ID:Not on file Type:[employer]:[phone] Address: [facility] [address] [place] [address] Care Teams Clearance Diver Relationship Specialty [place] [address] [place] [id number] PCP - General Family Medicine 09/05/23
--- OUTSIDE RECORDS SUMMARY | 2024-04-18 13:20 | XMS_ITS | Encounter Summary ---
Author Organization [facility] Healthcare Address [address] [place] [address] Care Team Providers Care Fish House Worker Name Role Phone Clemencia Lopez CHIEF EXECUTIVE OFFICER Primary Care Provider [phone] Reason for Referral * Medication Authorization (Routine) - Pending Review Specialty Diagnoses / Procedures Referred By Contac t Referred To Contact Diagnoses Encounter for surveillance of injectable contraceptive Clemencia Lopez NP [address] [address] Phone: tel: fax: Referral ID Status Reason Start Date Expiration Date V isits Requested Visits Authorized [id number] Pending Review 03/12/2024 04/11/2025 1 1 R INTERN Reason for Visit * Reason Comments Injections Depo shot * Medication Authorization (Routine) - Pending Review Specialty Diagnoses / Procedures Referred By Contac t Referred To Contact Diagnoses Encounter for surveillance of injectable contraceptive Clemencia Lopez NP [address] [address] Phone: tel: fax: Referral ID Status Reason Start Date Expiration Date V isits Requested Visits Authorized [id number] Pending Review 03/12/2024 04/11/2025 1 1 Encounter Details Date Type Department Care Team (Latest Contact Info) Description 03/12/2024 10:00 AM BUYER INTERN Clinical Support [facility] Primary Care [address] [facility] [address] [place] [address] Encounter for surveillance of injectable [...] on file Legal Sex Female 12:17 PM BUYER INTERN Gender Identity Not on file Sexual Orientation Not on file documented as of this encounter Ordered Prescriptions Prescription Sig Dispense Quantity Refills Last Filled Start Date End Date venlafaxine XR (EFFEXOR-XR) 75 mg 24 hr capsule Take 1 capsule (75 mg total) by mouth daily Take with food. 90 capsule 1 03/12/2024 documented in this encounter Plan of Treatment Not on file documented as of this encounter Visit Diagnoses Diagnosis Encounter for surveillance of injectable contraceptive- Primary documented in this encounter Administered Medications Inactive Administered Medications - up to 3 most recent administrations Medication Order MAR Action Action Date Dose Rate Site medroxyPROGESTERone (DEPO-PROVERA) 150 mg/mL injection 150 mg 150 mg, intramuscular, During hospitalization, contraception, Starting on Sun03/12/24 at 1005, For 1 dose, Shake wellIndications:Encounter for surveillance of injectable contraceptive Given 03/12/2024 10:05 AM BUYER INTERN 150 mg Right Dorsogluteal/Butt ock documented in this encounter Discontinued Medications Medication Sig Discontinue Reason Start Date End Da te venlafaxine XR (EFFEXOR-XR) 75 mg 24 hr capsule Take 1 capsule (75 mg total) by mouth daily Take with food. Reorder 03/05/2024 03/12/2024 documented as of this encounter Orders Medications Ordered That Kang ht Not Have Been Administered Count Last Ordered Date First Ordered Date medroxyPROGESTERone (DEPO-NE OVERA) 150 mg/mL injection 150 mg 1 03/12/2024 documented in this encounter Care Teams Fish House Worker Relationship Specialty Start Date End Date Clemencia Lopez, CHIEF EXECUTIVE OFFICER [facility] [id number] PCP - General Family Medicine 09/05/23 documented as of this encounter
--- OUTSIDE RECORDS SUMMARY | 2024-04-18 13:21 | XMS_ITS | Encounter Summary ---
Author Organization [facility] Healthcare Address [address] [place] [address] Care Team Providers Care Structural Layout Worker Name Role Phone Unavailable Primary Care Provider Unavailabl e Reason for Visit * Diagnostic Imaging (Routine) - Pending Review Specialty Diagnoses / Procedures Referred By Tomas smith Referred To Contact Procedures Breast Imaging Diagnostic Outside Reference Transcribed Order, Provider Referral ID Status Reason Start Date Expiration Date V isits Requested Visits Authorized [id number] Pending Review 11/19/2023 12/18/2024 1 1 Encounter Details Date Type Department Care Team (Late st Contact Info) Description 01/01/2020 Ancillary Procedure [facility] Outside Images [address] [place] [address] Social History Tobacco Use Types Packs/Day Years Used Date Smoking Tobacco: Never Assessed Comments Unknown Sex and Gender Information Value Date Recorded Sex Assigned at Not on file Legal Sex Female 12:17 PM SUPERVISOR 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 us Provider Transcribed Order IMG MAMMO PROCEDURES Final Result Performing Organization Address City/State/[facility] Co de Phone Number RAD_RIAN_MHB_MHE documented in this encounter Visit Diagnoses Not on filedocumented in this encounter
--- OUTSIDE RECORDS SUMMARY | 2024-04-18 13:21 | XMS_ITS | Encounter Summary ---
Author Organization 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 Gender Identity Not on file Sexual Orientation Not on file documented as of this encounter Plan of Treatment Not on file documented as of this encounter Procedures Procedure Name Priority Date/Time Associated Diagnosis Comments IVANNA QUALITATIVE WITH REFLEX TO IVANNA QUANTITATIVE Routine 09/06/2023 9:00 AM CDT Arthralgia of both hands EGFR Routine 09/06/2023 9:00 AM CDT Other hyperlipidemia DIFFERENTIAL AUTO Routine 09/06/2023 9:0 0 AM CDT Other hyperlipidemia CBC WITH AUTO DIFFERENTIAL Routine 09/06/2023 9:00 AM CDT Other hyperlipidemia ERYTHROCYTE SEDIMENTATION RATE Routine 09/06/2023 9:00 AM CDT Arthralgia of both hands RHEUMATOID FACTOR Routine 09/06/2023 9:0 0 AM CDT Arthralgia of both hands CRP (ACUTE PHASE) Routine 09/06/2023 9:0 0 AM CDT Arthralgia of both hands LIPID PANEL Routine 09/06/2023 9:00 AM CDT Other hyperlipidemia COMPREHENSIVE METABOLIC PANEL Routine 09/06/2023 9:00 AM CDT Other hyperlipidemia documented in this encounter Results * eGFR (09/06/2023 9:00 AM CDT) eGFR >90 >=60 mL/min/1. 73 m2 Comment: [...] of Race in Diagnosing Kidney Disease, JASN 202). The CKD-EPI equation should not be used for patients with unstable renal function and has not been validated in children and those over 70. Current interpretive data was last reviewed 2021. Testing performed by: [address] [address] Blood 09/06/2023 9:00 AM CDT 09/06/2023 11:45 AM CDT us Clemencia Lopez TRANSMISSION SYSTEMS OPERATOR LAB BLOOD ORDERABLES Final Res ult PO[facility] 9288 [facility] Department [place] [address] * Differential, auto (09/06/2023 9:00 AM CDT) Neutrophil abs 4.1 1.5 - 6.5 K/cumm Comment:Testing performed by : [address] [address] Imm gran abs 0.0 0.0 - 0.1 K/cumm POONAM Comment:Testing performed by : [address] [address] Lymphocyte abs 2.7 0.8 - 3.3 K/cumm POONAM Comment:Testing performed by : [address] [address] Monocyte abs 0.5 0.2 - 0.8 K/cumm POONAM Comment:Testing performed by : [address] [address] Eosinophil abs 0.5 0.0 - 0.5 K/cumm POONAM Comment:Testing performed by : [address] [address] Basophil abs 0.0 0.0 - 0.1 K/cumm POONAM Comment:Testing performed by : [address] [address] Neutrophil pct 52.4 % POONAM Comment: Interpretive Data Percent cell count reference ranges are not reported, since discordance with absolute values may lead to misinterpretation of CBC data. Current Interpretive Data was last revised on 2017. Testing performed by: [address] [address] Imm gran pct 0.3 % [facility] Comment: Interpretive Data Percent cell count reference ranges are not reported, since discordance with absolute values may lead to misinterpretation of CBC data. Current Interpretive Data was last revised on 2017. Testing performed by: [address] [address] Lymphocyte pct 34.4 % [facility] Comment: Interpretive Data Percent cell count reference ranges are not reported, since discordance with absolute values may lead to misinterpretation of CBC data. Current Interpretive Data was last revised on 2017. Testing performed by: [address] [address] Monocyte pct 6.0 % [facility] Comment: Interpretive Data Percent cell count reference ranges are not reported, since discordance with absolute values may lead to misinterpretation of CBC data. Current Interpretive Data was last revised on 2017. Testing performed by: [address] [address] Eosinophil pct 6.5 % [facility] Comment: Interpretive Data Percent cell count reference ranges are not reported, since discordance with absolute values may lead to misinterpretation of CBC data. Current Interpretive Data was last revised on 2017. Testing performed by: [address] [address] Basophil pct 0.4 % [facility] Comment: Interpretive Data Percent cell count reference ranges are not reported, since discordance with absolute values may lead to misinterpretation of CBC data. Current Interpretive Data was last revised on 2017. Testing performed by: [address] [address] Blood 09/06/2023 9:00 AM CDT 09/06/2023 9:42 AM CDT us Clemencia Lopez TRANSMISSION SYSTEMS OPERATOR LAB BLOOD ORDERABLES Final Res ult POONAM 45[address] [facility] Department [place] [address] * CBC with auto differential (09/06/2023 9:00 AM CDT) WBC 7.8 3.8 - 9.9 K/cumm Comment:Testing performed by : [address] [address] Hgb 14.7 11.9 - 15.5 g/dL POONAM Comment:Testing performed by : [address] [address] Hct 43.6 35.6 - 45.5 % POONAM Comment:Testing performed by : [address] [address] Plt 323 150 - 400 K/cumm POONAM Comment:Testing performed by : [address] [address] MPV 9.8 9.1 - 12.3 fL POONAM Comment:Testing performed by : [address] [address] RBC 4.84 3.90 - 5.20 M/cumm POONAM Comment:Testing performed by : [address] [address] MCV 90.1 81.3 - 96.4 fL POONAM Comment:Testing performed by : [address] [address] MCH 30.4 27.1 - 33.3 pg POONAM Comment:Testing performed by : [address] [address] MCHC 33.7 32.3 - 35.7 g/dL POONAM Comment:Testing performed by : [address] [address] RDW CV 12.8 11.1 - 14.9 % POONAM Comment:Testing performed by : [address] [address] RDW SD 41.9 35.7 - 48.1 fL POONAM Comment:Testing performed by : [address] [address] NRBC abs 0.00 0.00 - 0.01 K/cumm POONAM Comment:Testing performed by : [address] [address] Blood 09/06/2023 9:00 AM CDT 09/06/2023 9:42 AM CDT us Clemencia Lopez TRANSMISSION SYSTEMS OPERATOR LAB BLOOD ORDERABLES Final Res ult POONAM 45[address] [facility] Department [place] [address] * Comprehensive metabolic panel (09/06/2023 9:00 AM CDT) Sodium 140 135 - 145 mmol/L Comment:Testing performed by : [address] [address] Potassium, pl 4.1 3.3 - 4.9 mmol/L POONAM Comment:Testing performed by : [address] [address] Chloride 106 97 - 110 mmol/L POONAM Comment:Testing performed by : [address] [address] CO2 22 22 - 32 mmol/L POONAM Comment:Testing performed by : [address] [address] Anion gap 12 2 - 15 mmol/L POONAM Comment:Testing performed by : [address] [address] BUN 15 6 - 25 mg/dL POONAM Comment:Testing performed by : [address] [address] Creatinine 0.60 0.60 - 1.10 mg/dL POON[facility] Comment:Testing performed by : [address] [address] Glucose 105 70 - 199 mg/dL POONAM [...] was last revised 2022. Testing performed by: [address] [address] Calcium 9.1 8.5 - 10.3 mg/dL POONAM Comment:Testing performed by : [address] [address] Bilirubin, total 0.4 0.1 - 1.2 mg/dL POONAM Comment:Testing performed by : [address] [address] Protein, pl 6.9 6.5 - 8.5 g/dL POONAM Comment:Testing performed by : [address] [address] Albumin 4.1 3.5 - 5.0 g/dL POONAM Comment:Testing performed by : [address] [address] Alk phos 67 40 - 130 Units/L POONAM Comment:Testing performed by : [address] [address] ALT 14 7 - 45 Units/L POONAM Comment:Testing performed by : [address] [address] AST 16 10 - 45 Units/L POONAM Comment:Testing performed by : [address] [address] Blood 09/06/2023 9:00 AM CDT 09/06/2023 11:45 AM CDT us Clemencia Lopez NP LAB BLOOD ORDERABLES Final Res ult POONAM 9192 [facility] Department [place] [address] * CRP (acute phase) (09/06/2023 9:00 AM CDT) Pathologist [facility] CRP 1.1 <=10.0 mg/L Comment:Testing performed by : [facility], [address] [place] [address]., [address] Blood 09/06/2023 9:00 AM CDT 09/06/2023 11:45 AM CDT Clemencia Lopez TRANSMISSION SYSTEMS OPERATOR LAB BLOOD ORDERABLES Final Res ult Performing Organization Address [facility] Co de Phone Number POONAM [address] [employer] [place] [address] * IVANNA ab ql w/rflx to IVANNA qn (09/06/2023 9:00 AM CDT) Pathologist [facility] IVANNA Negative Comment: Interpretive Data Normal range for IVANNA Qualitative Antibody = Negative. 1. IVANNA is performed using indirect immunofluorescence against HEp-2 cells 2. IVANNA titers are performed on all positive qualitative results. 3. A significantly positive IVANNA result is defined as a positive nuclear fluorescence at a titer of 1:80 or greater. 4. 15% of normal people above age 65 have significantly positive IVANNA results. ??5% or less of normal people age 65 or under have significantly positive IVANNA results. Current interpretive data was last revised on 2019. Testing performed by: [facility], [address], [place]., [address] Blood 09/06/2023 9:00 AM CDT 09/06/2023 11:44 AM CDT Clemencia Lopez TRANSMISSION SYSTEMS OPERATOR LAB BLOOD ORDERABLES Final Res ult Performing Organization Address [facility] Co de Phone Number [facility] [address] [facility] [place] [place] [address] * Rheumatoid factor (09/06/2023 9:00 AM CDT) Pathologist [facility] Rheumatoid factor, quant <10.0 <=15.0 IUnits/mL Blood 09/06/2023 9:00 AM CDT 09/06/2023 12:42 PM CDT us Clemencia Lopez NP LAB BLOOD ORDERABLES Final Res ult [facility]ALC[facility]ES [address] [facility] Department [place] [address] * (ABNORMAL) Lipid panel (09/06/2023 9:00 AM CDT) Cholesterol 180 30 - 199 mg/dL Comment: Interpretive Data [...] last revised on 2017. Testing performed by: [facility], [address] [place] [address]., [address] Triglycerides 203(H) <=149 mg/dL [facility]ERS Comment: Interpretive Data Ages [...] last revised on 2017. Testing performed by: [address] [address] HDL 35(L) >=40 mg/dL [facility] Comment: Interpretive Data Ages < or = [...] last revised on 2017. Testing performed by: [address] [address] LDL, calculated 104 <=129 mg/dL [facility] Comment: Interpretive Data Ages < or = 19 years ??Acceptable: ? <110 mg/dL ??Borderline high: ??110-129 mg/dL ??High: ?>or= 130 mg/dL Ages > or = 20 years ??Optimal: ? <100 mg/dL ??Near optimal: ?100-129 mg/dL ??Borderline high: ?? 130-159 mg/dL ??High: ?>160 mg/dL Literature References: 1. Expert Panel on Integrated Guidelines for Cardiovascular Health and Risk Reduction in Children and Adolescents. Pediatrics 2011;128:S213 2. NCEP Expert Panel. Circulation 2004;110:227 Current Interpretive Data was last revised on 2017. Testing performed by: [address] [address] Non-HDL Cholesterol 145 mg/dL POONAM Comment: Interpretive Data Ages < [...] last revised on 2017. Testing performed by: [address] [address] Chol/HDL ratio 5 POONAM Comment:Testing performed by : [address] [address] Blood 09/06/2023 9:00 AM CDT 09/06/2023 11:45 AM CDT Clemencia Lopez TRANSMISSION SYSTEMS OPERATOR LAB BLOOD ORDERABLES Final Res ult Performing Organization Address [facility] de Phone Number [facility] [address] [facility] Department [place] [address] * Erythrocyte sedimentation rate (09/06/2023 9:00 AM CDT) Erythrocyte sedimentation rate 13 1 - 30 mm/hr Comment:Testing performed by : [address] [address] Blood 09/06/2023 9:00 AM CDT 09/06/2023 9:42 AM CDT Clemencia Lopez TRANSMISSION SYSTEMS OPERATOR LAB BLOOD ORDERABLES Final Res ult Performing Organization Address City/[facility] Co de Phone Number POONAM 45[address] [facility] Department of Laboratories [place], [place] [id number] documented in this encounter Visit Diagnoses Diagnosis Arthralgia of both hands Other hyperlipidemia documented in this encounter Care Teams Program Writer Relationship Specialty Start Date End Date Clemencia Lopez, [place] [address] [place] [id number] PCP - General Family Medicine 09/05/23 documented as of this encounter
--- OUTSIDE RECORDS SUMMARY | 2024-04-18 13:21 | XMS_ITS | Encounter Summary ---
Author Organization [facility] Healthcare Address [address] [place] [address] Care Team Providers Care Sports Teacher Name Role Phone Clemencia Lopez INDUSTRIAL ORDER CLERK Primary Care Provider [phone] Encounter Details Date Type Department Care Team (Late st Contact Info) Description 09/07/2023 Orders Only [facility] Medical Group Primary Care [address] [facility] [address] [place] [address] Clemencia Lopez, INDUSTRIAL ORDER CLERK [address] [facility] [address] [place] [address] Hematuria, unspecified type (Primary Dx) Social History Tobacco Use Types [...] file 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 Urine pH is affected by diet, medications, systemic acid-base disturbances, and renal tubular function. ??pH may affect urinary stone formation. ??For example, urine pH below 6.0 may help reduce the tendency for calcium phosphate stones and pH greater than 6.0 may reduce the tendency for uric acid stone formation. Source: [facility] Current Interpretive Data was last revised on 2017 Testing performed by: [address] [address] Protein, ur ql Negative Negative POONAM Comment:Testing performed by : [address] [address] Glucose, ur ql Negative Negative POONAM Comment:Testing performed by : [address] [address] Ketones, ur Negative Negative POONAM Comment:Testing performed by : [address] [address] Bilirubin, ur Negative Negative POONAM Comment:Testing performed by : [address] [address] Blood, ur Negative Negative POONAM Comment:Testing performed by : [address] [address] Urobilinogen, ur <2.0 <2.0 mg/dL PO[facility] Comment:Testing performed by : [address] [address] Nitrite, ur Negative Negative POONAM Comment:Testing performed by : [address] [address] Leukocyte esterase, ur Negative Negative POONAM Comment:Testing performed by : [facility], [address] [place] [address]., [address] UA reflex comment Reflex conditions for microscopic UA and culture not met. POONAM Comment:Testing performed by : [facility], [address] [place] [address]., [address] Urine 09/11/2023 8:45 AM CDT 09/11/2023 9:45 AM CDT Narrative POONAM - 09/11/2023 10:04 AM CDT Urine Collection Method->Clean Catch us Clemencia Lopez NP LAB MICROBIOLOGY - GENERAL ORD ERABLES Final Result [facility] [address] [facility] Department [place] [address] documented in this encounter Visit Diagnoses Diagnosis Hematuria, unspecified type- Primary Hematuria, unspecified type documented in this encounter Care Teams Sports Teacher Relationship Specialty Start Date End Date Clemencia Lopez NP [address] [place] [address] PCP - General Family Medicine 09/05/23 documented as of this encounter
--- OUTSIDE RECORDS SUMMARY | 2024-04-18 13:21 | XMS_ITS | Encounter Summary ---
Author Organization [facility] Healthcare Address [address] [place] [address] Care Team Providers Care Senior Telecommunications Specialist Name Role Phone Unavailable Primary Care Provider Unavailabl e Encounter Details Date Type Department Care Team (Latest Contact Info) Description 10/04/2016 5:59 AM CDT - 10/04/2016 11:30 AM CDT Hospital Encounter [facility], [place] Adames, [address] [facility] [address] [address] Complex tear of medial meniscus of left knee as current injury; Synovitis and tenosynovitis Social History Tobacco Use Types Packs/Day Years Used Date Smoking Tobacco: Never Assessed Comments Unknown Sex and Gender Information Value Date Recorded Sex Assigned at Not on file 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 Gender Identity Not on file Sexual Orientation Not on file documented as of this encounter Last Filed Vital Signs Vital Sign Reading Time Taken Comments Blood Pressure 110/72 10/04/2016 7:17 AM CDT Pulse 69 10/04/2016 7:17 AM CDT Temperature 36.8 ??C (98.3 ??F) 10/04/2016 7:17 AM CD T Respiratory Rate - - Oxygen Saturation 96% 10/04/2016 7:17 AM CDT Inhaled Oxygen Concentration - - Weight 73.1 kg (161 lb 1.6 oz) 10/04/2016 7:17 A M CDT Height 162.6 cm (5' 4 ) 10/04/2016 7:17 AM CDT Body Mass Index 27.65 10/04/2016 7:17 AM CDT documented in this encounter Plan of Treatment Not on file documented as of this encounter Visit Diagnoses Diagnosis Complex tear of medial meniscus of left knee as current injury Synovitis and tenosynovitis Unspecified synovitis and tenosynovitis documented in this encounter
--- OUTSIDE RECORDS SUMMARY | 2024-04-18 13:21 | XMS_ITS | Encounter Summary ---
Author Organization [facility] Healthcare Address [address] [place] [address] Care Team Providers Care Fire Control Officer Name Role Phone Clemencia Lopez BRIDGE IRONWORKER Primary Care Provider [phone] Reason for Referral * Diagnostic Imaging (Routine) - Closed Specialty Diagnoses / Procedures Referred By Tomas smith Referred To Contact Diagnoses Encounter for screening mammogram for malignant neoplasm of breast Procedures Screening Mammogram Bilateral W Clemencia Mendoza NP [address] [place] [id number] Phone: tel: fax: [address] [phone] Referral ID Status Reason Start Date Expiration Date Visits Re quested Visits Authorized [id number] Closed 09/05/2023 10/04/2024 1 1 Reason for Visit * Reason Comments New Patient Med Management On depo, just wants to continue Encounter Details Date Type Department Care Team (Late st Contact Info) Description 09/05/2023 9:30 AM CDT Office Visit [facility] Primary Care [address] [place] [phone] Clemencia Lopez NP [address] [place] [phone] SAVANNA (generalized anxiety disorder) (Primary Dx); Other hyperlipidemia; Thyroid nodule; Arthralgia of both hands; Urgency of urination; Encounter for screening mammogram for malignant neoplasm of breast Social History Tobacco Use Types Packs/Day Years Used Date Smoking Tobacco: Never Tobacco Cessation:Counseling Given: Not Answered [...] on file 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 Gender Identity Not on file Sexual Orientation Not on file documented as of this encounter Last Filed Vital Signs Vital Sign Reading Time Taken Comments Blood Pressure 116/74 09/05/2023 9:27 AM CDT Pulse 96 09/05/2023 9:27 AM CDT Temperature 36.8 ??C (98.2 ??F) 09/05/2023 9:27 AM CD T Respiratory Rate 18 09/05/2023 9:27 AM CDT Oxygen Saturation 97% 09/05/2023 9:27 AM CDT Inhaled Oxygen Concentration - - Weight 76.6 kg (168 lb 14.4 oz) 09/05/2023 9:27 AM CDT Height 162.6 cm (5' 4 ) 09/05/2023 9:27 AM CDT Body Mass Index 28.99 09/05/2023 9:27 AM CDT documented in this encounter Ordered Prescriptions Prescription Sig Dispense Quantity Refills Last Filled Start Date End Date medroxyPROGESTERon e 150 mg/mL injection Inject 1 mL (150 mg total) into the muscle as instructed every 3 (three) months 1 mL 3 09/05/2023 venlafaxine XR (EFFEXOR-XR) 75 mg 24 hr capsule Take 1 capsule (75 mg total) by mouth daily Take with food. 90 capsule 1 09/05/2023 nitrofurantoin monohydrate (MACROBID) 100 mg capsule Take 1 capsule (100 mg total) by mouth 2 (two) times a day for 7 days 14 capsule 09/05/2023 4 documented in this encounter Progress Notes * Clemencia Lopez, ESTEPHANIA - 09/05/2023 9:30 AM CDT Images from the original note were not included. Patient ID: Marcin Contreras is a 53 y.o. female. Chief Complaint. Chief Complaint Patient presents with New Patient Med Management On depo, just wants to continue HPI. Patient is a 53 y.o. female HPI Patient presents in office to establish care. She has history of hyperlipidemia, thyroid nodules, and anxiety. Patient states she began medication to treat her anxiety last year was initially prescribed Beta Imani but they were ineffective. Currently taking venlafaxine 37.5 mg, been using the medication for 6 months, believes it has helped some but she still having anxiety daily. Her symptoms worsen when she is tight spaces, new places, or at crowed social events. Patient has also been experiencing urinary frequency and bladder pressure. She was last treated for a UTI a month ago with amoxicillin, states her symptoms did not improve with antibiotic use. She is also having pain, tingling, and intermittent numbness in her bilateral hands for several months, symptoms are worsening. She hasan initial appointment with ortho for her pain pain in 09/2023. Past Medical History: Diagnosis Date Allergic rhinitis Goiter, non-toxic IBS (irritable bowel syndrome) Thyroid nodule Past Surgical History: Procedure Laterality Date CYSTECTOMY KNEE ARTHROSCOPY SEPTOPLASTY No Known Allergies Social History Tobacco Use Smoking status: Never Smokeless tobacco: None Substance and Sexual Activity Drug use: None Sexual activity: None Alcohol Use: Unknown (09/05/2023) AUDIT-C Frequency of Alcohol Consumption: Monthly or less Average Number of Drinks: Not on file Frequency of Binge Drinking: Not on file Family History Problem Relation Age of Onset Colon cancer Father Prostate cancer Father Bladder Cancer Father Current Medications: Outpatient Encounter Medications as of 09/05/2023 Medication Sig Dispense Refill atorvastatin (LIPITOR) 10 mg tablet Take 1 tablet (10 mg total) by mouth daily calcium carbonate (OS-LAVELL) 1,250 mg (500 mg [...] Administer 1 spray into affected nostril(s) daily [DISCONTINUED] fexofenadine-pseudoephedrine (ROLDAN-D) 60-120 mg per 12 hr tablet Take 180 mg by mouth [DISCONTINUED] medroxyPROGESTERone 150 mg/mL injection [DISCONTINUED] venlafaxine XR (EFFEXOR-XR) 37.5 mg 24 hr capsule May cause drowsiness.Do not drink alcohol.Take with food/milk.Take or use exactly as directed. medroxyPROGESTERone 150 mg/mL injection Inject 1 mL (150 mg total) into the muscle as instructed every 3 (three) months 1 mL 3 nitrofurantoin monohydrate (MACROBID) 100 mg capsule Take 1 capsule (100 mg total) by mouth 2 (two)times a day for 7 days 14 capsule 0 venlafaxine XR (EFFEXOR-XR) 75 mg 24 hr capsule Take 1 capsule (75 mg total) by mouth daily Take with food. 90 capsule 1 No facility-administered encounter medications on file as of 09/05/2023. Review of Systems: Review of Systems Constitutional: Negative for chills and fever. Eyes: Negative for pain and visual disturbance. Respiratory: Negative for chest tightness, shortness of breath and wheezing. Cardiovascular: Negative for chest pain, palpitations and leg swelling. Gastrointestinal: Negative for abdominal pain, constipation, diarrhea, nausea and vomiting. Genitourinary: Positive for frequency and urgency. Negative for difficulty urinating, dysuria and flank pain. Musculoskeletal: Positive for arthralgias and joint swelling. Negative for gait problem. Neurological: Positive for numbness. Negative for dizziness, syncope, weakness, light-headedness and headaches. Psychiatric/Behavioral: Negative for dysphoric mood. The patient is nervous/anxious. BP 116/74 (BP Location: Left arm, Patient Position: Sitting) Pulse 96 Temp 36.8 ??C (98.2 ??F) (Temporal) Resp 18 Ht 162.6 cm (5' 4 ) Wt 76.6 kg (168 lb 14.4 oz) SpO2 97% BMI 28.99 kg/m?? Physical Exam: Physical Exam Constitutional: Appearance: Normal appearance. HENT: Head: Normocephalic. Eyes: Extraocular Movements: Extraocular movements intact. Neck: Vascular: No carotid bruit. Cardiovascular: Rate and Rhythm: Normal rate and regular rhythm. Pulses: Normal pulses. Heart sounds: Normal heart sounds, S1 normal and S2 normal. No murmur heard. Pulmonary: Effort: Pulmonary effort is normal. Breath sounds: Normal breath sounds. No wheezing. Abdominal: General: Bowel sounds are normal. Palpations: Abdomen is soft. Tenderness: There is no abdominal tenderness. There is no right CVA tenderness, left CVA tendernessor guarding. Musculoskeletal: General: Normal range of motion. Cervical back: Normal range of motion and neck supple. Right lower leg: No edema. Left lower leg: No edema. Skin: General: Skin is warm and dry. Findings: No erythema. Neurological: General: No focal deficit present. Mental Status: She is alert and oriented to person, place, and time. Motor: No weakness. Gait: Gait normal. Psychiatric: Attention and Perception: Attention normal. Mood and Affect: Mood normal. Speech: Speech normal. Behavior: Behavior normal. Thought Content: Thought content normal. Assessment & Plan: Diagnoses and all orders for this visit: SAVANNA (generalized anxiety disorder) (Primary) Assessment & Plan: Chronic, uncontrolled. Patient to increase venlafaxine from 37.5 mg to 75 mg daily. Follow up in one month. Other hyperlipidemia Assessment & Plan: Chronic, lipid panel to be redrawn. Patient to continue on atorvastatin 10 mg daily and low fat diet. Follow up in 6 months. Orders: - CBC with auto differential; Future - Comprehensive metabolic panel; Future - Lipid panel; Future Thyroid nodule Assessment & Plan: Chronic, following with Dr. Farias data communications analyst. Currently having thyroid US every 2 years. Arthralgia of both hands Comments: Patient to have IVANNA, RH factor, and sed rate drawn. Follow up with othro in 09/2023. Orders: - CRP (acute phase); Future - IVANNA ab ql w/rflx to IVANNA qn; Future - Rheumatoid factor; Future - Erythrocyte sedimentation rate; Future Urgency of urination Assessment & Plan: Urine dip positive for blood. Urine sample sent for culture. Patient prescribed Macrobid. Patient to be contacted once culture results are obtained. Orders: - POCT urinalysis dipstick - Urine culture Urine, clean voided; Future Encounter for screening mammogram for malignant neoplasm of breast - Screening Mammogram Bilateral W Roland; Future Other orders - nitrofurantoin monohydrate (MACROBID) 100 mg capsule; Take 1 capsule (100 mg total) by mouth 2 (two) times a day for 7 days - medroxyPROGESTERone 150 mg/mL injection; Inject 1 mL (150 mg total) into the muscle as instructedevery 3 (three) months - venlafaxine XR (EFFEXOR-XR) 75 mg 24 hr capsule; Take 1 capsule (75 mg total) by mouth daily Takewith food. Clemencia Lopez NP Cosigned by Narinder Dexter DO at 09/05/2023 5:45 PM CDT documented in this encounter Miscellaneous Notes * Assessment & Plan Note - Clemencia Lopez NP - 09/05/2023 11:45 AM CDT Associated Problem(s): Urgency of urination (Resolved 04/09/2024) Urine dip positive for blood. Urine sample sent for culture. Patient prescribed Macrobid. Patient to be contacted once culture results are obtained. * Assessment & Plan Note - Clemencia Lopez NP - 09/05/2023 11:43 AM CDT Associated Problem(s): Other hyperlipidemia Chronic, lipid panel to be redrawn. Patient to continue on atorvastatin 10 mg daily and low fat diet. Follow up in 6 months. * Assessment & Plan Note - Clemencia Lopez NP - 09/05/2023 11:42 AM CDT Associated Problem(s): SAVANNA (generalized anxiety disorder) Chronic, uncontrolled. Patient to increase venlafaxine from 37.5 mg to 75 mg daily. Follow up in one month. * Assessment & Plan Note - Clemencia Lopez NP - 09/05/2023 9:57 AM CDT Associated Problem(s): Thyroid nodule Chronic, following with Dr. Farias data communications analyst. Currently having thyroid US every 2 years. documented in this encounter Plan of Treatment Not on file documented as of this encounter Procedures Procedure Name Priority Date/Time Associated Diagnosis Comments POCT URINALYSIS DIPSTICK Routine 09/05/2023 10:32 AM CDT Urgency of urination documented in this encounter Results * (ABNORMAL) Screening Mammogram Bilateral W Roland (11/15/2023 8:27 AM CDT) Anatomical Region Laterality Modality Breast Bilateral Mammography Impressions 11/19/2023 10:44 AM CDT BI-RADS?? ATLAS category (overall): 0 - Incomplete: Needs Additional Imaging Evaluation Indeterminate findings in both breasts. Further evaluation with bilateral diagnostic mammogram and possible sonogram is recommended. ?? The patient has been or will be contacted. ?? Narrative 11/19/2023 10:44 AM CDT Screening Mammogram Bilateral W Roland: 11/15/23 The study was acquired using full field digital technology and interpreted from soft copy. 2D digital mammographic views, as well as 3D digital tomosynthesis were performed in the CC and MLO projections. CLINICAL: ??Encounter for screening mammogram for malignant neoplasm of breast. ??No relevant medical history has been documented for this patient. No known family history of breast cancer. COMPARISONS: 01/28/2022 Breast Imaging Screening Outside Reference 01/25/2021 Breast Imaging Screening Outside Reference 01/01/2020 Breast Imaging Diagnostic Outside Reference 12/10/2019 Breast Imaging Screening Outside Reference BREAST TISSUE: The breasts have scattered areas of fibroglandular density. FINDINGS: There are 2 focal asymmetries in the central right breast at middle and posterior depth. There is also an asymmetry in the central left breast middle depth on CC view with 2 possible correlates on MLO view. us Clemencia Lopez BRIDGE IRONWORKER IMG MAMMO PROCEDURES Final Res ult * Erythrocyte sedimentation rate (09/06/2023 9:00 AM CDT) Erythrocyte sedimentation rate 13 1 - 30 mm/hr Comment:Testing performed by : [address] [address] Blood 09/06/2023 9:00 AM CDT 09/06/2023 9:42 AM CDT us Clemencia Lopez BRIDGE IRONWORKER LAB BLOOD ORDERABLES Final Res ult Performing Organization Address City/State/RUST Co de Phone Number [facility] [address] [facility] Department [place] [address] * (ABNORMAL) Lipid panel (09/06/2023 9:00 AM [...] last revised on 2017. Testing performed by: [address] [address] Triglycerides 203(H) <=149 mg/dL [facility] [place] Comment: [...] last revised on 2017. Testing performed by: [address] [address] HDL 35(L) >=40 mg/dL [facility] Comment: Interpretive Data Ages [...] last revised on 2017. Testing performed by: [address] [address] LDL, calculated 104 <=129 mg/dL [facility] Comment: Interpretive Data Ages [...] last revised on 2017. Testing performed by: [address] [address] Non-HDL Cholesterol 145 mg/dL [facility] [place] Comment: Interpretive Data Ages [...] last revised on 2017. Testing performed by: [address] [address] Chol/HDL ratio 5 [facility] Comment:Testing performed by : [address] [address] Blood 09/06/2023 9:00 AM CDT 09/06/2023 11:45 AM CDT us Clemencia Lopez BRIDGE IRONWORKER LAB BLOOD ORDERABLES Final Res ult [facility] [address] [facility] Department [place] [address] * Rheumatoid factor (09/06/2023 9:00 AM CDT) Rheumatoid factor, quant <10.0 <=15.0 IUnits/mL Blood 09/06/2023 9:00 AM CDT 09/06/2023 12:42 PM CDT Clemencia Lopez BRIDGE IRONWORKER LAB BLOOD ORDERABLES Final Res ult Performing Organization Address City/[facility]/[place] Co de Phone Number [facility] [address] [place] [address] * IVANNA ab ql w/rflx to IVANNA [...] last revised on 2019. Testing performed by: [facility], [address] [facility], [place]., [address] Blood 09/06/2023 9:00 AM CDT 09/06/2023 11:44 AM CDT Clemencia Lopez BRIDGE IRONWORKER LAB BLOOD ORDERABLES Final Res ult Performing Organization Address [facility]/[place] Co de Phone Number [address] [place] [address] * CRP (acute phase) (09/06/2023 9:00 AM CDT) Pathologist [facility] CRP 1.1 <=10.0 mg/L Comment:Testing performed by : [facility], [address] [place] [address]., [address] Blood 09/06/2023 9:00 AM CDT 09/06/2023 11:45 AM CDT us Clemencia Lopez NP LAB BLOOD ORDERABLES Final Res ult [facility] [address] [facility] Department [place] [address] * Comprehensive metabolic panel (09/06/2023 9:00 AM CDT) Sodium 140 135 - 145 mmol/L Comment:Testing performed by : [address] [address] Potassium, pl 4.1 3.3 - 4.9 mmol/L [facility] Comment:Testing performed by : [address] [address] Chloride 106 97 - 110 mmol/L [facility] Comment:Testing performed by : [address] [address] CO2 22 22 - 32 mmol/L [facility] Comment:Testing performed by : [address] [address] Anion gap 12 2 - 15 mmol/L [facility] Comment:Testing performed by : [address] [address] BUN 15 6 - 25 mg/dL [facility] Comment:Testing performed by : [address] [address] Creatinine 0.60 0.60 - 1.10 mg/dL [facility] Comment:Testing performed by : [address] [address] Glucose 105 70 - 199 mg/dL [facility] [...] was last revised 2022. Testing performed by: [address] [address] Calcium 9.1 8.5 - 10.3 mg/dL [facility] Comment:Testing performed by : [address] [address] Bilirubin, total 0.4 0.1 - 1.2 mg/dL [facility] Comment:Testing performed by : [address] [address] Protein, pl 6.9 6.5 - 8.5 g/dL [facility] Comment:Testing performed by : [address] [address] Albumin 4.1 3.5 - 5.0 g/dL [facility] Comment:Testing performed by : [address] [address] Alk phos 67 40 - 130 Units/L [facility] Comment:Testing performed by : [address] [address] ALT 14 7 - 45 Units/L [facility] Comment:Testing performed by : [address] [address] AST 16 10 - 45 Units/L [facility] Comment:Testing performed by : [address] [address] Blood 09/06/2023 9:00 AM CDT 09/06/2023 11:45 AM CDT us Clemencia Lopez NP LAB BLOOD ORDERABLES Final Res ult [facility] [address] [facility] Department [place] [address] * CBC with auto differential (09/06/2023 9:00 AM CDT) WBC 7.8 3.8 - 9.9 K/cumm Comment:Testing performed by : [address] [address] Hgb 14.7 11.9 - 15.5 g/dL [facility] Comment:Testing performed by : [address], [address] Hct 43.6 35.6 - 45.5 % [facility] Comment:Testing performed by : [address] [address] Plt 323 150 - 400 K/cumm [facility] Comment:Testing performed by : [address] [address] MPV 9.8 9.1 - 12.3 fL [facility] Comment:Testing performed by : [address], [address] RBC 4.84 3.90 - 5.20 M/cumm [facility] Comment:Testing performed by : [address], [address] MCV 90.1 81.3 - 96.4 fL [facility] Comment:Testing performed by : [address], [address] MCH 30.4 27.1 - 33.3 pg [facility] Comment:Testing performed by : [address], [address] MCHC 33.7 32.3 - 35.7 g/dL [facility] Comment:Testing performed by : [address], [address] RDW CV 12.8 11.1 - 14.9 % [facility] Comment:Testing performed by : [address], [address] RDW SD 41.9 35.7 - 48.1 fL [facility] Comment:Testing performed by : [address], [address] NRBC abs 0.00 0.00 - 0.01 K/cumm [facility] Comment:Testing performed by : [address] [address] Blood 09/06/2023 9:00 AM CDT 09/06/2023 9:42 AM CDT Clemencia Lopez NP LAB BLOOD ORDERABLES Final Res ult Performing Organization Address City/[facility]/ZIP Co de Phone Number [address] [place] [address] * Urine culture Urine, clean voided (09/05/2023 10:39 AM CDT) Report Final Report: Less than 100,000 colonies/mL (clinically insignificant growth based on current clinical standards) Comment:Testing performed by : [facility], [address] [place]., [address] Organism (CLINICALLY INSIGNIFICANT GROWTH [facility] Urine, clean voided 09/05/2023 10:39 AM CDT 09/05/2023 7:04 PM CDT Narrative [facility] - 09/06/2023 8:37 PM CDT Testing performed by [facility] ([phone]) Clemencia Lopez NP LAB MICROBIOLOGY - GENERAL ORD ERABLES Final Result Performing Organization Address [facility]/[place]UST Co de Phone Number [address] [place] [address] * (ABNORMAL) POCT urinalysis dipstick (09/05/2023 10:32 AM CDT) Color, Urine, POC Dark Yellow Clarity, ur, POC Clear Clear Glucose, ur, POC Negative Negative MG/DL Bilirubin, ur, POC Negative Negative, Small, Moderate, Large Ketones, ur, POC Negative Negative Specific Sur[place], POC 1.030 1.003 - 1.030 Blood, ur, POC Trace(A) Negative pH, ur, POC 6.0 5.0 - 8.0 Protein, ur, POC Trace(A) Negative Urobilinogen, urine, POC 0.2 0.2 - 1.0 mg/dL Nitrite, ur, POC Negative Negative Leukocytes, ur, POC Negative Negative Lot Number [id number] Urine 09/05/2023 10:3 2 AM CDT Clemencia Lopez BRIDGE IRONWORKER POINT OF CARE TEST ORDERABLES Final Result documented in this encounter Visit Diagnoses Diagnosis SAVANNA (generalized anxiety disorder)- Primary Generalized anxiety disorder Other hyperlipidemia Thyroid nodule Nontoxic uninodular goiter Arthralgia of both hands Urgency of urination Encounter for screening mammogram for malignant neoplasm of breast Urgency of urination Encounter for screening mammogram for malignant neoplasm of breast documented in this encounter Discontinued Medications Medication Sig Discontinue Reason Start Date End Da te fexofenadine-pseudoephed rine (ROLDAN-D) 60-120 mg per 12 hr tablet Take 180 mg by mouth Alternate therapy 11/29/201609/04 medroxyPROGESTERone 150 mg/mL injection Reorder 05/02/2018 09/05/2023 venlafaxine XR (EFFEXOR-XR) 37.5 mg 24 hr capsule May cause drowsiness.Do not drink alcohol.Take with food/milk.Take or use exactly as directed. Dose adjustment 04/18/2023 09/05/2023 documented as of this encounter Historical Medications * This list may reflect changes made after this encounter. cholecalciferol (VITAMIN D-3) 2000 unit tablet 03/31/2018 fluticasone propionate (FLONASE) 50 mcg/actuation nasal spray Administer 1 spray into affected nostril(s) daily 03/13/2018 4 fexofenadine (ROLDAN) 180 mg tablet Take with plenty of water.Obtain advice for OTCs.Swallow whole.Avoid grapefruit and grapefruit juice. 09/24/2022 4 calcium carbonate-vitami n D3 1,500 mg (600mg elemental) -800 unit per tablet Take 1 tablet by mouth daily 03/31/2018 4 calcium carbonate (OS-LAVELL) 1,250 mg (500 mg elemental) tablet Take 500 mg by mouth daily 01/02/2023 4 atorvastatin (LIPITOR) 10 mg tablet Take 1 tablet (10 mg total) by mouth daily 11/11/2019 4 venlafaxine XR (EFFEXOR-XR) 37.5 mg 24 hr capsule May cause drowsiness.Do not drink alcohol.Take with food/milk.Take or use exactly as directed. 04/18/2023 4 fexofenadine-pse udoephedrine (ROLDAN-D) 60-120 mg per 12 hr tablet Take 180 mg by mouth 11/29/2016 4 medroxyPROGESTER one 150 mg/mL injection 05/02/2018 4 added in this encounter Care Teams Fire Control Officer Relationship Specialty Start Date End Date Clemencia Lopez BRIDGE IRONWORKER [address] [place] [id number] PCP - General Family Medicine 09/05/23 documented as of this encounter
--- OUTSIDE RECORDS SUMMARY | 2024-04-18 13:21 | XMS_ITS | Encounter Summary ---
Author Organization [facility] Healthcare Address [address] [place] [address] Care Team Providers Care Marksmanship Instructor Name Role Phone Unavailable Primary Care Provider Unavailabl e Reason for Visit * Diagnostic Imaging (Routine) - Pending Review Specialty Diagnoses / Procedures Referred By Tomas smith Referred To Contact Procedures Breast Imaging Screening Outside Reference Transcribed Order, Provider Referral ID Status Reason Start Date Expiration Date V isits Requested Visits Authorized [id number] Pending Review 11/19/2023 12/18/2024 1 1 Encounter Details Date Type Department Care Team (Latest Contact Info) Description 01/25/2021 - 01/25/2021 11:59 PM CDT Hospital Encounter [facility] Outside Images [address] [place] [id number] Discharge Disposition: Discharge to home or self care Social History Tobacco Use Types Packs/Day Years Used Date Smoking Tobacco: Never Assessed Comments Unknown Sex and Gender Information Value Date Recorded Sex Assigned at Not on file 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 Gender Identity Not on file Sexual Orientation Not on file documented as of this encounter Medications at Time of Discharge cholecalciferol (VITAMIN D-3) 2000 unit tablet 03/31/2018 atorvastatin (LIPITOR) 10 mg tablet Take 1 tablet (10 mg total) by mouth daily 11/11/2019 4 calcium carbonate-vitami n D3 1,500 mg (600mg elemental) -800 unit per tablet Take 1 tablet by mouth daily 03/31/2018 4 fexofenadine-pse udoephedrine (ROLDAN-D) 60-120 mg per 12 hr tablet Take 180 mg by mouth 11/29/2016 4 fluticasone propionate (FLONASE) 50 mcg/actuation nasal spray Administer 1 spray into affected nostril(s) daily 03/13/2018 4 medroxyPROGESTER one 150 mg/mL injection 05/02/2018 4 documented as of this encounter Discharge Disposition Disposition Code Departure Means Destination Discharge to home or self care documented in this encounter Plan of Treatment Not on file documented as of this encounter Procedures Procedure Name Priority Date/Time Associated Diagnosis Comments BREAST IMAGING MG SCREENING OUTSIDE REFERENCE Routine 01/25/2021 12:00 AM CDT documented in this encounter Results * Breast Imaging Screening Outside Reference (01/25/2021 12:00 AM CDT) Narrative TISHA_[email or web address] - 11/19/2023 10:20 AM CDT This order has been auto-finalized and does not contain a result. us Provider Transcribed Order IMG MAMMO PROCEDURES Final Result RAD_RIAN_MHB_MHE documented in this encounter Visit Diagnoses Not on filedocumented in this encounter
--- OUTSIDE RECORDS SUMMARY | 2024-04-18 13:21 | XMS_ITS | Encounter Summary ---
Author Organization [facility] Healthcare Address [address] [place] [address] Care Team Providers Care Production Gear Cutter Name Role Phone Unknown, Notinfile Primary Care Provider Unavail able Clemencia Lopez NP Primary Care Provider [phone] Encounter Details Date Type Department Care Team (Late st Contact Info) Description 05/22/2022 Orders Only [facility] Health Information Management [address] [place] [address] Scanning, Provider Social History Tobacco Use Types Packs/Day Years Used Date Smoking Tobacco: Never Assessed AUDIT-C Answer Date Recorded Q1: How often [...] on file Legal 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 Gender Identity Not on file Sexual Orientation Not on file documented as of this encounter Plan of Treatment Not on file documented as of this encounter Procedures Procedure Name Priority Date/Time Associated Diagnosis Comments SCAN - PATHOLOGY 05/22/2022 documented in this encounter Results * SCAN - PATHOLOGY (05/22/2022) us Provider Scanning Final Result documented in this encounter Visit Diagnoses Not on filedocumented in this encounter Care Teams Production Gear Cutter Relationship Specialty Start Date End Date Unknown, Notinfile PCP - General 08/14/23 09/04/23 Clemencia Lopez, DEV MANAGER [address] [place] [address] PCP - General Family Medicine 09/05/23 documented as of this encounter
--- OUTSIDE RECORDS SUMMARY | 2024-04-18 13:21 | XMS_ITS | Encounter Summary ---
Author Organization [facility] Healthcare Address [address] [place] [address] Care Team Providers Care Change Management Expert Name Role Phone Clemencia Lopez TRANSITION SPECIALIST Primary Care Provider Encounter Details Date Type Department Care Team ([facility] st Contact Info) Description 09/07/2023 Telephone [facility] Medical Group Primary Care [address] [facility] [address] [place] [address] Clemencia Lopez, TRANSITION SPECIALIST [address] [facility] [address] [place] [address] Social History Tobacco Use Types [...] on file 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 * Telephone Encounter - Mel Mullins MA - 09/07/2023 8:10 AM CDT ----- Message from Clemencia Lopez NP sent at 09/07/2023 7:00 AM CDT ----- Please call patient. Her urine culture is normal, no UTI, she can stop the antibiotic. Since there was blood in her urine dip, I want her to complete another UA next week. Order is in patient's chartshe can go to the lab at anytime next week to give a new urine sample. documented in this encounter Plan of Treatment Not on file documented as of this encounter Visit Diagnoses Not on filedocumented in this encounter Care Teams Change Management Expert Relationship Specialty Start Date End Date Clemencia Lopez NP [address] [place] [phone] PCP - General Family Medicine 09/05/23 documented as of this encounter
--- OUTSIDE RECORDS SUMMARY | 2024-04-18 13:21 | XMS_ITS | Encounter Summary ---
Author Organization [facility] Healthcare Address [address] [place] [address] Care Team Providers Care Plant Maintenance Worker Name Role Phone Unavailable Primary Care Provider Unavailabl e Reason for Visit * Diagnostic Imaging (Routine) - Pending Review Specialty Diagnoses / Procedures Referred By Tomas smith Referred To Contact Procedures Breast Imaging Screening Outside Reference Transcribed Order, Provider Referral ID Status Reason Start Date Expiration Date V isits Requested Visits Authorized [id number] Pending Review 11/19/2023 12/18/2024 1 1 Encounter Details Date Type Department Care Team (Late st Contact Info) Description 12/10/2019 Ancillary Procedure [facility] Outside Images [address] [place] [address] Social History Tobacco Use Types Packs/Day Years Used Date Smoking Tobacco: Never Assessed Comments Unknown Sex and Gender Information Value Date Recorded Sex Assigned at Not on file 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 us Provider Transcribed Order IMG MAMMO PROCEDURES Final Result Performing Organization Address City/State/[facility] [[email or web address]] Co de Phone Number RAD_RIAN_MHB_MHE documented in this encounter Visit Diagnoses Not on filedocumented in this encounter
--- OUTSIDE RECORDS SUMMARY | 2024-04-18 13:21 | XMS_ITS | Encounter Summary ---
Author Organization 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 Find out if she is still having any urinary symptoms. documented in this encounter Plan of Treatment Not on file documented as of this encounter Procedures Procedure Name Priority Date/Time Associated Diagnosis Comments URINALYSIS AND REFLEX TO MICROSCOPIC AND CULTURE Routine 09/11/2023 8:45 AM CDT Hematuria, unspecified type documented in this encounter Results * Urinalysis reflex to microscopic and culture Urine (09/11/2023 8:45 AM CDT) Color, ur Yellow Yellow Comment:Testing performed by : [address] [address] Clarity, ur Clear Clear POONAM Comment:Testing performed by : [address] [address] Specific gravity, ur 1.022 1.003 - 1.030 POONAM Comment:Testing performed by : [address] [address] pH, urine 6.0 POONAM Comment: Interpretive Data ? Urine pH is affected by diet, medications, systemic acid-base disturbances, and renal tubular function. ??pH may affect urinary stone formation. ??For example, urine pH below 6.0 may help reduce the tendency for calcium phosphate stones and pH greater than 6.0 may reduce the tendency for uric acid stone formation. Source: [facility] [email or web address] Current Interpretive Data was last revised on 2017 Testing performed by: [address] [address] Protein, ur ql Negative Negative POONAM Comment:Testing performed by : [address] [address] Glucose, ur ql Negative Negative POONAM Comment:Testing performed by : [address] [address] Ketones, ur Negative Negative POONAM Comment:Testing performed by : [address] [address] Bilirubin, ur Negative Negative POONAM Comment:Testing performed by : [address] [address] Blood, ur Negative Negative POONAM Comment:Testing performed by : [address] [place]., [address] Urobilinogen, ur <2.0 <2.0 mg/dL POONAM Comment:Testing performed by : [address] [address] Nitrite, ur Negative Negative POONAM Comment:Testing performed by : [address] [address] Leukocyte esterase, ur Negative Negative POONAM Comment:Testing performed by : [address] [address] UA reflex comment Reflex conditions for microscopic UA and culture not met. POONAM Comment:Testing performed by : [address] [address] Urine 09/11/2023 8:45 AM CDT 09/11/2023 9:45 AM CDT Narrative POONAM - 09/11/2023 10:04 AM CDT Urine Collection Method->Clean Catch us Clemencia Lopez PARAPROFESSIONAL INTERPRETER LAB MICROBIOLOGY - GENERAL ORD ERABLES Final Result [facility] [address] [facility] Department [place] [address] documented in this encounter Visit Diagnoses Diagnosis Hematuria, unspecified type documented in this encounter Care Teams Environmental Programs Manager Relationship Specialty Start Date End Date Clemencia Lopez, PARAPROFESSIONAL INTERPRETER [address] [place] [phone] PCP - General Family Medicine 09/05/23 documented as of this encounter
--- OUTSIDE RECORDS SUMMARY | 2024-04-18 13:21 | XMS_ITS | Encounter Summary ---
Author Organization [facility] Healthcare Address [address] [place] [address] Care Team Providers Care Blood Tester Fowl Name Role Phone Clemencia Lopez MULTISENSOR INTELLIGENCE OFFICER Primary Care Provider Reason for Referral * Medication Authorization (Routine) - Pending Review Specialty Diagnoses / Procedures Referred By Contac t Referred To Contact Diagnoses Encounter for surveillance of injectable contraceptive Clemencia Lopez NP [address] [address] Phone: tel: fax: Referral ID Status Reason Start Date Expiration Date V isits Requested Visits Authorized Pending Review 10/03/2023 11/01/2024 1 1 Reason for Visit * Reason Comments Follow-up 4 week * Medication Authorization (Routine) - Pending Review Specialty Diagnoses / Procedures Referred By Tomas t Referred To Contact Diagnoses Encounter for surveillance of injectable contraceptive Clemencia Lopez NP [address] [address] Phone: tel: fax: Referral ID Status Reason Start Date Expiration Date V isits Requested Visits Authorized Pending Review 10/03/2023 11/01/2024 1 1 Encounter Details Date Type Department Care Team (Latest Contact Info) Description 10/03/2023 10:00 AM CDT Office Visit [facility] Medical Group Primary Care [address] [facility] [address] [place] [address] Clemencia Lopez NP [address] [facility] [address] [place] [address] SAVANNA (generalized anxiety disorder) (Primary Dx); Encounter for surveillance of injectable contraceptive Social History Tobacco Use Types Packs/Day Years [...] on file 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 Gender Identity Not on file Sexual Orientation Not on file documented as of this encounter Last Filed Vital Signs Vital Sign Reading Time Taken Comments Blood Pressure 116/78 10/03/2023 9:23 AM CDT Pulse 94 10/03/2023 9:23 AM CDT Temperature 36.6 ??C (97.8 ??F) 10/03/2023 9:23 AM CD T Respiratory Rate 18 10/03/2023 9:23 AM CDT Oxygen Saturation 97% 10/03/2023 9:23 AM CDT Inhaled Oxygen Concentration - - Weight 75.8 kg (167 lb 3.2 oz) 10/03/2023 9:23 A M CDT Height 162.6 cm (5' 4 ) 10/03/2023 9:23 AM CDT Body Mass Index 28.7 10/03/2023 9:23 AM CDT documented in this encounter Ordered Prescriptions Prescription Sig Dispense Quantity Refills Last Filled Start Date End Date atorvastatin (LIPITOR) 10 mg tablet Take 1 tablet (10 mg total) by mouth daily 90 tablet 1 10/03/2023 04/01/2024 documented in this encounter Progress Notes * Clemencia Lopez NP - 10/03/2023 10:00 AM CDT Images from the original note were not included. Patient ID: Marcin Contreras is a 53 y.o. female. Chief Complaint. Chief Complaint Patient presents with Follow-up 4 week HPI. Patient is a 53 y.o. female HPI Patient presents in office for anxiety follow up. Her venlafaxine was increased from 37.5 mg to 75 mg daily last month for increased anxiety symptoms. States her anxiety is much better controlled with increased dosage. Denies any side effects with venlafaxine use. Past Medical History: Diagnosis Date Allergic rhinitis [...] Current Medications: Outpatient Encounter Medications as of 10/03/2023 Medication Sig Dispense Refill calcium carbonate (OS-LAVELL) 1,250 mg (500 mg [...] daily Take with food. 90 capsule 1 atorvastatin (LIPITOR) 10 mg tablet Take 1 tablet (10 mg total) by mouth daily 90 tablet 1 [DISCONTINUED] atorvastatin (LIPITOR) 10 mg tablet Take 1 tablet (10 mg total) by mouth daily Facility-Administered Encounter Medications as of 10/03/2023 Medication Dose Route Frequency Provider Last Rate Last Admin [COMPLETED] medroxyPROGESTERone (DEPO-PROVERA) 150 mg/mL injection 150 mg 150 mg intramuscular During hospitalization 150 mg at 10/03/23 0943 Review of Systems: Review of Systems Constitutional: Negative for chills and fever. Eyes: Negative for pain and visual disturbance. Respiratory: Negative for chest tightness. Cardiovascular: Negative for chest pain and palpitations. Gastrointestinal: Negative for abdominal pain, constipation, diarrhea, nausea and vomiting. Neurological: Negative for dizziness, syncope, light-headedness and headaches. Psychiatric/Behavioral: Negative for dysphoric mood and sleep disturbance. The patient is not nervous/anxious. BP 116/78 (BP Location: Left arm, Patient Position: Sitting) Pulse 94 Temp 36.6 ??C (97.8 ??F) (Temporal) Resp 18 Ht 162.6 cm (5' 4 ) Wt 75.8 kg (167 lb 3.2 oz) SpO2 97% BMI 28.70 kg/m?? Physical Exam: Physical Exam Constitutional: Appearance: Normal appearance. HENT: Head: Normocephalic. Eyes: Extraocular Movements: Extraocular movements intact. Cardiovascular: Rate and Rhythm: Normal rate. Pulmonary: Effort: Pulmonary effort is normal. Musculoskeletal: General: Normal range of motion. Cervical back: Normal range of motion. Skin: General: Skin is warm and dry. [...] anxiety disorder) (Primary) Assessment & Plan: Chronic, controlled. Patient to continue on venlafaxine 75 mg daily. Follow up in 6 months. Encounter for surveillance of injectable contraceptive - medroxyPROGESTERone (DEPO-PROVERA) 150 mg/mL injection 150 mg Other orders - atorvastatin (LIPITOR) 10 mg tablet; Take 1 tablet (10 mg total) by mouth daily Clemencia Lopez NP documented in this encounter Miscellaneous Notes * Assessment & Plan Note - Clemencia Lopez NP - 10/03/2023 3:12 PM CDT Associated Problem(s): SAVANNA (generalized anxiety disorder) Chronic, controlled. Patient to continue on venlafaxine 75 mg daily. Follow up in 6 months. documented in this encounter Plan of Treatment Not on file documented as of this encounter Visit Diagnoses Diagnosis SAVANNA (generalized anxiety disorder)- Primary Generalized anxiety disorder Encounter for surveillance of injectable contraceptive documented in this encounter Administered Medications Inactive Administered Medications - up to 3 most recent administrations Medication Order MAR Action Action Date Dose Rate Site medroxyPROGESTERone (DEPO-PROVERA) 150 mg/mL injection 150 mg 150 mg, intramuscular, During hospitalization, contraception, Starting on Sun10/03/23 at 0928, For 1 dose, Shake wellIndications:Encounter for surveillance of injectable contraceptive Given 10/03/2023 9:43 AM CDT 150 mg Left Dorsogluteal/Butt ock documented in this encounter Discontinued Medications Medication Sig Discontinue Reason Start Date End Da te atorvastatin (LIPITOR) 10 mg tablet Take 1 tablet (10 mg total) by mouth daily Reorder 11/11/2019 10/03/2023 documented as of this encounter Care Teams Blood Tester Fowl Relationship Specialty Start Date End Date Clemencia Lopez NP [address] [place] [address] PCP - General Family Medicine 09/05/23 documented as of this encounter
--- OUTSIDE RECORDS SUMMARY | 2024-04-18 13:21 | XMS_ITS | Encounter Summary ---
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 Gender Identity Not on file Sexual Orientation Not on file documented as of this encounter Medications at Time of Discharge cholecalciferol (VITAMIN D-3) 2000 unit tablet 03/31/2018 medroxyPROGESTERo ne 150 mg/mL injection Inject 1 mL (150 mg total) into the muscle as instructed every 3 (three) months 1 mL 3 09/05/2023 nitrofurantoin monohydrate (MACROBID) 100 mg capsule Take 1 capsule (100 mg total) by mouth 2 (two) times a day for 7 days 14 capsule 09/05/2023 4 atorvastatin (LIPITOR) 10 mg tablet Take 1 tablet (10 mg total) by mouth daily 11/11/2019 4 calcium carbonate (OS-LAVELL) 1,250 mg (500 mg elemental) tablet Take 500 mg by mouth daily 01/02/2023 4 calcium carbonate-vitamin D3 1,500 mg (600mg elemental) [...] Encounter Note - Clemencia Lopez NP - 09/05/2023 11:59 PM CDT Please call patient. Her urine culture is [...] Procedure Name Priority Date/Time Associated Diagnosis Comments URINE CULTURE Routine 09/05/2023 10:39 AM CDT Urgency of urination documented in this encounter Results * Urine culture Urine, clean voided (09/05/2023 10:39 AM CDT) Report Final Report: Less than 100,000 colonies/mL (clinically insignificant growth based on current clinical standards) Comment:Testing performed by : [facility], [address] [place] [address] Organism (CLINICALLY INSIGNIFICANT GROWTH POONAM Urine, clean voided 09/05/2023 10:39 AM CDT 09/05/2023 7:04 PM CDT Narrative POONAM BEAVERS - 09/06/2023 8:37 PM CDT Testing performed by [facility] ([phone]) us Clemencia Lopez NP LAB MICROBIOLOGY - GENERAL ORD ERABLES Final Result [facility] [id number] [facility] Department [place] [address] documented in this encounter Visit Diagnoses Diagnosis Urgency of urination documented in this encounter Care Teams Vamp Throater Relationship Specialty Start Date End Date Clemencia Lopez, CHILD PSYCHOLOGY TEACHER [address] [place] [address] PCP - General Family Medicine 09/05/23 documented as of this encounter
--- OUTSIDE RECORDS SUMMARY | 2024-04-18 13:21 | XMS_ITS | Encounter Summary ---
Author Organization [facility] Address [address] [place] [address] Care Team Providers Care Resource Agent Name Role Phone Clemencia Lopez HOOKER OPERATOR Primary Care Provider [phone] Reason for Referral * Diagnostic Imaging (Routine) - Closed Specialty Diagnoses / Procedures Referred By Tomas smith Referred To Contact Diagnoses Encounter for screening mammogram for malignant neoplasm of breast Procedures Screening Mammogram Bilateral W Clemencia Mendoza NP [address] [place] [address] Phone: tel: fax: [address] [phone] Referral ID Status Reason Start Date Expiration Date Visits Re quested Visits Authorized [id number] Closed 09/05/2023 10/04/2024 1 1 Reason for Visit * Diagnostic Imaging (Routine) - Closed Specialty Diagnoses / Procedures Referred By Tomas smith Referred To Contact Diagnoses Encounter for screening mammogram for malignant neoplasm of breast Procedures Screening Mammogram Bilateral W Clemencia Mendoza NP [address] [place] [address] Phone: tel: fax: [address] [phone] Referral ID Status Reason Start Date Expiration Date Visits Re quested Visits Authorized [id number] Closed 09/05/2023 10/04/2024 1 1 Encounter Details Date Type Department Care Team (Latest Contact Info) Description 11/15/2023 8:15 AM CDT - 11/15/2023 11:59 PM CDT Hospital Encounter 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 documented in this encounter Plan of Treatment Not on file documented as of this encounter Procedures Procedure Name Priority Date/Time Associated Diagnosis Comments SCREENING MAMMOGRAM BILATERAL W ROLAND Schedule Routine, Read Routine (OP Routine) 11/15/2023 8:27 AM CDT Encounter for screening mammogram for malignant neoplasm of breast documented in this encounter Results * (ABNORMAL) [...] correlates on MLO view. us Clemencia Lopez NP IMG MAMMO PROCEDURES Final Res ult documented in this encounter Visit Diagnoses Diagnosis Encounter for screening mammogram for malignant neoplasm of breast documented in this encounter Care Teams Resource Agent Relationship Specialty Start Date End Date Clemencia Lopez NP [address] [place] [address] PCP - General Family Medicine 09/05/23 documented as of this encounter
--- OUTSIDE RECORDS SUMMARY | 2024-04-18 13:21 | XMS_ITS | Encounter Summary ---
Author Organization [facility] Healthcare Address [address] [place] [address] Care Team Providers Care Hob Grinder Name Role Phone Unavailable Primary Care Provider Unavailabl e Reason for Visit * Diagnostic Imaging (Routine) - Pending Review Specialty Diagnoses / Procedures Referred By Tomas smith Referred To Contact Procedures Breast Imaging Screening Outside Reference Transcribed Order, Provider Referral ID Status Reason Start Date Expiration Date V isits Requested Visits Authorized [id number] Pending Review 11/19/2023 12/18/2024 1 1 Encounter Details Date Type Department Care Team (Latest Contact Info) Description 01/28/2022 - 01/28/2022 11:59 PM CDT Hospital Encounter [facility] Outside Images [address] [place] [id number] Discharge Disposition: Discharge to home or self care Social History Tobacco Use Types Packs/Day Years Used Date Smoking Tobacco: Never Assessed Comments Unknown Sex and Gender Information Value Date Recorded Sex Assigned at Not on file 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 us Provider Transcribed Order IMG MAMMO PROCEDURES Final Result [id number] documented in this encounter Visit Diagnoses Not on filedocumented in this encounter
--- OUTSIDE RECORDS SUMMARY | 2024-04-18 13:21 | XMS_ITS | Encounter Summary ---
Author Organization [facility] Facility Care Team Providers Care Source Water Protection Specialist Name Role Phone Unknown, Brannonnfdesmond Primary Care Provider Unavail able Clemencia Lopez CERTIFIED FORKLIFT OPERATOR Primary Care Provider [phone] Encounter Details Date Type Department Care Team (Latest Contact Info) Description 10/04/2016 Orders Only [facility] ProviderDorcas MD [address] [place] [id number] Social History Tobacco Use Types Packs/Day Years Used Date Smoking Tobacco: Never Assessed Comments Unknown Sex and Gender Information Value Date Recorded Sex Assigned at Not on file 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 Historical Provider Final Res ult documented in this encounter Visit Diagnoses Not on filedocumented in this encounter Care Teams Source Water Protection Specialist Relationship Specialty Start Date End Date Unknown, Jayce PCP - General 08/14/23 09/04/23 Clemencia Lopez, CERTIFIED FORKLIFT OPERATOR [facility] [id number] PCP - General Family Medicine 09/05/23 documented as of this encounter
== END 2024-04-13 17:14 | disposition home or self-care (01) ==
PROVIDERS: Emergency Provider Nurse Practitioner
DX: J02.9 Acute pharyngitis, unspecified (principal); Z20.818 Contact with and (suspected) exposure to other bacterial communicable diseases
CPT/HCPCS: 87081; 87426; 87804; 87880; 99213; G0463